=== PATIENT | male | born 1965 | race Caucasian/White ===

== ENCOUNTER 2023-04-18 09:45 | Outpatient (OUT) | payer MEDICARE, SELFPAY ==
[2023-04-18 10:33] LABS: Estimated Average Glucose 154 mg/dL
== END 2023-04-18 09:46 | disposition home or self-care (01) ==
PROVIDERS: PCP Family Medicine; Visit Provider Family Medicine
DX: E11.65 Type 2 diabetes mellitus with hyperglycemia (principal)
CPT/HCPCS: 36415; 83036

== ENCOUNTER 2023-05-21 12:59 | Outpatient (OUT) | payer MEDICARE, SELFPAY ==
--- NOTE | 2023-05-21 13:07 | XR_ITS ---
The [address] [address] Patient Name: ELÍAS SANCHEZ MRN: [id number] date: 1965 Sex: M Assigned Patient Location: RAD Current Patient Location: RAD Accession/Order Number: [id number] Exam Date: 05/21/2023 13:10 Report Date: 05/21/2023 13:26 At the request of: SHAIKH JAQUELINE Procedure: XR chest 2V EXAM: XR chest 2V HISTORY: Chronic Cough R05.3 COMPARISON: 01/14/2021 TECHNIQUE: Upright PA and lateral chest x-ray FINDINGS: There is a very small amount of linear atelectasis or scarring at the left lung base. No acute infiltrate, effusion or pneumothorax is identified. Flattening of the hemidiaphragms suggest COPD. The heart is not enlarged and the vasculature is not distended. There has been additional surgery with additional hardware now in place projecting over the lower cervical and upper thoracic spine. XR/XR chest 2V IMPRESSION: No acute infiltrate or evidence of cardiac decompensation. An element of COPD is suggested. A small amount of linear atelectasis or scarring is seen at the left lung base, and there has been interval surgery with hardware in place in the spine. The overall appearance of the chest is otherwise unchanged. Electronically authenticated by: CHRIS CRAIG Date: 05/21/2023 13:26
== END 2023-05-21 13:00 | disposition home or self-care (01) ==
LOC: RAD 13:02
PROVIDERS: PCP Family Medicine; Visit Provider Internal Medicine
DX: R05.3 Chronic cough (principal)
CPT/HCPCS: 71046

== ENCOUNTER 2023-06-10 13:06 | Outpatient (OUT) | payer MEDICARE, SELFPAY ==
[2023-06-10 13:19] LABS: Hemoglobin 15.8 g/dL (14.0-18.0)
--- NOTE | 2023-06-10 14:12 | RT_ITS ---
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 Findings were considered accurate and reproducible, with exception of DLCO which did not meet ATS standards. Both pre- and post-bronchodilator values utilized for spirometry. Spirometry (based on pre-bronchodilator values): -FEV1/FVC: Reduced @ 66% -FEV1: Moderately reduced @ 60% -FVC: Normal @ 70% -There is no significant bronchodilator response. Lung volumes by plethysmography: -RV: Increased @ 155% -TLC: Normal @ 95% Diffusion capacity: -DLCO: Mild-moderate reduction @ 66 when corrected for Hb 15.8g/dL Flow-volume loop: -Moderate obstructive pattern Impressions: -Spirometry suggests moderate obstruction. An elevated RV suggests air trapping. There is a utnh-je-tvgtrezmet reduced diffusion capacity. 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 Clinical correlation required. Electronically Signed On 06-12-2023 13:23:19 EST by Sam Schmid
[2023-06-10 14:13] VITALS: PULSE 65; O2SAT 95
[2023-06-10] MEDS: ALBUTEROL SULFATE 2.5 MG/3 ML VIAL NEB IH (14:13)
== END 2023-06-10 13:07 | disposition home or self-care (01) ==
LOC: CARD 13:07
PROVIDERS: PCP Family Medicine; Visit Provider Internal Medicine
DX: R05.3 Chronic cough (principal)
CPT/HCPCS: 36415; 85018; 94060; 94726; 94729

== ENCOUNTER 2023-10-07 16:06 | Emergency (ER) | payer MEDICARE, SELFPAY ==
[2023-10-07] VITALS (14 sets, daily range): BP systolic 104–111; BP diastolic 65–73; PULSE 69–81; TEMP 36.7–36.8; O2SAT 89–95; BMI 28.9
--- NOTE | 2023-10-07 16:18 | XR_ITS ---
The [address] [address] Patient Name: ELÍAS SANCHEZ MRN: [id number] date: 1965 Sex: M Assigned Patient Location: ER Current Patient Location: ED.MAIN Accession/Order Number: [id number] Exam Date: 10/07/2023 16:42 Report Date: 10/07/2023 17:06 At the request of: GLADYS SCOTT Procedure: XR chest 1V EXAM: XR chest 1V HISTORY: SOB COMPARISON: 05/21/2023. TECHNIQUE: Single view of the chest FINDINGS: Heart size normal. No focal consolidation, pleural effusion, pulmonary congestion or pneumothorax. External leads. Cervical fusion hardware. XR/XR chest 1V IMPRESSION: No acute findings. Electronically authenticated by: MATILDA OLIVA Date: 10/07/2023 17:06
--- NOTE | 2023-10-07 16:18 | ECG_ITS ---
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
--- NOTE | 2023-10-07 16:21 | ED.SOB1 ---
HPI - SOB/Dyspnea General Chief Complaint: Shortness of Breath/Dyspnea Stated Complaint: URTI, Hx COPD, Low Oxygen Time Seen by Provider: 10/07/23 16:14 Source: patient Mode of arrival: walk-in Limitations: no limitations History of Present Illness HPI Narrative: 58-year-old male presents to the emergency department for a chief complaint of difficulty breathing. He has been feeling this way for few weeks and has been coughing up some phlegm. No documented fever at home. He has been using his inhaler but he does not feel like it works. No hemoptysis or vomiting. Related Data Previous Rx's ?Medication ?Instructions ?Recorded azithromycin 250 mg tablet See Rx Instructions PO .COMPLEX #6 10/07/23 (Zithromax Z-Dandre) tabs prednisone 10 mg tablet See Rx Instructions .Route 10/07/23 .COMPLEX #30 tabs Allergies Allergy/AdvReac Type Severity Reaction Status Date / Time No Known Drug Allergies Allergy Verified 10/07/23 16:10 Review of Systems ROS Narrative A ten point review of systems is negative except as noted above. Exam Narrative Exam Narrative: Nurses note and vital signs reviewed and patient is not hypoxic. General: The patient appears well and in no apparent distress. Patient is resting comfortably on cart. He is speaking in full sentences Skin: Warm, dry, no pallor noted. There is no rash noted. Head: Normocephalic, atraumatic Eye: Normal conjunctiva, no drainage Ears, Nose, Mouth, and Throat: oral mucosa is moist. Nares patent. Cardiovascular: Regular Rate and Rhythm Respiratory: Bilateral rhonchi present Back: non-tender GI: Soft and nontender Musculoskeletal: The patient has no evidence of calf tenderness, no pitting edema, symmetrical pulses noted bilaterally Neurological: A&O, normal speech Psychiatric: Cooperative Constitutional Vital Signs, click to edit/add: Last Vital Signs Temp 98.0 F 10/07/23 16:10 Pulse 69 10/07/23 16:10 Resp 24 H 10/07/23 16:10 BP 111/73 10/07/23 16:10 Pulse Ox 89 L 10/07/23 16:10 O2 Del Method Room Air 10/07/23 16:10 Course Vital Signs Vital signs: Vital Signs Temperature 98.0 F 10/07/23 16:10 Pulse Rate 69 10/07/23 16:10 Respiratory Rate 24 H 10/07/23 16:10 Blood Pressure 111/73 10/07/23 16:10 Pulse Oximetry 89 L 10/07/23 16:10 Oxygen Delivery Method Room Air 10/07/23 16:10 Temperature 98.0 F 10/07/23 16:10 Pulse Rate 69 10/07/23 16:10 Respiratory Rate 24 H 10/07/23 16:10 Blood Pressure 111/73 10/07/23 16:10 Pulse Oximetry 89 L 10/07/23 16:10 Oxygen Delivery Method Room Air 10/07/23 16:10 MDM - SOB/Dyspnea MDM Narrative Medical decision making narrative: COVID, influenza, and chest x-ray are all negative. He feels better and is able to be discharged home. He was given the option of being admitted but does not feel that he needs it. He will be discharged home on prednisone and Zithromax and he was given a spacer for his inhaler as well. Treatment diagnosis and follow-up were discussed with the patient. Differential Diagnosis Differential diagnosis: Likely acute exacerbation of chronic obstructive airways disease, congestive heart failure, community acquired pneumonia and other (COVID, influenza) Lab Data Attestation: I reviewed the patient's lab results. Labs: Lab Results 10/07/23 10/07/23 Range/Units 16:23 16:40 WBC 9.4 (4.0-11.0) 10^3/uL RBC 5.03 (4.70-6.10) 10^6/uL Hgb 16.0 (14.0-18.0) g/dL Hct 48.9 (42.0-54.0) % MCV 97.2 H (80.0-94.0) fL MCH 31.8 (25.9-34.0) pg MCHC 32.7 (29.9-35.2) g/dL RDW 13.0 (11.0-15.0) % Plt Count 186 (150-450) 10^3/uL MPV 9.7 (9.5-13.5) fL Neut % (Auto) 61.0 (43.0-75.0) % Lymph % (Auto) 26.3 (20.5-60.0) % [place] % (Auto) 10.0 (1.7-12.0) % Eos % (Auto) 2.2 (0.9-7.0) % Baso % (Auto) 0.3 (0.2-2.0) % Neut # (Auto) 5.7 (1.4-6.5) 10^3/uL Lymph # (Auto) 2.5 (1.2-3.8) 10^3/uL [place] # (Auto) 0.9 H (0.3-0.8) 10^3/uL Eos # (Auto) 0.2 (0.0-0.7) 10^3/uL Baso # (Auto) 0.0 (0.0-0.1) 10^3/uL Abs Immat Gran (auto) 0.02 (0.00-0.03) 10^3/uL Imm/Tot Granulo (auto) 0.2 (0.0-0.5) % Sodium 141 (136-145) mmol/L Potassium 4.3 (3.5-5.1) mmol/L Chloride 102 (98-107) mmol/L Carbon Dioxide 29.3 (21.0-32.0) mmol/L Anion Gap 14.0 BUN 16.0 (7.0-18.0) mg/dL Creatinine 1.24 (0.70-1.30) mg/dL Est GFR ( Amer) >60 (>=60) Est GFR (Non-Af Amer) 60 (>=60) BUN/Creatinine Ratio 12.9 Glucose 225 H (74-106) mg/dL Calcium 9.2 (8.5-10.1) mg/dL Influenza Type A Ag Negative Influenza Type B Ag Negative SARS-CoV-2 Ag (CV2AG) Negative (NEGATIVE) Imaging Data Chest x-ray: Radiologist's impression: ITS Impressions Chest X-Ray 10/07/23 16:18 IMPRESSION: No acute findings. Electronically authenticated by: MATILDA OLIVA Date: 10/07/2023 17:06 ECG Data Attestation: I personally reviewed and interpreted this ECG as follows: (EKG on my interpretation shows normal sinus rhythm with a rate of 69 and no acute changes) Critical Care Time Critical Care Time Critical Care Time: Yes Total Critical Care Time: 35 Attestation: Due to the high probability of sudden and clinically significant deterioration in the patient's condition he/she required the highest level of my preparedness to intervene urgently I provided critical care time including documentation time, medication orders and management, reevaluation, vital sign assessment, ordering and reviewing of lab tests, ordering and reviewing of x-ray studies, and admission orders. Aggregate critical care time is 35 minutes including only time during which I was engaged in work directly related to his/her care and did not include time spent treating other patients simultaneously. Discharge Plan Discharge Stand Alone Forms: Portal Instructions Chief Complaint: Shortness of Breath/Dyspnea Clinical Impression: Acute exacerbation of chronic obstructive pulmonary disease Patient Disposition: Home, Self-Care Time of Disposition Decision: 17:47 Condition: Good Mode of Transportation: Private Vehicle Prescriptions / Home Meds: New prednisone 10 mg tablet See Rx Instructions .ROUTE .COMPLEX Qty: 30 0RF Rx Instructions: 4 by mouth daily for three days then 3 by mouth daily for three days then 2 by mouth daily for three days then 1 by mouth daily for three days azithromycin [Zithromax Z-Dandre] 250 mg tablet See Rx Instructions .ROUTE .COMPLEX Qty: 6 0RF Rx Instructions: For 250 mg dose pack: take 500 mg today (day 1), then 250 mg for 4 days (days 2-5) Print Language: Tuvaluan Instructions: COPD (Chronic Obstructive Pulmonary Disease) (ED) Referrals: Silvio Ott MD [Primary Care Provider] - 1 week
[2023-10-07] MEDS: ALBUTEROL SULFATE 2.5 MG/3 ML VIAL NEB IH (16:31)
[2023-10-07 16:49] LABS: Basophils Percent Auto 0.3 % (0.2-2.0); Eosinophils Absolute Auto 0.2 10^3/uL (0.0-0.7); Eosinophils Percent Auto 2.2 % (0.9-7.0); Hematocrit 48.9 % (42.0-54.0); Immature Granulocytes Abs Auto 0.02 10^3/uL (0.00-0.03); Immature Granulocytes Pct Auto 0.2 % (0.0-0.5); Lymphocytes Absolute Auto 2.5 10^3/uL (1.2-3.8); Lymphocytes Percent Auto 26.3 % (20.5-60.0); Mean Corpuscular HGB Conc 32.7 g/dL (29.9-35.2); Mean Corpuscular Hemoglobin 31.8 pg (25.9-34.0); Mean Corpuscular Volume 97.2 fL (80.0-94.0); Mean Platelet Volume 9.7 fL (9.5-13.5); Monocytes Absolute Auto 0.9 10^3/uL (0.3-0.8); Neutrophils Absolute Auto 5.7 10^3/uL (1.4-6.5); Platelet Count 186 10^3/uL (150-450); Red Blood Count 5.03 10^6/uL (4.70-6.10); White Blood Count 9.4 10^3/uL (4.0-11.0)
[2023-10-07] MEDS: METHYLPREDNISOLONE SOD SUCC PF 125 MG/2 ML VIAL IVP (16:57)
[2023-10-07] MEDS: KETOROLAC TROMETHAMINE 30 MG/ML VIAL IVP (16:57)
[2023-10-07 17:06] LABS: Influenza Virus A Antigen Negative; Influenza Virus B Antigen Negative; Internal Control Within Normal Limits; SARS-CoV-2 Ag NEGATIVE (NEGATIVE)
[2023-10-07 17:08] LABS: BUN Creatinine Ratio 12.9; Calcium 9.2 mg/dL (8.5-10.1); Carbon Dioxide 29.3 mmol/L (21.0-32.0); Chloride 102 mmol/L (98-107); Estimated GFR (African America >60 (>=60); Estimated GFR (Non-African Ame 60 (>=60); Glucose 225 mg/dL (74-106); Potassium 4.3 mmol/L (3.5-5.1); Sodium 141 mmol/L (136-145)
== END 2023-10-07 17:57 | disposition home or self-care (01) ==
PROVIDERS: Emergency Provider Emergency Medicine; PCP Family Medicine
DX: J44.1 Chronic obstructive pulmonary disease with (acute) exacerbation (principal); Z20.822 Contact with and (suspected) exposure to COVID-19
CPT/HCPCS: 36415; 71045; 80048; 85025; 87804; 87811; 93005; 94640; 96374; 96375; 99285; J2919

== ENCOUNTER 2023-10-23 12:13 | Emergency (ER) | payer OTHER, MEDICARE, SELFPAY ==
[2023-10-23 12:14] VITALS: BP 127/80; PULSE 73; TEMP 36.8; O2SAT 92; BMI 28.9
[2023-10-23 12:33] VITALS: O2SAT 88
[2023-10-23 12:34] VITALS: O2SAT 96
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
[2023-10-23] MEDS: KETOROLAC TROMETHAMINE 30 MG/ML VIAL IVP (13:42)
== END 2023-10-23 14:30 | disposition home or self-care (01) ==
PROVIDERS: Emergency Provider Emergency Medicine; PCP Family Medicine
DX: M54.2 Cervicalgia (principal); S20.211A Contusion of right front wall of thorax, initial encounter; V43.52XA Car driver injured in collision with other type car in traffic accident, initial encounter
CPT/HCPCS: 70450; 72125; 72170; 73000; 96374; 99284

== ENCOUNTER 2023-11-27 16:19 | Emergency (ER) | payer MEDICARE, SELFPAY ==
[2023-11-27 16:26] VITALS: BP 140/84; PULSE 84; TEMP 37; O2SAT 92; BMI 29.6
--- OUTSIDE RECORDS SUMMARY | 2023-11-27 16:31 | XMS_ITS | CCD ---
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 with prolonged use. An opioid overdose, often marked by slowed breathing, can cause sudden . The use of prescription opioids can have a number of side effects as well, even when taken as directed: ? Tolerance?meaning you might need to take more of the medication for the same pain relief ? Physical dependence?meaning you have symptoms of withdrawal when a medication is stopped ? Increased sensitivity to pain ? Constipation ? Nausea, vomiting, and dry mouth ? Sleepiness and dizziness ? Confusion ? Depression ? Low levels of testosterone that can result in lower sex drive, energy, and strength ? Itching and sweating RISKS ARE GREATER WITH: ? History of drug misuse, substance use disorder, or overdose ? Mental health conditions (such as depression or anxiety) ? Sleep apnea ? Older age (65 years and older) ? Avoid alcohol while taking prescription opioids. Also, unless specifically advised by your health care provider, medications to avoid include: ? Benzodiazepines (such as Xanax or Valium) ? Muscle relaxants (such as Soma or Flexeril) ? Hypnotics (such as Ambien or Lunesta) ? Other prescription opioids KNOW YOUR OPTIONS Talk to your health care provider about ways to manage your pain that don?t involve prescription opioids. Some of these options may actually work better and have fewer risks and side effects. Options may include: ? Pain relievers such as acetaminophen, ibuprofen, and naproxen ? Some medication that are also used for depression or seizures ? Physical therapy and exercise ? Cognitive behavioral therapy, a psychological, goal-directed approach, in which patients learn how to modify physical, behavioral, and emotional triggers of pain and stress. IF YOU ARE PRESCRIBED OPIOIDS FOR PAIN: ? Never take opioids in greater amounts or more often than prescribed. ? Follow up with your primary health care provider. o Work together to create a plan on how to manage your pain. o Talk about ways to help manage your pain that don?t involve prescription opioids. o Talk about any and all concerns and side effects. ? Help prevent misuse and abuse o Never sell or share prescription opioids. o Never use another person?s prescription opioids. ? Store prescription opioids in a secure place and out of reach of others (this may include visitors, children, friends, and family). ? Safely dispose of unused prescription opioids: Find your community drug take-back program or your pharmacy mail-back program, or flush them down the toilet, following guidance from the Food and Drug Administration (www.fda.gov/Drugs/R esourcesForYou). ? Visit www.cdc.gov/drugover dose to learn about the risks of opioids abuse and overdose. ? If you believe you may be struggling with addiction, tell your health healthcare or medical and ask for guidance or call [facility] National (more content not included)... Normal [facility] EMS Documentationon 09-02-19 23 EMS Documentation Please click on link to see report pdfCD:[id number] xLjQNCiX5+prnDQolQUJ WaVBnAFPvVxT1CDavHwA fPW8tvu5KCWsXB2BbEOK 6YEr9Wv1H OXgcIkb1APNaLf4RN4hv WoZaRKK3Wr9WjP3tSGJc hmTrPNXXM26rSHofFvKe HVdeSGFpEMM7ULQE Tb9sJPEyPHUyQABrDLIc ICAgICAgICAgICAgICAg ICAgICAgICAgICAgICAg ICAgICAgICAgICAg ICAgICAgICAgICAgICAg ICAgICAgDQplbmRvYmoN Ws6FbHYgUf2GXaJwKzMQ CjAwMDAwMDAwMzIg QGXzGELmgx3UJWRlIRTd NIR9CRXtRBDhVBCcYQro DAIzICMyJin9ZPJnIXZw AX7KOlHoUJNcGRG9 XHvaBDYyMAAuqq4BCJVi PWHgUrB5YeJjWLGfCXEh PQwgJTPpVAOvRxF7BIMz AOClFK4XMsPzQBKy URDhGAugCEKdDQOndv0K MDAwMDAwMjQzMyAwMDAw MCBuDQowMDAwMDAyNTE3 IFJkTBIyYM6BHxAp DTBfHPF4GkGrVFKaFRJo oz1OKKRoQVEsXspkDmXe MDAwMCBuDQowMDAwMDAz LJsnTVMkZSCtWI1A CbNcHATwAVT2MYngJXWq OWRadu5ACDRoSKXbRctk MyAwMDAwMCBuDQowMDAw PRTePNP3EGCdEVSb MK4SJtWfNJAiZANwBAxt USKsNZEdbu9KMNMzBFFc ZSY6FiScYCRhLIFhXKqn TIGyVPL7KnF0UGMq ZGUsQH4OOiNsTVIjLEV4 ZLQnHXBsJBHksx6BDAMn KRJtSBU7AADlMGDkSZGn TBvoJGViGKN0EmK8 UCLcGNRtFZ3PEeTuWPVy UPH5LbRdIRGgGSNoyc0I OBQxIXPaEmO0YCOjIRCq MCBuDQowMDAwMDA2 IpVlEOMhAFJeGV4TQvUm DIZyTTL0SuHcASSpVFMo rp2CNFTeMWSrBrq9GIDh MDAwMCBuDQowMDAw URCwXcP5EEHiABOqWR6M BxSjCYUfUDV8OBfcJLZm IJHvub5PYMDwORL7BQy7 NSAwMDAwMCBuDQow MDAwMTEzNDgzIDAwMDAw HX9XHcHrYUarAHQLBtl7 Lu0TBBJkPBT1JhJCCDUT EFP3JHLPXaGWRAYy DuXOCFL5KTP2NXR3Opu4 PSC5PIE6PPOmXZL7QWGL H6UOS9GVXsQyELCMUVFG NjY+XQovUHJldiAy JDB6VRBSG2Glg6FgFoxm TXFDVu8GpDnoYGX9Nm9I k6IyQ3ToFDblKmgZrV5V ZATGFNE1VO5gkCOn GDphz3UBQlJICb56T5J0 nVLyL2kFGexndwL4b7AF ER0AHY5cIzX8NkeNMcEW ZIlsS984RkBWRm00 JJzmBBF3Z1kGQzKQazAr T5bWSBKvYDOVJC1AXUm5 HvPiFbqmSW65RPoDJXJO V1ZESaUXMJYLNDFS AXFlvFFkSljfR7UtMZzB Rt7cIEUnYPOfGLTwFRPp ICAgICAgICAgICAgICAg ICAgICAgICAgICAg ICAgICAgICAgICAgICAg ICAgICAgICAgICAgICAg ICAgICAgICAgICAgICAg ICAgICAgICAgICAg ICAgICAgICAgICAgICAg ICAgICAgICAgICAgICAg ICAgICAgICAgICAgICAg ICAgICAgICAgICAg ICAgICAgICAgICAgICAg ICAgICAgICAgICAgICAg ICAgICAgICAgICAgICAg ICAgICAgICAgICAg ICAgICAgICAgICAgICAg ICAgICAgICAgICAgICAg ICAgICAgICAgICAgICAg ICAgICAgICAgICAg ICAgICAgICAgICAgICAg ICAgICAgICAgICAgICAg ICAgICAgICAgICAgICAg ICAgICAgICAgICAg ICAgICAgICAgICAgICAg ICAgICAgICAgICAgICAg ICAgICAgICAgICAgICAg ICAgICAgICAgICAg ICAgICAgICAgICAgICAg ICAgICAgICAgICAgICAg ICAgICAgICAgICAgICAN NuH1LNX1dYElSj2T HG7RERKVZ9RAPi7MQdle PHMdNbiPYky0Jr0ALXTo RMW7SMEbKIErXPLME09t MB4MS8Qza80xMnG9 LLHqShknPki3DH0YI648 dGxpbmVzIDIzIDAgUgov SAMbGN0gKPHqZ7IeCA3l ozDEH5UaH8TeGDQ2 PQGtJbdaCMysKDKdT4B3 YWxvZwo+Ea4QEN3fr7Ln BYrDZkS6HOVnw8QiKTb0 ULzdCvcdsHTmVM7J dUD5ZUTbV04fQWluIYLp W6CrPHBlKTnlPwBoJNTL Sb2AJrE8dwRivN9UhRfe EYNuDVWdj48dYKDa QcOrdCFDTCL6WAUTL1gc uDD91QsxYQQ+T1LRsHfu KPXR3rWMiLINvgtXmF3C sTpUEYguAuKTQHyN yHKWI9abIkPMDV4E3KrG 9ENzWd8By4T5TYFqZEBf OsIfP7PDe1xCLp7CH6LK QMqXmUKEurJu6W3H XJT7LkfXEmNlLDI8vlBm vR7AOX2vn4OeUKuUFpK6 LEBoy1XfCPk6RXdlF05w dGVudHMgWzUwIDAg Vy4ON96bNIswKo29MOgv TBKbCpRmODb0Ys4QZ7Kd ruNskKSpKFDeIBEVM1Wy j841tgBexqE3QVcc RQ3hzmQfrIN5SBmmNNGr YzYgMzAgMCBSCj4+Cj4+ Yc3VcSWnPT9QLHjmXn0+ KAikyzAxSnjTUc9N QuWaXGSoTgdPOdp5Zs5C Qy52MCiiTPVbPiUgXUu1 Qr9HE0UinGIzuzEyIern bAAGHSCmRZLFE6wb vvt7hAY1JsnuBiMco7Dl I2JvVLf7Zh6OU6BqNOA6 USr3Qk3WKCElUuB2DVHn IGWJPf2AEe9QB0T6 FzQ6wOCsU7Mpce3VP8T9 uWLnX4xCMyoxL9ZBXc7Z CgR1xmIebZ2AzGlnwlXw KuTlMjRQMFUwtTRS OCspGjrG9pNPH1wj7CES s5DyCwWEMVCFGWbc9JgK wNM3x1yW6eOuNtdLdUQc fifXu9lJhJ4AS9qV 5C8KYM0ql9GgEIIqPLlc dbKwBhnGJj2BPdOlFCZh RovTWcu8Fg3YRTQsQg2o wXJgKu1PFHZmWi5Y AsEnJc0KTnDfRq7HTtPf Nx3SQDH5Ez9VRDS0weKg Gl6qWKWeNc4+DQplbmRv BzbOKe0MKeTgSKVj ReuTDbx5Aw9RUUSqAf9k iLZbTg3cSYGtAe1+DQpl bpAiGmbCMc1EKxJdRRBf AteDIrf4Bx7YGKVs Ek9jhUZqBn7JPKPrVp9I ZcYnFd2HAtUxEk8YLqAs Cs0ZWPH9Qc4QHMD6qcFl Oz0cDWGvJl1+DQpl ryTkXhjNSs5VNmJsFAMx NkhEQcb0Js0SXTMvJn4e yDGmZKQMV6wWO5KfsKHg ZSLTPViUZh1So6xu QDIQS8Ygi7SgcxCjqlTA s067qoUwVhBbIJFZZXed CP1mv1JzxyhbJ7pyKS92 aEW2DEuMP0Y4PhX6 xNYmL4V3nCEmBc3Mf5Ti mQSoNLNsTzwdNIMCWo7R mVRaRK2Qs392Uo7+DQpl stQoUeqNFh9JGlDl FKKgTitBCsf5Af1SCWHs Pv4ceJFuCLMKY4sAT8Jt wBZiUOQHUThCXx6Jl5sv ZGCUF6CSAZK5y2Bx bTleBt9qMMmSI71hYWOe yW0jBXiRQQYfeAw8zYzA Z1SiG1mohFP6PJaLHU7g GVoCW3X9oYHoQB9t bnQgMAo+FmzyT1hFQJ4H LXHSWHWjQ9guJS26jFW0 Az5KOqAjKa1Dw252KSQk D1CgiWFgsvCrEvMr GOGIQ8P9LoX9cZIeW9AZ REZvbnRUeXBlMgovVHlw TFDuTt4uuIrgEeNsGGQ3 XoM1NPFrPFh7KsFc Cj4+COajbkKeBnzWRy7P WgNtNSRvQrcDRls4Lx4T l1DhfaBtWCJzNrKwCLSi Vt0FVSLQKHrtpEGc EYqyKlq2Gbr7Nq8QOSWb OB49IYLpHP2fAKY8Hgcv BeftZ5SpMtUCK8FbtpWD Hv28PZxwUDuaOqd6 AZWmSE95YGTlTBF0CiKu SdKiZmL1TBL4MZFvPqNk EYxdJFFwHz6Kh791Axlv DQBoNXTcTMOORu7C d500JzHtXDWxVKAEF6pB J2NsuDKqJSXJIShPId7G b9vxWGNLK5d4HXukY2Dl Y9kfVTYAK4M8GY0V WKe0LgU1UBo4Kd5IoZIg WH8Dg018ZEZfF5TukIAa cgo+Pg3CAV6rm0RnEUuI NlI0EXBul0PeQTi9 WFfbIldrzIPeST4VlHN4 BZOjR53iSWvpLEYrJ9Pq YUD3Llp+Ry8Dr8ApDBDy PRn2lF0Zb9aAUBU9 2lh1fO2E20vObsD5EYit t7n0AFpbr4UsJgPw8S4V 8hREdCZsMwrvNybumoe6 RnuIPtwoW/TQa6Mc XvKAYYXoFrUWDErCO46u wmGKJRUGupgLStdC9MWu A2IlI5Oh53wT0TM6cosZ zBjJRltMpM36G7C5 tfYHBzQeYlFVoLAPSa+d srdAxAio53qXmiqeJbog iq/ZIqSEE+9Iubiy42y9 wwewXZLmXhfN0VTB ligDi3l89eQ152ltZFBv f8XUnYyzE3VylXPNIy6F jxk4W15DSQ1w80cYbmGG wje5LVoECI9ptweT K3bWhENF9heHqJuLDYH7 uHKg45xHyK5i0hesSMMH HhBqpgn9YmGX06ERHtWQ To2Ib3FnIRh0YuKG owDSAjZfFTV7eaQykN9B TW4vd7QzDBsRPwP7ZZGv n1ScJRx4ZLhz (more content not included)... Normal [facility] EMS Documentation Please click on link to see report pdfCD:[id number] xLjQNCiX5+prnDQolQUJ FuOAlZGAaXuZaFNt9GeW nMC5cdd4YJLmQF8RqMEi eEQCGD5tj VmS6VeQkRFs5QXhlBNUk ZdE9XTVDY7yijrYvuus6 JBDtGFmdEnL4Cs9PZHe9 Ez5FAAE5JNB1Pls+ PiAgICAgICAgICAgICAg ICAgICAgICAgICAgICAg ICAgICAgICAgICAgICAg ICAgICAgICAgICAg ICAgICAgICAgICAgICAg ICAgICAgDQplbmRvYmoN Bh8YqPGoYe3YBbPcBKhL CjAwMDAwMDAwMzIg EJOjGBFzwn8LVOTdCIQp TDF1BXUwAYOkJTTvZIzt JWAcWNPoPUT9GCGlCJZd WT8OEdGgKDDfZOP9 SeUnALRaPCOfkj6OSCQo PPVjDPf6OGUdFYCjADEw DSnzKJUkMTIgNWr6MFDl CMRpXK2EWmIoTAPy XAMzERYdGHMcOSLthr1X DJKoBJWcEwT1EbGbDWVa MCBuDQowMDAwMDAyNDI5 USUiQGYqAI0YQfWd VYRjPJP6XSGmMHWkXDUp hy4OZUVjXVYsDfshOxBm MDAwMCBuDQowMDAwMDAy TMZ6AEToKSLcHU5J UdAnRKUuXAC1PzdsQOPm YMYvih0JFNNfFMLhXfQ6 MCAwMDAwMCBuDQowMDAw KVTgMnx7ICRxGVWs XF8SDlChEZDmNyhkGWrl RYMsXMFlej0PYXQiMMM2 MzYzNyAwMDAwMCBuDQp0 glJatGZbPLu6OQgo IUZfFbejXLJ3XAI8VNDP KtWeZWRBTREeMPA5TrL7 AikjDPZGWy6RYNPDGbsC GOBYYnR8KOZPIdH0 Y5H2N1Y4CaCkDPx1Paqr Vu8UU2OvLLPoWksfNPqm Uy9Re654BPc0RUQnSfiw J0a3OTC9SkqkJ171 cmNlIChXZUpYRnhOTzRm YiO8lKVIENVAP2O6C60h I44uVE2GYGypO9M2RFbg M8K7AgWNH7JEGDOl QMUwaUk4DHygSYx7Onsp dFmqNNW8Q0SszDT2J1yz p59rHPOSFZsLz1naKIF9 O05KVaeTCdgBszRS J5d3kLFZI4LmM3QbG6AI RFcPLLUiXPMmLb2JNUfS UXvfdwbOPb4lOf3+ICAg ICAgICAgICAgICAg ICAgICAgICAgICAgICAg ICAgICAgICAgICAgICAg ICAgICAgICAgICAgICAg ICAgICAgICAgICAg ICAgICAgICAgICAgICAg ICAgICAgICAgICAgICAg ICAgICAgICAgICAgICAg ICAgICAgICAgICAg ICAgICAgICAgICAgICAg ICAgICAgICAgICAgICAg ICAgICAgICAgICAgICAg ICAgICAgICAgICAg ICAgICAgICAgICAgICAg ICAgICAgICAgICAgICAg ICAgICAgICAgICAgICAg ICAgICAgICAgICAg ICAgICAgICAgICAgICAg ICAgICAgICAgICAgICAg ICAgICAgICAgICAgICAg ICAgICAgICAgICAg ICAgICAgICAgICAgICAg ICAgICAgICAgICAgICAg ICAgICAgICAgICAgICAg ICAgICAgICAgICAg ICAgICAgICAgICAgICAg ICAgICAgICAgICAgICAg ICAgICAgICAgICAgICAg ICAgICAgICAgICAg ICAgICAgICAgICAgDQpz dGFydHhyZWYNCjANCiUl LZ3WYQzZDdh2XSWgh6Cu HVq7RAosZVU5VVUg bRKwXvXdRACPQp1DtTIo GGR0jB3zZZp8FTTiQQIH H9QqdF9PC556eDbameOd IDczIDAgUgovUGFn WM4pITZoZ5ArOL7awxAM S9OlK3QlJSa4PQYjDdol MTxiWOLjS6T4WZkoSxk+ Os8XXF5ng1FbIVpQ Ify5ICRgq8BhVNk7ABqp OwawpSRhXJ0GuLI3UBGr K76qVWizKSYdR4EmWWCr XeozYpHkPDqCLe8K RjQ1rbUbzI9AaQmbEPGw K7UialUfqFIpWzfmNFEP UxjAahjYsGAgmCrJwJDF w6TA7WaTIm98W5Ci MwaGXkYGgoCQPtaJQIIP ihkYMsFumweVtABiDiC2 ayE9UTkNjBBYvzcEaFEz BgYHDSAtBDMRAJjx ZzgEIkOwXOH5yfRifS3Z PZ9ub2MlDYpMKxy9FYZq d9MmVHz3SVvtL12pmHHk dHMgWzgxIDAgUiA4 MiAwIFIgODMgMCBSIDg0 DNJjAbh6JFLxNHDjQAYi MHJBBPb4QHNdLjK4XVWc CCQkKe3SPPVxGOEg lHPzLBTzYJRuHdV3PBMv Bz0NYVDkobQaSsUbFDDH Rj4KLASwqSWiEBGeKIdR S6QztrYqDBiGR9Rc SxU0VSamHTYlZys+Pgov LL5hqrGenEO8WQcrWUQa YzExIDkwIDAgUgovSWFi DpA7APtsLNCcCmwk HWGuLaO1ISecTDAcDvao SWFiYzcgODkgMCBSCj4+ Cj4+Yl2VpCPxWY6LEUwq Cj4+DQplbmRvYmoN Sh9AUVInMVDpQauBKls6 Mu2CPDKgDq7lbGGnRLlt ALZiKg4rTC4PE3DdG87k hM4xES9ZdR3IheJz HU5ga9GoahvJT4P0YdK3 xQRyP9V4tJFdAp3FiHIn AF2Pe292Xk7+DQplbmRv UtsYBk0NCWEdAMRl DzbQHrq8Dx3VXX1crLvs MTAxCj4+DNtmyEPlNV5U CnENCkJUDQowIDAgMCBy Qo1BT7XqEaE7ENUr IFRmDQoxIDAgMCAxIDIw YQh5Qb8qNGFhTLnoELmp KOLjDGL9RKdvnxOaJ5We pCVnCGKwNCRvB1Bf I48fQIIwMOCTTGoJME0K NX6FXVgaioMloRRqOF2Z BhXwGO5mez6MFPo3IuKu NF1cfh9RSVxMR3lz ocn4mWN5NHg+Vq6Qd4Re YZRgNKwXFR1EoP3VDIRe IDAgMCAxNjUgMjAgNTY5 LjMzMzMzIGNtDQov YIHmRiaxWA1LRxDOYpQP NRrNRwCpBWP6ehBjoC3K PN7dr1YiSZeCCfgrYHRt s6TuTCz6HQptKSGl A6OfKZYdKpk+Xt6Cp4Ig DXDlSQhsFTaFTV3EHQCn BSRshhhDJi1AVSOtDFGa LCREXh8WBNAmPDNu DPVzEHY1XLQaYAIvJyDa WD9OYradILECwqjyOEMz XFWhhL6FlBXniC0kEHMa VAKoB3RnIj4wNYYs VXWCCNyGAQ7SWE9MBOjj zuPfbAYfVJ1EZrGdGP9c pk6EJXn0BFLkFU2psc4M ZGqNA6etegx0fWN0 Zenon+Ty5Tv2PuTRYdSBqI LC7DkU2IKFNbRHOrQOW3 UmJzUAM0ETwbBjB6Ucwo M74RLx3XHOVnSYKo XG5BZbCKRrYGKWaKRlJt VUT5zgCxsT7JFI0ma8Ba MQiRFhs3RZPso6FpMRq5 LRidVRLvE3JeUQSd NQo+Cp2Im4AqSSArMOow MZyLDC3ADVYvWQSygstV Jg1LHVOcDVGfWXFQAd9N MSAwIDAgMSAyMCA0 XMcwBOA9GcccSY5ASvhb GTFTyrowOGDiLCZvzG8U aCQkfR9uCWFzTPpcAIJz FnFtNS0rHOpGXoJN AGkVJEnJHcEqHVT8uvKn hO2UNU2no2QiLBtWGpz8 MWMpk2NnUTh1LWgjBNPf B3ZyDUI9Ux3+DQpz zGLkKZ2KQnIHVXieCLw8 ATXxROHnGKP5CGKhVJYy AXGbQ71SNx0ESDNfMFAn HI9UBdGHJnGQQNpY JuUfVJD2cfWtkH0JMG8u t9TlSZkCZsd1GGDth2Od CNl0UZcmROYnJ2TvYEHg Mgo+Nz0Cd5MyNLSh XTzoWVnYQO1NYSXqSPVk gulYIw9SLDWjHOZsHIFR Om5IHCJgSVJbREGcNDBj MUgbTwSUtA2CHsOw QSE9PNBoHSRbYQ45K2M3 klubLjUrFDAwQB9FzV6p IzUzJT9aEDfUZkSKENjJ MTrWLoKnFUC7cvFg aR8UUK7dz6LyDHpJRnn5 SZEff0HcJUa5OQvyHWAf I5MeFKS2Ik4+DQpzdHJl DV2OVxXUUFarYBf1 NTIgMCAwIDgzIDIwIDEy VG6vSdQdNwVzfE2CH3qc GnOjTFBYdx0IAB8AGZeJ Oz3YQS1ik6ZoZTGb OKqlltLlNerKZt7JMTye DUMbAdiUWwm2Tn8SrEVa QBPqR04lfI0lDP55JIoG P4JwsA4kT6MgG6Hy R9FpqkjtFYOJYanpRoax eAWfIS8RmKX7XUBaQ03p QKdiQPSzT9p8NBV0TNob IQDlL0XqVBQtQFI4 Nf9OdMM5nLSqGL7FiWLa PQivXTdfWEAgVQ3lthQr uDdlQ6wlvZkbDERkLe5+ WMazuQXiCX8GHntk 6C0PCBGNnaeF48/3PDPd /3e5O3523kFU8i3qS8kR LhRgolyuqqJWxl4HHLcJ C7UIHUHVJyPJQ4bF FNAPDFJyMGfGz9HkQCNG PZOSxw4z0a9X9p3Jt1Em 1VhWQVfF+6QSN0+cjMiI E+dkZkS+CXBwcHBw cHBwcHBwcHBwcHBwcHBw cHBwcHBwcHBwcHBwcHBw cHBwcHBwcHBwcHBwcHBw cHBwcHBwcHBIQVOT k0LaCk19SiydqsVzVjbK JKSrC/Gmjz845cktlhXS FlHc/Kz68q9icwvXFuWR ohuvz1jXG3lcivWf Aoq5gZBFru1ij3eKgon5 n4tsN4l/d4vwqTDaeJVN aJSfo8oamMcyMDIGgHs9 0j9QacV8iF5rlsIW 3Ms+GuW+u1bYU/vo1MzP ZFFlQXRgq6kaqvFwkEBC 5WgeipTMG1sm (more content not included)... Normal [facility] CNOVon 08-09-2022 CNOV Office Visit ([facility]NS[facility]) MICAH FORBES ([id number]) 1965 M Date Time Provider Department 08/09/22 9:20 AM ABDON PALACIOS [facility] During your visit today, we recorded the following information about you: Pulse Respiration Blood pressure Weight 89/minute 13/minute 121/69 88.5 kg Height 1.727 m Abdon Palacios MD 08/09/2022 11:28 AM Signed SPINE SURGERY ESTABLISHED This is an in-person visit. DATE OF SERVICE: 08/09/2022 DATE OF LAST VISIT: 09/07/2021 SUBJECTIVE: HPI:Micah Forbes is a 57 year old male presenting with spouse. 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 Did well post-operatively. Reports ongoing neck pain between the scapulae and popping sound when he moves his neck. Has been there since surgery. Also notes bulge to back of neck since surgery. These symptoms have not gotten worse or been progressive. Some residual bilateral hand numbness and gait difficulty, but no worsening neurological symptoms. AMBULATORY STATUS: Independent Community Distances ANTIPLATELET OR ANTICOAGULATION STATUS: No REVIEW OF SYSTEMS: GENERAL: No weight loss or malaise MUSCULOSKELETAL: Negative for joint pain, swelling or muscle pain NEURO: No history of headaches, syncope, paralysis, seizures or tremors MEDICATIONS: ALPRAZolam (XANAX) 1 mg tablet gabapentin (NEURONTIN) 800 mg tablet Take 1.5 tablets by mouth three times daily. lisinopril (ZESTRIL, PRINIVIL) 40 mg tablet Take 1 tablet by mouth once daily. metFORMIN (GLUCOPHAGE) 850 mg tablet Take 1 tablet by mouth twice daily with meals. methocarbamol (ROBAXIN) 750 mg tablet Take 1 tablet by mouth every 6 hours as needed (Muscle spasms). amLODIPine (NORVASC) 10 mg tablet Take 10 mg by mouth once daily. zolpidem (AMBIEN) 10 mg (Patient not taking: No sig reported) naratriptan (AMERGE) 2.5 mg tablet Take 1 tab at migraine onset. May repeat once in 2 hours if needed. Give max allowed per insurance. No more than 10 days per month. (Patient not taking: Reported on 08/09/2022) Patient Entered Questionnaires PROMIS Score Percentiles PROMIS Global Health Scale 07/15/2014 Mental Health Percentile 9 Percentiles provide an indication of how the patient's score ranks in relation to the general population. Higher percentile rankings indicate better function/quality of life. 50th percentile is the average of the general population and indicates half of respondents had a worse score. Depression Screening: PHQ-9 07/15/2014 Score 24 PHQ-9 Self-harm Question 07/15/2014 Thoughts that you would be better off , or of hurting yourself in some way 2 PHQ-9 Self-Harm (Item 9) response options: 0 Not at all 1 Several days 2 More than half the days 3 Nearly every day PHQ-9 Levels: 0-4 No to mild depression 5-9 Mild depression 10-14 Moderate depression 15-19 Moderately severe depression 20-27 Severe depression OBJECTIVE: PHYSICAL EXAM: BP 121/69 Pulse 89 Resp 13 Ht 5' 8 (1.73m) Wt 195 lb (88.5kg) SpO2 98% BMI 29.66 kg/(m2). 4+ power throughout UE and LE myotomes. No focal weakness. Reflexes 2+ biceps, brachioradialis, knee jerks. No Clark. Unsteady gait. +Romberg. Incision well healed. Prominence at distal half of incision, off to right. Feeling of prominent SP vs hardware. DATA REVIEW:Diagnostic tests reviewed for today's visit, films/specimens were personally reviewed by me: No outside records or outside imaging available No new imaging since Mar 2021. ASSESSMENT/PLAN No diagnosis found. Micah Forbes has a condition that requires further workup. Given the popping sound with neck rotation, we will obtain X-rays and a CT of the cervical spine for further evaluation to check the hardware. 1. Imaging: Cervical X-Ray and Cervical CT Without Contrast Postop recurring or worsening symptoms 2. Follow up: Following above Imaging Ordered: CT and X-rays cervical spine. I reviewed the information obtained and documented by the fellow. I examined the patient and evaluated all available films and pertinent documents. We discussed the case and I agree with the plans as outlined in this note. I spent a total of 30 minutes on the date of the service which included preparing to see the patient, [id number] patient care, completing clinical documentation, obtaining and/or reviewing separately obtained history, performing a medically appropriate examination, counseling and educating the patient/family/careg iver, ordering medications, tests, or procedures, independently interpreting results (not separately reported), and care coordination (not separately reported). SIGNATURE: Abdon Palacios MD PATIENT NAME: Micah Forbes DATE: August 09, 2022 TIME: 10:15 AM PAGER: Referring Provider: ABDON PALACIOS [[id number]] Allergies As of D (more content not included)... Normal [facility] No Panel Informationon 08-09 [facility] XR CERVICAL 4V AP/LAT/OBLon 08-09-2022 XR CERVICAL 4V AP/LAT/OBL * * *Final Report* * * DATE OF EXAM: Aug 09 2022 11:22AM [id number] - XR CERVICAL 4V AP/LAT/OBL / PROCEDURE REASON: Spinal stenosis of cervical region * * * * Physician Interpretation * * * * EXAMINATION: XR CERVICAL 4V AP/LAT/OBL CLINICAL HISTORY: Follow-up fusion TECHNIQUE: XR CERVICAL 4V AP/LAT/OBL with 4 views on 5 images MQ: [id number] COMPARISON: March 2021 RESULT: Counting Reference: Craniocervical junction on lateral view. Normal. Post-op assessment: Extensive anterior and posterior surgical changes again identified in the cervical spine with intact hardware and good alignment. There is no fracture identified. IMPRESSION: Satisfactory postsurgical changes of the cervicothoracic spine again noted. Anatomic Variant: None. Assume 7 cervical vertebrae with counting from the craniocervical junction. Mechanical Maintenance Supervisor: PSCB Transcribe Date/Time: Aug 09 2022 11:59A Dictated by : FRANSICO BECKETT MD This examination was interpreted and the report reviewed and electronically signed by: FRANSICO BECKETT MD on Aug 09 2022 12:01PM EST [id number] CN Normal [facility] CBC AUTO DIFFon 06-13-2022 BASO # 0.0 103/ul Normal 0.0-0.1 [facility] Comment on above: Performed By: #### C BC #### [facility] [address] [address] [address] Marce Tabares Basophils/100 WBC (Bld) 0.6 % Normal 0.2-2.0 [facility] Comment on above: Performed By: #### C BC #### [facility] [address] [address] [address] Marce Tabares EO # 0.3 103/ul Normal 0.0-0.7 [facility] Comment on above: Performed By: #### C BC #### [facility] [address] [place] [address] Dr. Marce Taabres Eosinophils/100 WBC (Bld) 4.5 % Normal 0.9-7.0 [facility] Comment on above: Performed By: #### C BC #### [facility] [address] [place] [address] Dr. Marce Tabares Erythrocyte distribution width (RBC) [Ratio] 13.1 % Normal 11.0-15.0 [facility] Comment on above: Performed By: #### C BC #### [facility] [address] [place] [address] Dr. Marce Tabares Hematocrit (Bld) [Volume fraction] 45.5 % Normal 42.0-54.0 [facility] Comment on above: Performed By: #### C BC #### [facility] [address] [place] [address] Dr. Marce Tabares Hemoglobin (Bld) [Mass/Vol] 15.7 g/dL Normal 14.0-18.0 [facility] Comment on above: Performed By: #### C BC #### [facility] [address] [place] [address] Dr. Marce Tabares IG # 0.02 10e3/ul Normal 0.00-0.03 [facility] Comment on above: Performed By: #### C BC #### [facility] [address] [place] [address] Dr. Marce Tabares IG % 0.3 % Normal 0.0-0.5 [facility] Comment on above: Performed By: #### C BC #### [facility] [address] [place] [address] Dr. Marce Tabares LYMPH # 1.9 103/ul Normal 1.2-3.8 [facility] Comment on above: Performed By: #### C BC #### [facility] [address] [place] [address] Dr. Marce Tabares Lymphocytes/100 WBC (Bld) 28.5 % Normal 20.5-60.0 [facility] Comment on above: Performed By: #### C BC #### [facility] [address] [place] [address] Dr. Marce Tabares MANUAL DIFF REQ NO Normal [facility] Comment on above: Performed By: #### C BC #### [facility] [address] [place] [address] Dr. Marce Tabares MCH (RBC) [Entitic mass] 31.8 pg Normal 25.9-34.0 [facility] Comment on above: Performed By: #### C BC #### [facility] [address] [place] [address] Dr. Marce Tabares MCHC (RBC) [Mass/Vol] 34.5 g/dL Normal 29.9-35.2 [facility] Comment on above: Performed By: #### C BC #### [facility] [address] [place] [address] Dr. Marce Tabares MCV (RBC) [Entitic vol] 92.3 fL Normal 80.0-94.0 [facility] Comment on above: Performed By: #### C BC #### [facility] [address] [place] [address] Dr. Marce Tabares MONO # 0.7 103/ul Normal 0.3-0.8 [facility] Comment on above: Performed By: #### C BC #### [facility] [address] [place] [address] Dr. Marce Tabares Monocytes/100 WBC (Bld) 10.3 % Normal 1.7-12.0 [facility] Comment on above: Performed By: #### C BC #### [facility] [address] [place] [address] Dr. Marce Tabares NEUT # 3.7 103/ul Normal 1.4-6.5 [facility] Comment on above: Performed By: #### C BC #### [facility] [address] [place] [address] Dr. Marce Tabares Neutrophils/100 WBC (Bld) 55.8 % Normal 43.0-75.0 [facility] Comment on above: Performed By: #### C BC #### [facility] [address] [address] [address] Marce Tabares Platelet mean volume (Bld) [Entitic vol] 9.3 fL Critically low 9.5-13.5 [facility] Comment on above: Performed By: #### C BC #### [facility] [address] [address] [address] Marce Tabares PLT 185 103/ul Normal 150-450 [facility] Comment on above: Performed By: #### C BC #### [facility] Laboratory [address] [address] [address] Marce Tabares RBC 4.93 106/ul Normal 4.70-6.10 [facility] Comment on above: Performed By: #### C BC #### [facility] [address] [address] [address] Marce Tabares WBC 6.7 103/ul Normal 4.0-11.0 [facility] Comment on above: Performed By: #### C BC #### [facility] [address] [address] [address] Marce Tabares GLYCOHEMOGLOBIN A1Con 2021 ADA RECOMMENDATION SEE BELOW Normal [facility] Comment on above: Result Comment: ADA RECOMMENDED LIMIT 4.0 - 6.0 ADA THERAPEUTIC TARGET < 7.0 ACTION SUGGESTED > 7.0 Performed By: #### A 1C #### [facility] [address] [place] [address] Dr. Marce Tabares Glucose [Mass/Vol] 180 mg/dL Normal [facility] Comment on above: Performed By: #### A 1C #### [facility] [address] [place] [address] Dr. Marce Tabares HbA1c (Bld) [Mass fraction] 7.9 % Critically high 4.5-6.2 [facility] Comment on above: Performed By: #### A 1C #### [facility] [address] [place] [address] Dr. Marce Tabares LIPID PROFILEon 06-13-2022 CHOL-HDL RATIO NORM SEE BELOW Normal [facility] Comment on above: Result Comment: 3.3 - 4.4 LOW RISK 4.4 - 7.1 AVERAGE RISK 7.1 - 11.0 MODERATE RISK >11.0 HIGH RISK Performed By: #### L IVER, LIPID, BMP #### [facility] [address] [place] [address] Dr. Marce Tabares Cholesterol [Mass/Vol] 174 mg/dL Normal <=200 [facility] Comment on above: Performed By: #### L IVER, LIPID, BMP #### [facility] [address] [place] [address] Dr. Marce Tabares Cholesterol in HDL [Mass/Vol] 34 mg/dL Critically low 40-60 [facility] Comment on above: Performed By: #### L IVER, LIPID, BMP #### [facility] [address] [place] [address] Dr. Marce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 you cannot control (muscle spasms). Pain in the shoulders or upper back. Limited ability to move the neck. Headache. Dizziness. Nausea. Vomiting. Weakness, numbness, or tingling in a hand or an arm. Symptoms may develop right away after injury, or they may develop over a few days. In some cases, symptoms may go away with treatment and return (recur) over time. How is this diagnosed? This condition may be diagnosed based on: Your medical history. Your symptoms. Any recent injuries or known neck problems that you have, such as arthritis in the neck. A physical exam. Imaging tests, such as: ?X-rays. ?MRI. ?CT scan. How is this treated? This condition is treated by resting and icing the injured area and doing physical therapy exercises. Depending on the severity of your condition, treatment may also include: Keeping your neck in place (immobilized) for periods of time. This may be done using: ?A cervical collar. This supports your chin and the back of your head. ?A cervical traction device. This is a sling that holds up your head. This removes weight and pressure from your neck, and it may help to relieve pain. Medicines that help to relieve pain and inflammation. Medicines that help to relax your muscles (muscle relaxants). Surgery. This is rare. Follow these instructions at home: If you have a cervical collar: Wear it as told by your health care provider. Do not remove the collar unless instructed by your health care provider. Ask your health care provider before you make any adjustments to your collar. If you have long hair, keep it outside of the collar. Ask your health care provider if you can remove the collar for cleaning and bathing. If you are allowed to remove the collar for cleaning or bathing: ?Follow instructions from your health care provider about how to remove the collar safely. ?Clean the collar by wiping it with mild soap and water and drying it completely. ?If your collar has removable pads, remove them every 1 2 days and wash them by hand with soap and water. Let them air-dry completely before you put them back in the collar. ?Check your skin under the collar for irritation or sores. If you see any, tell your health care provider. Managing pain, stiffness, and swelling If directed, use a cervical traction device as told by your health care provider. If directed, apply heat to the affected area before you do your physical therapy or as often as told by your health care provider. Use the heat source that your health care provider recommends, such as a moist heat pack or a heating pad. ?Place a towel between your skin and the heat source. ?Leave the heat on for 20 30 minutes. ?Remove the heat if your skin turns bright red. This is especially important if you are unable to feel pain, heat, or cold. You may have a greater risk of getting burned. If directed, put ice on the affected area: ?Put ice in a plastic bag. ?Place a towel between your skin and the bag. ?Leave the ice on for 20 minutes, 2 3 times a day. Activity Do not drive while wearing a cervical collar. If you do not have a cervical collar, ask your health care provider if it is safe to drive while your neck heals. Do not drive or use heavy machinery while taking prescription pain medicine or muscle relaxants, unless your health care provider approves. Do not lift anything that is heavier than 10 lb (4.5 kg) until your health care provider tells you that it is safe. Rest as directed by your health care provider. Avoid positions and activities that make your symptoms worse. Ask your health care provider what activities are safe for you. If physical therapy was prescribed, do exercises as told by your health care provider or physical therapist. General instructions Take ookj-ewp-[id number] and prescription medicines only as told by your health care provider. Do not use any products that contain nicotine or tobacco, such as cigarettes and e-cigarettes. These can delay healing. If you need help quitting, ask your health care provider. Keep all follow-up visits as told by your health care provider or physical therapist. This is important. How is this prevented? To prevent a cervical sprain from happening again: Use and maintain good posture. Make any needed adjustments to your workstation to help you use good posture. Exercise regularly as directed by your health care provider or physical therapist. Avoid risky activities that may cause a cervical sprain. Contact a health care provider if: You have symptoms that get worse or do not get better after 2 weeks of treatment. You have pain that gets worse or does not get better with medicine. You develop new, unexplained symptoms. You have sores or irritated skin on your neck from wearing your cervical collar. Get help right away if: You have severe pain. You develop numbness, tingling, or weakness in any part of your body. You cannot move a part of your body (you have paralysis). You have neck pain along with: ?Severe dizziness. ?Headache. Summary A cervical sprain is a stretch or tear in one or more of the tough, cord-like tissues that connect bones (ligaments) in the neck. Cervical sprains may be caused by an injury (trauma), such as from a motor vehicle accident, a fall, or sudden forward and backward whipping movement of the head and neck (whiplash injury). Symptoms may develop right away after injury, or they may develop over a few days. This condition is treated by resting and icing the injured area and doing physical therapy exercises. This information is not intended to replace advice given to you by your health care provider. Make sure you discuss any questions you have with your health care provider. Document Released: 04/19/2008 Document Revised: 10/13/2019 Document Reviewed: 02/19/2017 [employer] Patient Education 2020 [employer] Follow Up Care 09/02/2022 17:27:40 With:SILVIO CRAIN Address: [address] [place] [address] Business (1) When:09/05/2022 18:51:13 [facility] 08-09-2022 Note HNO ID: [id number] Author: RT Khushboo(R) Service: Radiology Author Type: Technologist Type: Progress Notes Filed: 08/09/2022 11:39 AM Note Text: Radiology Service Progress Note PATIENT NAME: Micah Forbes DATE OF SERVICE: August 09, 2022 TIME: 11:39 AM PATIENT IDENTITY VERIFICATION COMPLETED USING TWO (2) IDENTIFIERS: Name and Date of confirmed by patient verbally. FALL SCREENING: Has the patient had 2 falls in the last year or 1 fall with injury or currently using an Ambulatory Assistive Device (Walker, Cane, Wheelchair, Crutches, etc.)? No PATIENT GENDER DATA: Male PATIENT RELEVANT IMPLANT DATA REVIEWED: Not Applicable RADIOLOGY DEPARTMENT: General X-ray: Exam(s) Completed: Spine X-Ray(s): Cervical AP / LAT / OBL PERIPHERAL IV DATA: Not applicable SIGNED BY: RT Khushboo(R) August 09, 2022 11:39 AM [facility] 08-09-2022 Note HNO ID: [id number] Author: Abdon Palacios MD Service: ? Author Type: Physician Type: Progress Notes Filed: 08/09/2022 11:28 AM Note Text: SPINE SURGERY ESTABLISHED This is an in-person visit. DATE OF SERVICE: 08/09/2022 DATE OF LAST VISIT: 09/07/2021 SUBJECTIVE: HPI:Micah Forbes is a 57 year old male presenting with spouse. 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 Did well post-operatively. Reports ongoing neck pain between the scapulae and popping sound when he moves his neck. Has been there since surgery. Also notes bulge to back of neck since surgery. These symptoms have not gotten worse or been progressive. Some residual bilateral hand numbness and gait difficulty, but no worsening neurological symptoms. AMBULATORY STATUS: Independent Community Distances ANTIPLATELET OR ANTICOAGULATION STATUS: No REVIEW OF SYSTEMS: GENERAL: No weight loss or malaise MUSCULOSKELETAL: Negative for joint pain, swelling or muscle pain NEURO: No history of headaches, syncope, paralysis, seizures or tremors MEDICATIONS: ALPRAZolam (XANAX) 1 mg tablet gabapentin (NEURONTIN) 800 mg tablet Take 1.5 tablets by mouth three times daily. lisinopril (ZESTRIL, PRINIVIL) 40 mg tablet Take 1 tablet by mouth once daily. metFORMIN (GLUCOPHAGE) 850 mg tablet Take 1 tablet by mouth twice daily with meals. methocarbamol (ROBAXIN) 750 mg tablet Take 1 tablet by mouth every 6 hours as needed (Muscle spasms). amLODIPine (NORVASC) 10 mg tablet Take 10 mg by mouth once daily. zolpidem (AMBIEN) 10 mg (Patient not taking: No sig reported) naratriptan (AMERGE) 2.5 mg tablet Take 1 tab at migraine onset. May repeat once in 2 hours if needed. Give max allowed per insurance. No more than 10 days per month. (Patient not taking: Reported on 08/09/2022) Patient Entered Questionnaires PROMIS Score Percentiles PROMIS Global Health Scale 07/15/2014 Mental Health Percentile 9 Percentiles provide an indication of how the patient's score ranks in relation to the general population. Higher percentile rankings indicate better function/quality of life. 50th percentile is the average of the general population and indicates half of respondents had a worse score. Depression Screening: PHQ-9 07/15/2014 Score 24 PHQ-9 Self-harm Question 07/15/2014 Thoughts that you would be better off , or of hurting yourself in some way 2 PHQ-9 Self-Harm (Item 9) response options: 0 Not at all 1 Several days 2 More than half the days 3 Nearly every day PHQ-9 Levels: 0-4 No to mild depression 5-9 Mild depression 10-14 Moderate depression 15-19 Moderately severe depression 20-27 Severe depression OBJECTIVE: PHYSICAL EXAM: BP 121/69 Pulse 89 Resp 13 Ht 5' 8 (1.73m) Wt 195 lb (88.5kg) SpO2 98% BMI 29.66 kg/(m2). 4+ power throughout UE and LE myotomes. No focal weakness. Reflexes 2+ biceps, brachioradialis, knee jerks. No Clark. Unsteady gait. +Romberg. Incision well healed. Prominence at distal half of incision, off to right. Feeling of prominent SP vs hardware. DATA REVIEW:Diagnostic tests reviewed for today's visit, films/specimens were personally reviewed by me: No outside records or outside imaging available No new imaging since Mar 2021. ASSESSMENT/PLAN No diagnosis found. Micah Forbes has a condition that requires further workup. Given the popping sound with neck rotation, we will obtain X-rays and a CT of the cervical spine for further evaluation to check the hardware. 1. Imaging: Cervical X-Ray and Cervical CT Without Contrast Postop recurring or worsening symptoms 2. Follow up: Following above Imaging Ordered: CT and X-rays cervical spine. I reviewed the information obtained and documented by the fellow. I examined the patient and evaluated all available films and pertinent documents. We discussed the case and I agree with the plans as outlined in this note. I spent a total of 30 minutes on the date of the service which included preparing to see the patient, [id number] patient care, completing clinical documentation, obtaining and/or reviewing separately obtained history, performing a medically appropriate examination, counseling and educating the patient/family/caregiver, ordering medications, tests, or procedures, independently interpreting results (not separately reported), and care coordination (not separately reported). SIGNATURE: Abdon Palacios MD PATIENT NAME: Micah Forbes DATE: August 09, 2022 TIME: 10:15 AM PAGER: [facility] 08-09-2022 History of Presen t illness Narrative Radiology Service Progress Note PATIENT NAME: Micah Forbes DATE OF SERVICE: August 09, 2022 TIME: 11:39 AM PATIENT IDENTITY VERIFICATION COMPLETED USING TWO (2) IDENTIFIERS: Name and Date of confirmed by patient verbally. FALL SCREENING: Has the patient had 2 falls in the last year or 1 fall with injury or currently using an Ambulatory Assistive Device (Walker, Cane, Wheelchair, Crutches, etc.)? No PATIENT GENDER DATA: Male PATIENT RELEVANT IMPLANT DATA REVIEWED: Not Applicable RADIOLOGY DEPARTMENT: General X-ray: Exam(s) Completed: Spine X-Ray(s): Cervical AP / LAT / OBL PERIPHERAL IV DATA: Not applicable SIGNED BY: RT Khushboo(R) August 09, 2022 11:39 AM documented in this encounter [facility] 08-09-2022 History of Presen t illness Narrative SPINE SURGERY ESTABLISHED This is an in-person visit. DATE OF SERVICE: 08/09/2022 DATE OF LAST VISIT: 09/07/2021 SUBJECTIVE: HPI:Micah Forbes is a 57 year old male presenting with spouse. 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 Did well post-operatively. Reports ongoing neck pain between the scapulae and popping sound when he moves his neck. Has been there since surgery. Also notes bulge to back of neck since surgery. These symptoms have not gotten worse or been progressive. Some residual bilateral hand numbness and gait difficulty, but no worsening neurological symptoms. AMBULATORY STATUS: Independent Community Distances ANTIPLATELET OR ANTICOAGULATION STATUS: No REVIEW OF SYSTEMS: GENERAL: No weight loss or malaise MUSCULOSKELETAL: Negative for joint pain, swelling or muscle pain NEURO: No history of headaches, syncope, paralysis, seizures or tremors MEDICATIONS: ALPRAZolam (XANAX) 1 mg tablet gabapentin (NEURONTIN) 800 mg tablet Take 1.5 tablets by mouth three times daily. lisinopril (ZESTRIL, PRINIVIL) 40 mg tablet Take 1 tablet by mouth once daily. metFORMIN (GLUCOPHAGE) 850 mg tablet Take 1 tablet by mouth twice daily with meals. methocarbamol (ROBAXIN) 750 mg tablet Take 1 tablet by mouth every 6 hours as needed (Muscle spasms). amLODIPine (NORVASC) 10 mg tablet Take 10 mg by mouth once daily. zolpidem (AMBIEN) 10 mg (Patient not taking: No sig reported) naratriptan (AMERGE) 2.5 mg tablet Take 1 tab at migraine onset. May repeat once in 2 hours if needed. Give max allowed per insurance. No more than 10 days per month. (Patient not taking: Reported on 08/09/2022) Patient Entered Questionnaires PROMIS Score Percentiles PROMIS Global Health Scale 07/15/2014 Mental Health Percentile 9 Percentiles provide an indication of how the patient's score ranks in relation to the general population. Higher percentile rankings indicate better function/quality of life. 50th percentile is the average of the general population and indicates half of respondents had a worse score. Depression Screening: PHQ-9 07/15/2014 Score 24 PHQ-9 Self-harm Question 07/15/2014 Thoughts that you would be better off , or of hurting yourself in some way 2 PHQ-9 Self-Harm (Item 9) response options: 0 Not at all 1 Several days 2 More than half the days 3 Nearly every day PHQ-9 Levels: 0-4 No to mild depression 5-9 Mild depression 10-14 Moderate depression 15-19 Moderately severe depression 20-27 Severe depression OBJECTIVE: PHYSICAL EXAM: BP 121/69 Pulse 89 Resp 13 Ht 5' 8 (1.73m) Wt 195 lb (88.5kg) SpO2 98% BMI 29.66 kg/(m^2). 4+ power throughout UE and LE myotomes. No focal weakness. Reflexes 2+ biceps, brachioradialis, knee jerks. No Clark. Unsteady gait. +Romberg. Incision well healed. Prominence at distal half of incision, off to right. Feeling of prominent SP vs hardware. DATA REVIEW:Diagnostic tests reviewed for today's visit, films/specimens were personally reviewed by me: No outside records or outside imaging available No new imaging since Mar 2021. ASSESSMENT/PLAN No diagnosis found. Micah Forbes has a condition that requires further workup. Given the popping sound with neck rotation, we will obtain X-rays and a CT of the cervical spine for further evaluation to check the hardware. 1. Imaging: Cervical X-Ray and Cervical CT Without Contrast Postop recurring or worsening symptoms 2. Follow up: Following above Imaging Ordered: CT and X-rays cervical spine. I reviewed the information obtained and documented by the fellow. I examined the patient and evaluated all available films and pertinent documents. We discussed the case and I agree with the plans as outlined in this note. I spent a total of 30 minutes on the date of the service which included preparing to see the patient, [id number] patient care, completing clinical documentation, obtaining and/or reviewing separately obtained history, performing a medically appropriate examination, counseling and educating the patient/family/caregiver, ordering medications, tests, or procedures, independently interpreting results (not separately reported), and care coordination (not separately reported). SIGNATURE: Abdon Palacios MD PATIENT NAME: Micah Forbes DATE: August 09, 2022 TIME: 10:15 AM PAGER: documented in this encounter [facility] Evaluation + Plan note No data available for this section [facility] Evaluation note Diagnosis Spinal stenosis of cervical region- Primary Spinal stenosis in cervical region S/P cervical spinal fusion Arthrodesis status [facility] Spinal stenosis of cervical region Spinal stenosis in cervical region [facility] Diagnosis ETHAN (generalized anxiety disorder) ([facility]) Generalized anxiety disorder documented in this encounter [facility] No data available for this section [facility] Reason for Referral Specialty Diagnoses / Procedures Referred By Contac t Referred To Contact CT IMAGING Diagnoses Spinal stenosis of cervical region Procedures CT CERVICAL SPINE WO IVCON CT CERVICAL SPINE W/O CONTRAST MATERIAL Abdon Palacios MD [address] [place] [address] Ct Imaging Referral ID Status Reason Start Date Expiration Date Visits Requested Visits Authorized [id number] Pending Review Auto-Generat ed Referral 08/16/2022 09/08/2023 1 1 Specialty Diagnoses / Procedures Referred By Contac t Referred To Contact XR IMAGING Diagnoses Spinal stenosis of cervical region Procedures XR CERV OTHER 4V AP/LAT/OBL RADEX SPINE CERVICAL 4 OR 5 VIEWS Abdon Palacios MD [address] [place] [address] Xr Imaging Referral ID Status Reason Start Date Expiration Date V isits Requested Visits Authorized [id number] Closed Auto-Generate d Referral 08/09/2022 09/08/2023 1 1 Summary Purpose Family History No Family History Records FoundNo Family History Records FoundNo Family History Records FoundNo Family History Records FoundNo Family History Records Found Advance Directives No Advanced Directives Records FoundNo Advanced Directives Records FoundNo Advanced Directives Records FoundNo Advanced Directives Records FoundNo Advanced Directives Records Found Additional Source Comments Source Comments (unrecognize d section and content) In the event this informatio n is protected by the Federal Confidentiality of Alcohol and Drug Abuse Patient Records regulations: The Federal rules restrict any use of the information to criminally investigate or prosecute any alcohol or drug abuse patient.[facility] event this information is protected by the Federal Confidentiality of Alcohol and Drug Abuse Patient Records regulations: The Federal rules restrict any use of the information to criminally investigate or prosecute any alcohol or drug abuse patient.[facility] the event this information is protected by the Federal Confidentiality of Alcohol and Drug Abuse Patient Records regulations: The Federal rules restrict any use of the information to criminally investigate or prosecute any alcohol or drug abuse patient.[facility] the event this information is protected by the Federal Confidentiality of Alcohol and Drug Abuse Patient Records regulations: The Federal rules restrict any use of the information to criminally investigate or prosecute any alcohol or drug abuse patient.[facility] Reason for Visit (unrecogniz ed section and content) Reason Comments Established Patient Follow Up Specialty Diagnoses / Procedures Referred By Contac t Referred To Contact Spine Health / SPINE SURGERY Diagnoses follow up Procedures EST NI PATIENT Abdon Palacios MD [address] [facility] [address] [facility] [place] [address] Abdno Palacios MD [address] [facility] [address] [facility] [place] [address] Referral ID Status Reason Start Date Expiration Date Visits Re quested Visits Authorized [id number] Closed 08/09/2022 11/07/2022 1 1 Reason Comments Radio Main J1 Specialty Diagnoses / Procedures Referred By Contac t Referred To Contact XR IMAGING Diagnoses Spinal stenosis of cervical region Procedures XR CERV OTHER 4V AP/LAT/OBL RADEX SPINE CERVICAL 4 OR 5 VIEWS Abdon Palacios MD [address] [place] [address] Xr Imaging Referral ID Status Reason Start Date Expiration Date V isits Requested Visits Authorized [id number] Closed Auto-Generate d Referral 08/09/2022 09/08/2023 1 1 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 Reason Comments Results Reason Onset Date Comments Med Refill 08/12/2023 Care Teams (unrecognized sec tion and content) D[employer] 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 [employer] 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 Relationship Specialty Start Date End Date Silvio Crain [address] [place] [address] PCP - General Family Medicine 04/20/21 Yoni Sotelo [address] [place] [address] NI Referring Team 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 Start Date End Date Silvio Crain [address] [place] [address] PCP - General Family Medicine 04/20/21 Yoni Sotelo [address] [place] [address] NI Referring Team 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 Start Date End Date Silvio Crain [address] [place] [address] PCP - General Family Medicine 04/20/21 Yoni Sotelo [address] [place] [address] NI Referring Team 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 Start Date End Date Silvio Crain [address] [place] [address] PCP - General Family Medicine 04/20/21 Yoni Sotelo [address] [place] [address] NI Referring Team 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 Start Date End Date Silvio Crain MD PCP - General Family Medicine 03/07/23 (unrecognized sect ion and content) No Status Records FoundNo Status Records FoundNo Status Records FoundNo Status Records FoundNo Status Records Found INFORMATION SOURCE (unrecogn ized section and content) DATE CREATED AUTHOR 09/13/[address] [facility] DATE CREATED AUTHOR AUTHOR'S ORGANIZ ATION 10/15/2022 [facility] DATE CREATED AUTHOR AUTHOR'S ORGANIZ ATION 11/04/2022 [facility] DATE CREATED AUTHOR AUTHOR'S ORGANIZ ATION 11/17/2022 [facility] DATE CREATED AUTHOR AUTHOR'S ORGANIZ ATION 10/08/2023 [facility] EPIC FOR RECORDS PERTAINING TO PATIENTS WHO ARE OR HAVE BEEN ENROLLED IN A CHEMICAL DEPENDENCY/SUBSTANCEABUSE PROGRAM, SOME INFORMATION MAY BE OMITTED. This clinical summary was aggregated from multiple sources. Caution should be exercised in using it in the provision of clinical care. This summary normalizes information from multiple sources, and as a consequence, information in this document may materially change the coding, format and clinical context of patient data. In addition, data may be omitted in some cases. CLINICAL DECISIONS SHOULD BE BASED ON THE PRIMARY CLINICAL RECORDS. [facility]. provides no warranty or guarantee of the accuracy or completeness of information in this document.
--- NOTE | 2023-11-27 16:32 | XR_ITS ---
The [address] [address] Patient Name: ELÍAS SANCHEZ MRN: [id number] date: 1965 Sex: M Assigned Patient Location: ER Current Patient Location: ER Accession/Order Number: [id number] Exam Date: 11/27/2023 16:55 Report Date: 11/27/2023 17:23 At the request of: GLADYS SCOTT Procedure: XR chest 1V EXAM: XR chest 1V HISTORY: fall COMPARISON: 10/07/2023 TECHNIQUE: Chest X-ray AP, 1 view FINDINGS: Support devices: None. Lungs/pleura: No consolidation, effusion, or pneumothorax. Heart and mediastinum: Normal contours. Bones: No acute abnormality identified. XR/XR chest 1V Impression: No radiographic evidence of acute cardiopulmonary process. Electronically authenticated by: KARUNA FOX Date: 11/27/2023 17:23
--- NOTE | 2023-11-27 16:32 | ECG_ITS ---
The [facility] Test Date: 2023-11-27 Pat Name: ELÍAS SANCHEZ Department: Room: - Gender: Male Pulmonary Fellow: : 1965 Requested By: MARISELA CRAIN Order Number: [id number] Reading MD: ANGELLA HARRELL Measurements Intervals Rindge Rate: 73 P: 63 LA: 150 QRS: 35 QRSD: 92 T: 48 QT: 388 QTc: 414 Interpretive Statements 1100 Sinus rhythm 9110 normal ECG Compared to ECG 10/07/2023 16:19:41 No significant changes Electronically Signed On 12-02-2023 9:45:56 EDT by ANGELLA HARRELL
--- NOTE | 2023-11-27 16:33 | CT_ITS ---
[address] [address] Patient Name: ELÍAS SANCHEZ MRN: [id number] date: 1965 Sex: M Assigned Patient Location: ER Current Patient Location: .MAIN Accession/Order Number: [id number] Exam Date: 11/27/2023 17:18 Report Date: 11/27/2023 18:22 At the request of: GLADYS SCOTT Procedure: CT abdomen pelvis w con EXAM: CT chest w con, CT abdomen pelvis w con; [id number], [id number] REASON FOR EXAM: fall, hit chest TECHNIQUE: Helical CT images of the chest, abdomen, and pelvis were obtained after the administration of IV contrast. Multiplanar reformats and maximum intensity projection images of the chest were generated at the scanner. Dose reduction technique used: Automated exposure control and/or adjustment of the mA and/or kV according to patient size and/or use of iterative reconstruction technique. COMPARISON: CT abdomen/pelvis 04/04/[address] chest 05/19/2020. FINDINGS: Chest: Support devices: None. Visualized Thyroid: No nodules. Chest wall: -Mild posttraumatic swelling/fat stranding of the lower left anterior chest wall. No significant hematoma. -Mild bilateral gynecomastia. Orquidea/mediastinum/esophagus: No mass. Thoracic lymph nodes: No enlarged supraclavicular, mediastinal, hilar or axillary lymph nodes. Heart and vasculature: -No pericardial effusion or aortic aneurysm. -No large embolism of the central pulmonary artery. -Severe coronary artery calcifications. Musculoskeletal: -Nondisplaced fractures of the anterolateral left seventh and sixth ribs. Lungs/airways: -Mild centrilobular nodularity of the lateral aspect of the left upper lobe which is new compared with 06/05/2020. -Small amount of frothy material in the right mid trachea. Pleura: No pleural effusion or pneumothorax. Abdomen: Liver: Within normal limits. Gallbladder: No calcified gallstones. No acute inflammatory changes. Bile Ducts: No significant biliary ductal dilatation. Pancreas: No mass, ductal dilatation, or inflammatory changes. Spleen: No splenomegaly or focal lesion. Adrenals: No nodules. Kidneys: -Single nonobstructing 4-5 mm stone in the lower pole of the right kidney. No left-sided stones and no hydronephrosis. -No mass. Vascular: No aortic aneurysm. Lymph Nodes: No adenopathy. Abdominal Wall: Small fat-containing umbilical hernia. Pelvis: No mass or adenopathy. Bowel/Peritoneal Cavity/Mesentery: -No bowel obstruction or significant ileus. -No acute inflammatory changes. -No free air or free fluid. Musculoskeletal: No acute fracture or suspicious osseous lesion. Moderate degenerative retrolisthesis of L5 on S1 with associated moderate facet arthropathy at that level resulting in severe bilateral osseous foraminal narrowing. CT/CT abdomen pelvis w con IMPRESSION: 1. Nondisplaced fractures of the anterolateral left sixth and seventh ribs with associated mild posttraumatic soft tissue changes. No significant hematoma, pleural effusion, or pneumothorax. 2. Mild multifocal centrilobular nodularity in the left upper lobe. Differential includes mild posttraumatic changes versus infectious/inflammatory process. Recommend noncontrast CT chest in 8-12 weeks. 3. No acute thoracic abnormality in the abdomen or pelvis. 4. Single nonobstructing 4-5 mm stone in the right kidney. Electronically authenticated by: ALANIS REESE Date: 11/27/2023 18:22
--- NOTE | 2023-11-27 16:34 | CT_ITS ---
[address] [address] Patient Name: ELÍAS SANCHEZ MRN: [id number] date: 1965 Sex: M Assigned Patient Location: ER Current Patient Location: .MAIN Accession/Order Number: [id number] Exam Date: 11/27/2023 17:18 Report Date: 11/27/2023 18:22 At the request of: GLADYS SCOTT Procedure: CT chest w con EXAM: CT chest w con, CT abdomen pelvis w con; [id number], [id number] REASON FOR EXAM: fall, hit chest TECHNIQUE: Helical CT images of the chest, abdomen, and pelvis were obtained after the administration of IV contrast. Multiplanar reformats and maximum intensity projection images of the chest were generated at the scanner. Dose reduction technique used: Automated exposure control and/or adjustment of the mA and/or kV according to patient size and/or use of iterative reconstruction technique. COMPARISON: CT abdomen/pelvis 04/04/[address] chest 05/19/2020. FINDINGS: Chest: Support devices: None. Visualized Thyroid: No nodules. Chest wall: -Mild posttraumatic swelling/fat stranding of the lower left anterior chest wall. No significant hematoma. -Mild bilateral gynecomastia. Orquidea/mediastinum/esophagus: No mass. Thoracic lymph nodes: No enlarged supraclavicular, mediastinal, hilar or axillary lymph nodes. Heart and vasculature: -No pericardial effusion or aortic aneurysm. -No large embolism of the central pulmonary artery. -Severe coronary artery calcifications. Musculoskeletal: -Nondisplaced fractures of the anterolateral left seventh and sixth ribs. Lungs/airways: -Mild centrilobular nodularity of the lateral aspect of the left upper lobe which is new compared with 06/05/2020. -Small amount of frothy material in the right mid trachea. Pleura: No pleural effusion or pneumothorax. Abdomen: Liver: Within normal limits. Gallbladder: No calcified gallstones. No acute inflammatory changes. Bile Ducts: No significant biliary ductal dilatation. Pancreas: No mass, ductal dilatation, or inflammatory changes. Spleen: No splenomegaly or focal lesion. Adrenals: No nodules. Kidneys: -Single nonobstructing 4-5 mm stone in the lower pole of the right kidney. No left-sided stones and no hydronephrosis. -No mass. Vascular: No aortic aneurysm. Lymph Nodes: No adenopathy. Abdominal Wall: Small fat-containing umbilical hernia. Pelvis: No mass or adenopathy. Bowel/Peritoneal Cavity/Mesentery: -No bowel obstruction or significant ileus. -No acute inflammatory changes. -No free air or free fluid. Musculoskeletal: No acute fracture or suspicious osseous lesion. Moderate degenerative retrolisthesis of L5 on S1 with associated moderate facet arthropathy at that level resulting in severe bilateral osseous foraminal narrowing. CT/CT chest w con IMPRESSION: 1. Nondisplaced fractures of the anterolateral left sixth and seventh ribs with associated mild posttraumatic soft tissue changes. No significant hematoma, pleural effusion, or pneumothorax. 2. Mild multifocal centrilobular nodularity in the left upper lobe. Differential includes mild posttraumatic changes versus infectious/inflammatory process. Recommend noncontrast CT chest in 8-12 weeks. 3. No acute thoracic abnormality in the abdomen or pelvis. 4. Single nonobstructing 4-5 mm stone in the right kidney. Electronically authenticated by: ALANIS REESE Date: 11/27/2023 18:22
--- NOTE | 2023-11-27 16:35 | ED_ITS ---
HPI HPI - Fall General Chief Complaint: Fall Stated Complaint: EPISTAXIS Time Seen by Provider: 11/27/23 16:27 Source: patient Mode of arrival: walk-in Limitations: no limitations History of Present Illness HPI Narrative: 58-year-old male presents to the emergency department for a chief complaint of nosebleed. He fell 2 days ago but then hit his nose. He did hit the left chest and left abdomen when he fell down these 4 steps. He has no headache or facial pain or neck pain. No LOC and no complaints me of shortness of breath. The nose has been bleeding from the left side mostly but sometimes the right side. Related Data Previous Rx's ?Medication ?Instructions ?Recorded azithromycin 250 mg tablet See Rx Instructions PO .COMPLEX #6 10/07/23 (Zithromax Z-Dandre) tabs prednisone 10 mg tablet See Rx Instructions .Route 10/07/23 .COMPLEX #30 tabs methocarbamol 750 mg tablet 750 mg PO Q6H PRN pain #30 tabs 10/23/23 nabumetone 750 mg tablet 750 mg PO BID PRN pain #14 tabs 10/23/23 hydrocodone 5 mg-acetaminophen 325 1 tab PO Q6H PRN pain 5 days #20 11/27/23 mg tablet tabs Allergies Allergy/AdvReac Type Severity Reaction Status Date / Time No Known Drug Allergies Allergy Verified 10/07/23 16:10 Opioid HPI Opioid Management Most Recent Pain and Opioid Data: Last Pain Scale 9 11/27/23 17:51 Last MAR Pain Assessment 11/27/23 17:51 Review of Systems ROS Narrative A ten point review of systems is negative except as noted above. Exam Narrative Exam Narrative: Nurses note and vital signs reviewed and patient is not hypoxic. General: The patient appears in no acute respiratory distress. Skin: Warm, dry, no pallor noted. There is no rash noted. Head: Normocephalic, atraumatic Eye: Normal conjunctiva, no drainage Ears, Nose, Mouth, and Throat: oral mucosa is moist. He has some toilet paper in his left nares. No apparent bleeding. Cardiovascular: Regular Rate and Rhythm Respiratory: Patient is in no distress, no accessory muscle use, lungs are clear to auscultation, no wheezing, rales or rhonchi, breath sounds are equal. Back: non-tender GI: He has yellow-colored bruising on the left side of his abdomen and an blanca rodrigo in the left upper quadrant Musculoskeletal: The patient has no evidence of calf tenderness, no pitting edema, symmetrical pulses noted bilaterally Neurological: A&O, normal speech Psychiatric: Cooperative Constitutional Vital Signs, click to edit/add: Last Vital Signs Temp 98.6 F 11/27/23 16:26 Pulse 84 11/27/23 16:26 Resp 20 11/27/23 16:26 BP 140/84 11/27/23 16:26 Pulse Ox 92 L 11/27/23 16:26 O2 Del Method Room Air 11/27/23 16:26 Course Vital Signs Vital signs: Vital Signs Temperature 98.6 F 11/27/23 16:26 Pulse Rate 84 11/27/23 16:26 Respiratory Rate 20 11/27/23 16:26 Blood Pressure 140/84 11/27/23 16:26 Pulse Oximetry 92 L 11/27/23 16:26 Oxygen Delivery Method Room Air 11/27/23 16:26 Temperature 98.6 F 11/27/23 16:26 Pulse Rate 84 11/27/23 16:26 Respiratory Rate 20 11/27/23 16:26 Blood Pressure 140/84 11/27/23 16:26 Pulse Oximetry 92 L 11/27/23 16:26 Oxygen Delivery Method Room Air 11/27/23 16:26 MDM - Fall MDM Narrative Medical decision making narrative: 2 rib fractures identified as well as a first metatarsal fracture which is displaced. The possible need for surgery was discussed. Boot applied to his foot, application checked by me and found to be appropriate, he is neurovascular intact. He was prescribed [place] and he is referred to podiatry for appropriate follow-up. The following procedure was performed by me. Silver nitrate cauterization was carried out to the left nasal septum which resulted in no further bleeding. He did not have any bleeding here at all. Differential Diagnosis Differential diagnosis: Likely other (Foot contusion, foot fracture, intra- abdominal pathology, rib fracture, pneumothorax) Lab Data Attestation: I reviewed the patient's lab results. Labs: Lab Results 11/27/23 Range/Units 16:40 WBC 5.6 (4.0-11.0) 10^3/uL RBC 4.82 (4.70-6.10) 10^6/uL Hgb 15.4 (14.0-18.0) g/dL Hct 45.2 (42.0-54.0) % MCV 93.8 (80.0-94.0) fL MCH 32.0 (25.9-34.0) pg MCHC 34.1 (29.9-35.2) g/dL RDW 12.7 (11.0-15.0) % Plt Count 192 (150-450) 10^3/uL MPV 9.7 (9.5-13.5) fL Neut % (Auto) 57.3 (43.0-75.0) % Lymph % (Auto) 29.0 (20.5-60.0) % [place] % (Auto) 9.0 (1.7-12.0) % Eos % (Auto) 3.8 (0.9-7.0) % Baso % (Auto) 0.7 (0.2-2.0) % Neut # (Auto) 3.2 (1.4-6.5) 10^3/uL Lymph # (Auto) 1.6 (1.2-3.8) 10^3/uL [facility] # (Auto) 0.5 (0.3-0.8) 10^3/uL Eos # (Auto) 0.2 (0.0-0.7) 10^3/uL Baso # (Auto) 0.0 (0.0-0.1) 10^3/uL Abs Immat Gran (auto) 0.01 (0.00-0.03) 10^3/uL Imm/Tot Granulo (auto) 0.2 (0.0-0.5) % PT 10.9 (9.0-11.6) sec INR 1.03 APTT 27.1 (22.3-36.2) sec Sodium 139 (136-145) mmol/L Potassium 3.9 (3.5-5.1) mmol/L Chloride 99 (98-107) mmol/L Carbon Dioxide 28.9 (21.0-32.0) mmol/L Anion Gap 15.0 BUN 9.0 (7.0-18.0) mg/dL Creatinine 0.76 (0.70-1.30) mg/dL Est GFR ( Amer) >60 (>=60) Est GFR (Non-Af Amer) >60 (>=60) BUN/Creatinine Ratio 11.8 Glucose 272 H (74-106) mg/dL Calcium 9.4 (8.5-10.1) mg/dL Ethanol Quant 33 mg/dL Imaging Data Chest x-ray: Radiologist's impression: ITS Impressions Chest X-Ray 11/27/23 16:32 Impression: No radiographic evidence of acute cardiopulmonary process. Electronically authenticated by: KARUNA FOX Date: 11/27/2023 17:23 Abdomen/Pelvis CT 11/27/23 16:33 IMPRESSION: 1. Nondisplaced fractures of the anterolateral left sixth and seventh ribs with associated mild posttraumatic soft tissue changes. No significant hematoma, pleural effusion, or pneumothorax. 2. Mild multifocal centrilobular nodularity in the left upper lobe. Differential includes mild posttraumatic changes versus infectious/inflammatory process. Recommend noncontrast CT chest in 8-12 weeks. 3. No acute thoracic abnormality in the abdomen or pelvis. 4. Single nonobstructing 4-5 mm stone in the right kidney. Electronically authenticated by: ALANIS REESE Date: 11/27/2023 18:[address] 11/27/23 16:34 IMPRESSION: 1. Nondisplaced fractures of the anterolateral left sixth and seventh ribs with associated mild posttraumatic soft tissue changes. No significant hematoma, pleural effusion, or pneumothorax. 2. Mild multifocal centrilobular nodularity in the left upper lobe. Differential includes mild posttraumatic changes versus infectious/inflammatory process. Recommend noncontrast CT chest in 8-12 weeks. 3. No acute thoracic abnormality in the abdomen or pelvis. 4. Single nonobstructing 4-5 mm stone in the right kidney. Electronically authenticated by: ALAINS REESE Date: 11/27/2023 18:22 Discharge Plan Discharge Stand Alone Forms: Portal Instructions Chief Complaint: Fall Clinical Impression: Fracture of rib, Metatarsal fracture Patient Disposition: Home, Self-Care Time of Disposition Decision: 18:34 Condition: Good Mode of Transportation: Private Vehicle Prescriptions / Home Meds: New hydrocodone-acetaminophen 5-325 mg tablet 1 tab PO Q6H PRN (Reason: pain) 5 Days Qty: 20 0RF No Action prednisone 10 mg tablet See Rx Instructions .ROUTE .COMPLEX Qty: 30 0RF Rx Instructions: 4 by mouth daily for three days then 3 by mouth daily for three days then 2 by mouth daily for three days then 1 by mouth daily for three days azithromycin [Zithromax Z-Dandre] 250 mg tablet See Rx Instructions .ROUTE .COMPLEX Qty: 6 0RF Rx Instructions: For 250 mg dose pack: take 500 mg today (day 1), then 250 mg for 4 days (days 2-5) nabumetone 750 mg tablet 750 mg PO BID PRN (Reason: pain) Qty: 14 0RF methocarbamol 750 mg tablet 750 mg PO Q6H PRN (Reason: pain) Qty: 30 0RF Print Language: Mongolian Instructions: Rib Fracture (ED), Foot Fracture in Adults (ED) Referrals: Silvio Ott MD [Primary Care Provider] - 1 week Owen Chery DPM [Physician] - 1 week
[2023-11-27 16:52] LABS: Basophils Percent Auto 0.7 % (0.2-2.0); Eosinophils Absolute Auto 0.2 10^3/uL (0.0-0.7); Eosinophils Percent Auto 3.8 % (0.9-7.0); Hematocrit 45.2 % (42.0-54.0); Hemoglobin 15.4 g/dL (14.0-18.0); Immature Granulocytes Abs Auto 0.01 10^3/uL (0.00-0.03); Immature Granulocytes Pct Auto 0.2 % (0.0-0.5); Lymphocytes Absolute Auto 1.6 10^3/uL (1.2-3.8); Mean Corpuscular HGB Conc 34.1 g/dL (29.9-35.2); Mean Corpuscular Volume 93.8 fL (80.0-94.0); Mean Platelet Volume 9.7 fL (9.5-13.5); Monocytes Absolute Auto 0.5 10^3/uL (0.3-0.8); Neutrophils Absolute Auto 3.2 10^3/uL (1.4-6.5); Neutrophils Percent Auto 57.3 % (43.0-75.0); Platelet Count 192 10^3/uL (150-450); Red Blood Count 4.82 10^6/uL (4.70-6.10); Red Cell Distribution Width 12.7 % (11.0-15.0); White Blood Count 5.6 10^3/uL (4.0-11.0)
[2023-11-27 16:59] LABS: BUN Creatinine Ratio 11.8; Calcium 9.4 mg/dL (8.5-10.1); Carbon Dioxide 28.9 mmol/L (21.0-32.0); Chloride 99 mmol/L (98-107); Estimated GFR (African America >60 (>=60); Estimated GFR (Non-African Ame >60 (>=60); Glucose 272 mg/dL (74-106); Potassium 3.9 mmol/L (3.5-5.1); Sodium 139 mmol/L (136-145)
[2023-11-27 17:02] LABS: INR 1.03; Partial Thromboplastin Time 27.1 sec (22.3-36.2); Prothrombin Time 10.9 sec (9.0-11.6)
--- NOTE | 2023-11-27 17:24 | XR_ITS ---
The [place] [id number] Patient Name: ELÍAS SANCHEZ MRN: [id number] date: 1965 Sex: M Assigned Patient Location: ER Current Patient Location: ER Accession/Order Number: [id number] Exam Date: 11/27/2023 17:35 Report Date: 11/27/2023 18:25 At the request of: GLADYS SCOTT Procedure: XR ankle LT min 3V STUDY: XR ankle LT min 3V, [id number] HISTORY: fall COMPARISON: None FINDINGS/IMPRESSION: No acute fracture, dislocation, or suspicious osseous lesion of the ankle. Mild osteoarthritis of the ankle mortise. No lucent lesion of the talar dome. See separately dictated same day x-ray of the foot for description of the first metatarsal fracture (only partially visualized on the ankle exam). Electronically authenticated by: ALANIS REESE Date: 11/27/2023 18:25
--- NOTE | 2023-11-27 17:24 | XR_ITS ---
The [address] [address] Patient Name: ELÍAS SANCHEZ MRN: [id number] date: 1965 Sex: M Assigned Patient Location: ER Current Patient Location: ER Accession/Order Number: [id number] Exam Date: 11/27/2023 17:35 Report Date: 11/27/2023 18:24 At the request of: GLADYS SCOTT Procedure: XR foot LT min 3V EXAM: XR foot LT min 3V HISTORY: fall COMPARISON: None. TECHNIQUE: 3 views of left foot Findings and impression: Intra-articular fracture of first metatarsal base. Lisfranc joint is normal. No dislocation. There is soft tissue swelling of the midfoot on hindfoot. Electronically authenticated by: KARUNA FOX Date: 11/27/2023 18:24
[2023-11-27 17:46] LABS: Ethanol 33 mg/dL
[2023-11-27] MEDS: MORPHINE SULFATE 4 MG/ML VIAL IV (17:51)
[2023-11-27] MEDS: SILVER NITRATE APPLICATOR STICK 1 APPLIC TOPICAL (18:32)
[2023-11-27 18:43] VITALS: BP 133/83; PULSE 84; O2SAT 94
== END 2023-11-27 18:53 | disposition home or self-care (01) ==
PROVIDERS: Emergency Provider Emergency Medicine; PCP Family Medicine
DX: S22.42XA Multiple fractures of ribs, left side, initial encounter for closed fracture (principal); S92.312A Displaced fracture of first metatarsal bone, left foot, initial encounter for closed fracture; W10.9XXA Fall (on) (from) unspecified stairs and steps, initial encounter; R04.0 Epistaxis
CPT/HCPCS: 30901; 36415; 71045; 71260; 73610; 73630; 74177; 80048; 80320; 85025; 85610; 85730; 93005; 94667; 96374; 99285; Q9967

== ENCOUNTER 2023-12-05 09:05 | Outpatient (OUT) | payer MEDICARE, SELFPAY ==
--- NOTE | 2023-12-05 | XR_ITS ---
The [address] [address] Patient Name: ELÍAS SANCHEZ MRN: [id number] date: 1965 Sex: M Assigned Patient Location: Current Patient Location: Accession/Order Number: [id number] Exam Date: 12/05/2023 09:29 Report Date: 12/08/2023 07:15 At the request of: CHRIS MENDES Procedure: XR foot LT min 3V PROCEDURE: XR foot LT min 3V HISTORY: LEFT FOOT PAIN COMPARISON: XR foot left 11/27/2023 FINDINGS: BONES:Stable mildly displaced base of first metatarsal fracture with intra-articular extension. No appreciable callus formation or increased density of the fracture line. SOFT TISSUES:Mild dorsal soft tissue swelling. EFFUSION:None visible. OTHER: Negative. XR/XR foot LT min 3V IMPRESSION: 1. Stable mildly displaced base of 5th metatarsal fracture with intra-articular extension. No radiographic evidence of early bone healing at this time. Electronically authenticated by: CIRA LIN Date: 12/08/2023 07:15
--- OUTSIDE RECORDS SUMMARY | 2023-12-05 09:26 | XMS_ITS | CCD ---
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 VRKkLT4OJzPuICTa NUGrQEGqOULpIIQazz7B RAJvHSOsZoF3NlQdTBAl MCBuDQowMDAwMDAyNDI5 AGRfNMNjHL6PVgIy BYOsURO6KYPqNMKiHBHr az1KYZCvNNOpSxrqIuAs MDAwMCBuDQowMDAwMDAy EIW6PLPzVFSzZS4S KxJeEDTzLFD7IrbfWFJi FGNbfw4BOBUsDGWpBpZ3 MCAwMDAwMCBuDQowMDAw TMIfPzf3SGWbCAVz BU6RXgWrRRZwJpgpGEhc BATqNZVxnm2LSTVxFCN8 MzYzNyAwMDAwMCBuDQp0 nwYnbDAiPNm0DVzv VXGzIkmpPDT0EQW0JODZ VfBmIVRRXLBiHIS7FdB8 WghjLJTIMj7TXXXLYnbQ WDGIEbB7CTEOMhF0 Z5E4C7O2DiQbUIx7Wmof Kg5QD2PyQBTrVcteAXhy Rw0Ed858MYn3GXOsXspd E8n3VKG6LgkoA723 cmNlIChXZUpYRnhOTzRm CaS0zJCSPRNLI0C9U77n J53fRV4ZCJhwP7G1MSnh H2Y8EyOGV6XVIFSc LYTonZs8JJkmUSh9Sbbr eGfpAGI0U7YonCI5S9ux a91pJUJUNHlVt6maUJU2 O41VFfdYKgdEhdPF F9k9kGMOO2IkA4BfD8EW POrXPXUwXFGtUx0UQPjY VVlxdvaADx9nKc3+ICAg ICAgICAgICAgICAg ICAgICAgICAgICAgICAg ICAgICAgICAgICAgICAg ICAgICAgICAgICAgICAg ICAgICAgICAgICAg ICAgICAgICAgICAgICAg ICAgICAgICAgICAgICAg ICAgICAgICAgICAgICAg ICAgICAgICAgICAg ICAgICAgICAgICAgICAg ICAgICAgICAgICAgICAg ICAgICAgICAgICAgICAg ICAgICAgICAgICAg ICAgICAgICAgICAgICAg ICAgICAgICAgICAgICAg ICAgICAgICAgICAgICAg ICAgICAgICAgICAg ICAgICAgICAgICAgICAg ICAgICAgICAgICAgICAg ICAgICAgICAgICAgICAg ICAgICAgICAgICAg ICAgICAgICAgICAgICAg ICAgICAgICAgICAgICAg ICAgICAgICAgICAgICAg ICAgICAgICAgICAg ICAgICAgICAgICAgICAg ICAgICAgICAgICAgICAg ICAgICAgICAgICAgICAg ICAgICAgICAgICAg ICAgICAgICAgICAgDQpz dGFydHhyZWYNCjANCiUl PJ6ZCNvWIgk2YROrz0Ra JOy4REdwNJU1LGSg bPPdSvBoVXYAMl4SdSEu DHD7lX2gBEm0RMMxBZWA C6OmmE1LQ754aLlfrqNv IDczIDAgUgovUGFn DP1vXVJvX7WbXU3fjdWP N9OrC0AnGIf6LRIkYxvo XCvnGVTcJ6H4TYqcRth+ Lf9NJD2us3UrBBrT Hla4RRSky5LmECz3USrw VktfhOOmJA1WxEC0TBMd K78zFKfdFTXyG1TjQPAn SrnyOkCcKImGMm4D TmU9nwMpyP4DaXlaYJZq Q8GikxIjfVMxLjxlOGAL UxjAahjYsGAgmCrJwJDF n8AK5AlAAd58B7Fl MwaGXkYGgoCQPtaJQIIP ihkYMsFumweVtABiDiC2 bvE0DExXjOVRxhiYjCKo BgYHDSAtBDMRAJjx WhhPPkXkKXE6irCclU0Y QX9qp3CcJXbYWvw4YIMm l1SzTUo2HBzbR45rwWPz dHMgWzgxIDAgUiA4 MiAwIFIgODMgMCBSIDg0 YTHdNmh0XPNsHJWdCDFe BRHIJFh3WADfOpT1FFBc XXCuVc0NXWGlICIr tVLrHFYgRNMzYqJ9IOOs Fz8XJSEcdyNjTqUsGMJP Fa7QSKBfoZViUIGqRIwZ G4TmzbKyJQtZG1On RoQ4RBimHLHkDao+Pgov WI8warSdfZG0FTuyJQHu YzExIDkwIDAgUgovSWFi FqL9WUpqOIGlYscv WYZuRnA9JJyuVCTlWsyd SWFiYzcgODkgMCBSCj4+ Cj4+Di2GrRGxWJ7UMQkb Cj4+DQplbmRvYmoN Tz5IXVKjNJTdOyuAGok4 Na8KIGFmXh5wwERvIFid HYGuTq8aKI2RI6ArC76k mN5hQK7NyA0AncFe CD4ty7MbgklCF7D9XwU0 bTBlP4S9wIEiXj2PuUKh JA3Te898Yq3+DQplbmRv RqkDQf9SUUJtWNTo IblHKfm3Om2FZR8bsUsv MTAxCj4+RLmjoDDcUO9A CnENCkJUDQowIDAgMCBy Nv4KV0BqOnV2HUNt IFRmDQoxIDAgMCAxIDIw QVs9Gt2hDYJsYRruXWyt QNNdTDD4OWzhsdXkJ4Vw gKBiMFFvTYKzU8Xw Q39nNTPsPQKTNXeUAU3A FI2UPBjmymVoxGRvXY3E VjQrIF3ceo8LWPk3FvUs AZ7phv6TPUnGQ3ya rdz5xXF0LFq+Zz8Sr3Er YJAnFHrLRF9EhM8HBCDh IDAgMCAxNjUgMjAgNTY5 LjMzMzMzIGNtDQov WEYlTnscDP4VFxDWSyOS TPgMHhOeRBT2ytUraW4X OI3dh4ErPFpJWxzeZGGx y0OcJVt0EJleSBLf X6DlNSGaGsu+Hz1Yc3If OMEtNAnzSMwJPU2CJFQt GGTilwdKTb3UAGKnJVLk YZNHMu1FTRGjTSUk YMXoIAS1SNEbLOQxIeTt OL7MUmgrXZJIklmhNHLk ZXJbgL9QdXEaiP5uZVZu TNYeP7RzXu1eLURz DFGZQNxAHS2OWG9UEVge smQeuDHeGS3HNyWfNV4r ze5VFBq2GMMzOK4kpg9R HDyCV5fisql7cAR7 Zenon+Lo8Ov7QtOYUjPRpW WY2OlN6UHULqALNlXFX4 DtQaACZ8RKxoHbM5Yanh H75GRx9CTJVhTMBj ED8RSqGOXoOZJWzDCqBb TQK4psJfoI4ELN7rt5Pz PWcMDqf1OGCvj4XsWEv4 BEuxCZMdA8MtSBCo NQo+Px7Hb3QeYLNnQOer HXpUPA3NGCNxBAVskziL Na8LGTCiBVEoMFKMAf8C MSAwIDAgMSAyMCA0 UIizYBP5SujmAQ7XPljm EOFBblzgYWAoEZXljG0F hMGvfA1lJKTbVNunVPDh FwKxHU5oSVjSWgAO OLvLFDvANtZhJCC7iyCu tK2KFG6kj7KvIUfFKvb3 NEQvl6DvFCo7RAczIGQm H8UhLQU7Zj4+DQpz dIEdUJ7CZbMFYIwlXRt9 DZTgVEDxIWT3FOYqESNn AKXgY09NWm2LUGPuQDZk CM3KYdSRQkUJVGzM VmObRTA5jtGztW7MXS6p h1RyVKlNCua0HWYsi9Jo KVr0IToxBRPaU8JnUFZc Mgo+Yd3Nm4YsQANy MLcpLKyNIC8FKRDkEGRo rtrESp9OXLMoPCFkSXUF Sw5CZNYkQBEsNFPsQBYv OUwkXpKKaU7SGiGj XWU5YLNiWXFlFX44E5F7 tnilQqMaJRNsNC5BxY6h NqRuPC3dURnVAeHALUpG GOiFIuPaQXN9teKt wE4ZOR7gd7XtVIlSTlt2 LOPdq7ByXIs2PZrrOKAr K0QfFEC0Rz9+DQpzdHJl WL8NUrEHUIuzRQm8 NTIgMCAwIDgzIDIwIDEy IV2fPdWzTrGoiO2LH1vz JdMwOIAKpi5QFH7SWWyP Ef0NAX9ce1RdTZMg SUoewvElMtcBVk2AAQgw WJVhRtrPFpc0Bg1ZiHPb HBQqT79ncO9qKG25TYdF Y7QgzN3sW8WcL3Mc Q5EpuremYBIDGdniArsq bNDzWB2RbTW1ZSSiO19g VHsbVBVgC8g6ECE1JKjk KFYrC5PmVNVoFVI1 Bf8PuSX4hSIwRV4YzMXf AYdlGAduSGUeID7teaRp uDyrC4msqNloKMXyCa8+ PDfjcTOdKA1FLfjp 0M2SKDKJuwpJ71/3PDPd /8c7P7180yVI6u0tC2mB ImMhqxdaicXLdq9LNHcC U1OVGNPSAnHYS9gD UQLWLEBwWFjQb6ZiLFHV OFZHux1q1v2N3g1Id3Eh 1VhWQVfF+6QSN0+cjMiI E+dkZkS+CXBwcHBw cHBwcHBwcHBwcHBwcHBw cHBwcHBwcHBwcHBwcHBw cHBwcHBwcHBwcHBwcHBw cHBwcHBwcHBIQVOT i6CxSf31JqlkrjDbVeiK JKSrC/Yuyg748gaxnyOA FlHc/Va73z3pmyyYPoMW gnafk2qHJ1vsioJn Eps2sNBPhp5cx2nQdlb9 s0vhF3b/b8wqeYCldLOW zYHot2kxiKukVYANiFq0 4x3BvsZ4gF3izcGL 3Ms+GuW+u1bYU/vo1MzP YLYvXWVpx4ixvgRseLOM 3CovjfNHQ4yk (more content not included)... Normal [facility] CNOVon 08-09-2022 CNOV Office Visit (SPNSMN) MICAH FORBES ([id number]) 1965 M Date Time Provider Department 08/09/22 [...] which included preparing to see the patient, [id number] patient care, completing clinical documentation, obtaining and/or reviewing separately obtained history, performing a medically appropriate examination, counseling and educating the patient/family/careg iver, ordering medications, tests, or procedures, independently interpreting results (not separately reported), and care coordination (not separately reported). SIGNATURE: Abdon Palacios MD PATIENT NAME: Micah Forbes DATE: August 09, 2022 TIME: 10:15 AM PAGER: Referring Provider: ABDON PALACIOS [[id number]] Allergies As of D (more content not included)... Normal [facility] No Panel Informationon 08-09 [facility] XR CERVICAL 4V AP/LAT/OBLon 08-09-2022 XR [...] vertebrae with counting from the craniocervical junction. Physics Technician: PSCB Transcribe Date/Time: Aug 09 2022 11:59A Dictated by : FRANSICO BECKETT MD This examination was interpreted and the report reviewed and electronically signed by: FRANSICO BECKETT MD on Aug 09 2022 12:01PM EST [id number] CN Normal [facility] CBC AUTO DIFFon 06-13-2022 BASO # 0.0 103/ul Normal 0.0-0.1 [facility] Comment on above: Performed By: #### C BC #### [facility] [address] [address] [address] Marce Tabares Basophils/100 WBC (Bld) 0.6 % Normal 0.2-2.0 [facility] Comment on above: Performed By: #### C BC #### [facility] [address] [address] [address] Marce Tabares EO # 0.3 103/ul Normal 0.0-0.7 [facility] Comment on above: Performed By: #### C BC #### [facility] [address] [place] [address] Dr. Marce Tabares Eosinophils/100 WBC (Bld) 4.5 % Normal 0.9-7.0 [facility] Comment on above: Performed By: #### C BC #### [facility] [address] [place] [address] Dr. Marce Tabares Erythrocyte distribution width (RBC) [Ratio] 13.1 % Normal 11.0-15.0 [facility] Comment on above: Performed By: #### C BC #### [facility] [address] [place] [address] Dr. Marce Tabares Hematocrit (Bld) [Volume fraction] 45.5 % Normal 42.0-54.0 [facility] Comment on above: Performed By: #### C BC #### [facility] [address] [place] [address] Dr. Marce Tabares Hemoglobin (Bld) [Mass/Vol] 15.7 g/dL Normal 14.0-18.0 [facility] Comment on above: Performed By: #### C BC #### [facility] [address] [place] [address] Dr. Marce Tabares IG # 0.02 10e3/ul Normal 0.00-0.03 [facility] Comment on above: Performed By: #### C BC #### [facility] [address] [place] [address] Dr. Marce Tabares IG % 0.3 % Normal 0.0-0.5 [facility] Comment on above: Performed By: #### C BC #### [facility] [address] [place] [address] Dr. Marce Tabares LYMPH # 1.9 103/ul Normal 1.2-3.8 [facility] Comment on above: Performed By: #### C BC #### [facility] [address] [place] [address] Dr. Marce Tabares Lymphocytes/100 WBC (Bld) 28.5 % Normal 20.5-60.0 [facility] Comment on above: Performed By: #### C BC #### [facility] [address] [place] [address] Dr. Marce Tabares MANUAL DIFF REQ NO Normal [facility] Comment on above: Performed By: #### C BC #### [facility] [address] [place] [address] Dr. Marce Tabares MCH (RBC) [Entitic mass] 31.8 pg Normal 25.9-34.0 [facility] Comment on above: Performed By: #### C BC #### [facility] [address] [place] [address] Dr. Marce Tabares MCHC (RBC) [Mass/Vol] 34.5 g/dL Normal 29.9-35.2 [facility] Comment on above: Performed By: #### C BC #### [facility] [address] [place] [address] Dr. Mrace Tabares MCV (RBC) [Entitic vol] 92.3 fL Normal 80.0-94.0 [facility] Comment on above: Performed By: #### C BC #### [facility] [address] [place] [address] Dr. Marce Tabares MONO # 0.7 103/ul Normal 0.3-0.8 [facility] Comment on above: Performed By: #### C BC #### [facility] [address] [place] [address] Dr. Marce Tabares Monocytes/100 WBC (Bld) 10.3 % Normal 1.7-12.0 [facility] Comment on above: Performed By: #### C BC #### [facility] [address] [place] [address] Dr. Marce Tabares NEUT # 3.7 103/ul Normal 1.4-6.5 [facility] Comment on above: Performed By: #### C BC #### [facility] [address] [place] [address] Dr. Marce Tabares Neutrophils/100 WBC (Bld) 55.8 % Normal 43.0-75.0 [facility] Comment on above: Performed By: #### C BC #### [facility] [address] [address] [address] Marce Tabares Platelet mean volume (Bld) [Entitic vol] 9.3 fL Critically low 9.5-13.5 [facility] Comment on above: Performed By: #### C BC #### [facility] [address] [address] [address] Marce Tabares PLT 185 103/ul Normal 150-450 [facility] Comment on above: Performed By: #### C BC #### [facility] [address] [address] [address] Marce Tabares RBC 4.93 106/ul Normal 4.70-6.10 [facility] Comment on above: Performed By: #### C BC #### [facility] [address] [address] [address] Marce Tabares WBC 6.7 103/ul Normal 4.0-11.0 [facility] Comment on above: Performed By: #### C BC #### [facility] [address] [address] [address] Marce Tabares GLYCOHEMOGLOBIN A1Con 2021 ADA RECOMMENDATION SEE BELOW Normal [facility] Comment on above: Result Comment: ADA RECOMMENDED LIMIT 4.0 - 6.0 ADA THERAPEUTIC TARGET < 7.0 ACTION SUGGESTED > 7.0 Performed By: #### A 1C #### [facility] [address] [place] [address] Dr. Marce Tabares Glucose [Mass/Vol] 180 mg/dL Normal [facility] Comment on above: Performed By: #### A 1C #### [facility] [address] [place] [address] Dr. Marce Tabares HbA1c (Bld) [Mass fraction] 7.9 % Critically high 4.5-6.2 [facility] Comment on above: Performed By: #### A 1C #### [facility] [address] [place] [address] Dr. Marce Tabares LIPID PROFILEon 06-13-2022 CHOL-HDL RATIO NORM SEE BELOW Normal [facility] Comment on above: Result Comment: 3.3 - 4.4 LOW RISK 4.4 - 7.1 AVERAGE RISK 7.1 - 11.0 MODERATE RISK >11.0 HIGH RISK Performed By: #### L IVER, LIPID, BMP #### [facility] [address] [place] [address] Dr. Marce Tabares Cholesterol [Mass/Vol] 174 mg/dL Normal <=200 [facility] Comment on above: Performed By: #### L IVER, LIPID, BMP #### [facility] [address] [place] [address] Dr. Marce Tabares Cholesterol in HDL [Mass/Vol] 34 mg/dL Critically low 40-60 [facility] Comment on above: Performed By: #### L IVER, LIPID, BMP #### [facility] [address] [place] [address] Dr. Marce Tabares Cholesterol in LDL [Mass/Vol] 72.0 mg/dL Normal [facility] Comment on above: Performed By: #### L IVER, LIPID, BMP #### [facility] [address] [place] [address] Dr. Marce Tabares Cholesterol.total/Cho lesterol in HDL [Mass ratio] 5.1 {ratio} Normal [facility] Comment on above: Performed By: #### L IVER, LIPID, BMP #### [facility] [address] [place] [address] Dr. Marce Tabares HDL NORMAL > or = 60 mg/dl - LOW CARDIOVASCULAR RISK <40 mg/dl - HIGH CARDIOVASCULAR RISK Normal [facility] Comment on above: Performed By: #### L IVER, LIPID, BMP #### [facility] [address] [place] [address] Dr. Marce Tabares LDL CALC NORMAL SEE BELOW Normal [facility] Comment on above: Result Comment: <100 mg/dl OPTIMAL 100 - 129 mg/dl NEAR OR ABOVE OPTIMAL 130 - 159 mg/dl BORDERLINE HIGH 160 - 189 mg/dl HIGH >190 mg/dl VERY HIGH Performed By: #### L IVER, LIPID, BMP #### [facility] [address] [address] [address] Marce Tabares Triglyceride [Mass/Vol] 342 mg/dL Critically high <=150 [facility] Comment on above: Performed By: #### L IVER, LIPID, BMP #### [facility] [address] [address] [address] Marce Tabares VLDL CALC 68.4 mg/dL Normal [facility] Comment on above: Performed By: #### L IVER, LIPID, BMP #### [facility] [address] [address] [address] Marce Tabares LIVER PROFILEon 06-13-2022 Albumin [Mass/Vol] 3.9 g/dL Normal 3.4-5.0 [facility] Comment on above: Performed By: #### L IVER, LIPID, BMP #### [facility] [address] [place] [address] Dr. Marce Tabares Albumin/Globulin [Mass ratio] 1.2 {ratio} Normal [facility] Comment on above: Performed By: #### L IVER, LIPID, BMP #### [facility] [address] [place] [address] Dr. Marce Tabares ALP [Catalytic activity/Vol] 63 U/L Normal 46-116 [facility] Comment on above: Performed By: #### L IVER, LIPID, BMP #### [facility] [address] [place] [address] Dr. Marce Tabares ALT [Catalytic activity/Vol] 30 U/L Normal 16-63 [facility] Comment on above: Performed By: #### L IVER, LIPID, BMP #### [facility] [address] [place] [address] Dr. Marce Tabares AST [Catalytic activity/Vol] 16 U/L Normal 15-37 [facility] Comment on above: Performed By: #### L IVER, LIPID, BMP #### [facility] [address] [place] [address] Dr. Marce Tabares BILI, CONJUGATED 0.1 mg/dL Normal 0.0-0.2 [facility] Comment on above: Performed By: #### L IVER, LIPID, BMP #### [facility] [address] [place] [address] Dr. Marce Tabares Bilirubin [Mass/Vol] 0.3 mg/dL Normal 0.2-1.0 [facility] Comment on above: Performed By: #### L IVER, LIPID, BMP #### [facility] [address] [address] [address] Marce Tabares Globulin (S) [Mass/Vol] 3.3 g/dL Normal [facility] Comment on above: Performed By: #### L IVER, LIPID, BMP #### [facility] [address] [address] [address] Marce Tabares Protein [Mass/Vol] 7.2 g/dL Normal 6.4-8.2 [facility] Comment on above: Performed By: #### L IVER, LIPID, BMP #### [facility] [address] [place] [address] Dr. Marce Tabares MICROALBUMIN, RAND URon 12-0 mALB <1.3 Normal <=30.0 [facility] Comment on above: Performed By: #### M ALBR #### [facility] [address] [place] [address] Dr. Marce Tabares PROF CHEM 8 (BAS METB)on Anion gap [Moles/Vol] 11.6 mmol/L Normal [facility] Comment on above: Performed By: #### L IVER, LIPID, BMP #### [facility] [address] [place] [address] Dr. Marce Tabares Calcium [Mass/Vol] 8.8 mg/dL Normal 8.5-10.1 [facility] Comment on above: Performed By: #### L IVER, LIPID, BMP #### [facility] [address] [address] [address] Marce Tabares Chloride [Moles/Vol] 101 mmol/L Normal 98-107 [facility] Comment on above: Performed By: #### L IVER, LIPID, BMP #### [facility] [address] [place] [address] Dr. Marce Tabares CO2 [Moles/Vol] 30.8 mmol/L Normal 21.0-32.0 [facility] Comment on above: Performed By: #### L IVER, LIPID, BMP #### [facility] [address] [address] [address] Marce Tabares Creatinine [Mass/Vol] 1.05 mg/dL Normal 0.70-1.30 [facility] Comment on above: Performed By: #### L IVER, LIPID, BMP #### [facility] [address] [address] [address] Marce Tabares EGFR-AF LIBERIAN >60 Normal >=60 [facility] Comment on above: Performed By: #### L IVER, LIPID, BMP #### [facility] [address] [place] [address] Dr. Marce Tabares EGFR-NON AF LIBERIAN >60 Normal >=60 [facility] Comment on above: Performed By: #### L IVER, LIPID, BMP #### [facility] [address] [place] [address] Dr. Marce Tabares Glucose [Mass/Vol] 170 mg/dL Critically high 74-106 [facility] Comment on above: Performed By: #### L IVER, LIPID, BMP #### [facility] [address] [place] [address] Dr. Marce Tabares Potassium [Moles/Vol] 4.1 mmol/L Normal 3.5-5.1 [facility] Comment on above: Performed By: #### L IVER, LIPID, BMP #### [facility] [address] [place] [address] Dr. Marce Tabares Sodium [Moles/Vol] 140 mmol/L Normal 136-145 [facility] Comment on above: Performed By: #### L IVER, LIPID, BMP #### [facility] [address] [place] [address] Dr. Marce Tabares Urea nitrogen [Mass/Vol] 13.0 mg/dL Normal 7.0-18.0 [facility] Comment on above: Performed By: #### L IVER, LIPID, BMP #### [facility] [address] [place] [address] Dr. Marce Tabares Urea nitrogen/Creatinine [Mass ratio] 12.4 mg/mg Normal [facility] Comment on above: Performed By: #### L DEREK, LIPID, BMP #### [facility] [address] [place] [address] [id number] [address] Marce Tabares Vital Signs Date Time Vital Sign Value Performing Clinician Facility 09-02-2022 18:15-0500 Diastolic blood pressure 102 mm[Hg] Paxton Reinosoe [facility] 09-02-2022 18:15-0500 Heart rate 71 /min Paxton Reinosoe [facility] 09-02-2022 18:15-0500 Mean blood pressure 111 mm[Hg] Paxton Reinosoe [facility] 09-02-2022 18:15-0500 Respiratory rate 20 /min Paxton Reinosoe [facility] 09-02-2022 18:15-0500 SaO2% (BldA) [Mass fraction] 93 % Paxton Blossom [facility] 09-02-2022 18:15-0500 Systolic blood pressure 130 mm[Hg] Paxton Reinosoe [facility] 09-02-2022 17:37-0500 Body temperature 99.68 [degF] Paxton Reinosoe [facility] 09-02-2022 17:37-0500 Diastolic blood pressure 104 mm[Hg] Paxton Blossom [facility] 09-02-2022 17:37-0500 Heart rate 82 /min Paxton Blossom [facility] 09-02-2022 17:37-0500 Respiratory rate 20 /min Paxton Reinosoe [facility] 09-02-2022 17:37-0500 SaO2% (BldA) [Mass fraction] 93 % Paxton Blossom [facility] 09-02-2022 17:37-0500 Systolic blood pressure 158 mm[Hg] Paxton Cerrato [facility] 08-09-2022 09:00-0500 Body height 172.7 cm Abdon Palacios MD Work Phone: [facility] 08-09-2022 09:00-0500 Body weight 88.45 kg Abdon Palacios MD Work Phone: [facility] 08-09-2022 09:00-0500 Diastolic blood pressure 69 mm[Hg] Abdon Palacios MD Work Phone: [facility] 08-09-2022 09:00-0500 Heart rate 89 /min Abdon Palacios MD Work Phone: [facility] 08-09-2022 09:00-0500 Respiratory rate 13 /min Abdon Palacios MD Work Phone: [facility] 08-09-2022 09:00-0500 SaO2% (BldA) [Mass fraction] 98 % Abdon Palacios MD Work Phone: [facility] 08-09-2022 09:00-0500 Systolic blood pressure 121 mm[Hg] Abdon Palacios MD Work Phone: [facility] Encounters Encounter Date Encounter Type Care Provider Facility Start: 10-07-2023 End: 10-07-2023 ambulatory SHAIKH JAQUELINE Not Available Start: 08-12-2023 Abby Moreno Work Phone: [facility] Comment on above: ETHAN (generalized anx iety disorder) ([facility]) Start: 07-02-2023 End: 07-02-2023 ambulatory SHAIKH EDMUNDWGRECIAD Not Available Start: 10-25-2022 End: 10-26-[address] CAMPBELL [place] Facility: Start: 10-25-2022 Telephone encounter Abdon macias MD Work Phone: Neurology Comment on above: Results Start: 10-10-2022 End: 10-10-2022 ambulatory Aleksandr Quintanillajocelyn Facility:[facility] Start: 09-06-2022 Telephone encounter Abdon macias MD Work Phone: Neurology Comment on above: [employer]; Orders Start: 09-02-2022 End: 09-02-2022 Emergency department patient visit Paxton Cerrato Facility[place] [place] Start: 09-02-2022 End: 09-02-2022 Emergency department patient visit Paxton Cerrato [facility] Start: 08-09-2022 End: 08-09-2022 ambulatory ABDON PALACIOS Facility:[facility] Start: 08-09-2022 End: 08-09-2022 ambulatory ABDON PALACIOS Facility:[facility] Start: 08-09-2022 End: 08-09-2022 Subsequent hospital visit by physician Koko Mendiola J1-4 Work Phone: Radiology Comment on above: Spinal stenosis of c ervical region [M48.02] Start: 08-09-2022 End: 08-09-2022 Patient encounter procedure Abdon Palacios MD Work Phone: [facility] [place] Comment on above: Spinal stenosis of c ervical region (Primary Dx); S/P cervical spinal fusion Start: 06-13-2022 End: 06-14-[address] SILVIO CRAIN Facility:[facility] Procedures Date Procedure Procedure Detail Performing Clinician Start: 08-09-2022 Radex spine cervical 4 or 5 views Jennifer Moore MD Work Phone: Start: 06-13-[address] SILVIO ENNIS Comment on above: Performed By: #### P [facility] #### [facility] [address] [place] [address] Dr. Marce Tabares Plan of Treatment Date Care Activity Detail Author Start: 06-13-2027 PROSTATE CANCER SCREENING DISCUSSION PROSTATE CANCER SCREENING DISCUSSION [facility] Start: 09-18-2023 End: 09-18-2023 Patient encounter procedure 09/18/2023 1:00 PM EDT Office Visit [facility] [address] [place] [id number] Silvio Crain MD [address] [place] [id number] [facility] Start: 08-09-2023 BP CONTROLLED (<130/80) BP CONTROLLE D (<130/80) [facility] Start: 03-07-2023 Influenza vaccination INFLUENZ A (Season Ended) [facility] Start: 08-16-2022 End: 09-08-2023 Ct cervical spine w/o contrast material CT CERVICAL SPINE WO IVCON Radiology Routine Spinal stenosis of cervical region Expected: 08/16/2022, Expires: 09/08/2023 [facility] Work Phone: Comment on above: Expected: 08/16/2022 , Expires: 09/08/2023 Start: 07-07-2022 DEPRESSION ASSESSMENT DEPRESSION ASS ESSMENT [facility] Start: 03-07-2022 Influenza vaccination INFLUENZA (#1) [facility] Start: 02-16-2022 Screening for malign ant neoplasm of colon [facility] Start: 09-12-2021 COVID-19 VACCINE (4 - Booster for Pfizer series) COVID-19 VACCINE (4 - Booster for Pfizer series) [facility] Start: 08-30-2021 Hemoglobin A1c measurement Diabetes: Hemoglobin A1C [facility] Start: 06-02-2021 Hemoglobin A1c/Hemoglobin.total in Blood HBA1C [facility] Start: 05-26-2020 Glaucoma screening Diabetes: R etinopathy Screening [facility] Start: 2015 SHINGRIX VACCINE (1 of 2) SHINGRIX VACCINE (1 of 2) [facility] Start: 2010 COLOGUARD (FIT-DNA) COLOGUARD (FIT-D NA) [facility] Start: 2010 Colonoscopy COLONOSCOPY [facility] Start: 2010 COLORECTAL CANCER SCREENING COLORECTAL CANCER SCREENING [facility] Start: [address] COLONOGRAPHY [facility] Start: 2010 FECAL OCCULT BLOOD FECAL OCCULT BLOO D [facility] Start: 2010 SIGMOIDOSCOPY SIGMOIDOSCOPY [facility] Start: 1984 Urine microalbumin profile DTAP,TDAP,TD (1 - Tdap) [facility] Start: 1984 Urine screening for protein Diabetes: Urine Protein Screening [facility] Start: 1983 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 ANNUAL PCP TEAM CHRONIC DISEASE VISIT [facility] Start: 1983 Hepatitis B surface antibody level LDL CHOLESTEROL [facility] Start: 1983 HEPATITIS C SCREENING HEPATITIS C SC REENING [facility] Start: 1983 HIV SCREENING HIV SCREENING [facility] Start: 1975 3 comp foot exam completed DIABETIC FOOT EXAM [facility] Start: 1975 Hepatitis B screening URINE ALBUMIN:CREATININE RATIO [facility] Start: 1975 Hepatitis C antibody , confirmatory test DILATED RETINAL EXAM [facility] Start: 1971 PNEUMOCOCCAL (1 - PCV) PNEUMOCOCCAL (1 - PCV) [facility] Start: 1965 HEPATITIS B (1 of 3 - 3-dose series) HEPATITIS B (1 of 3 - 3-dose series) [facility] Start: 1965 Medicare Annual Well ness (AWV) Medicare Annual Wellness (AWV) [facility] Start: 1965 Screening for malign ant neoplasm of colon [facility] Immunizations Immunization Date Immunization Notes Care Provider Fa ke 11-30-2020 COVID-19 original vaccine, age 12+ yr, monovalent (PFIZER-BIONTECH - PURPLE TOP) Abdon Palacios MD Work Phone: [facility] 11-09-2020 COVID-19 original vaccine, age 12+ yr, monovalent (PFIZER-BIONTECH - PURPLE TOP) Abdon Palacios MD Work Phone: [facility] 05-14-2017 influenza, seasonal, injectable, preservative free Abdon Palacios MD Work Phone: [facility] Work Phone: 05-07-2017 influenza, injectabl e, quadrivalent, contains preservative Abdon Palacios MD Work Phone: [facility] Work Phone: Payers Date Payer Category Payer Self-pay 2021 Medicare ANTHEM MEDICARE ADVANTAGE ANTHEM MEDICARE ADVANTAGE [id number] 2021-Present [address] [place] [address] [id number] 2011 Unknown [facility] CHADD O [id number] 2011-Present [phone] [address] [place] [address] MCO [id number] 2011 Unknown [id number] 1965 Unknown [id number] 1965 Unknown [id number] 1965 Unknown [id number] 1965 Unknown [id number] 1965 Unknown [id number] 1959 Unknown [id number] 1959 Unknown [id number] Unknown [id number] Social History Date Type Detail Facility Start: 08-09-2022 Tobacco smoking status NHIS Ex-smoker [facility] Start: 11-14-2020 End: 02-04-2021 History of tobacco use Current smoker [facility] Start: 11-14-2020 End: 02-04-2021 History of tobacco use Cigarette Smoker [facility] Start: 08-09-2022 End: 07-02-2023 Cigarettes smoked current (pack per day) - Reported 0.3 [facility] Start: 08-09-2022 Tobacco use and exposure Smokeless tobacco non-user [facility] Start: 08-09-2022 Alcohol intake Current drinker of alcohol (finding) [facility] Start: 03-02-2021 Alcohol Comment 3 times a month per pt 03/02/2021 [facility] Start: 1965 Sex Assigned At Not on file [facility] Tobacco smoking status No Smokin g Status Entered [facility] Start: 07-01-2023 End: 07-02-2023 Sex Assigned At Male [facility] Start: 07-01-2023 Tobacco smoking status NHIS Smokes tobacco daily [facility] Start: 07-01-2023 Alcohol intake Lifetime non-drinker (finding) [facility] Within the last year , have you been afraid of your partner or ex-partner? No [facility] Do you belong to any clubs or organizations such as mandaeism groups, [employer]s, [employer] or athletic groups, or school groups? Yes [...] Equipment Origin al Text Equipment Identifier Dates Happy Lateral Of fset Connector Side Sz 10mm [id number] Start: 03-15-2021 Graft Deminerali zed Bone Matrix Bone Putty Pretreated 10ml - [id number] Start: 03-15-2021 Spacer Avs 4d 8m m Spinal Bone Plug - [id number] Start: 03-15-2021 [place]e Plate, 1 L evel, Sz 18mm _imp Start: 03-15-2021 [place] [facility] Luigi Csp Mini 3.5x240 [id number] Start: 03-15-2021 Screw Bn 4mm 14m m B[place]e Spnl - [id number] Start: 03-15-2021 Spacer Bio Avs 4 d Lordosis 12mm Cortical Cancellous [id number] Allograft - [id number] Start: 03-15-2021 Functional Status Date Assessment Result Facility 09-02-2022 Functional Status N/A Reece - T [facility] Clinical Notes 08-09-2022 to 11-15-2022 Telephone Encounter [...] Schrader Images requested documented in this encounter [facility] 09-06-2022 Miscellaneous Notes Message forwarded to [facility] Forms for C-9. Imelda calling [employer] calling asking for a C9 for a CT scan. Call back # [phone] documented in this encounter [facility] 09-02-2022 Hospital Discharg e instructions Patient [...] Follow these instructions at home: Medicines Take twpw-wjo-fonlnzb and prescription medicines only as told by [...] and water are not available, use hand [employer] rep. ?Leave stitches (sutures), skin glue, or adhesive [...] 06/23/2006 Document Revised: 09/06/2019 Document Reviewed: 09/08/2019 [email or web address] Patient Education 2020 Played. 09/02/2022 19:17:16 Cervical Sprain Cervical Sprain A [...] provider or physical therapist. General instructions Take rggy-miq-bolhpti and prescription medicines only as told by [...] 04/19/2008 Document Revised: 10/13/2019 Document Reviewed: 02/19/2017 [email or web address] Patient Education 2020 [employer] Follow Up Care 09/02/2022 17:27:40 With:SILVIO CRAIN Address: [address] [place] [address] Business (1) When:09/05/2022 18:51:[address] [facility] 08-09-2022 Note HNO ID: [id number] Author: RT Khushboo(R) Service: Radiology Author Type: [...] RT Khushboo(R) August 09, 2022 11:39 AM [facility] 08-09-2022 Note HNO ID: [id number] Author: Abdon Palacios MD Service: ? Author [...] which included preparing to see the patient, eped-qy-lsig patient care, completing clinical documentation, obtaining and/or reviewing separately obtained history, performing a medically appropriate examination, counseling and educating the patient/family/caregiver, ordering medications, tests, or procedures, independently interpreting results (not separately reported), and care coordination (not separately reported). SIGNATURE: Abdon Palacios MD PATIENT NAME: Micah Forbes DATE: August 09, 2022 TIME: 10:15 AM PAGER: [facility] 08-09-2022 History of Presen t illness [...] 2022 11:39 AM documented in this encounter [facility] 08-09-2022 History of Presen t illness [...] which included preparing to see the patient, yjoc-tx-mbxb patient care, completing clinical documentation, obtaining and/or reviewing separately obtained history, performing a medically appropriate examination, counseling and educating the patient/family/caregiver, ordering medications, tests, or procedures, independently interpreting results (not separately reported), and care coordination (not separately reported). SIGNATURE: Abdon Palacios MD PATIENT NAME: Micah Forbes DATE: August 09, 2022 TIME: 10:15 AM PAGER: documented in this encounter [facility] Evaluation + Plan note No data available for this section [facility] Evaluation note Diagnosis Spinal stenosis of cervical region- Primary Spinal stenosis in cervical region S/P cervical spinal fusion Arthrodesis status [facility] Diagnosis Spinal stenosis of cervical region Spinal stenosis in cervical region [facility] Diagnosis ETHAN (generalized anxiety disorder) ([facility]) Generalized anxiety disorder [facility] No data available for this section [facility] Reason for Referral Specialty Diagnoses / Procedures Referred By Contac t Referred To Contact CT IMAGING Diagnoses Spinal stenosis of cervical region Procedures CT CERVICAL SPINE WO IVCON CT CERVICAL SPINE W/O CONTRAST MATERIAL Abdon Palacios MD [address] [place] [address] Ct Imaging Referral ID Status Reason Start Date Expiration Date Visits Requested Visits Authorized [id number] Pending Review Auto-Generat ed Referral 08/16/2022 09/08/2023 1 1 Specialty Diagnoses / Procedures Referred By Contac t Referred To Contact XR IMAGING Diagnoses Spinal stenosis of cervical region Procedures XR CERV OTHER 4V AP/LAT/OBL RADEX SPINE CERVICAL 4 OR 5 VIEWS Abdon Palacios MD [address] [place] [address] Xr Imaging Referral ID Status Reason Start Date Expiration Date V isits Requested Visits Authorized [id number] Closed Auto-Generate d Referral 08/09/2022 09/08/2023 1 [...] or prosecute any alcohol or drug abuse patient.[facility] the event this information is protected by the Federal Confidentiality of Alcohol and Drug Abuse Patient Records regulations: The Federal rules restrict any use of the information to criminally investigate or prosecute any alcohol or drug abuse patient.[facility] the event this information is protected by the Federal Confidentiality of Alcohol and Drug Abuse Patient Records regulations: The Federal rules restrict any use of the information to criminally investigate or prosecute any alcohol or drug abuse patient.[facility] the event this information is protected by the Federal Confidentiality of Alcohol and Drug Abuse Patient Records regulations: The Federal rules restrict any use of the information to criminally investigate or prosecute any alcohol or drug abuse patient.[facility] Reason for Visit (unrecogniz ed section and content) Reason Comments Established Patient Follow Up Specialty Diagnoses / Procedures Referred By Contac t Referred To Contact Spine Health / SPINE SURGERY Diagnoses follow up Procedures EST NI PATIENT Abdon Palacios MD [address] [facility] [place] [address] Abdon Palacios MD [address] [facility] [place] [address] Referral ID Status Reason Start Date Expiration Date Visits Re quested Visits Authorized [id number] Closed 08/09/2022 11/07/2022 1 1 Reason Comments Radio Main J1 Specialty Diagnoses / Procedures Referred By Contac t Referred To Contact XR IMAGING Diagnoses Spinal stenosis of cervical region Procedures XR CERV OTHER 4V AP/LAT/OBL RADEX SPINE CERVICAL 4 OR 5 VIEWS Abdon Plaacios MD [address] [place] [address] Xr Imaging Referral ID Status Reason Start Date Expiration Date V isits Requested Visits Authorized [id number] Closed Auto-Generate d Referral 08/09/2022 09/08/2023 1 1 Reason Comments [employer] Automatic - Other Orders Reason Comments Results Reason Onset Date Comments Med Refill 08/12/2023 Care Teams (unrecognized sec tion and content) Decision Science Analyst Relationship Specialty Start Date End Date Silvio Crain [address] [place] [address] PCP - General Family Medicine 04/20/21 Yoni Sotelo [address] [place] [address] NI Referring Team Neurosurgery 08/22/20 Decision Science Analyst Relationship Specialty Start Date End Date Silvio Crain [address] [place] [address] PCP - General Family Medicine 04/20/21 Yoni Sotelo [address] [place] [address] NI Referring Team Neurosurgery 08/22/20 Decision Science Analyst Relationship Specialty Start Date End Date Silvio Crain [address] [place] [address] PCP - General Family Medicine 04/20/21 Yoni Sotelo [address] [place] [address] NI Referring Team Neurosurgery 08/22/20 Decision Science Analyst Relationship Specialty Start Date End Date Silvio Crain [address] [place] [address] PCP - General Family Medicine 04/20/21 Yoni Sotelo [address] [place] [address] NI Referring Team Neurosurgery 08/22/20 Decision Science Analyst Relationship Specialty Start Date End Date Silvio Crain MD PCP - General Family Medicine 03/07/23 (unrecognized sect ion and content) No Status Records FoundNo Status Records FoundNo Status Records FoundNo Status Records FoundNo Status Records Found INFORMATION SOURCE (unrecogn ized section and content) DATE CREATED AUTHOR 09/13/2022 [facility] DATE CREATED AUTHOR AUTHOR'S ORGANIZ ATION 10/15/2022 [facility] DATE CREATED AUTHOR AUTHOR'S ORGANIZ ATION 11/04/2022 [facility] DATE CREATED AUTHOR AUTHOR'S ORGANIZ ATION 11/17/2022 [facility] DATE CREATED AUTHOR AUTHOR'S ORGANIZ ATION 10/08/2023 [facility] EPIC FOR RECORDS PERTAINING TO [...] BE BASED ON THE PRIMARY CLINICAL RECORDS. [facility] [employer] [facility]. provides no warranty or guarantee of the accuracy or completeness of information in this document.
== END 2023-12-05 09:06 | disposition home or self-care (01) ==
LOC: EC 09:05
PROVIDERS: PCP Family Medicine; Visit Provider Podiatrist Foot & Ankle Surgery
DX: M79.672 Pain in left foot (principal); S92.352D Displaced fracture of fifth metatarsal bone, left foot, subsequent encounter for fracture with routine healing
CPT/HCPCS: 73630

== ENCOUNTER 2023-12-12 14:44 | Outpatient (OUT) | payer MEDICARE, SELFPAY ==
--- NOTE | 2023-12-12 14:48 | CT_ITS ---
The [address] [address] Patient Name: ELÍAS SANCHEZ MRN: [id number] date: 1965 Sex: M Assigned Patient Location: CT Current Patient Location: Accession/Order Number: [id number] Exam Date: 12/12/2023 14:50 Report Date: 12/15/2023 06:45 At the request of: CHRIS MENDES Procedure: CT ankle LT wo con EXAMINATION: CT ankle LT wo con HISTORY: First metatarsal fracture S92.312 ; foot and ankle pain since falling COMPARISON: XR ankle left 11/27/2023 TECHNIQUE: Multi-planar CT images were created without and/or with IV contrast according to examination type. Dose reduction techniques were achieved by using automated exposure control and/or adjustment of mA and/or kV according to patient size and/or use of iterative reconstruction technique. FINDINGS: BONES: Mildly fracture through the plantar aspect of base of first metatarsal with extension into the articular surface. Nondisplaced fracture involving plantar surface of the base the second metatarsal with extension into the articular surface. Small minimally displaced cortical fracture fragments from the plantar medial aspect of the lateral cuneiform. Suspect nondisplaced small cortical fracture involving inferior lateral margin of the base of the fourth metatarsal. SOFT TISSUES: Soft tissue swelling. No hematoma. EFFUSION: None visible. OTHER: Negative. CT/CT ankle LT wo con IMPRESSION: 1. Nondisplaced to minimally displaced fractures involving base of the first and second metatarsals and the lateral cuneiform. Electronically authenticated by: CIRA LIN Date: 12/15/2023 06:45
== END 2023-12-12 14:45 | disposition home or self-care (01) ==
LOC: CT 14:45
PROVIDERS: PCP Family Medicine; Visit Provider Podiatrist Foot & Ankle Surgery
DX: S92.312A Displaced fracture of first metatarsal bone, left foot, initial encounter for closed fracture (principal); S92.322A Displaced fracture of second metatarsal bone, left foot, initial encounter for closed fracture; S92.225A Nondisplaced fracture of lateral cuneiform of left foot, initial encounter for closed fracture
CPT/HCPCS: 73700

== ENCOUNTER 2023-12-24 10:40 | Outpatient (OUT) | payer MEDICARE, SELFPAY ==
--- OUTSIDE RECORDS SUMMARY | 2023-12-24 10:46 | XMS_ITS | CCD ---
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 tCSzRl0qCWUxUd9+DQpl llPeNweNWo5GKjWoQUYg OlqGMlt7En4DILFd Dm2mzGWqXs0UVXMyHr9G IbAaIy2DGnBvCt5TXxUu Bj4EMNL9Jd8DBPC2rwBj Wq7fGLOaLr2+DQpl itBfHhyROi9PWsVcPADr GrjQNik5Px4WPVToHc9q oSZjGDAZE7lHC5VpqBAb IMDHTYnVDg1Jo1pt BBLHT3Vcp7AjnhMliiPA i406xoGdFkSgIUFGLBcw NI7wt1NxnaztL8gzRK66 tDY6COiPV6N1VcG4 nPRvI0F2jFIqCa5Ha9Vl tBOtDNCsDejvFHMZXq9Z eFFvZR1Jm030Ff6+DQpl czCnOulTAe4UQlUb PYCfDscPBsf1Uw9CZESn Qb9zyAXbHRZGA8oGU1Xd sBVgFNRPHQuNGy7Xy4zc EOWOY9YTQHP2g5Mo gHaiXe7gYGcEL83jKUQn mS4gBMiTVKTmgVk5wGsB T7QfG4skrII5XToGOC6s ZDuPA5T1sDRmPJ4g bnQgMAo+UgrpC8uVCM3B GBXNNGUhP8qiAR35wDJ1 Si5ZHzVqZm6Zs408VENh O3OxiHTkxzEqFhFt SPKAJ7P9RxR0tRCpU5DH REZvbnRUeXBlMgovVHlw SKKkHz2xyDvcFvNeVSF1 VdD7WPRcDMd9VoZc Cj4+LWthvcLsGhlIPc8A PwUfRWJmGbnNQtb8Yl2G b1BzenHoSIJeMqDlBOId Zz5SXPFTESneuPOe RAkfTsv6Eml7Xm4MBPJn JO54MSFqDI2qMEZ0Uskx WbtlP8JrBvNDD8WslzXK Es89DQgrHAtgFkf7 XNLbUT45SYSuIRQ2CsXt LzLtAcY9HPJ6NOFuCrKf BIpjADAnMb5Wt567Sgek KOIeRYEqPGUXGw4V h321FlAuDCWoRTZXG5zJ V8WinODdPVCSCKrPQu7F s8fkUCTWX4g1USzcK4Vi L4mdTIFJV5F4ZB2J LTe8PgE0JTl8Yc8YnFTr US8Pc078HNTbA9XajNKr cgo+Eb7YML8ka4SqJIaA UyC4SDIqb3IoUHt7 MPseKmzthYSzZE8KrFI1 JTHsE83kVItqFMGpD5Uo KCH1Ccf+Wp1Yq6IeOKFd ROf5aC8Po2pTIWS3 2ac4nS1T10zDidG3IEln d0j5JCuzu1GlKtDc2L5N 2dRCrGZoZlfzZcmilrr5 RnuIPtwoW/TQa6Mc NeXMTXDzFeHJXKxOZ65t tpQCFEBGpeoUHufG6PBm D4HeU9Qy53vG0GQ7xntM bErSMkvVuD23B0R3 tfYHBzQeYlFVoLAPSa+d ovfObGfr50rEnaxuDdbe iq/ZIqSEE+3Mdjli08d7 wnsgCTFmLxyD4HQB rnxTd5h76xN975lyAXZb r3UGrIxwV5TbhVZUMx8Y nzp3R37OEA2f58fKtdGW mfo3PCvHFC2detdC T3qDsYJO2frOrNaTKHE8 iKRr93gYmE1b1tjsPBON QhUclet8IpZF05SFKkLM Oj1Kl4XgFEt7TtZD aiMIDlIvUYV3ohBviY2D ZQ5jc6QkVOkHLqI7SRDk r7SjUIu6SZyp (more content not included)... Normal [facility] EMS Documentation Please click on link to see report pdfCD:[id number] xLjQNCiX5+prnDQolQUJ PsUAhZIMyTfNkAGf7ExV nJX5ajz0LIUrHG1VbINv jDMROG1ce MzN0KuScTAd0TTvhCDUo LwZ4TBLPX4kldaDlijc9 EKKmBWssSdX3Bm5HWBd9 If5KKAS5RXC2Ivv+ PiAgICAgICAgICAgICAg ICAgICAgICAgICAgICAg ICAgICAgICAgICAgICAg ICAgICAgICAgICAg ICAgICAgICAgICAgICAg ICAgICAgDQplbmRvYmoN Mu1JxDMyHr7SEaAzDCfB CjAwMDAwMDAwMzIg EMWoJMQjra3SSQZpAXSb DWJ7HIUcVJTvLWGmYHqb FJOcPTBwMII7JIBhTFRs OQ7ZWhFbXPQxWIW1 ToJlZPVgFOPzpx5KJNRe LMAhGDu2GLBxGVQvGUYc OXfnUTEtVSRkIFf5PKIh PQVsJU6UWlGkFQKs JBGeESOtUOXoHFLyfg9D YEZqZPAcPtB5JkJjCGRu MCBuDQowMDAwMDAyNDI5 OYIbNHCuEI4QWdAi DAPlFTK2BALpNOSmAMBl in3YHIAyRAZjIjyjOuHy MDAwMCBuDQowMDAwMDAy TQR1ULYiSJQgGG2R CfLxLFNgLCH3HchoVCGh WCVrfa2LNNDzENGhMhN2 MCAwMDAwMCBuDQowMDAw XWVaQml8SPCySVAj DB2IXhSyPIMuMlvuIPax ABEeMELboo5DJVGkQMD9 MzYzNyAwMDAwMCBuDQp0 otFhzNDiLRj7BQqd WOQdDxlcTNM4TBR7QUWQ JkXsZMDNKGUtWEQ9ZcX9 YowaRWNUAm4IABPJBwdP XOUROvY0DNINPtL0 I3T6P7M4RvRwPUl8Pxle Qo9GA0OfGWMqHotwUHwh Xk9Cp030NWp6QIDsLwpq M7x8QSV8OlxkM824 cmNlIChXZUpYRnhOTzRm RjY5oDBLDURNY2S8H80b P28vCH7EZGjuZ8H4ZTed A0R1UvXAA1HXTYYo WNXmaGu0IBlwXEu1Zotm vSylVCV8U4EwwXT5W1ul n26rGCTBCEnZa7nhRAU0 U71INciZIdpRzbXD Q0e8pKYBS5PmU6CeG8GC UYbLGZAwDPHxLy2HAHpM DRplbriKKi7kIo9+ICAg ICAgICAgICAgICAg ICAgICAgICAgICAgICAg ICAgICAgICAgICAgICAg ICAgICAgICAgICAgICAg ICAgICAgICAgICAg ICAgICAgICAgICAgICAg ICAgICAgICAgICAgICAg ICAgICAgICAgICAgICAg ICAgICAgICAgICAg ICAgICAgICAgICAgICAg ICAgICAgICAgICAgICAg ICAgICAgICAgICAgICAg ICAgICAgICAgICAg ICAgICAgICAgICAgICAg ICAgICAgICAgICAgICAg ICAgICAgICAgICAgICAg ICAgICAgICAgICAg ICAgICAgICAgICAgICAg ICAgICAgICAgICAgICAg ICAgICAgICAgICAgICAg ICAgICAgICAgICAg ICAgICAgICAgICAgICAg ICAgICAgICAgICAgICAg ICAgICAgICAgICAgICAg ICAgICAgICAgICAg ICAgICAgICAgICAgICAg ICAgICAgICAgICAgICAg ICAgICAgICAgICAgICAg ICAgICAgICAgICAg ICAgICAgICAgICAgDQpz dGFydHhyZWYNCjANCiUl TF3JIRyMHmj0ZXTbp3Fk GCi3XSbzWCF1ILUm qONfSjFrCCPXSs7VsKNo CAY3rU1hXCb6CTWiPYTQ V4AzwX6QN346fMifkkSl IDczIDAgUgovUGFn DY4fGKGjN9AdTL1etqIE V0FyY8LqDYq3KFEzEexs VSzbBKZpB6R6VOxoGff+ Yl1TJZ0yj8XnQWpU Shx3PZWmh8FmEGb4LTcy PkgdpBIwBU4YiJU7FXGm C94oTViiADZnZ0CiDTJg SqikZoPdEEiCYu4S TcG1piOjjY3WvRziUYMp F4GrhtSpbNRoJmudLPRJ UxjAahjYsGAgmCrJwJDF x2GX2NiDDa99J3Gf MwaGXkYGgoCQPtaJQIIP ihkYMsFumweVtABiDiC2 uxP5HSoVvTTAaetLwIMq BgYHDSAtBDMRAJjx MqzOVuXpHHK4dnDcnL7I NU6cn1CqMAjXEml1GCFa x4UkQVb0RIdfU55cbBTi dHMgWzgxIDAgUiA4 MiAwIFIgODMgMCBSIDg0 QMLkZnb7GQSyFYAvSQUr ATLBBCe4WDQxUqM0VONc OOAaVq5GWLToENTz eIYsTSVsOWBfYzJ2QIHg Zs8OULSmlxCwWzAmWNHU Cj7VXWZmxLDuAUSvHDxB O7ZkteTsZZyZY4Ga WxU5EWfnWQQlRua+Pgov QT7dwdAmkRN3ADvlFOXg YzExIDkwIDAgUgovSWFi OnY3ZPhyUSAtTvzh REQwQkA3VYejTDBrQwgx SWFiYzcgODkgMCBSCj4+ Cj4+Uv7RhDCjKC7OVTmb Cj4+DQplbmRvYmoN Dp7JDNWxMSPqYeeKAcz5 Gm0WCWInTt1lwNMdNMiy ZUXrEu4nXD9EO4MhO57x bK1pVL9DcO9QihTp GQ0ej0SswacBY4X7YxW0 tCKtT4F4uLUjBg3FgEEi QB6Zt831Pu8+DQplbmRv HleJFa5VJEYvBWYi ZjjOLpl0Rw4OBV1rcTxp MTAxCj4+YSyqbBTrYD9R CnENCkJUDQowIDAgMCBy Km6TR7AkZqC1UNXi IFRmDQoxIDAgMCAxIDIw MUw5Ng0uNEKuHXfiZBfc EVBuSUN2AYlizgAuU6Rp yBShNNDvPPZtP5Yb S54eUYKeLXJZHXyPXO2B WY1UJLwtumXzkMItER8L QjBlRC7hgu9ACRz7SjAt PU1wzb1LRFcWB7og nsf9pJI1GXw+Kx2Qf7Qq DSYbYFxBIP9KpC3KKRUq IDAgMCAxNjUgMjAgNTY5 LjMzMzMzIGNtDQov DLLrYznxUN7WNfNCLaEI IDsMFyYoYBD6igTyrZ4K VU2ll0IwFRyDLtgnAQWc u9QiGFv1YIltCIFl M2MgRNVmOqb+Lj7Bc1De ZJQsAPfrKYkZHI6QQHEf EYGeetaFXa7MJCZwQDSu TZCKBr6ZHPNqAPEd VYKaWHZ4IBPjFILgRiMt CZ9VUyktWOCHtegsUROz SKWrbE6IrJUriT3kCIOw TTJrP4ZlUl5kRXWl ZDBUCPzFXQ9YZN2DJXjp fqMovXRhND4LVeLzYE8o bp2XRFc6KHYsWP6vxg0O HXoPX9mtgdt4oRY6 Zenon+Po5Fh1SjQCElUIfZ JN6GwD7ECDFmMQBdOAO2 YsXzSSB5TGviDsF7Badt Z51SZv0SVOKrGNFg GV6GUwFPOqOMUQfCIjLu QBY5qkXpdS2MPD2vf3Hk PYcWSho0LVDat3HwWMd2 YPizWIZzW6QqHSPs NQo+Ex6Wx2YsPLHsKTdk GGbDTG2CJZGoDVKsllnI Ez3ZPOFlUJLuKBOXVv4U MSAwIDAgMSAyMCA0 UFrmSPV1ArbiCR1EMvpv SOUVmdnbQBOnTDQcxN9Y cQOnzE5nMDYyQPcrYEEc VaJsPH6gPQsPWxFU UGcIAKiZBlPjPXQ6apHx bR6PSP7se8XxHXpWVhn0 EVUnj1ZwJLx2VUadXUGc E0PkITH1Rj1+DQpz jSFrJA8ICjDTTQreKMx2 XCZmWCEkBXH1ZDIxXTSa GHFmJ43WWf2PWIRsRUHg TS3IPtGAPcLPCElW GlWeJIM6lhIsxV2ANS3y o1HzBMrBGrv0CQTjs2Pw ZPr6NUbhMENqH4QsCTNj Mgo+Wm7Uv4BmBZNv KRkfQDxBQW1ZVWUhXDQd atzLCt2TLUEoMUIzJPVQ Om9VBVIiPDGdBRVbZBUn DUatFcRDlO4DUwFh EFZ9DZYhEAHbRQ21B8Z9 ahwfQxTdYSDmYI9PsC7d XwIxGB8bWPdAIvNDUXaW RQzABhWhCNU3gmQd aV8JGI5vj5NjVKuSXju2 PAEqb3UpLUl2MOuqULMh Y9UvOOZ0Oo3+DQpzdHJl WC5WRiFYSKscMHe5 NTIgMCAwIDgzIDIwIDEy RK3tBkBtUlRkxJ3BK5gd IlZrURKIjy0LYR2USApI Ih1YFH1ou4ZkQPVu FRkgvcTsGonCNk5YCLbv DQHeEkyCOli3Dw1MkNCd CAWzP36jpR9kPF77AUnK F0XqoX3oJ9CpF3Xp A3FlxcjaXFDMGxvmQkes tHYuVY3WrXW1TIJoP25h FBxeNDWoK7a6LEB4NDga GXYkT8VgZQNhOKB7 Wm4TdUC3zXTaPS8NxTYd WNsfQLcoRNEjNH7xsvGe iEgdX0jomZfwMTJgLh5+ WPvckMAbIV8NAyoq 0O5YOAZVwdrB70/3PDPd /6k2C0493vAC7y4uV4aU DmDiqavrifFPbj9XICkK B2KGZGGPQgZDB8jH SACIOBUsXRcEh5DyZFGI DKSJjl8m0y1X5f8Za7Az 1VhWQVfF+6QSN0+cjMiI E+dkZkS+CXBwcHBw cHBwcHBwcHBwcHBwcHBw cHBwcHBwcHBwcHBwcHBw cHBwcHBwcHBwcHBwcHBw cHBwcHBwcHBIQVOT f0TaNl55DvhoiaOiLhoJ [facility]/Agby447rdxmzED FlHc/Ag40b5zzfcKJaCC kntlh5bAX1imwaAo Lau8pOIWgb3de7fBtjo2 b1xdN2a/p8arbESrxBCV bRUiw8dyoInvFMFXvNs6 2e8KsgQ1wY8lobWZ 3Ms+GuW+u1bYU/vo1MzP QCLfQECoj6dwmiHzoFEX 9WmlosIGW2gr (more content not included)... Normal [facility] CNOVon 08-09-2022 CN Office Visit (SPNSMN) MICAH FORBES ([id number]) 1965 M Date Time Provider Department 08/09/22 9:20 AM PRINCE PALACIOS During your visit today, we recorded the following information about you: Pulse Respiration Blood pressure Weight 89/minute 13/minute 121/69 88.5 kg Height 1.727 m Prince Palacios MD 08/09/2022 11:28 AM Signed SPINE [...] which included preparing to see the patient, [id number] patient care, completing clinical documentation, obtaining and/or reviewing separately obtained history, performing a medically appropriate examination, counseling and educating the patient/family/careg iver, ordering medications, tests, or procedures, independently interpreting results (not separately reported), and care coordination (not separately reported). SIGNATURE: Prince Palacios MD PATIENT NAME: Micah Forbes DATE: August 09, 2022 TIME: 10:15 AM PAGER: Referring Provider: PRINCE PALACIOS [[id number]] Allergies As of D (more content not included)... Normal [facility] No Panel Informationon 08-09 [facility] XR CERVICAL 4V AP/LAT/OBLon 08-09-2022 XR [...] vertebrae with counting from the craniocervical junction. List Of First Job Ideas: PSCB Transcribe Date/Time: Aug 09 2022 11:59A Dictated by : FRANSICO BECKETT MD This examination was interpreted and the report reviewed and electronically signed by: FRANSICO BECKETT MD on Aug 09 2022 12:01PM EST [id number] CN Normal [facility] CBC AUTO DIFFon 06-13-2022 BASO # 0.0 103/ul Normal 0.0-0.1 [facility] Comment on above: Performed By: #### C BC #### [facility] [address] [address] [address] Marce Tabares Basophils/100 WBC (Bld) 0.6 % Normal 0.2-2.0 [facility] Comment on above: Performed By: #### C BC #### [facility] [address] [address] [address] Marce Tabares EO # 0.3 103/ul Normal 0.0-0.7 [facility] Comment on above: Performed By: #### C BC #### [facility] [address] [place] [address] Dr. Marce Tabares Eosinophils/100 WBC (Bld) 4.5 % Normal 0.9-7.0 [facility] Comment on above: Performed By: #### C BC #### [facility] [address] [place] [address] Dr. Marce Tabares Erythrocyte distribution width (RBC) [Ratio] 13.1 % Normal 11.0-15.0 [facility] Comment on above: Performed By: #### C BC #### [facility] [address] [place] [address] Dr. Marce Tabares Hematocrit (Bld) [Volume fraction] 45.5 % Normal 42.0-54.0 [facility] Comment on above: Performed By: #### C BC #### [facility] [address] [place] [address] Dr. Marce Tabares Hemoglobin (Bld) [Mass/Vol] 15.7 g/dL Normal 14.0-18.0 [facility] Comment on above: Performed By: #### C BC #### [facility] [address] [place] [address] Dr. Marce Tabares IG # 0.02 10e3/ul Normal 0.00-0.03 [facility] Comment on above: Performed By: #### C BC #### [facility] [address] [place] [address] Dr. Marce Tabares IG % 0.3 % Normal 0.0-0.5 [facility] Comment on above: Performed By: #### C BC #### [facility] [address] [place] [address] Dr. Marce Tabares LYMPH # 1.9 103/ul Normal 1.2-3.8 [facility] Comment on above: Performed By: #### C BC #### [facility] [address] [place] [address] Dr. Marce Tabares Lymphocytes/100 WBC (Bld) 28.5 % Normal 20.5-60.0 [facility] Comment on above: Performed By: #### C BC #### [facility] [address] [place] [address] Dr. Marce Tabares MANUAL DIFF REQ NO Normal [facility] Comment on above: Performed By: #### C BC #### [facility] [address] [place] [address] Dr. Marce Tabares MCH (RBC) [Entitic mass] 31.8 pg Normal 25.9-34.0 [facility] Comment on above: Performed By: #### C BC #### [facility] [address] [place] [address] Dr. Marce Tabares MCHC (RBC) [Mass/Vol] 34.5 g/dL Normal 29.9-35.2 [facility] Comment on above: Performed By: #### C BC #### [facility] [address] [place] [address] Dr. Marce Tabares MCV (RBC) [Entitic vol] 92.3 fL Normal 80.0-94.0 [facility] Comment on above: Performed By: #### C BC #### [facility] [address] [place] [address] Dr. aMrce Tabares MONO # 0.7 103/ul Normal 0.3-0.8 [facility] Comment on above: Performed By: #### C BC #### [facility] [address] [place] [address] Dr. Marce Tabares Monocytes/100 WBC (Bld) 10.3 % Normal 1.7-12.0 [facility] Comment on above: Performed By: #### C BC #### [facility] [address] [place] [address] Dr. Marce Tabares NEUT # 3.7 103/ul Normal 1.4-6.5 [facility] Comment on above: Performed By: #### C BC #### [facility] [address] [place] [address] Dr. Marce Tabares Neutrophils/100 WBC (Bld) 55.8 % Normal 43.0-75.0 [facility] Comment on above: Performed By: #### C BC #### [facility] [address] [place] [address] Dr. Marce Tabares Platelet mean volume (Bld) [Entitic vol] 9.3 fL Critically low 9.5-13.5 [facility] Comment on above: Performed By: #### C BC #### [facility] [address] [place] [address] Dr. Marce Tabares PLT 185 103/ul Normal 150-450 [facility] Comment on above: Performed By: #### C BC #### [facility] [address] [address] [address] Marce Tabares RBC 4.93 106/ul Normal 4.70-6.10 [facility] Comment on above: Performed By: #### C BC #### [facility] [address] [place] [address] Dr. Marce Tabares WBC 6.7 103/ul Normal 4.0-11.0 [facility] Comment on above: Performed By: #### C BC #### [facility] [address] [place] [address] Dr. Marce Tabares GLYCOHEMOGLOBIN A1Con 2021 ADA RECOMMENDATION SEE BELOW Normal [facility] Comment on above: Result Comment: ADA RECOMMENDED LIMIT 4.0 - 6.0 ADA THERAPEUTIC TARGET < 7.0 ACTION SUGGESTED > 7.0 Performed By: #### A 1C #### [facility] [address] [place] [address] Dr. Marce Tabares Glucose [Mass/Vol] 180 mg/dL Normal [facility] Comment on above: Performed By: #### A 1C #### [facility] [address] [place] [address] Dr. Marce Tabares HbA1c (Bld) [Mass fraction] 7.9 % Critically high 4.5-6.2 [facility] Comment on above: Performed By: #### A 1C #### [facility] [address] [place] [address] Dr. Marce Tabares LIPID PROFILEon 06-13-2022 CHOL-HDL RATIO NORM SEE BELOW Normal [facility] Comment on above: Result Comment: 3.3 - 4.4 LOW RISK 4.4 - 7.1 AVERAGE RISK 7.1 - 11.0 MODERATE RISK >11.0 HIGH RISK Performed By: #### L IVER, LIPID, BMP #### [facility] [address] [address] [address] Marce Tabares Cholesterol [Mass/Vol] 174 mg/dL Normal <=200 [facility] Comment on above: Performed By: #### L IVER, LIPID, BMP #### [facility] [address] [address] [address] Marce Tabares Cholesterol in HDL [Mass/Vol] 34 mg/dL Critically low 40-60 [facility] Comment on above: Performed By: #### L IVER, LIPID, BMP #### [facility] [address] [place] [address] Dr. Marce Tabares Cholesterol in LDL [Mass/Vol] 72.0 mg/dL Normal [facility] Comment on above: Performed By: #### L IVER, LIPID, BMP #### [facility] [address] [place] [address] Dr. Marce Tabares Cholesterol.total/Cho lesterol in HDL [Mass ratio] 5.1 {ratio} Normal [facility] Comment on above: Performed By: #### L IVER, LIPID, BMP #### [facility] [address] [place] [address] Dr. Marce Tabares HDL NORMAL > or = 60 mg/dl - LOW CARDIOVASCULAR RISK <40 mg/dl - HIGH CARDIOVASCULAR RISK Normal [facility] Comment on above: Performed By: #### L IVER, LIPID, BMP #### [facility] [address] [place] [address] Dr. Marce Tabares LDL CALC NORMAL SEE BELOW Normal [facility] Comment on above: Result Comment: <100 mg/dl OPTIMAL 100 - 129 mg/dl NEAR OR ABOVE OPTIMAL 130 - 159 mg/dl BORDERLINE HIGH 160 - 189 mg/dl HIGH >190 mg/dl VERY HIGH Performed By: #### L IVER, LIPID, BMP #### [facility] [address] [place] [address] Dr. Marce Tabares Triglyceride [Mass/Vol] 342 mg/dL Critically high <=150 [facility] Comment on above: Performed By: #### L IVER, LIPID, BMP #### [facility] [address] [address] [address] Marce Tabares VLDL CALC 68.4 mg/dL Normal [facility] Comment on above: Performed By: #### L IVER, LIPID, BMP #### [facility] [address] [address] [address] Marce Tabares LIVER PROFILEon 06-13-2022 Albumin [Mass/Vol] 3.9 g/dL Normal 3.4-5.0 [facility] Comment on above: Performed By: #### L IVER, LIPID, BMP #### [facility] [address] [address] [address] Marce Tabares Albumin/Globulin [Mass ratio] 1.2 {ratio} Normal [facility] Comment on above: Performed By: #### L IVER, LIPID, BMP #### [facility] [address] [address] [address] Marce Tabares ALP [Catalytic activity/Vol] 63 U/L Normal 46-116 [facility] Comment on above: Performed By: #### L IVER, LIPID, BMP #### [facility] [address] [place] [address] Dr. Marce Tabares ALT [Catalytic activity/Vol] 30 U/L Normal 16-63 [facility] Comment on above: Performed By: #### L IVER, LIPID, BMP #### [facility] [address] [address] [address] Marce Tabares AST [Catalytic activity/Vol] 16 U/L Normal 15-37 [facility] Comment on above: Performed By: #### L IVER, LIPID, BMP #### [facility] [address] [address] [address] Marce Tabares BILI, CONJUGATED 0.1 mg/dL Normal 0.0-0.[address] [facility] Comment on above: Performed By: #### L IVER, LIPID, BMP #### [facility] [address] [place] [address] Dr. Marce Tabares Bilirubin [Mass/Vol] 0.3 mg/dL Normal 0.2-1.0 [facility] Comment on above: Performed By: #### L IVER, LIPID, BMP #### [facility] [address] [place] [address] Dr. Marce Tabares Globulin (S) [Mass/Vol] 3.3 g/dL Normal [facility] Comment on above: Performed By: #### L IVER, LIPID, BMP #### [facility] [address] [place] [address] Dr. Marce Tabares Protein [Mass/Vol] 7.2 g/dL Normal 6.4-8.2 [facility] Comment on above: Performed By: #### L IVER, LIPID, BMP #### [facility] [address] [place] [address] Dr. Marce Tabares MICROALBUMIN, RAND URon 12-0 mALB <1.3 Normal <=30.0 [facility] Comment on above: Performed By: #### M ALBR #### [facility] [address] [place] [address] Dr. Marce Tabares PROF CHEM 8 (BAS METB)on Anion gap [Moles/Vol] 11.6 mmol/L Normal [facility] Comment on above: Performed By: #### L IVER, LIPID, BMP #### [facility] [address] [place] [address] Dr. Marce Tabares Calcium [Mass/Vol] 8.8 mg/dL Normal 8.5-10.1 [facility] Comment on above: Performed By: #### L IVER, LIPID, BMP #### [facility] [address] [place] [address] Dr. Marce Tabares Chloride [Moles/Vol] 101 mmol/L Normal 98-107 [facility] Comment on above: Performed By: #### L IVER, LIPID, BMP #### [facility] [address] [place] [address] Dr. Marce Tabares CO2 [Moles/Vol] 30.8 mmol/L Normal 21.0-32.[address] [facility] Comment on above: Performed By: #### L IVER, LIPID, BMP #### [facility] [address] [address] [address] Marce Tabares Creatinine [Mass/Vol] 1.05 mg/dL Normal 0.70-1.30 [facility] Comment on above: Performed By: #### L IVER, LIPID, BMP #### [facility] [address] [address] [address] Marce Tabares EGFR-AF VIET[place]ESE >60 Normal >=[address] [facility] Comment on above: Performed By: #### L IVER, LIPID, BMP #### [facility] [address] [address] [address] Marce Tabares EGFR-NON AF VIET[place]ESE >60 Normal >=60 [facility] Comment on above: Performed By: #### L IVER, LIPID, BMP #### [facility] [address] [address] [address] Marce Tabares Glucose [Mass/Vol] 170 mg/dL Critically high 74-106 [facility] Comment on above: Performed By: #### L IVER, LIPID, BMP #### [facility] [address] [address] [address] Marce Tabares Potassium [Moles/Vol] 4.1 mmol/L Normal 3.5-5.1 [facility] Comment on above: Performed By: #### L IVER, LIPID, BMP #### [facility] [address] [address] [address] Marce Tabares Sodium [Moles/Vol] 140 mmol/L Normal 136-145 [facility] Comment on above: Performed By: #### L IVER, LIPID, BMP #### [facility] [address] [address] [address] Marce Tabares Urea nitrogen [Mass/Vol] 13.0 mg/dL Normal 7.0-18.0 [facility] Comment on above: Performed By: #### L IVER, LIPID, BMP #### [facility] [address] [address] [address] Marce Tabares Urea nitrogen/Creatinine [Mass ratio] 12.4 mg/mg Normal [facility] Comment on above: Performed By: #### L DEREK, LIPID, BMP #### [facility] [address] [address] [address] Marce Tabares Vital Signs Date Time Vital Sign Value Performing Clinician Facility 09-02-2022 18:15-0500 Diastolic blood pressure 102 mm[Hg] Paxton Reinosoe [facility] 09-02-2022 18:15-0500 Heart rate 71 /min Paxton Reinosoe [facility] 09-02-2022 18:15-0500 Mean blood pressure 111 mm[Hg] Paxton Reinosoe [facility] 09-02-2022 18:15-0500 Respiratory rate 20 /min Paxton Reinosoe [facility] 09-02-2022 18:15-0500 SaO2% (BldA) [Mass fraction] 93 % Paxton Reinosoe [facility] 09-02-2022 18:15-0500 Systolic blood pressure 130 mm[Hg] Paxton Reinosoe [facility] 09-02-2022 17:37-0500 Body temperature 99.68 [degF] Paxton Reinosoe [facility] 09-02-2022 17:37-0500 Diastolic blood pressure 104 mm[Hg] Paxton Reinosoe [facility] 09-02-2022 17:37-0500 Heart rate 82 /min Paxton Blossom [facility] 09-02-2022 17:37-0500 Respiratory rate 20 /min Paxton Reinosoe [facility] 09-02-2022 17:37-0500 SaO2% (BldA) [Mass fraction] 93 % Paxton Reinosoe [facility] 09-02-2022 17:37-0500 Systolic blood pressure 158 mm[Hg] Paxton Cerrato [facility] 08-09-2022 09:00-0500 Body height 172.7 cm Prince Palacios MD Work Phone: [facility] 08-09-2022 09:00-0500 Body weight 88.45 kg Prince Palacios MD Work Phone: [facility] 08-09-2022 09:00-0500 Diastolic blood pressure 69 mm[Hg] Prince Palacios MD Work Phone: [facility] [facility] 08-09-2022 09:00-0500 Heart rate 89 /min Prince Palacios MD Work Phone: [facility] 08-09-2022 09:00-0500 Respiratory rate 13 /min Prince Palacios MD Work Phone: [facility] 08-09-2022 09:00-0500 SaO2% (BldA) [Mass fraction] 98 % Prince Palacios MD Work Phone: [facility] 08-09-2022 09:00-0500 Systolic blood pressure 121 mm[Hg] Prince Palacios MD Work Phone: [facility] Encounters Encounter Date Encounter Type Care Provider Facility Start: 12-16-2023 End: 12-16-2023 ambulatory SILVIO CRAIN Not Available Start: 10-07-2023 End: 10-07-2023 ambulatory SHAIKH JAQUELINE Not Available Start: 08-12-2023 Refill Silvio Moreno Work Phone: [facility] Comment on above: TEHAN (generalized anx iety disorder) ([facility]/HCC) Start: 07-02-2023 End: 07-02-2023 ambulatory GOTTLIEB FAWWAD Not Available Start: 10-25-2022 End: 10-26-[address] DOCTOR THORNTON Facility: Start: 10-25-2022 Telephone encounter Prince macias MD Work Phone: Neurology Comment on above: Results Start: 10-10-2022 End: 10-10-2022 ambulatory Aleksandr Charity Sandoval Facility:[facility] Start: 09-06-2022 Telephone encounter Prince macias MD Work Phone: Neurology Comment on above: 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; 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 Start: 09-02-2022 End: 09-02-2022 Emergency department patient visit Paxton Cerrato [place] Start: 09-02-2022 End: 09-02-2022 Emergency department patient visit Paxton Cerrato [facility] Start: 08-09-2022 End: 08-09-2022 ambulatory PRINCE PALACIOS Facility:[facility] Start: 08-09-2022 End: 08-09-2022 ambulatory PRINCE PALACIOS Facility:[facility] Start: 08-09-2022 End: 08-09-2022 Subsequent hospital visit by physician Koko Mendiola J1-4 Work Phone: Radiology Comment on above: Spinal stenosis of c ervical region [M48.02] Start: 08-09-2022 End: 08-09-2022 Patient encounter procedure Prince Palacios MD Work Phone: [facility] Comment on above: Spinal stenosis of c ervical region (Primary Dx); S/P cervical spinal fusion Start: 06-13-2022 End: 06-14-[address] SILVIO CRAIN Facility:[facility] Procedures Date Procedure Procedure Detail Performing Clinician Start: 08-09-2022 Radex spine cervical 4 or 5 views Jennifer Moore MD Work Phone: Start: 06-13-[address] SILVIO ENNIS Comment on above: Performed By: #### P [facility] #### [facility] [address] [place] [address] Dr. Marce Tabares Plan of Treatment Date Care Activity Detail Author Start: 06-13-2027 PROSTATE CANCER SCREENING DISCUSSION PROSTATE CANCER SCREENING DISCUSSION [facility] Start: 09-18-2023 End: 09-18-2023 Patient encounter procedure 09/18/2023 1:00 PM EDT Office Visit [facility] [address] [place] [address] Silvio Crain MD [address] [place] [address] [facility] Start: 08-09-2023 BP CONTROLLED (<130/80) BP CONTROLLE D (<130/80) [facility] Start: 03-07-2023 Influenza vaccination INFLUENZ A (Season Ended) [facility] Start: 08-16-2022 End: 09-08-2023 Ct cervical spine w/o contrast material CT CERVICAL SPINE WO IVCON Radiology Routine Spinal stenosis of cervical region Expected: 08/16/2022, Expires: 09/08/2023 [facility] Work Phone: Comment on above: Expected: 08/16/2022 , Expires: 09/08/2023 Start: 07-07-2022 DEPRESSION ASSESSMENT DEPRESSION ASS ESSMENT [facility] Start: 03-07-2022 Influenza vaccination INFLUENZA (#1) [facility] Start: 02-16-2022 Screening for malign ant neoplasm of colon [facility] Start: 09-12-2021 COVID-19 VACCINE (4 - Booster for Pfizer series) COVID-19 VACCINE (4 - Booster for Pfizer series) [facility] Start: 08-30-2021 Hemoglobin A1c measurement Diabetes: Hemoglobin A1C [facility] Start: 06-02-2021 Hemoglobin A1c/Hemoglobin.total in Blood HBA1C [facility] Start: 05-26-2020 Glaucoma screening Diabetes: R etinopathy Screening [facility] Start: 2015 SHINGRIX VACCINE (1 of 2) SHINGRIX VACCINE (1 of 2) [facility] Start: 2010 COLOGUARD (FIT-DNA) COLOGUARD (FIT-D NA) [facility] Start: 2010 Colonoscopy COLONOSCOPY [facility] Start: 2010 COLORECTAL CANCER SCREENING COLORECTAL CANCER SCREENING [facility] Start: [address] COLONOGRAPHY [facility] Start: 2010 FECAL OCCULT BLOOD FECAL OCCULT BLOO D [facility] Start: 2010 SIGMOIDOSCOPY SIGMOIDOSCOPY [facility] Start: 1984 Urine microalbumin profile DTAP,TDAP,TD (1 - Tdap) [facility] Start: 1984 Urine screening for protein Diabetes: Urine Protein Screening [facility] Start: 1983 ANNUAL PCP TEAM DRY COLOR TESTER STEFANI DISEASE VISIT ANNUAL PCP TEAM CHRONIC DISEASE VISIT [facility] Start: 1983 Hepatitis B surface antibody level LDL CHOLESTEROL [facility] Start: 1983 HEPATITIS C SCREENING HEPATITIS C SC REENING [facility] Start: 1983 HIV SCREENING HIV SCREENING [facility] Start: 1975 3 comp foot exam completed DIABETIC FOOT EXAM [facility] Start: 1975 Hepatitis B screening URINE ALBUMIN:CREATININE RATIO [facility] Start: 1975 Hepatitis C antibody , confirmatory test DILATED RETINAL EXAM [facility] Start: 1971 PNEUMOCOCCAL (1 - PCV) PNEUMOCOCCAL (1 - PCV) [facility] Start: 1965 HEPATITIS B (1 of 3 - 3-dose series) HEPATITIS B (1 of 3 - 3-dose series) [facility] Start: 1965 Medicare Annual Well ness (AWV) Medicare Annual Wellness (AWV) [facility] Start: 1965 Screening for malign ant neoplasm of colon [facility] Immunizations Immunization Date Immunization Notes Care Provider David dempsey 11-30-2020 COVID-19 original vaccine, age 12+ yr, monovalent (PFIZER-BIONTECH - PURPLE TOP) Prince Palacios MD Work Phone: [facility] 11-09-2020 COVID-19 original vaccine, age 12+ yr, monovalent (PFIZER-BIONTECH - PURPLE TOP) Prince Palacios MD Work Phone: [facility] 05-14-2017 influenza, seasonal, injectable, preservative free Prince Palacios MD Work Phone: [facility] Work Phone: 05-07-2017 influenza, injectabl e, quadrivalent, contains preservative Prince Palacios MD Work Phone: [facility] Work Phone: Payers Date Payer Category Payer Self-pay 2021 Medicare ANTHEM MEDICARE ADVANTAGE AN[employer]M MEDICARE ADVANTAGE [id number] 2021-Present [address] [place] [address] [id number] 2011 Unknown [facility] CHADD MCO [id number] 2011-Present [phone] [address] [place] [address] MCO [id number] 2011 Unknown [id number] 1965 Unknown [id number] 1965 Unknown [id number] 1965 Unknown [id number] 1965 Unknown [id number] 1965 Unknown [id number] 1965 Unknown [id number] 9 1959 Unknown [id number] 1959 Unknown [id number] Unknown [id number] Social History Date Type Detail Facility Start: 08-09-2022 Tobacco smoking status NHIS Ex-smoker [facility] Start: 11-14-2020 End: 02-04-2021 History of tobacco use Current smoker [facility] Start: 11-14-2020 End: 02-04-2021 History of tobacco use Cigarette Smoker [facility] Start: 08-09-2022 End: 07-02-2023 Cigarettes smoked current (pack per day) - Reported 0.3 [facility] Start: 08-09-2022 Tobacco use and exposure Smokeless tobacco non-user [facility] Start: 08-09-2022 Alcohol intake Current drinker of alcohol (finding) [facility] Start: 03-02-2021 Alcohol Comment 3 times a month per pt 03/02/2021 [facility] Start: 1965 Sex Assigned At Not on file [facility] Tobacco smoking status No Smokin g Status Entered [facility] Start: 07-01-2023 End: 07-02-2023 Sex Assigned At Male [facility] Start: 07-01-2023 Tobacco smoking status NHIS Smokes tobacco daily [facility] Start: 07-01-2023 Alcohol intake Lifetime non-drinker (finding) [facility] Within the last year , have you been afraid of your partner or ex-partner? No [facility] Do you belong to any clubs or organizations such as spiritism groups, [employer], [employer]cerFreakz or athletic groups, or school groups? Yes [...] Equipment Origin al Text Equipment Identifier Dates Shohola Lateral Of fset Connector Side Sz 10mm [id number] Start: 03-15-2021 Graft Deminerali zed Bone Matrix Bone Putty Pretreated 10ml - [id number] Start: 03-15-2021 Spacer Avs 4d 8m m Spinal Bone Plug - [id number] Start: 03-15-2021 [place]lico Plate, 1 L evel, Sz 18mm [id number] Start: 03-15-2021 Tillar Spn Luigi Csp Mini 3.5x240 [id number] Start: 03-15-2021 Screw Bn 4mm 14m m Pamlico Spnl - [id number] Start: 03-15-2021 Spacer Bio Avs 4 d Lordosis 12mm Cortical Cancellous 86t53cm Allograft - [id number] Start: 03-15-2021 Functional Status Date Assessment Result Facility 09-02-2022 Functional Status N/A [facility] - [facility] Clinical Notes 08-09-2022 to 11-15-2022 Telephone Encounter [...] Schrader Images requested documented in this encounter [facility] 09-06-2022 Miscellaneous Notes Message forwarded to [facility] Forms for C-9. Imelda calling Fuad SMITH calling asking for a C9 for a CT scan. Call back # [phone] documented in this encounter [facility] 09-02-2022 Hospital Discharg e instructions Patient [...] Follow these instructions at home: Medicines Take slhw-hel-asewopl and prescription medicines only as told by [...] and water are not available, use hand child welfare worker. ?Leave stitches (sutures), skin glue, or adhesive [...] 06/23/2006 Document Revised: 09/06/2019 Document Reviewed: 09/08/2019 [employer] Patient Education 2020 [employer]. 09/02/2022 19:17:16 Cervical Sprain Cervical Sprain A [...] provider or physical therapist. General instructions Take gooc-jda-vognkmt and prescription medicines only as told by [...] 04/19/2008 Document Revised: 10/13/2019 Document Reviewed: 02/19/2017 [employer] Patient Education 2020 [employer]. Follow Up Care 09/02/2022 17:27:40 With:SILVIO CRAIN Address: [address] [place] [id number] Business (1) When:09/05/2022 18:51:13 [facility] 08-09-2022 Note HNO ID: [id number] Author: RT Khushboo(R) Service: Radiology Author Type: [...] RT Khushboo(R) August 09, 2022 11:39 AM [facility] 08-09-2022 Note HNO ID: [id number] Author: Prince Palacios MD Service: ? Author Type: Physician [...] which included preparing to see the patient, lhii-bb-zljn patient care, completing clinical documentation, obtaining and/or reviewing separately obtained history, performing a medically appropriate examination, counseling and educating the patient/family/caregiver, ordering medications, tests, or procedures, independently interpreting results (not separately reported), and care coordination (not separately reported). SIGNATURE: Prince Palacios MD PATIENT NAME: Micah Forbes DATE: August 09, 2022 TIME: 10:15 AM PAGER: [facility] 08-09-2022 History of Presen t illness Narrative [...] 2022 11:39 AM documented in this encounter [facility] 08-09-2022 History of Presen t illness [...] which included preparing to see the patient, wptx-qg-wpmt patient care, completing clinical documentation, obtaining and/or reviewing separately obtained history, performing a medically appropriate examination, counseling and educating the patient/family/caregiver, ordering medications, tests, or procedures, independently interpreting results (not separately reported), and care coordination (not separately reported). SIGNATURE: Prince Palacios MD PATIENT NAME: Micah Forbes DATE: August 09, 2022 TIME: 10:15 AM PAGER: documented in this encounter [facility] Evaluation + Plan note No data available for this section [facility] Evaluation note Diagnosis Spinal stenosis of cervical region- Primary Spinal stenosis in cervical region S/P cervical spinal fusion Arthrodesis status documented [facility] Diagnosis Spinal stenosis of cervical region Spinal stenosis in cervical region [facility] Diagnosis ETHAN (generalized anxiety disorder) ([facility]) Generalized anxiety disorder documented in this encounter [facility] No data available for this section [facility] Reason for Referral Specialty Diagnoses / Procedures Referred By Contac t Referred To Contact CT IMAGING Diagnoses Spinal stenosis of cervical region Procedures CT CERVICAL SPINE WO IVCON CT CERVICAL SPINE W/O CONTRAST MATERIAL Prince Palacios MD [address] [place] [address] Ct Imaging Referral ID Status Reason Start Date Expiration Date Visits Requested Visits Authorized [id number] Pending Review Auto-Generat ed Referral 08/16/2022 09/08/2023 1 1 Specialty Diagnoses / Procedures Referred By Contac t Referred To Contact XR IMAGING Diagnoses Spinal stenosis of cervical region Procedures XR CERV OTHER 4V AP/LAT/OBL RADEX SPINE CERVICAL 4 OR 5 VIEWS Prince Palacios MD [address] [facility] [place] [address] Xr Imaging Referral ID Status Reason Start Date Expiration Date V isits Requested Visits Authorized [id number] Closed Auto-Generate d Referral 08/09/2022 09/08/2023 1 [...] or prosecute any alcohol or drug abuse patient.[facility] the event this information is protected by the Federal Confidentiality of Alcohol and Drug Abuse Patient Records regulations: The Federal rules restrict any use of the information to criminally investigate or prosecute any alcohol or drug abuse patient.[facility] the event this information is protected by the Federal Confidentiality of Alcohol and Drug Abuse Patient Records regulations: The Federal rules restrict any use of the information to criminally investigate or prosecute any alcohol or drug abuse patient.[facility] the event this information is protected by the Federal Confidentiality of Alcohol and Drug Abuse Patient Records regulations: The Federal rules restrict any use of the information to criminally investigate or prosecute any alcohol or drug abuse patient.[facility] Reason for Visit (unrecogniz ed section and content) Reason Comments Established Patient Follow Up Specialty Diagnoses / Procedures Referred By Contac t Referred To Contact Spine Health / SPINE SURGERY Diagnoses follow up Procedures EST NI PATIENT Prince Palacios MD [address] [place] [address] Prince Palacios MD [address] [facility] [place] [id number] Referral ID Status Reason Start Date Expiration Date Visits Re quested Visits Authorized [id number] Closed 08/09/2022 11/07/2022 1 1 Reason Comments Radio Main J1 Specialty Diagnoses / Procedures Referred By Contac t Referred To Contact XR IMAGING Diagnoses Spinal stenosis of cervical region Procedures XR CERV OTHER 4V AP/LAT/OBL RADEX SPINE CERVICAL 4 OR 5 VIEWS Prince Palacios MD [address] [place] [address] Xr Imaging Referral ID Status Reason Start Date Expiration Date V isits Requested Visits Authorized [id number] Closed Auto-Generate d Referral 08/09/2022 09/08/2023 1 1 Reason Comments 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 Reason Comments Results Reason Onset Date Comments Med Refill 08/12/2023 Care Teams (unrecognized sec tion and content) Electrical Engineering Teacher Relationship Specialty Start Date End Date Silvio Crain [address] [place] [address] PCP - General Family Medicine 04/20/21 Yoni Sotelo [address] [place] [address] NI Referring Team Neurosurgery 08/22/20 Electrical Engineering Teacher Relationship Specialty Start Date End Date EstrellaSilvio carvalho [address] [place] [address] PCP - General Family Medicine 04/20/21 Yoni Sotelo [address] [place] [address] NI Referring Team Neurosurgery 08/22/20 Electrical Engineering Teacher Relationship Specialty Start Date End Date Paras Silvio Sepulveda [address] [place] [address] PCP - General Family Medicine 04/20/21 Yoni Sotelo [address] [place] [address] NI Referring Team Neurosurgery 08/22/20 Electrical Engineering Teacher Relationship Specialty Start Date End Date Paras Silvio Sepulveda [address] [place] [address] PCP - General Family Medicine 04/20/21 Yoni Sotelo [address] [place] [address] NI Referring Team Neurosurgery 08/22/20 Electrical Engineering Teacher Relationship Specialty Start Date End Date Silvio Crain MD PCP - General Family Medicine 03/07/23 (unrecognized sect ion and content) No Status Records FoundNo Status Records FoundNo Status Records FoundNo Status Records FoundNo Status Records Found INFORMATION SOURCE (unrecogn ized section and content) DATE CREATED AUTHOR 09/13/2022 Chevy Romero [facility] DATE CREATED AUTHOR AUTHOR'S ORGANIZ ATION 10/15/2022 [facility] DATE CREATED AUTHOR AUTHOR'S ORGANIZ ATION 11/04/2022 [facility] DATE CREATED AUTHOR AUTHOR'S ORGANIZ ATION 11/17/2022 [facility] DATE CREATED AUTHOR AUTHOR'S ORGANIZ ATION 12/16/2023 [facility] dicor Specialists [facility] FOR RECORDS PERTAINING TO PATIENTS WHO ARE [...] BE BASED ON THE PRIMARY CLINICAL RECORDS. [facility] [employer] provides no warranty or guarantee of the accuracy or completeness of information in this document.
[2023-12-24 11:10] LABS: Basophils Absolute Auto 0.1 10^3/uL (0.0-0.1); Basophils Percent Auto 0.8 % (0.2-2.0); Eosinophils Absolute Auto 0.3 10^3/uL (0.0-0.7); Eosinophils Percent Auto 5.3 % (0.9-7.0); Hematocrit 47.8 % (42.0-54.0); Hemoglobin 16.2 g/dL (14.0-18.0); Immature Granulocytes Abs Auto 0.02 10^3/uL (0.00-0.03); Immature Granulocytes Pct Auto 0.3 % (0.0-0.5); Mean Corpuscular HGB Conc 33.9 g/dL (29.9-35.2); Mean Corpuscular Hemoglobin 31.8 pg (25.9-34.0); Mean Corpuscular Volume 93.9 fL (80.0-94.0); Mean Platelet Volume 9.5 fL (9.5-13.5); Monocytes Absolute Auto 0.7 10^3/uL (0.3-0.8); Monocytes Percent Auto 11.3 % (1.7-12.0); Neutrophils Absolute Auto 3.2 10^3/uL (1.4-6.5); Neutrophils Percent Auto 50.3 % (43.0-75.0); Platelet Count 185 10^3/uL (150-450); Red Blood Count 5.09 10^6/uL (4.70-6.10); Red Cell Distribution Width 12.9 % (11.0-15.0); White Blood Count 6.4 10^3/uL (4.0-11.0)
[2023-12-24 11:42] LABS: Microalbumin Urine Random 6.3 mg/dL (<=30.0)
[2023-12-24 11:46] LABS: Estimated Average Glucose 223 mg/dL; Glycohemoglobin A1C 9.4 % (4.5-6.2)
[2023-12-24 11:48] LABS: Alanine Aminotransferase 27 U/L (16-63); Albumin Globulin Ratio 1.1; Albumin Level 3.9 g/dL (3.4-5.0); Alkaline Phosphatase 68 U/L (46-116); Anion Gap 13.6; Aspartate Amino Transferase 14 U/L (15-37); BUN Creatinine Ratio 10.2; Bilirubin Direct 0.1 mg/dL (0.0-0.2); Bilirubin Total 0.6 mg/dL (0.2-1.0); Calcium 8.7 mg/dL (8.5-10.1); Carbon Dioxide 29.2 mmol/L (21.0-32.0); Chloride 101 mmol/L (98-107); Chol HDL Ratio 2.9; Cholesterol 99 mg/dL (<=200); Estimated GFR (African America >60 (>=60); Estimated GFR (Non-African Ame >60 (>=60); Globulin 3.5 g/dL; Glucose 167 mg/dL (74-106); HDL Cholesterol 34 mg/dL (40-60); Potassium 3.8 mmol/L (3.5-5.1); Sodium 140 mmol/L (136-145); Total Protein 7.4 g/dL (6.4-8.2); Triglycerides 182 mg/dL (<=150); VLDL CHOLESTEROL 36.4 mg/dL
[2023-12-24 15:34] LABS: Prostate Specific Antigen Dx 1.95 ng/mL (<=4.00)
== END 2023-12-24 10:41 | disposition home or self-care (01) ==
LOC: LAB 10:42
PROVIDERS: PCP Family Medicine; Visit Provider Family Medicine
DX: E11.65 Type 2 diabetes mellitus with hyperglycemia (principal); I10 Essential (primary) hypertension; Z79.899 Other long term (current) drug therapy; E78.5 Hyperlipidemia, unspecified; Z12.5 Encounter for screening for malignant neoplasm of prostate
CPT/HCPCS: 36415; 80048; 80061; 80076; 82043; 83036; 84153; 85025

== ENCOUNTER 2023-12-30 10:34 | Outpatient (OUT) | payer MEDICARE, SELFPAY ==
--- NOTE | 2023-12-30 | XR_ITS ---
The [address] [address] Patient Name: ELÍAS SANCHEZ MRN: [id number] date: 1965 Sex: M Assigned Patient Location: Current Patient Location: Accession/Order Number: [id number] Exam Date: 12/30/2023 10:50 Report Date: 12/30/2023 13:11 At the request of: CHRIS MENDES Procedure: XR foot LT min 3V PROCEDURE: XR foot LT min 3V COMPARISON: 12/05/2023 HISTORY: LEFT FOOT PAIN FINDINGS: BONES:Stable intra-articular fracture along the base of the first metatarsal with 4 mm of lateral distraction best seen on image 2. No significant bone formation or bony bridging SOFT TISSUES:Negative. No visible soft tissue swelling. EFFUSION:None visible. OTHER: Negative. XR/XR foot LT min 3V IMPRESSION: Stable intra-articular fracture lateral base of the first metatarsal Electronically authenticated by: YAA ESTEBAN Date: 12/30/2023 13:11
== END 2023-12-30 10:35 | disposition home or self-care (01) ==
LOC: EC 10:35
PROVIDERS: PCP Family Medicine; Visit Provider Podiatrist Foot & Ankle Surgery
DX: M79.672 Pain in left foot (principal); S92.315D Nondisplaced fracture of first metatarsal bone, left foot, subsequent encounter for fracture with routine healing
CPT/HCPCS: 73630

== ENCOUNTER 2024-01-07 10:32 | Outpatient (OUT) | payer MEDICARE, SELFPAY ==
--- NOTE | 2024-01-07 | XR_ITS ---
The [address] [address] Patient Name: ELÍAS SANCHEZ MRN: [id number] date: 1965 Sex: M Assigned Patient Location: Current Patient Location: Accession/Order Number: [id number] Exam Date: 01/07/2024 10:50 Report Date: 01/08/2024 06:25 At the request of: CHRIS MENDES Procedure: XR foot LT min 3V PROCEDURE: XR foot LT min 3V HISTORY: LEFT FOOT PAIN ; follow-up first metatarsal fracture COMPARISON: XR foot left 12/30/2023 FINDINGS: BONES:Stable mildly displaced fracture involving plantar-lateral aspect of proximal first metatarsal with intra-articular extension. Slight increased density fracture line; no significant callus formation along the margins. SOFT TISSUES:No visible soft tissue swelling. EFFUSION:None visible. OTHER: Negative. XR/XR foot LT min 3V IMPRESSION: 1. Stable alignment and suspected changes of early bone healing involving first metatarsal fracture. Electronically authenticated by: CIRA LIN Date: 01/08/2024 06:25
--- OUTSIDE RECORDS SUMMARY | 2024-01-07 10:53 | XMS_ITS | CCD ---
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 WNFcQSY0RAYwSFOaUEOu nb0BPCIyRNBhIbcjLjJl MDAwMCBuDQowMDAwMDAy VON1YNPfKLJwYH7A VaXsEWCuTPG2KfamXTAb TYKwge2IEQYwUTTuUnB6 MCAwMDAwMCBuDQowMDAw WLWpDyj1RYFtLWXb AZ8RWgWbXKWfOoreCDoh EOWyHDEbis1QDELgXND1 MzYzNyAwMDAwMCBuDQp0 gnOtxSIrKHc3SAyn LIVwNrjkIAX9QAF1GOGZ MxJpLYJOAYIfNPU7LpF9 BpamOQBNKm2RBGSCNgtB EDDSBcW2TQIWUhB8 J0R8E7H4WwLbHDq3Zfkg Zz0OH8VzUXZaTusrQQnv Br0Pz904NDb4RTTyUdhn C8l7MYR6GypsQ115 cmNlIChXZUpYRnhOTzRm GlF4oOLDHRKHX6W3Q38t U17xTF2WUPflO2D9RDhw C7T8NgNZQ7OQOTUz XZMbpBb1IWysEJw9Rtcn yPygNBD8T0GutES5A9hu l96jNMWTNZvFq0qtYMG5 D64LUzrDEpnRwmCX S0t7nUUXX6KlI3RoG4HX WZrKTMFlDJEvCf2DNUsY NCakykeQUp5fJs4+ICAg ICAgICAgICAgICAg ICAgICAgICAgICAgICAg ICAgICAgICAgICAgICAg ICAgICAgICAgICAgICAg ICAgICAgICAgICAg ICAgICAgICAgICAgICAg ICAgICAgICAgICAgICAg ICAgICAgICAgICAgICAg ICAgICAgICAgICAg ICAgICAgICAgICAgICAg ICAgICAgICAgICAgICAg ICAgICAgICAgICAgICAg ICAgICAgICAgICAg ICAgICAgICAgICAgICAg ICAgICAgICAgICAgICAg ICAgICAgICAgICAgICAg ICAgICAgICAgICAg ICAgICAgICAgICAgICAg ICAgICAgICAgICAgICAg ICAgICAgICAgICAgICAg ICAgICAgICAgICAg ICAgICAgICAgICAgICAg ICAgICAgICAgICAgICAg ICAgICAgICAgICAgICAg ICAgICAgICAgICAg ICAgICAgICAgICAgICAg ICAgICAgICAgICAgICAg ICAgICAgICAgICAgICAg ICAgICAgICAgICAg ICAgICAgICAgICAgDQpz dGFydHhyZWYNCjANCiUl ND6NHHgSSua9OLMpr0Sa AWx8MWjyAQD9YZUa nFNoHlNqTNJDTl4XeBDb COO7pP9nQIf4VZVlGJPP H4LlzZ8NU668xJhsshAg IDczIDAgUgovUGFn LY3qRYIlV9OvBK5wwgQR H1BqJ2JpNAh3KTGpWqlj ELevJDEyK4A3SNikCgk+ Wt1CKZ8mi3ZaDPiE Ahn5MTLgx9GiKTf8BAtv VcsjgIFvSC6MwLK0YJWk N99lLKmbLSJhY9NsRWHv NsglFkOwGUeZPx5T GlF6ymGhwF9ZoZzqEDVp P0TkalJllAQkJcxpPQIH UxjAahjYsGAgmCrJwJDF e5BW8BsECp18I3Wh MwaGXkYGgoCQPtaJQIIP ihkYMsFumweVtABiDiC2 bfW6ZCbToFIPwbaAuEAk BgYHDSAtBDMRAJjx FalKYeZxBJW5pkYonM3K DT4ks8VvYUaUPrl8RCOy f8JnZOf4AImvB57phJFz dHMgWzgxIDAgUiA4 MiAwIFIgODMgMCBSIDg0 WOCoXax4SDVvRDCrGCDg NRPKXIk0ILMgIyW7TEPp FKClXh3EJZKfAUHr pENoYQOyXNVnFcA4MLJp Db3BAFLyetQaSdEePHVL Dz7CSFGziLBiSHIsYGoC E9SbmoEfIPsOB8Zo GlX8LOadSPMjPqz+Pgov AI0pxjCtcLE1GBodZHSg YzExIDkwIDAgUgovSWFi IwB0HGfjJRZyGidk SJOvBsM5RPxxWRMpTwml SWFiYzcgODkgMCBSCj4+ Cj4+Cr1LhESvIC8BYQyc Cj4+DQplbmRvYmoN Co3CQXNdOYXxLjiGKqs7 Cx3XDJExFt5kzKTaAZax OBPwIg7lPD1GG6RwY62r fI0aEL1PjV2IatYo GT1ji1QwaljZT4R6TzD1 qCEjN0W4dLWuMo1FaZOx IZ6Gq806Pe6+DQplbmRv KzyPOm8IWGOlCJWz BvpYKua7Gw5HCI0wfVkq MTAxCj4+ECajgPUgGI7P CnENCkJUDQowIDAgMCBy Rx0PC7EsIlQ0RZOe IFRmDQoxIDAgMCAxIDIw ONo1Dd1xXYOoJAcaUMgf QKYsIJL4TFtbelApA5Ft uFPbCIZcFLQuG3Og H40hCDGhPAZTZSxMTX1N YA8PSQukgnMrqFDgYD8B YdPeOA9rin6KRCd8VrWy ZO8iua2OSGgSW6vc wgp8qCZ0UVf+Jm9Vx3Ml HRHeHQyLOJ0MaT6RNTIb IDAgMCAxNjUgMjAgNTY5 LjMzMzMzIGNtDQov WAVaLiyzNH2OAiHKIhLO SDtVFxJnRXW0rgLxmU9E RF5bo4PjUScNGlmzHRZm i2JjRGs0HGjrRQRf S5WkBLEbWlm+Vv0Hv3Hy JLEtPQuaZOpYDC9KFOCm KDTglgfYXo8HIDAkIAEb YPHAIr0HVGQsJLKi FQQuGMY9KFVqUCXsEjPf OK8OYjlfSFDOejzgJVGe JRLikE5TcWYcaX5lDXGq VYFjL5TzCd3vEMWc BKOPWOzBFQ8RZS8DHAyq xmMzbSMnOY9OEfSuKL8i su0TAMa3KBXxUR9bep9H ECyCO0scxso9bIQ2 Zenon+Zf6Db7WfKPYsRXdY JT7QuW7EDRAiLUOqWLL1 FzLjQST8UTzgTfR1Auxs H97IOc8QDPZqPOWc JN2JHaPFJbRUBFxOMaPu AAS7etPjlB2ZXP9aw9Kb MBdQQvc2IGRrn4VnAEo0 IBrgFDYoB7DfCUOx NQo+Yp7Rg2QeNBVxYDsw HFjIKM5TAJMkFHQywhkT Gh1FKSRdBJSwJGJBVy0S MSAwIDAgMSAyMCA0 YJzvLYH8PpzuBF9FHqyy HJCKycioGROsMVRnaZ9G fCUrzN3rREZtDUrhQRPr UgKkDD4pLJnBOeRV YWcGZUtFJgEpGCX3wbWd oX5ZNT2ry6XaCTsDOll3 PEPdf6DfEXl2BIpyMDIv R6CxYMB7Wc5+DQpz hEYwEF3PQaVBKYumVEt7 OIRdIBNmNTJ7KJBvFRVy SVSeI43WPg6EBARfVGSm XE9BIoZJGfJOAFxT SmDbIAD3weWlaK3COV2m x5NfZVdWZld7JUHqz6Tg QVn3HVmrUKKnC3BeCORw Mgo+Kb5Wi2ThPDHp DHdwDSaWWT1QRZMdHQMn shaUMj1DGFZbUMAcWOXL Qp3OHCLpCMHeXFHnANTw HXwwExEHtG8ZGpDb DDX2IFJrXDUeQJ25T1T9 kjalPgAsYTDqXR3OuM9d GkCdGY7nETmMUzIRZOwQ HWxZPgCcJBL0sxOm fI1RRK0vp9UxXEgMBqm4 DGBus3GaXIz5ZZamNOGf J9GdBQE3Ki9+DQpzdHJl YZ7UAuGNTEneAZw3 NTIgMCAwIDgzIDIwIDEy UM6yDbRnYfIweW7EK0bp LaDoOZZCpv6VRF9KJOcN Dr8EGE5zv4YpIGSl GGlluvCwAxpPRt1KYDkd XOCzUurONgh6Ii9OvTLu AFJnB76uaR6qWJ12LUkX Z7ZdnD9oF2GvK7Qw X7RwjaqtFUHOIhftMpig cMGtWY5GwWZ3BUCwB02y TPicXTNeJ5g8WIE2URdn YCSwW7RiOYIzCXF7 Oc8IpIF3lBVkJC9AeOCv ZYuaDMugRQXvWT0toiBi pZbpN8muyBzxWPYdOm5+ FLrgrBYiTW9RKlih 9L8ZSSBMlzoR83/3PDPd /1e4B0178eQM0w8rS9pQ YqAoicshrlIPsg6IDEnL P8OJIHLHKoFGR1dY HQRQXFLrYBnNo9DlZWMR QDALdv5f1q5P1e3Bc9Am 1VhWQVfF+6QSN0+cjMiI E+dkZkS+CXBwcHBw cHBwcHBwcHBwcHBwcHBw cHBwcHBwcHBwcHBwcHBw cHBwcHBwcHBwcHBwcHBw cHBwcHBwcHBIQVOT w7NpHw40YuhlukGmCsoP JSaint Joseph Berea/Bcff231cycnrXH FlHc/Vy30y4rnqsGEfWD rcswv0zXN4lxtzJn Dll8hTDLrf4ul7qLgfl3 a5aoP3e/f5oyaMVgtFYP vXEgq4emtEjePNRTiWs1 3r1JxpB8iY7kcdAP 3Ms+GuW+u1bYU/vo1MzP WYMuAGVxm9ztlyJilQIF 2JlzgtZAN9qj (more content not included)... Normal [facility] CNOVon 08-09-2022 CN Office Visit (SPNSMN) MICAH FORBES ([id number]) 1965 M Date Time Provider Department 08/09/22 [...] which included preparing to see the patient, [id number] patient care, completing clinical documentation, obtaining and/or [...] of D (more content not included)... Normal [facility] No Panel Informationon 08-09 [facility] XR CERVICAL 4V AP/LAT/OBLon 08-09-2022 XR [...] vertebrae with counting from the craniocervical junction. 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 Marce Tabares Basophils/100 WBC (Bld) 0.6 % Normal 0.2-2.0 [facility] Comment on above: Performed By: #### C BC #### [facility] [address] [address] [address] Marce Tabares EO # 0.3 103/ul Normal 0.0-0.7 [facility] Comment on above: Performed By: #### C BC #### [facility] [address] [place] [address] Dr. Marce Tabares Eosinophils/100 WBC (Bld) 4.5 % Normal 0.9-7.0 [facility] Comment on above: Performed By: #### C BC #### [facility] [address] [place] [address] Dr. Marce Tabares Erythrocyte distribution width (RBC) [Ratio] 13.1 % Normal 11.0-15.0 [facility] Comment on above: Performed By: #### C BC #### [facility] [address] [place] [address] Dr. Marce Tabares Hematocrit (Bld) [Volume fraction] 45.5 % Normal 42.0-54.0 [facility] Comment on above: Performed By: #### C BC #### [facility] [address] [place] [address] Dr. Marce Tabares Hemoglobin (Bld) [Mass/Vol] 15.7 g/dL Normal 14.0-18.0 [facility] Comment on above: Performed By: #### C BC #### [facility] [address] [place] [address] Dr. Marce Tabares IG # 0.02 10e3/ul Normal 0.00-0.03 [facility] Comment on above: Performed By: #### C BC #### [facility] [address] [place] [address] Dr. Marce Tabares IG % 0.3 % Normal 0.0-0.5 [facility] Comment on above: Performed By: #### C BC #### [facility] [address] [place] [address] Dr. Marce Tabares LYMPH # 1.9 103/ul Normal 1.2-3.8 [facility] Comment on above: Performed By: #### C BC #### [facility] [address] [place] [address] Dr. Marce Tabares Lymphocytes/100 WBC (Bld) 28.5 % Normal 20.5-60.0 [facility] Comment on above: Performed By: #### C BC #### [facility] [address] [place] [address] Dr. Marce Tabares MANUAL DIFF REQ NO Normal [facility] Comment on above: Performed By: #### C BC #### [facility] [address] [place] [address] Dr. Marce Tabares MCH (RBC) [Entitic mass] 31.8 pg Normal 25.9-34.0 [facility] Comment on above: Performed By: #### C BC #### [facility] [address] [place] [address] Dr. Marce Tabares MCHC (RBC) [Mass/Vol] 34.5 g/dL Normal 29.9-35.2 [facility] Comment on above: Performed By: #### C BC #### [facility] [address] [place] [address] Dr. Marce Tabares MCV (RBC) [Entitic vol] 92.3 fL Normal 80.0-94.0 [facility] Comment on above: Performed By: #### C BC #### [facility] [address] [place] [address] Dr. Marce Tabares MONO # 0.7 103/ul Normal 0.3-0.8 [facility] Comment on above: Performed By: #### C BC #### [facility] [address] [place] [address] Dr. Marce Tabares Monocytes/100 WBC (Bld) 10.3 % Normal 1.7-12.0 [facility] Comment on above: Performed By: #### C BC #### [facility] [address] [place] [address] Dr. Marce Tabares NEUT # 3.7 103/ul Normal 1.4-6.5 [facility] Comment on above: Performed By: #### C BC #### [facility] [address] [place] [address] Dr. Marce Tabares Neutrophils/100 WBC (Bld) 55.8 % Normal 43.0-75.0 [facility] Comment on above: Performed By: #### C BC #### [facility] [address] [place] [address] Dr. Marce Tabares Platelet mean volume (Bld) [Entitic vol] 9.3 fL Critically low 9.5-13.5 [facility] Comment on above: Performed By: #### C BC #### [facility] [address] [place] [address] Dr. Marce Tabares PLT 185 103/ul Normal 150-450 [facility] Comment on above: Performed By: #### C BC #### [facility] [address] [address] [address] Marce Tabares RBC 4.93 106/ul Normal 4.70-6.10 [facility] Comment on above: Performed By: #### C BC #### [facility] [address] [place] [address] Dr. Marce Tabares WBC 6.7 103/ul Normal 4.0-11.0 [facility] Comment on above: Performed By: #### C BC #### [facility] [address] [place] [address] Dr. Marce Tabares GLYCOHEMOGLOBIN A1Con 2021 ADA RECOMMENDATION SEE BELOW Normal [facility] Comment on above: Result Comment: ADA RECOMMENDED LIMIT 4.0 - 6.0 ADA THERAPEUTIC TARGET < 7.0 ACTION SUGGESTED > 7.0 Performed By: #### A 1C #### [facility] [address] [place] [address] Dr. Marce Tabares Glucose [Mass/Vol] 180 mg/dL Normal [facility] Comment on above: Performed By: #### A 1C #### [facility] [address] [place] [address] Dr. Marce Tabares HbA1c (Bld) [Mass fraction] 7.9 % Critically high 4.5-6.2 [facility] Comment on above: Performed By: #### A 1C #### [facility] [address] [place] [address] Dr. Marce Tabares LIPID PROFILEon 06-13-2022 CHOL-HDL RATIO NORM SEE BELOW Normal [facility] Comment on above: Result Comment: 3.3 - 4.4 LOW RISK 4.4 - 7.1 AVERAGE RISK 7.1 - 11.0 MODERATE RISK >11.0 HIGH RISK Performed By: #### L IVER, LIPID, BMP #### [facility] [address] [address] [address] Marce Tabares Cholesterol [Mass/Vol] 174 mg/dL Normal <=200 [facility] Comment on above: Performed By: #### L IVER, LIPID, BMP #### [facility] [address] [address] [address] Marce Tabares Cholesterol in HDL [Mass/Vol] 34 mg/dL Critically low 40-60 [facility] Comment on above: Performed By: #### L IVER, LIPID, BMP #### [facility] [address] [place] [address] Dr. Marce Tabares Cholesterol in LDL [Mass/Vol] 72.0 mg/dL Normal [facility] Comment on above: Performed By: #### L IVER, LIPID, BMP #### [facility] [address] [place] [address] Dr. Marce Tabares Cholesterol.total/Cho lesterol in HDL [Mass ratio] 5.1 {ratio} Normal [facility] Comment on above: Performed By: #### L IVER, LIPID, BMP #### [facility] [address] [place] [address] Dr. Marce Tabares HDL NORMAL > or = 60 mg/dl - LOW CARDIOVASCULAR RISK <40 mg/dl - HIGH CARDIOVASCULAR RISK Normal [facility] Comment on above: Performed By: #### L IVER, LIPID, BMP #### [facility] [address] [place] [address] Dr. Marce Tabares LDL CALC NORMAL SEE BELOW Normal [facility] Comment on above: Result Comment: <100 mg/dl OPTIMAL 100 - 129 mg/dl NEAR OR ABOVE OPTIMAL 130 - 159 mg/dl BORDERLINE HIGH 160 - 189 mg/dl HIGH >190 mg/dl VERY HIGH Performed By: #### L IVER, LIPID, BMP #### [facility] [address] [place] [address] Dr. Marce Tabares Triglyceride [Mass/Vol] 342 mg/dL Critically high <=150 [facility] Comment on above: Performed By: #### L IVER, LIPID, BMP #### [facility] [address] [address] [address] Marce Tabares VLDL CALC 68.4 mg/dL Normal [facility] Comment on above: Performed By: #### L IVER, LIPID, BMP #### [facility] [address] [address] [address] Marce Tabares LIVER PROFILEon 06-13-2022 Albumin [Mass/Vol] 3.9 g/dL Normal 3.4-5.0 [facility] Comment on above: Performed By: #### L IVER, LIPID, BMP #### [facility] [address] [address] [address] Marce Tabares Albumin/Globulin [Mass ratio] 1.2 {ratio} Normal [facility] Comment on above: Performed By: #### L IVER, LIPID, BMP #### [facility] [address] [address] [address] Marce Tabares ALP [Catalytic activity/Vol] 63 U/L Normal 46-116 [facility] Comment on above: Performed By: #### L IVER, LIPID, BMP #### [facility] [address] [place] [address] Dr. Marce Tabares ALT [Catalytic activity/Vol] 30 U/L Normal 16-63 [facility] Comment on above: Performed By: #### L IVER, LIPID, BMP #### [facility] [address] [address] [address] Marce Tabares AST [Catalytic activity/Vol] 16 U/L Normal 15-37 [facility] Comment on above: Performed By: #### L IVER, LIPID, BMP #### [facility] [address] [address] [address] Marce Tabares BILI, CONJUGATED 0.1 mg/dL Normal 0.0-0.2 [facility] Comment on above: Performed By: #### L IVER, LIPID, BMP #### [facility] [address] [place] [address] Dr. Marce Tabares Bilirubin [Mass/Vol] 0.3 mg/dL Normal 0.2-1.0 [facility] Comment on above: Performed By: #### L IVER, LIPID, BMP #### [facility] [address] [place] [address] Dr. Marce Tabares Globulin (S) [Mass/Vol] 3.3 g/dL Normal [facility] Comment on above: Performed By: #### L IVER, LIPID, BMP #### [facility] [address] [place] [address] Dr. Marce Tabares Protein [Mass/Vol] 7.2 g/dL Normal 6.4-8.2 [facility] Comment on above: Performed By: #### L IVER, LIPID, BMP #### [facility] [address] [place] [address] Dr. Marce Tabares MICROALBUMIN, RAND URon 12-0 mALB <1.3 Normal <=30.0 [facility] Comment on above: Performed By: #### M ALBR #### [facility] [address] [place] [address] Dr. Marce Tabares PROF CHEM 8 (BAS METB)on Anion gap [Moles/Vol] 11.6 mmol/L Normal [facility] Comment on above: Performed By: #### L IVER, LIPID, BMP #### [facility] [address] [place] [address] Dr. Marce Tabares Calcium [Mass/Vol] 8.8 mg/dL Normal 8.5-10.1 [facility] Comment on above: Performed By: #### L IVER, LIPID, BMP #### [facility] [address] [place] [address] Dr. Marce Tabares Chloride [Moles/Vol] 101 mmol/L Normal 98-107 [facility] Comment on above: Performed By: #### L IVER, LIPID, BMP #### [facility] [address] [place] [address] Dr. Marce Tabares CO2 [Moles/Vol] 30.8 mmol/L Normal 21.0-32.0 [facility] Comment on above: Performed By: #### L IVER, LIPID, BMP #### [facility] [address] [address] [address] Marce Tabares Creatinine [Mass/Vol] 1.05 mg/dL Normal 0.70-1.30 [facility] Comment on above: Performed By: #### L IVER, LIPID, BMP #### [facility] [address] [address] [address] Marce Tabares EGFR-AF TUNISIAN >60 Normal >=60 [facility] Comment on above: Performed By: #### L IVER, LIPID, BMP #### [facility] [address] [address] [address] Marce Tabares EGFR-NON AF TUNISIAN >60 Normal >=60 [facility] Comment on above: Performed By: #### L IVER, LIPID, BMP #### [facility] [address] [address] [address] Marce Tabares Glucose [Mass/Vol] 170 mg/dL Critically high 74-106 [facility] Comment on above: Performed By: #### L IVER, LIPID, BMP #### [facility] [address] [address] [address] Marce Tabares Potassium [Moles/Vol] 4.1 mmol/L Normal 3.5-5.1 [facility] Comment on above: Performed By: #### L IVER, LIPID, BMP #### [facility] [address] [address] [address] Marce Tabares Sodium [Moles/Vol] 140 mmol/L Normal 136-145 [facility] Comment on above: Performed By: #### L IVER, LIPID, BMP #### [facility] [address] [address] [address] Marce Tabares Urea nitrogen [Mass/Vol] 13.0 mg/dL Normal 7.0-18.0 [facility] Comment on above: Performed By: #### L IVER, LIPID, BMP #### [facility] [address] [address] [address] Marce Tabares Urea nitrogen/Creatinine [Mass ratio] 12.4 mg/mg Normal [facility] Comment on above: Performed By: #### L DEREK, LIPID, BMP #### [facility] [address] [address] [address] Marce Tabares Vital Signs Date Time Vital Sign Value Performing Clinician Facility 09-02-2022 18:15-0500 Diastolic blood pressure 102 mm[Hg] Paxton Reinosoe [facility] 09-02-2022 18:15-0500 Heart rate 71 /min Paxton Reinosoe [facility] 09-02-2022 18:15-0500 Mean blood pressure 111 mm[Hg] Paxton Reinosoe [facility] 09-02-2022 18:15-0500 Respiratory rate 20 /min Paxton Reinosoe [facility] 09-02-2022 18:15-0500 SaO2% (BldA) [Mass fraction] 93 % Paxton Reinosoe [facility] 09-02-2022 18:15-0500 Systolic blood pressure 130 mm[Hg] Paxton Reinosoe [facility] 09-02-2022 17:37-0500 Body temperature 99.68 [degF] Paxton Reinosoe [facility] 09-02-2022 17:37-0500 Diastolic blood pressure 104 mm[Hg] Paxton Reinosoe [facility] 09-02-2022 17:37-0500 Heart rate 82 /min Paxton Blossom [facility] 09-02-2022 17:37-0500 Respiratory rate 20 /min Paxton Reinosoe [facility] 09-02-2022 17:37-0500 SaO2% (BldA) [Mass fraction] 93 % Paxton Reinosoe [facility] 09-02-2022 17:37-0500 Systolic blood pressure 158 mm[Hg] Paxton Cerrato [facility] 08-09-2022 09:00-0500 Body height 172.7 cm Prince Palacios MD Work Phone: [facility] 08-09-2022 09:00-0500 Body weight 88.45 kg Prince Palacios MD Work Phone: [facility] 08-09-2022 09:00-0500 Diastolic blood pressure 69 mm[Hg] Prince Palacios MD Work Phone: [facility] 08-09-2022 09:00-0500 Heart rate 89 /min Prince Palacios MD Work Phone: [facility] 08-09-2022 09:00-0500 Respiratory rate 13 /min Prince Palacios MD Work Phone: [facility] 08-09-2022 09:00-0500 SaO2% (BldA) [Mass fraction] 98 % Prince Palacios MD Work Phone: [facility] 08-09-2022 09:00-0500 Systolic blood pressure 121 mm[Hg] Prince Palacios MD Work Phone: [facility] Encounters Encounter Date Encounter Type Care Provider Facility Start: 12-16-2023 End: 12-16-2023 ambulatory SILVIO CRAIN Not Available Start: 10-07-2023 End: 10-07-2023 ambulatory SHAIKH JAQUELINE Not Available Start: 08-12-2023 Refill Silvio Moreno Work Phone: [facility] Comment on above: ETHAN (generalized anx iety disorder) ([facility]/HCC) Start: 07-02-2023 End: 07-02-2023 ambulatory GOTTLIEB FAWWAD Not Available Start: 10-25-2022 End: 10-26-[address] DOCTOR THORNTON Facility: Start: 10-25-2022 Telephone encounter Prince macias MD Work Phone: Neurology Comment on above: Results Start: 10-10-2022 End: 10-10-2022 ambulatory Aleksandr Charity Sandoval Facility:[facility] Start: 09-06-2022 Telephone encounter Prince macias MD Work Phone: Neurology 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 on above: 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; 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 Start: 09-02-2022 End: 09-02-2022 Emergency department patient visit Paxton Cerrato Facility:[facility] Start: 09-02-2022 End: 09-02-2022 Emergency department patient visit Paxton Cerrato [facility] Start: 08-09-2022 End: 08-09-2022 ambulatory PRINCE PALACIOS Facility:[facility] Start: 08-09-2022 End: 08-09-2022 ambulatory PRINCE PALACIOS Facility:[facility] Start: 08-09-2022 End: 08-09-2022 Subsequent hospital visit by physician Koko Mendiola [id number] Work Phone: Radiology Comment on above: Spinal stenosis of c ervical region [M48.02] Start: 08-09-2022 End: 08-09-2022 Patient encounter procedure Prince Palacios MD Work Phone: Spine Blanket Comment on above: Spinal stenosis of c ervical region (Primary Dx); S/P cervical spinal fusion Start: 06-13-2022 End: 06-14-[address] SILVIO CRAIN Facility:[facility] Procedures Date Procedure Procedure Detail Performing Clinician Start: 08-09-2022 Radex spine cervical 4 or 5 views Jennifer Moore MD Work Phone: Start: 06-13-[address] SILVIO ENNIS Comment on above: Performed By: #### P [facility] #### [facility] [address] [place] [address] Dr. Marce Tabares Plan of Treatment Date Care Activity Detail Author Start: 06-13-2027 PROSTATE CANCER SCREENING DISCUSSION PROSTATE CANCER SCREENING DISCUSSION [facility] Start: 09-18-2023 End: 09-18-2023 Patient encounter procedure 09/18/2023 1:00 PM EDT Office Visit [facility] [address] [place] [address] Silvio Crain MD [address] [place] [address] [facility] Start: 08-09-2023 BP CONTROLLED (<130/80) BP CONTROLLE D (<130/80) [facility] Start: 03-07-2023 Influenza vaccination INFLUENZ A (Season Ended) [facility] Start: 08-16-2022 End: 09-08-2023 Ct cervical spine w/o contrast material CT CERVICAL SPINE WO IVCON Radiology Routine Spinal stenosis of cervical region Expected: 08/16/2022, Expires: 09/08/2023 [facility] Work Phone: Comment on above: Expected: 08/16/2022 , Expires: 09/08/2023 Start: 07-07-2022 DEPRESSION ASSESSMENT DEPRESSION ASS ESSMENT [facility] Start: 03-07-2022 Influenza vaccination INFLUENZA (#1) [facility] Start: 02-16-2022 Screening for malign ant neoplasm of colon [facility] Start: 09-12-2021 COVID-19 VACCINE (4 - Booster for Pfizer series) COVID-19 VACCINE (4 - Booster for Pfizer series) [facility] Start: 08-30-2021 Hemoglobin A1c measurement Diabetes: Hemoglobin A1C [facility] Start: 06-02-2021 Hemoglobin A1c/Hemoglobin.total in Blood HBA1C [facility] Start: 05-26-2020 Glaucoma screening Diabetes: R etinopathy Screening [facility] Start: 2015 SHINGRIX VACCINE (1 of 2) SHINGRIX VACCINE (1 of 2) [facility] Start: 2010 COLOGUARD (FIT-DNA) COLOGUARD (FIT-D NA) [facility] Start: 2010 Colonoscopy COLONOSCOPY [facility] Start: 2010 COLORECTAL CANCER SCREENING COLORECTAL CANCER SCREENING [facility] Start: [address] COLONOGRAPHY [facility] Start: 2010 FECAL OCCULT BLOOD FECAL OCCULT BLOO D [facility] Start: 2010 SIGMOIDOSCOPY SIGMOIDOSCOPY [facility] Start: 1984 Urine microalbumin profile DTAP,TDAP,TD (1 - Tdap) [facility] Start: 1984 Urine screening for protein Diabetes: Urine Protein Screening [facility] Start: 1983 ANNUAL PCP TEAM BUSHLER STEFANI DISEASE VISIT ANNUAL PCP TEAM CHRONIC DISEASE VISIT [facility] Start: 1983 Hepatitis B surface antibody level LDL CHOLESTEROL [facility] Start: 1983 HEPATITIS C SCREENING HEPATITIS C SC REENING [facility] Start: 1983 HIV SCREENING HIV SCREENING [facility] Start: 1975 3 comp foot exam completed DIABETIC FOOT EXAM [facility] Start: 1975 Hepatitis B screening URINE ALBUMIN:CREATININE RATIO [facility] Start: 1975 Hepatitis C antibody , confirmatory test DILATED RETINAL EXAM [facility] Start: 1971 PNEUMOCOCCAL (1 - PCV) PNEUMOCOCCAL (1 - PCV) [facility] Start: 1965 HEPATITIS B (1 of 3 - 3-dose series) HEPATITIS B (1 of 3 - 3-dose series) [facility] Start: 1965 Medicare Annual Well ness (AWV) Medicare Annual Wellness (AWV) [facility] Start: 1965 Screening for malign ant neoplasm of colon [facility] Immunizations Immunization Date Immunization Notes Care Provider David dempsey 11-30-2020 COVID-19 original vaccine, age 12+ yr, monovalent (PFIZER-BIONTECH - PURPLE TOP) Prince Palacios MD Work Phone: [facility] 11-09-2020 COVID-19 original vaccine, age 12+ yr, monovalent (PFIZER-BIONTECH - PURPLE TOP) Prince Palacios MD Work Phone: [facility] 05-14-2017 influenza, seasonal, injectable, preservative free Prince Palacios MD Work Phone: [facility] Work Phone: 05-07-2017 influenza, injectabl e, quadrivalent, contains preservative Prince Palacios MD Work Phone: [facility] Work Phone: Payers Date Payer Category Payer Self-pay 2021 Medicare AN[employer]M MEDICARE ADVANTAGE AN[employer]M MEDICARE ADVANTAGE [id number] 2021-Present [address] [place] [address] [id number] 2011 Unknown [facility] MCO [id number] 2011-Present [phone] [address] [place] [address] MCO [id number] 2011 Unknown [id number] 1965 Unknown [id number] 1965 Unknown [id number] 1965 Unknown [id number] 1965 Unknown [id number] 1965 Unknown [id number] 1965 Unknown [id number] 9 1959 Unknown [id number] 1959 Unknown [id number] Unknown [id number] Social History Date Type Detail Facility Start: 08-09-2022 Tobacco smoking status NHIS Ex-smoker [facility] Start: 11-14-2020 End: 02-04-2021 History of tobacco use Current smoker [facility] Start: 11-14-2020 End: 02-04-2021 History of tobacco use Cigarette Smoker [facility] Start: 08-09-2022 End: 07-02-2023 Cigarettes smoked current (pack per day) - Reported 0.3 [facility] Start: 08-09-2022 Tobacco use and exposure Smokeless tobacco non-user [facility] Start: 08-09-2022 Alcohol intake Current drinker of alcohol (finding) [facility] Start: 03-02-2021 Alcohol Comment 3 times a month per pt 03/02/2021 [facility] Start: 1965 Sex Assigned At Not on file [facility] Tobacco smoking status No Smokin g Status Entered [facility] Start: 07-01-2023 End: 07-02-2023 Sex Assigned At Male [facility] Start: 07-01-2023 Tobacco smoking status NHIS Smokes tobacco daily [facility] Start: 07-01-2023 Alcohol intake Lifetime non-drinker (finding) [facility] Within the last year , have you been afraid of your partner or ex-partner? No [facility] Do you belong to any clubs or organizations such as samaritan groups, [employer], [employer] or athletic groups, or school groups? Yes [...] Equipment Origin al Text Equipment Identifier Dates [place] Lateral Of fset Connector Side Sz 10mm [id number] Start: 03-15-2021 Graft Deminerali zed Bone Matrix Bone Putty Pretreated 10ml - [id number] Start: 03-15-2021 Spacer Avs 4d 8m m Spinal Bone Plug - [id number] Start: 03-15-2021 [place] Plate, 1 L evel, Sz 18mm [id number] Start: 03-15-2021 [place] Spn Luigi Csp Mini 3.5x240 [id number] Start: 03-15-2021 Screw Bn 4mm 14m m [place] Spnl - [id number] Start: 03-15-2021 Spacer Bio Avs 4 d Lordosis 12mm Cortical Cancellous 49z91ep Allograft - [id number] Start: 03-15-2021 Functional Status Date Assessment Result Facility 09-02-2022 Functional Status N/A [facility] Clinical Notes 08-09-2022 to 11-15-2022 Telephone Encounter [...] Schrader Images requested documented in this encounter [facility] 09-06-2022 Miscellaneous Notes Message forwarded to [facility] Forms for C-9. Imelda calling Fuad SMITH calling asking for a C9 for a CT scan. Call back # [phone] documented in this encounter [facility] 09-02-2022 Hospital Discharg e instructions Patient [...] Follow these instructions at home: Medicines Take lpxq-oyo-mqxtptu and prescription medicines only as told by [...] and water are not available, use hand locomotive mechanic. ?Leave stitches (sutures), skin glue, or adhesive [...] 06/23/2006 Document Revised: 09/06/2019 Document Reviewed: 09/08/2019 [employer] Patient Education 2020 [employer]. 09/02/2022 19:17:16 Cervical Sprain Cervical Sprain A [...] provider or physical therapist. General instructions Take sapk-vnt-lazxguf and prescription medicines only as told by [...] 04/19/2008 Document Revised: 10/13/2019 Document Reviewed: 02/19/2017 [employer] Patient Education 2020 [employer]. Follow Up Care 09/02/2022 17:27:40 With:SILVIO CRAIN Address: [address] [place] [id number] Business (1) When:09/05/2022 18:51:13 [facility] 08-09-2022 Note HNO ID: [id number] Author: RT Khushboo(R) Service: Radiology Author Type: [...] RT Khushboo(R) August 09, 2022 11:39 AM [facility] 08-09-2022 Note HNO ID: [id number] Author: Prince Palacios MD Service: ? Author [...] which included preparing to see the patient, rlwv-tq-jiqu patient care, completing clinical documentation, obtaining and/or reviewing separately obtained history, performing a medically appropriate examination, counseling and educating the patient/family/caregiver, ordering medications, tests, or procedures, independently interpreting results (not separately reported), and care coordination (not separately reported). SIGNATURE: Prince Palacios MD PATIENT NAME: Micah Forbes DATE: August 09, 2022 TIME: 10:15 AM PAGER: [facility] 08-09-2022 History of Presen t illness Narrative [...] 2022 11:39 AM documented in this encounter [facility] 08-09-2022 History of Presen t [...] which included preparing to see the patient, vzau-ci-oexn patient care, completing clinical documentation, obtaining and/or reviewing separately obtained history, performing a medically appropriate examination, counseling and educating the patient/family/caregiver, ordering medications, tests, or procedures, independently interpreting results (not separately reported), and care coordination (not separately reported). SIGNATURE: Prince Palacios MD PATIENT NAME: Micah Forbes DATE: August 09, 2022 TIME: 10:15 AM PAGER: documented in this encounter [facility] Evaluation + Plan note No data available for this section [facility] Evaluation note Diagnosis Spinal stenosis of cervical region- Primary Spinal stenosis in cervical region S/P cervical spinal fusion Arthrodesis status [facility] Diagnosis Spinal stenosis of cervical region Spinal stenosis in cervical region [facility] Diagnosis ETHAN (generalized anxiety disorder) ([facility]) Generalized anxiety disorder documented [facility] this encounter [facility] No data available for this section [facility] Reason for Referral Specialty Diagnoses / Procedures Referred By Contac t Referred To Contact CT IMAGING Diagnoses Spinal stenosis of cervical region Procedures CT CERVICAL SPINE WO IVCON CT CERVICAL SPINE W/O CONTRAST MATERIAL Prince Palacios MD [address] [place] [address] Ct Imaging Referral ID Status Reason Start Date Expiration Date Visits Requested Visits Authorized [id number] Pending Review Auto-Generat ed Referral 08/16/2022 09/08/2023 1 1 Specialty Diagnoses / Procedures Referred By Contac t Referred To Contact XR IMAGING Diagnoses Spinal stenosis of cervical region Procedures XR CERV OTHER 4V AP/LAT/OBL RADEX SPINE CERVICAL 4 OR 5 VIEWS Prince Palacios MD [address] [facility] [place] [place] [address] Xr Imaging Referral ID Status Reason Start Date Expiration Date V isits Requested Visits Authorized [id number] Closed Auto-Generate d Referral 08/09/2022 09/08/2023 1 [...] or prosecute any alcohol or drug abuse patient.[facility] the event this information is protected by the Federal Confidentiality of Alcohol and Drug Abuse Patient Records regulations: The Federal rules restrict any use of the information to criminally investigate or prosecute any alcohol or drug abuse patient.[facility] the event this information is protected by the Federal Confidentiality of Alcohol and Drug Abuse Patient Records regulations: The Federal rules restrict any use of the information to criminally investigate or prosecute any alcohol or drug abuse patient.[facility] the event this information is protected by the Federal Confidentiality of Alcohol and Drug Abuse Patient Records regulations: The Federal rules restrict any use of the information to criminally investigate or prosecute any alcohol or drug abuse patient.[facility] Reason for Visit (unrecogniz ed section and content) Reason Comments Established Patient Follow Up Specialty Diagnoses / Procedures Referred By Contac t Referred To Contact Spine Health / SPINE SURGERY Diagnoses follow up Procedures EST NI PATIENT Prince Palacios MD [address] [facility] [place] [address] Prince Palacios MD [address] [facility] [place] [id number] Referral ID Status Reason Start Date Expiration Date Visits Re quested Visits Authorized [id number] Closed 08/09/2022 11/07/2022 1 1 Reason Comments Radio Main J1 Specialty Diagnoses / Procedures Referred By Contac t Referred To Contact XR IMAGING Diagnoses Spinal stenosis of cervical region Procedures XR CERV OTHER 4V AP/LAT/OBL RADEX SPINE CERVICAL 4 OR 5 VIEWS Prince Palacios MD [address] [place] [address] Xr Imaging Referral ID Status Reason Start Date Expiration Date V isits Requested Visits Authorized [id number] Closed Auto-Generate d Referral 08/09/2022 09/08/2023 1 1 Reason Comments Claims Vice President - Other Orders Reason Comments Results Reason Onset Date Comments Med Refill 08/12/2023 Care Teams (unrecognized sec tion and content) Manufacturing Controller Relationship Specialty Start Date End Date Silvio Crain [address] [place] [address] PCP - General Family Medicine 04/20/21 Yoni Sotelo [address] [place] [address] NI Referring Team Neurosurgery 08/22/20 Manufacturing Controller Relationship Specialty Start Date End Date EstrellaSilvio carvalho [address] [place] [address] PCP - General Family Medicine 04/20/21 Yoni Sotelo [address] [place] [address] NI Referring Team Neurosurgery 08/22/20 Manufacturing Controller Relationship Specialty Start Date End Date Parsa Silvio Sepulveda [address] [place] [address] PCP - General Family Medicine 04/20/21 Yoni Sotelo [address] [place] [address] NI Referring Team Neurosurgery 08/22/20 Manufacturing Controller Relationship Specialty Start Date End Date Paras Silvio Sepulveda [address] [place] [address] PCP - General Family Medicine 04/20/21 Yoni Sotelo [address] [place] [address] NI Referring Team Neurosurgery 08/22/20 Manufacturing Controller Relationship Specialty Start Date End Date Silvio Crain MD PCP - General Family Medicine 03/07/23 (unrecognized sect ion and content) No Status Records FoundNo Status Records FoundNo Status Records FoundNo Status Records FoundNo Status Records Found INFORMATION SOURCE (unrecogn ized section and content) DATE CREATED AUTHOR 09/13/2022 Chevy Romero [facility] DATE CREATED AUTHOR AUTHOR'S ORGANIZ ATION 10/15/2022 [facility] DATE CREATED AUTHOR AUTHOR'S ORGANIZ ATION 11/04/2022 [facility] DATE CREATED AUTHOR AUTHOR'S ORGANIZ ATION 11/17/2022 [facility] DATE CREATED AUTHOR AUTHOR'S ORGANIZ ATION 12/16/2023 [facility] FOR RECORDS PERTAINING TO PATIENTS WHO ARE [...] BE BASED ON THE PRIMARY CLINICAL RECORDS. [facility] [employer] provides no warranty or guarantee of the accuracy or completeness of information in this document.
== END 2024-01-07 10:33 | disposition home or self-care (01) ==
LOC: EC 10:33
PROVIDERS: PCP Family Medicine; Visit Provider Podiatrist Foot & Ankle Surgery
DX: M79.672 Pain in left foot (principal); S92.312D Displaced fracture of first metatarsal bone, left foot, subsequent encounter for fracture with routine healing
CPT/HCPCS: 73630

== ENCOUNTER 2024-01-14 13:32 | Outpatient (OUT) | payer MEDICARE, SELFPAY ==
--- NOTE | 2024-01-14 | XR_ITS ---
The [address] [address] Patient Name: ELÍAS SANCHEZ MRN: [id number] date: 1965 Sex: M Assigned Patient Location: Current Patient Location: Accession/Order Number: [id number] Exam Date: 01/14/2024 13:35 Report Date: 01/14/2024 14:28 At the request of: CHRIS MENDES Procedure: XR foot LT min 3V PROCEDURE: XR foot LT min 3V COMPARISON: None. HISTORY: LEFT FOOT PAIN FINDINGS: BONES:Stable intra-articular fracture lateral base of the first metatarsal. Normal alignment of the second tarsometatarsal without evidence of a Lisfranc fracture. No significant bone formation. SOFT TISSUES:Negative. No visible soft tissue swelling. EFFUSION:None visible. OTHER: Negative. XR/XR foot LT min 3V IMPRESSION: Stable intra-articular fracture lateral base of first metatarsal Electronically authenticated by: YAA ESTEBAN Date: 01/14/2024 14:28
== END 2024-01-14 13:33 | disposition home or self-care (01) ==
LOC: EC 13:32
PROVIDERS: PCP Family Medicine; Visit Provider Podiatrist Foot & Ankle Surgery
DX: M79.672 Pain in left foot (principal); S92.312A Displaced fracture of first metatarsal bone, left foot, initial encounter for closed fracture
CPT/HCPCS: 73630

== ENCOUNTER 2024-05-21 10:51 | Outpatient (OUT) | payer MEDICARE, SELFPAY ==
[2024-05-21 11:40] LABS: Estimated Average Glucose 128 mg/dL; Glycohemoglobin A1C 6.1 % (4.5-6.2)
== END 2024-05-21 10:52 | disposition home or self-care (01) ==
LOC: LAB 10:52
PROVIDERS: PCP Family Medicine; Visit Provider Family Medicine
DX: E11.65 Type 2 diabetes mellitus with hyperglycemia (principal)
CPT/HCPCS: 36415; 83036

== ENCOUNTER 2024-08-19 14:27 | Emergency (ER) | payer MEDICARE, SELFPAY ==
[2024-08-19 14:33] VITALS: BP 141/80; PULSE 71; TEMP 36.8; O2SAT 96; BMI 28.9
--- NOTE | 2024-08-19 14:38 | XR_ITS ---
The [address] [address] Patient Name: ELÍAS SANCHEZ MRN: [id number] date: 1965 Sex: M Assigned Patient Location: ER Current Patient Location: ER Accession/Order Number: [id number] Exam Date: 08/19/2024 14:49 Report Date: 08/19/2024 15:31 At the request of: VENU FIELD Procedure: XR elbow LT min 3V PROCEDURE: XR elbow LT min 3V HISTORY: pain, fall COMPARISON: None. FINDINGS: BONES:Tiny degenerative ossified along anterior superior margin of the coronoid process. No fracture or dislocation. SOFT TISSUES:No visible soft tissue swelling. EFFUSION:None visible. OTHER: Negative. XR/XR elbow LT min 3V IMPRESSION: 1. No acute bone abnormality. Minimal degenerative changes. Electronically authenticated by: CIRA LIN Date: 08/19/2024 15:31
--- NOTE | 2024-08-19 14:38 | XR_ITS ---
The [address] [address] Patient Name: ELÍAS SANCHEZ MRN: [id number] date: 1965 Sex: M Assigned Patient Location: ER Current Patient Location: ER Accession/Order Number: [id number] Exam Date: 08/19/2024 14:49 Report Date: 08/19/2024 15:34 At the request of: VENU FIELD Procedure: XR shoulder LT min 2V PROCEDURE: XR shoulder LT min 2V HISTORY: pain, fall COMPARISON: CT chest 11/27/2023 FINDINGS: BONES:Subtle cortical irregularity and possible fracture line along superior rim of glenoid. Stable tiny osteophyte along the inferior margin of glenoid, also present on prior CT study. Unremarkable humeral head. Mild narrowing of the acromioclavicular joint. SOFT TISSUES:No visible soft tissue swelling. EFFUSION:None visible. OTHER: Negative. XR/XR shoulder LT min 2V IMPRESSION: 1. Findings suspicious for nondisplaced fracture involving superior rim of the glenoid. Consider CT or MRI for further claudication. Electronically authenticated by: CIRA LIN Date: 08/19/2024 15:34
--- NOTE | 2024-08-19 14:38 | XR_ITS ---
The [address] [address] Patient Name: ELÍAS SANCHEZ MRN: [id number] date: 1965 Sex: M Assigned Patient Location: ER Current Patient Location: ED.MAIN Accession/Order Number: [id number] Exam Date: 08/19/2024 14:49 Report Date: 08/19/2024 15:27 At the request of: VENU FIELD Procedure: XR thoracic spine 3V EXAMINATION: XR thoracic spine 3V, XR cervical spine 2-3V HISTORY: pain, fall COMPARISON: CT cervical spine 10/25/2022 FINDINGS: BONES: Mechanical fusion of C2-T2 vertebral bodies via bilateral pedicle screws and anchoring rods; no appreciable hardware fracture loosening. Anterior fusion plate set C3 on 4 and C5-6 without appreciable failure. Straightening of the normal lordotic curvature of the cervical spine. Mild right convex curvature of thoracic spine. No compression fracture or spondylolisthesis. Posterior decompression of C6 and C7. DISC SPACES: Intervertebral disc spacers at C3 on 4, C4-5, C5-6. PARASPINOUS: Negative. No paraspinous abnormality is seen. OTHER: Negative. XR/XR thoracic spine 3V IMPRESSION: 1. No appreciable acute abnormality. Stable surgical changes. Electronically authenticated by: CIRA LIN Date: 08/19/2024 15:27
--- NOTE | 2024-08-19 14:38 | XR_ITS ---
The [address] [address] Patient Name: ELÍAS SANCHEZ MRN: [id number] date: 1965 Sex: M Assigned Patient Location: ER Current Patient Location: ED.MAIN Accession/Order Number: [id number] Exam Date: 08/19/2024 14:49 Report Date: 08/19/2024 15:27 At the request of: VENU FIELD Procedure: XR cervical spine 2-3V EXAMINATION: XR thoracic spine 3V, XR cervical spine 2-3V HISTORY: pain, fall COMPARISON: CT cervical spine 10/25/2022 FINDINGS: BONES: Mechanical fusion of C2-T2 vertebral bodies via bilateral pedicle screws and anchoring rods; no appreciable hardware fracture loosening. Anterior fusion plate set C3 on 4 and C5-6 without appreciable failure. Straightening of the normal lordotic curvature of the cervical spine. Mild right convex curvature of thoracic spine. No compression fracture or spondylolisthesis. Posterior decompression of C6 and C7. DISC SPACES: Intervertebral disc spacers at C3 on 4, C4-5, C5-6. PARASPINOUS: Negative. No paraspinous abnormality is seen. OTHER: Negative. XR/XR cervical spine 2-3V IMPRESSION: 1. No appreciable acute abnormality. Stable surgical changes. Electronically authenticated by: CIRA LIN Date: 08/19/2024 15:27
--- NOTE | 2024-08-19 14:39 | ED_ITS ---
HPI HPI - General Adult General Chief complaint: Neck Pain/Injury Stated complaint: FALL UPPER EXTREMITY Time Seen by Provider: 08/19/24 14:38 Mode of arrival: walk-in History of Present Illness HPI narrative: 59 year old male presents to the ED for pain to his left neck, upper back, left shoulder, and left elbow s/p slip and fall today. Denies hitting his head and LOC. Reports previous neck surgery. He has N/T to his left hand. Denies weakness. He is accompanied by family for a ride home. Related Data Home Medications ?Medication ?Instructions ?Recorded ?Confirmed alprazolam 1 mg tablet 1 mg PO DAILY 08/19/24 08/19/24 amlodipine 10 mg tablet 10 mg PO DAILY 08/19/24 08/19/24 atorvastatin 40 mg tablet 40 mg PO DAILY 08/19/24 08/19/24 gabapentin 800 mg tablet 800 mg PO Q12H 08/19/24 08/19/24 glipizide 10 mg tablet 10 mg PO DAILY 08/19/24 08/19/24 metformin 850 mg tablet 850 mg PO DAILY 08/19/24 08/19/24 quetiapine 50 mg tablet 50 mg PO DAILY 08/19/24 08/19/24 Previous Rx's ?Medication ?Instructions ?Recorded methocarbamol 750 mg tablet 750 mg PO Q6H PRN pain #30 tabs 10/23/23 methocarbamol 750 mg tablet 750 mg PO TID PRN pain, muscle 08/19/24 spasms #15 tabs Allergies Allergy/AdvReac Type Severity Reaction Status Date / Time No Known Drug Allergies Allergy Verified 10/07/23 16:10 Opioid HPI Opioid Management Most Recent Opioid Data: Last Pain Scale 9 11/27/23 17:51 11/27/23 Last ED Pain Assessment 08/19/24 16:03 Review of Systems ROS Constitutional Denies: fever or chills Ears, nose, mouth, and throat Reports: throat pain; Denies: neck pain Cardiovascular Denies: chest pain Respiratory Denies: shortness of breath Gastrointestinal Denies: abdominal pain, nausea or vomiting Genitourinary Denies: painful urination Musculoskeletal Reports: back pain, neck pain and extremity pain Integumentary/Breast Denies: rash Neurological Reports: numbness in extremities; Denies: headache, weakness in extremities, dizziness or vertigo PFSH PFSH Social History Little interest or pleasure in doing things: not at all Feeling down, depressed, or hopeless: not at all Exam Constitutional Vital Signs, click to edit/add: Last Vital Signs Temp 98.2 F 08/19/24 14:33 Pulse 71 08/19/24 14:33 Resp 18 08/19/24 14:33 BP 141/80 08/19/24 14:33 Pulse Ox 96 08/19/24 14:33 O2 Del Method Room Air 08/19/24 14:33 Common normals: no apparent distress and oriented x3 General appearance: cooperative Eye Common normals: PERRL, EOMs intact bilaterally, conjunctivae normal and no scleral icterus Neck & C-Spine Common normals: supple Cervical spine: cervical spine tenderness, paracervical muscle tenderness and paracervical muscle spasm Other: Scarring to posterior neck from previous surgery. Chest Common normals: palpation of chest normal Chest: symmetrical chest wall rise Respiratory Common normals: normal respiratory effort Effort & inspection: able to speak in complete sentences and symmetric chest movement Cardio Common normals: regular rate Peripheral pulses: radial pulses present Back & Pelvis Thoracic spine/upper back: normal to inspection and paraspinal muscle tenderness; no thoracic spinal tenderness Lumbar spine/lower back: normal to inspection; no lumbar spinal tenderness, no paraspinal muscle tenderness and no paraspinal muscle spasm Extremity Other: Tenderness to left posterior elbow and left anterior shoulder. No bruising, swelling, or deformity noted to areas. Full ROM to left hand and wrist. Distal sensation intact. Neuro Common normals: oriented x3, CN's II-XII intact bilaterally, moves all extremities and no focal motor deficits Sensorium/orientation: awake and alert Speech: speech normal Course Vital Signs Vital signs: Vital Signs Temperature 98.2 F 08/19/24 14:33 Pulse Rate 71 08/19/24 14:33 Respiratory Rate 18 08/19/24 14:33 Blood Pressure 141/80 08/19/24 14:33 Pulse Oximetry 96 08/19/24 14:33 Oxygen Delivery Method Room Air 08/19/24 14:33 Temperature 98.2 F 08/19/24 14:33 Pulse Rate 71 08/19/24 14:33 Respiratory Rate 18 08/19/24 14:33 Blood Pressure 141/80 08/19/24 14:33 Pulse Oximetry 96 08/19/24 14:33 Oxygen Delivery Method Room Air 08/19/24 14:33 Medical Decision Making MDM Narrative Medical decision making narrative: Imaging was negative for fracture. Findings were discussed with the patient. He reported more improvement after the Robaxin than the Percocet. A prescription was provided for Robaxin. Follow up with pcp for a recheck, further evaluation and treatment. Imaging Data CT: Attestation: I have reviewed the pertinent imaging results. Radiologist's impression: ITS Impressions Cervical Spine X-Ray 08/19/24 14:38 IMPRESSION: 1. No appreciable acute abnormality. Stable surgical changes. Electronically authenticated by: CIRA LIN Date: 08/19/2024 15:27 Elbow X-Ray 08/19/24 14:38 IMPRESSION: 1. No acute bone abnormality. Minimal degenerative changes. Electronically authenticated by: CIRA LIN Date: 08/19/2024 15:31 Shoulder X-Ray 08/19/24 14:38 IMPRESSION: 1. Findings suspicious for nondisplaced fracture involving superior rim of the glenoid. Consider CT or MRI for further claudication. Electronically authenticated by: CIRA LIN Date: 08/19/2024 15:34 Thoracic Spine X-Ray 08/19/24 14:38 IMPRESSION: 1. No appreciable acute abnormality. Stable surgical changes. Electronically authenticated by: CIRA LIN Date: 08/19/2024 15:[address] 08/19/24 15:38 IMPRESSION: No acute fracture or dislocation. No fracture of the glenoid. Electronically authenticated by: RUY DASH Date: 08/19/2024 18:31 Discharge Plan Discharge Chief Complaint: Neck Pain/Injury Clinical Impression: Fall, Neck pain, Back pain, Injury of shoulder, Elbow injury Patient Disposition: Home, Self-Care Time of Disposition Decision: 18:37 Condition: Good Mode of Transportation: Private Vehicle Prescriptions / Home Meds: New methocarbamol 750 mg tablet 750 mg PO TID PRN (Reason: pain, muscle spasms) Qty: 15 0RF No Action methocarbamol 750 mg tablet 750 mg PO Q6H PRN (Reason: pain) Qty: 30 0RF alprazolam 1 mg tablet 1 mg PO DAILY amlodipine 10 mg tablet 10 mg PO DAILY atorvastatin 40 mg tablet 40 mg PO DAILY gabapentin 800 mg tablet 800 mg PO Q12H glipizide 10 mg tablet 10 mg PO DAILY metformin 850 mg tablet 850 mg PO DAILY quetiapine 50 mg tablet 50 mg PO DAILY Print Language: Sammarinese Instructions: Elbow Sprain (ED), Shoulder Sprain (ED), Back Pain (ED), Acute Neck Pain (ED) Additional Instructions: Return to the ER for worsening symptoms. Referrals: Silvio Ott MD [Primary Care Provider] - 1 week Discharge Date/Time: 08/19/24 18:42
--- OUTSIDE RECORDS SUMMARY | 2024-08-19 14:45 | XMS_ITS | CCD ---
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 [address] [address] [address] Marce Tabares GLYCOHEMOGLOBIN A1Con 2021 ADA RECOMMENDATION SEE BELOW Normal [facility] Comment on above: Result Comment: ADA RECOMMENDED LIMIT 4.0 - 6.0 ADA THERAPEUTIC TARGET < 7.0 ACTION SUGGESTED > 7.0 Performed By: #### A 1C #### [facility] [address] [address] [address] Marce Tabares Glucose [Mass/Vol] 180 mg/dL Normal [facility] Comment on above: Performed By: #### A 1C #### [facility] [address] [address] [address] Marce Tabares HbA1c (Bld) [Mass fraction] 7.9 % Critically high 4.5-6.2 [facility] Comment on above: Performed By: #### A 1C #### [facility] [address] [address] [address] Marce Tabares LIPID PROFILEon 06-13-2022 CHOL-HDL RATIO NORM SEE BELOW Normal [facility] Comment on above: Result Comment: 3.3 - 4.4 LOW RISK 4.4 - 7.1 AVERAGE RISK 7.1 - 11.0 MODERATE RISK >11.0 HIGH RISK Performed By: #### L IVER, LIPID, BMP #### [facility] [address] [address] [address] Marce Tabares Cholesterol [Mass/Vol] 174 mg/dL Normal <=200 [facility] Comment on above: Performed By: #### L IVER, LIPID, BMP #### [facility] [address] [address] [address] Marce Tabares Cholesterol in HDL [Mass/Vol] 34 mg/dL Critically low 40-60 [facility] Comment on above: Performed By: #### L IVER, LIPID, BMP #### [facility] [address] [address] [address] Marce Tabares Cholesterol in LDL [Mass/Vol] 72.0 mg/dL Normal [facility] Comment on above: Performed By: #### L IVER, LIPID, BMP #### [facility] [address] [address] [address] Marce Tabares Cholesterol.total/Ch olesterol in HDL [Mass ratio] 5.1 {ratio} Normal [facility] Comment on above: Performed By: #### L IVER, LIPID, BMP #### [facility] [address] [address] [address] Marce Tabares HDL NORMAL > or = 60 mg/dl - LOW CARDIOVASCULAR RISK <40 mg/dl - HIGH CARDIOVASCULAR RISK Normal [facility] Comment on above: Performed By: #### L IVER, LIPID, BMP #### [facility] [address] [address] [address] Marce Tabares LDL CALC NORMAL SEE BELOW Normal [facility] Comment on above: Result Comment: <100 mg/dl OPTIMAL 100 - 129 mg/dl NEAR OR ABOVE OPTIMAL 130 - 159 mg/dl BORDERLINE HIGH 160 - 189 mg/dl HIGH >190 mg/dl VERY HIGH Performed By: #### L IVER, LIPID, BMP #### [facility] [address] [address] [address] Marce Tabares Triglyceride [Mass/Vol] 342 mg/dL Critically high <=150 [facility] Comment on above: Performed By: #### L IVER, LIPID, BMP #### [facility] [address] [address] [address] Marce Tabares VLDL CALC 68.4 mg/dL Normal [facility] Comment on above: Performed By: #### L IVER, LIPID, BMP #### [facility] [address] [address] [address] Marce Tabares LIVER PROFILEon 06-13-2022 Albumin [Mass/Vol] 3.9 g/dL Normal 3.4-5.0 [facility] Comment on above: Performed By: #### L IVER, LIPID, BMP #### [facility] [address] [address] [address] Marce Tabares Albumin/Globulin [Mass ratio] 1.2 {ratio} Normal [facility] Comment on above: Performed By: #### L IVER, LIPID, BMP #### [facility] [address] [address] [address] Marce Tabares ALP [Catalytic activity/Vol] 63 U/L Normal 46-116 [facility] Comment on above: Performed By: #### L IVER, LIPID, BMP #### [facility] [address] [address] [address] Marce Tabares ALT [Catalytic activity/Vol] 30 U/L Normal 16-63 [facility] Comment on above: Performed By: #### L IVER, LIPID, BMP #### [facility] [address] [place] [address] Dr. Marce Tabares AST [Catalytic activity/Vol] 16 U/L Normal 15-37 [facility] Comment on above: Performed By: #### L IVER, LIPID, BMP #### [facility] [address] [address] [address] Marce Tabares BILI, CONJUGATED 0.1 mg/dL Normal 0.0-0.2 [facility] Comment on above: Performed By: #### L IVER, LIPID, BMP #### [facility] [address] [address] [address] Marce Tabares Bilirubin [Mass/Vol] 0.3 mg/dL Normal 0.2-1.0 [facility] Comment on above: Performed By: #### L IVER, LIPID, BMP #### [facility] [address] [place] [address] Dr. Marce Tabares Globulin (S) [Mass/Vol] 3.3 g/dL Normal [facility] Comment on above: Performed By: #### L IVER, LIPID, BMP #### [facility] [address] [place] [address] Dr. Marce Tabares Protein [Mass/Vol] 7.2 g/dL Normal 6.4-8.2 [facility] Comment on above: Performed By: #### L IVER, LIPID, BMP #### [facility] [address] [place] [address] Dr. Marce Tabares MICROALBUMIN, RAND URon 12-0 mALB <1.3 Normal <=30.0 [facility] Comment on above: Performed By: #### M ALBR #### [facility] [address] [place] [address] Dr. Marce Tabares PROF CHEM 8 (BAS METB)on Anion gap [Moles/Vol] 11.6 mmol/L Normal [facility] Comment on above: Performed By: #### L IVER, LIPID, BMP #### [facility] [address] [place] [address] Dr. Marce Tabares Calcium [Mass/Vol] 8.8 mg/dL Normal 8.5-10.1 [facility] Comment on above: Performed By: #### L IVER LIPID, BMP #### [facility] [address] [address] [address] Marce Tabares Chloride [Moles/Vol] 101 mmol/L Normal 98-107 [facility] Comment on above: Performed By: #### L IVER LIPID, BMP #### [facility] [address] [address] [address] Marce Tabares CO2 [Moles/Vol] 30.8 mmol/L Normal 21.0-32.0 [facility] Comment on above: Performed By: #### L IVGISELA LIPID, BMP #### [facility] [address] [place] [address] Dr. Marce Tabares Creatinine [Mass/Vol] 1.05 mg/dL Normal 0.70-1.30 [facility] Comment on above: Performed By: #### L IVER, LIPID, BMP #### [facility] [address] [place] [address] Dr. Marce Tabares EGFR-AF TRINIDADIAN >60 Normal >=60 [facility] Comment on above: Performed By: #### L IVGISELA LIPID, BMP #### [facility] [address] [place] [address] Dr. Marce Tabares EGFR-NON AF TRINIDADIAN >60 Normal >=60 [facility] Comment on above: Performed By: #### L IVER, LIPID, BMP #### [facility] [address] [place] [address] Dr. Marce Tabares Glucose [Mass/Vol] 170 mg/dL Critically high 74-106 [facility] Comment on above: Performed By: #### L IVER, LIPID, BMP #### [facility] [address] [place] [address] Dr. Marce Tabares Potassium [Moles/Vol] 4.1 mmol/L Normal 3.5-5.1 [facility] Comment on above: Performed By: #### L IVER, LIPID, BMP #### [facility] [address] [place], [place] [address] Dr. Marce Tabares Sodium [Moles/Vol] 140 mmol/L Normal 136-145 [facility] Comment on above: Performed By: #### L IVER, LIPID, BMP #### [facility] [address] [place], [place] [address] Dr. Marce Tabares Urea nitrogen [Mass/Vol] 13.0 mg/dL Normal 7.0-18.0 [facility] Comment on above: Performed By: #### L IVER, LIPID, BMP #### [facility] [address] [place], [place] [address] Dr. Marce Tabares Urea nitrogen/Creatinine [Mass ratio] 12.4 mg/mg Normal [facility] Comment on above: Performed By: #### L IVER, LIPID, BMP #### [facility] [address] [place], [place] [address] Dr. Marce Tabares Vital Signs Date Time Vital Sign Value Performing Clinician Facility 06-15-2024 13:[id number] Body height 172.7 cm Silvio Crain MD Work Phone: [facility] 06-15-2024 13:12-0500 Body mass index (BMI) [Ratio] 29.35 kg/m2 Silvio Crain MD Work Phone: [facility] 06-15-2024 13:12-0500 Body temperature 98.2 [degF] Silvio Crain MD Work Phone: [facility] 06-15-2024 13:12-0500 Body weight 87.54 kg Silvio Crain MD Work Phone: [facility] 06-15-2024 13:12-0500 Diastolic blood pressure 66 mm[Hg] Silvio Crain MD Work Phone: [facility] 06-15-2024 13:12-0500 Heart rate 77 /min Silvio Crain MD Work Phone: [facility] 06-15-2024 13:12-0500 Respiratory rate 22 /min Silvio Crain MD Work Phone: [facility] 06-15-2024 13:12-0500 SaO2% (BldA) [Mass fraction] 91 % Silvio Crain MD Work Phone: [facility] 06-15-2024 13:12-0500 Systolic blood pressure 130 mm[Hg] Silvio Crain MD Work Phone: [facility] 04-12-2024 14:58-0400 Body height 172.7 cm Silvio Crain MD Work Phone: [facility] 04-12-2024 14:58-0400 Body mass index (BMI) [Ratio] 29.5 kg/m2 Silvio Crain MD Work Phone: [facility] 04-12-2024 14:58-0400 Body temperature 97.81 [degF] Silvio Crain MD Work Phone: [facility] 04-12-2024 14:58-0400 Body weight 88 kg Silvio Crain MD Work Phone: [facility] 04-12-2024 14:58-0400 Diastolic blood pressure 62 mm[Hg] Silvio Crain MD Work Phone: [facility] 04-12-2024 14:58-0400 Heart rate 71 /min Silvio Crain MD Work Phone: [facility] 04-12-2024 14:58-0400 Respiratory rate 20 /min Silvio Crain MD Work Phone: [facility] 04-12-2024 14:58-0400 SaO2% (BldA) [Mass fraction] 91 % Silvio Crain MD Work Phone: [facility] 04-12-2024 14:58-0400 Systolic blood pressure 110 mm[Hg] Silvio Crain MD Work Phone: [facility] 09-02-2022 18:15-0500 Diastolic blood pressure 102 mm[Hg] Paxton Cerrato [facility] 09-02-2022 18:15-0500 Heart rate 71 /min Paxton Cerrato [facility] 09-02-2022 18:15-0500 Mean blood pressure 111 mm[Hg] Paxton Reinosoe [facility] 09-02-2022 18:15-0500 Respiratory rate 20 /min Patxon Reinosoe [facility] 09-02-2022 18:15-0500 SaO2% (BldA) [Mass fraction] 93 % Paxton Reinosoe [facility] 09-02-2022 18:15-0500 Systolic blood pressure 130 mm[Hg] Paxton Reinosoe [facility] 09-02-2022 17:37-0500 Body temperature 99.68 [degF] Paxton Reinosoe [facility] 09-02-2022 17:37-0500 Diastolic blood pressure 104 mm[Hg] Paxton Cerrato [facility] 09-02-2022 17:37-0500 Heart rate 82 /min Paxton Reinosoe [facility] 09-02-2022 17:37-0500 Respiratory rate 20 /min Paxton Cerrato [facility] 09-02-2022 17:37-0500 SaO2% (BldA) [Mass fraction] 93 % Paxton Reinosoe [facility] 09-02-2022 17:37-0500 Systolic blood pressure 158 mm[Hg] Paxton Reinosoe [facility] 08-09-2022 09:00-0500 Body height 172.7 cm Abdon Palacios MD Work Phone: [facility] 08-09-2022 09:00-0500 Body weight 88.45 kg Abdon Palacios MD Work Phone: [facility] 08-09-2022 09:00-0500 Diastolic blood pressure 69 mm[Hg] Abdon Palacios MD Work Phone: [facility] 08-09-2022 09:00-0500 Heart rate 89 /min Abdon Palacios MD Work Phone: [facility] 08-09-2022 09:00-0500 Respiratory rate 13 /min Abdon Palacios MD Work Phone: [facility] 08-09-2022 09:00-0500 SaO2% (BldA) [Mass fraction] 98 % Abdon Palacios MD Work Phone: [facility] 08-09-2022 09:00-0500 Systolic blood pressure 121 mm[Hg] Abdon Palacios MD Work Phone: [facility] Encounters Encounter Date Encounter Type Care Provider Facility Start: 07-14-2024 End: 07-14-2024 Refill Silvio Crain MD Work Phone: [facility] Comment on above: ETHAN (generalized anx iety disorder) ([facility]) Start: 06-15-2024 End: 06-15-2024 Bamboo flowsheet Silvio Crain MD Work Phone: [facility] Start: 06-15-2024 End: 06-15-2024 Bamboo flowsheet Silvio Crain MD Work Phone: [facility] Start: 06-15-2024 End: 06-15-2024 Patient encounter procedure Silvio Crain MD Work Phone: [facility] Work Phone: Start: 06-15-2024 End: 06-15-2024 Postop follow up visit related to original px Silvio Crain MD Work Phone: [facility] Comment on above: Medicare annual well ness visit, subsequent (Primary Dx); Spondylosis of cervical spine Start: 06-15-2024 End: 06-15-2024 ambulatory SILVIO CRAIN Not Available Start: 05-21-2024 End: 05-21-2024 Clinisync Result Encounter Silvio Crain MD Work Phone: [facility] Unsolicited Start: 05-21-2024 End: 05-21-2024 Clinisync Result Encounter Silvio Crain MD Work Phone: [facility] Unsolicited Start: 05-13-2024 End: 05-13-2024 Refill Silvio Crain MD Work Phone: [facility] Comment on above: ETHAN (generalized anx iety disorder) ([facility]) Start: 04-12-2024 End: 04-12-2024 Office outpatient visit 25 minutes Silvio Crain MD Work Phone: [facility] Comment on above: Type 2 diabetes adalid itus with hyperglycemia, without long-term current use of insulin ([facility]) (Primary Dx); Benign essential hypertension ([facility]); MDD (major depressive disorder), recurrent episode, mild (HCC) ([facility]); ETHAN (generalized anxiety disorder) ([facility]); Primary insomnia; Moderate COPD (chronic obstructive pulmonary disease) ([facility]); Polyneuropathy due to type 2 diabetes mellitus ([facility]); Immunodeficiency due to conditions classified elsewhere ([facility]) Start: 04-12-2024 End: 04-12-2024 ambulatory SILVIO CRAIN Not Available Start: 04-12-2024 End: 04-12-2024 Bamboo flowsheet Silvio Crain MD Work Phone: [facility] Start: 04-12-2024 End: 04-12-2024 Bamboo flowsheet Silvio Crain MD Work Phone: [facility] Start: 04-05-2024 End: 04-05-2024 Refill Silvio Crain MD Work Phone: [facility] Comment on above: Spondylosis of cervi deepa spine Start: 03-15-2024 End: 03-15-2024 Refill Silvio Crain MD Work Phone: [facility] Comment on above: ETHAN (generalized anx iety disorder) ([facility]) Start: 12-16-2023 End: 12-16-2023 ambulatory SILVIO CRAIN Not Available Start: 10-07-2023 End: 10-07-2023 ambulatory SHAIKH FIORELLAJosh Not Available Start: 08-12-2023 Refill Silvio Moreno Work Phone: [facility] Comment on above: ETHAN (generalized anx iety disorder) ([facility]) Start: 07-02-2023 End: 07-02-2023 ambulatory SHAIKH YEIYMGRECIAD Not Available Start: 10-25-2022 End: 10-26-[address] DOCTOR SANTANA Facility: Start: 10-25-2022 Telephone encounter Abdon macias MD Work Phone: Neurology Comment on above: Results Start: 10-10-2022 End: 10-10-2022 ambulatory Aleksandr Sandoval Facility:[facility] Start: 09-06-2022 Telephone encounter Abdon macias MD Work Phone: Neurology Comment on above: [employer]; Orders Start: 09-02-2022 End: 09-02-2022 Emergency department patient visit Paxton Cerrato Facility:[facility] Start: 09-02-2022 End: 09-02-2022 Emergency department patient visit Paxton Cerrato [facility] Start: 08-09-2022 End: 08-09-2022 ambulatory ABDON PALACIOS Facility:[facility] Start: 08-09-2022 End: 08-09-2022 ambulatory ABDON PALACIOS Facility:[facility] Start: 08-09-2022 End: 08-09-2022 Subsequent hospital visit by physician Koko Mendiola [id number] Work Phone: Radiology Comment on above: Spinal stenosis of c ervical region [M48.02] Start: 08-09-2022 End: 08-09-2022 Patient encounter procedure Abdon Palacios MD Work Phone: [facility] Comment on above: Spinal stenosis of c ervical region (Primary Dx); S/P cervical spinal fusion Start: 06-13-2022 End: 06-14-[address] SILVIO CRAIN Facility:[facility] Procedures Date Procedure Procedure Detail Performing Clinician Start: 05-21-2024 MLR HEMOGLOBIN A1C Silvoi Crain MD Work Phone: Start: 10-10-2022 Colonoscopy Silvio arnold MD Work Phone: Start: 08-09-2022 Radex spine cervical 4 or 5 views Jennifer Moore MD Work Phone: Start: 06-13-[address] SILVIO ENNIS Comment on above: Performed By: #### P [facility] #### [facility] [address] [place] [address] Dr. Marce Tabares Plan of Treatment Date Care Activity Detail Author Start: 10-10-2032 Screening for malign ant neoplasm of colon [facility] Start: 06-13-2027 PROSTATE CANCER SCREENING DISCUSSION PROSTATE CANCER SCREENING DISCUSSION [facility] Start: 06-15-2025 Medicare Annual Well ness (AWV) Medicare Annual Wellness (AWV) [facility] Start: 12-23-2024 Urine screening for protein Diabetes: Urine Protein Screening [facility] Start: 12-14-2024 End: 12-14-2024 Patient encounter procedure 12/14/2024 1:30 PM EDT Office Visit [facility] [address] [place] [phone] Silvio Crain MD [address] [place] [phone] [facility] Start: 11-19-2024 Hemoglobin A1c measurement Diabetes: Hemoglobin A1C [facility] Start: 06-24-2024 Hemoglobin A1c measurement Diabetes: Hemoglobin A1C [facility] Start: 06-15-2024 End: 06-15-2024 Patient encounter procedure 06/15/2024 1:00 PM EST Office Visit [facility] [address] [place] [address] Silvio Crain MD [address] [place] [phone] [facility] Start: 04-12-2024 End: 04-12-2024 Patient encounter procedure 04/12/2024 2:45 PM EDT Office Visit [facility] [address] [place] [address] Silvio Crain MD [address] [place] [phone] Arrived [facility] Comment on above: Arrived Start: 04-12-2024 End: 04-12-2025 Hemoglobin A1c/Hemoglobin.total in Blood Hemoglobin A1c Lab Routine Type 2 diabetes mellitus with hyperglycemia, without long-term current use of insulin ([facility]) Expected: 04/12/2024 (Approximate), Expires: 04/12/2025 [facility] Work Phone: Comment on above: Expected: 04/12/2024 (Approximate), Expires: 04/12/2025 Start: 04-06-2024 End: 04-06-2024 Patient encounter procedure 04/06/2024 9:15 AM EDT Office Visit [facility] [address] [place] [phone] Silvio Crain MD [address] [place] [phone] [facility] Start: 03-07-2024 Influenza vaccination Influenza Vacc ine (#1) [facility] Start: 09-18-2023 End: 09-18-2023 Patient encounter procedure 09/18/2023 1:00 PM EDT Office Visit [facility] [address] [place] [phone] Silvio Crain MD [address] [place] [address] [facility] Start: 08-09-2023 BP CONTROLLED (<130/80) BP CONTROLLE D (<130/80) [facility] Start: 03-07-2023 Influenza vaccination INFLUENZ A (Season Ended) [facility] Start: 08-16-2022 End: 09-08-2023 Ct cervical spine w/o contrast material CT CERVICAL SPINE WO IVCON Radiology Routine Spinal stenosis of cervical region Expected: 08/16/2022, Expires: 09/08/2023 [facility] Work Phone: Comment on above: Expected: 08/16/2022 , Expires: 09/08/2023 Start: 07-07-2022 DEPRESSION ASSESSMENT DEPRESSION ASS ESSMENT [facility] Start: 03-24-2022 Glaucoma screening Diabetes: R etinopathy Screening [facility] Start: 03-07-2022 Influenza vaccination INFLUENZA (#1) [facility] Start: 02-16-2022 Screening for malign ant neoplasm of colon [facility] Start: 09-12-2021 COVID-19 VACCINE (4 - Booster for Pfizer series) COVID-19 VACCINE (4 - Booster for Pfizer series) [facility] Start: 08-30-2021 Hemoglobin A1c measurement Diabetes: Hemoglobin A1C [facility] Start: 06-02-2021 Hemoglobin A1c/Hemoglobin.total in Blood HBA1C [facility] Start: 05-26-2020 Glaucoma screening Diabetes: R etinopathy Screening [facility] Start: 2015 SHINGRIX VACCINE (1 of 2) SHINGRIX VACCINE (1 of 2) [facility] Start: 2010 COLOGUARD (FIT-DNA) COLOGUARD (FIT-D NA) [facility] Start: 2010 Colonoscopy COLONOSCOPY [facility] Start: 2010 COLORECTAL CANCER SCREENING COLORECTAL CANCER SCREENING [facility] Start: [address] COLONOGRAPHY [facility] Start: 2010 FECAL OCCULT BLOOD FECAL OCCULT BLOO D [facility] Start: 2010 [facility] Start: 1984 Urine microalbumin profile DTAP,TDAP,TD (1 - Tdap) [facility] Start: 1984 Urine screening for protein Diabetes: Urine Protein Screening [facility] Start: 1983 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 ANNUAL PCP TEAM CHRONIC DISEASE VISIT [facility] Start: 1983 Hepatitis B surface antibody level LDL CHOLESTEROL [facility] Start: 1983 HEPATITIS C SCREENING HEPATITIS C SC REENING [facility] Start: 1983 HIV SCREENING HIV SCREENING [facility] Start: 1975 3 comp foot exam completed DIABETIC FOOT EXAM [facility] Start: 1975 Hepatitis B screening URINE ALBUMIN:CREATININE RATIO [facility] Start: 1975 Hepatitis C antibody , confirmatory test DILATED RETINAL EXAM [facility] Start: 1971 PNEUMOCOCCAL (1 - PCV) PNEUMOCOCCAL (1 - PCV) [facility] Start: 1965 HEPATITIS B (1 of 3 - 3-dose series) HEPATITIS B (1 of 3 - 3-dose series) [facility] Start: 1965 Medicare Annual Well ness (AWV) Medicare Annual Wellness (AWV) [facility] Start: 1965 Screening for malign ant neoplasm of colon [facility] Immunizations Immunization Date Immunization Notes Care Provider Fa cili 03-20-2023 Seasonal, quadrivalent, recombinant, injectable influenza vaccine, preservative free Silvio Crain MD Work Phone: [facility] 03-20-2023 zoster vaccine recombinant Silvio Crain MD Work Phone: [facility] 03-20-2023 influenza virus vaccine, unspecified formulation Silvio Crain MD Work Phone: [facility] 11-30-2020 COVID-19 original vaccine, age 12+ yr, monovalent (PFIZER-BIONTECH - PURPLE TOP) Abdon Palacios MD Work Phone: [facility] 11-09-2020 COVID-19 original vaccine, age 12+ yr, monovalent (PFIZER-BIONTECH - PURPLE TOP) Abdon Palacios MD Work Phone: [facility] 05-14-2017 influenza, seasonal, injectable, preservative free Abdon Palacios MD Work Phone: [facility] Work Phone: 05-07-2017 influenza, injectabl e, quadrivalent, contains preservative Abdon Palacios MD Work Phone: [facility] Work Phone: Payers Date Payer Category Payer Self-pay 2021 Medicare (Managed Care) [employer] [id number] 2013 Medicare [id number] 2011 Unknown [facility] [id number] 2011-Present [phone] [address] [place] [address] [facility] [id number] 2011 Unknown [id number] 1965 Unknown [id number] 1965 Unknown [id number] [id number] 1965 Unknown [id number] [id number] 1965 Unknown [id number] [id number] 1965 Unknown [id number] [id number] 1965 Unknown [id number] [id number] 1965 Unknown [id number] [id number] 1965 Unknown [id number] [id number] 1959 Unknown [id number] 1959 Unknown [id number] Unknown [id number] Social History Date Type Detail Facility Start: 08-09-2022 End: 10-07-2023 Tobacco smoking status NHIS Ex-smoker [facility] Start: 11-14-2020 End: 02-04-2021 History of tobacco use Current smoker [facility] Start: 11-14-2020 End: 02-04-2021 History of tobacco use Cigarette Smoker [facility] Start: 08-09-2022 End: 07-02-2023 Cigarettes smoked current (pack per day) - Reported 0.3 [facility] Start: 08-09-2022 End: 10-07-2023 Tobacco use and exposure Smokeless tobacco non-user [facility] Start: 08-09-2022 Alcohol intake Current drinker of alcohol (finding) [facility] Start: 03-02-2021 Alcohol Comment 3 times a month per pt 03/02/2021 [facility] Start: 1965 Sex Assigned At Not on file [facility] Tobacco smoking status No Smokin g Status Entered [facility] Start: 07-02-2023 End: 06-15-2024 Sex Assigned At Male [facility] Start: 07-01-2023 Tobacco smoking status WAIS Smokes tobacco daily [facility] Start: 07-01-2023 End: 06-15-2024 Alcohol intake Lifetime non-drinker (finding) [facility] Within the last year , have you been afraid of your partner or ex-partner? No [facility] Do you belong to any clubs or organizations such as scientology groups, unions, fraternal or athletic groups, or school groups? Yes [...] cup per day of pop [facility] History of tobacco use Passive smoker [facility] Medical Equipment Procedure Code Equipment Code Equipment Origin al Text Equipment Identifier Dates Pine Top Lateral Of fset Connector Side Sz 10mm [id number] Start: 03-15-2021 Graft Deminerali zed Bone Matrix Bone Putty Pretreated 10ml - [id number] Start: 03-15-2021 Spacer Avs 4d 8m m Spinal Bone Plug - [id number] Start: 03-15-2021 [place] Plate, 1 L evel, Sz 18mm [id number] Start: 03-15-2021 [place] Spn Luigi Csp Mini [id number] Start: 03-15-2021 Screw Bn 4mm 14m m [place] Spnl - [id number] Start: 03-15-2021 Spacer Bio Avs 4 d Lordosis 12mm Cortical Cancellous [id number] Allograft - [id number] Start: 03-15-2021 1 strip by In Vi tro route Daily [id number] Start: 02-06-2024 1 Lancet Daily [id number] Start: 02-26-2024 Functional Status Date Assessment Result Facility 09-02-2022 Functional Status N/A [facility] Clinical Notes 08-09-2022 to 06-15-2024 Silvio Crain MD - 06/15/2024 1:31 PM Roderick Crain MD - 06/15/2024 1:00 PM Roderick Crain MD - 04/12/2024 3:27 PM EDTMsneha Crain MD - 04/12/2024 3:27 PM EDT Note Date & Type Note Facility 06-15-2024 History of Presen t illness Narrative Associated Problem(s): Medicare annual wellness visit, subsequent Reviewed labs. Discussed proper diet and regular aerobic exercise. Need aerobic exercise 5-6 days a week for 30 minutes at a time. Smaller portions and limit total calories. Colonoscopy every 10 years. Tetanus every 10 years. Advised not to smoke. Discussed daily Aspirin therapy. Images from the original note were not included. Subjective Patient ID: Micah Forbes is a 59 y.o. male who presents for Medicare Annual Wellness Visit Subsequent (wellness). Presents for medicare annual wellness visit. Patient feels well today. Weight unchanged over the past year. Tries to stay active around house but no regular exercise. Tries to watch diet and eat healthy. Increased fruits and vegetables. Smaller portions and limits snacking. Tries to limit total daily calories. Reviewed labs. BS controlled and recent A1C 6.1. Review of Systems Constitutional: Negative for fatigue. Respiratory: Negative for cough, shortness of breath and wheezing. Cardiovascular: Negative for chest pain and palpitations. Gastrointestinal: Negative for abdominal pain, diarrhea, nausea and vomiting. Genitourinary: Negative for dysuria. Objective Physical Exam Constitutional: General: He is not in acute distress. Appearance: Normal appearance. HENT: Head: Normocephalic. Right Ear: Tympanic membrane and ear canal normal. Left Ear: Tympanic membrane and ear canal normal. Eyes: Extraocular Movements: Extraocular movements intact. Pupils: Pupils are equal, round, and reactive to light. Cardiovascular: Rate and Rhythm: Normal rate and regular rhythm. Heart sounds: No murmur heard. No friction rub. No gallop. Pulmonary: Breath sounds: Normal breath sounds. No wheezing, rhonchi or rales. Abdominal: General: Bowel sounds are normal. There is no distension. Palpations: Abdomen is soft. Tenderness: There is no abdominal tenderness. There is no guarding or rebound. Musculoskeletal: General: Normal range of motion. Left lower leg: No edema. Neurological: General: No focal deficit present. Mental Status: He is alert. Cranial Nerves: No cranial nerve deficit. Deep Tendon Reflexes: Reflexes normal. Assessment/Plan Problem List Items Addressed This Visit Spondylosis of cervical spine Relevant Medications methocarbamol (Robaxin) 750 MG tablet Medicare annual wellness visit, subsequent - Primary Reviewed labs. Discussed proper diet and regular aerobic exercise. Need aerobic exercise 5-6 days a week for 30 minutes at a time. Smaller portions and limit total calories. Colonoscopy every 10 years. Tetanus every 10 years. Advised not to smoke. Discussed daily Aspirin therapy. documented in this encounter [facility] 04-12-2024 History of Presen t illness Narrative Associated Problem(s): Polyneuropathy due to type 2 diabetes mellitus ([facility]) Neuropathy stable with gabapentin and continue. Associated Problem(s): Type 2 diabetes mellitus with hyperglycemia, without long-term current use of insulin ([facility]) Reports BS controlled and due for A1C. Stick to ADA diet and limit carbs. Associated Problem(s): Primary insomnia Sleeping well with seroquel and continue. Associated Problem(s): Moderate COPD (chronic obstructive pulmonary disease) ([facility]) Breathing stable and use albuterol PRN. Stressed need to stop smoking. Associated Problem(s): MDD (major depressive disorder), recurrent episode, mild (HCC) ([facility]) Symptoms stable with medication and continue. Associated Problem(s): ETHAN (generalized anxiety disorder) ([facility]) Symptoms stable with medication and continue. Use xanax PRN. Associated Problem(s): Benign essential hypertension ([facility]) BP controlled and monitor PRN. Images from the original note were not included. Subjective Patient ID: Micah Forbes is a 58 y.o. male who presents for Annual Exam (wellness). Follow up DM, HTN, neuropathy, depression, anxiety, insomnia, and COPD. Reports BS stable around 150. Tries to eat well and stick to ADA diet but reports frequent splurges. Denies signs of elevated BS such as polyuria, polyphagia or polydipsia. Due for A1C. Checking BP PRN and typically controlled. BP normal today. Taking medication daily and tolerating without side effects. Neuropathy stable. Continues to have numbness and tingling in both feet. Symptoms worse with walking and standing. Using neurontin and pain tolerable. Depression stable. Mild symptoms and at times down and sad. Anxiety stable. Not as stressed out or overwhelmed. Not as nervous or worry as much. Not as reyes or irritable. Using xanax PRN and helps when needed. Overall feels like symptoms tolerable. Sleeping well with seroquel. Able to fall asleep and stay asleep. Not waking up as often and feels more rested in am. COPD stable. Mild SOB and cough with exertion. Occasional sputum and worse in am. Still smoking but down to about 1 pack a week. Able to increase activity and walking several days a week. Review of Systems Constitutional: Negative for fatigue. Respiratory: Negative for cough, shortness of breath and wheezing. Cardiovascular: Negative for chest pain and palpitations. Gastrointestinal: Negative for abdominal pain, diarrhea, nausea and vomiting. Genitourinary: Negative for dysuria. Objective Physical Exam Constitutional: General: He is not in acute distress. Appearance: Normal appearance. HENT: Head: Normocephalic. Right Ear: Tympanic membrane and ear canal normal. Left Ear: Tympanic membrane and ear canal normal. Eyes: Extraocular Movements: Extraocular movements intact. Pupils: Pupils are equal, round, and reactive to light. Cardiovascular: Rate and Rhythm: Normal rate and regular rhythm. Heart sounds: No murmur heard. No friction rub. No gallop. Pulmonary: Breath sounds: Normal breath sounds. No wheezing, rhonchi or rales. Abdominal: General: Bowel sounds are normal. There is no distension. Palpations: Abdomen is soft. Tenderness: There is no abdominal tenderness. There is no guarding or rebound. Musculoskeletal: Left lower leg: No edema. Neurological: Mental Status: He is alert. Assessment/Plan Problem List Items Addressed This Visit ETHAN (generalized anxiety disorder) (CMS/HCC) Symptoms stable with medication and continue. Use xanax PRN. Polyneuropathy due to type 2 diabetes mellitus (CMS/HCC) Neuropathy stable with gabapentin and continue. Benign essential hypertension (CMS/HCC) BP controlled and monitor PRN. Relevant Medications amLODIPine (Norvasc) 10 MG tablet Moderate COPD (chronic obstructive pulmonary disease) (CMS/HCC) Breathing stable and use albuterol PRN. Stressed need to stop smoking. Type 2 diabetes mellitus with hyperglycemia, without long-term current use of insulin (CMS/HCC) - Primary Reports BS controlled and due for A1C. Stick to ADA diet and limit carbs. Relevant Orders Hemoglobin A1c MDD (major depressive disorder), recurrent episode, mild (HCC) (CMS/HCC) Symptoms stable with medication and continue. Primary insomnia Sleeping well with seroquel and continue. documented in this encounter [facility] 11-15-2022 Miscellaneous Notes Called and spoke with [...] Schrader Images requested documented in this encounter [facility] 09-06-2022 Miscellaneous Notes Message forwarded to [facility] Forms for C-9. [place] calling [employer] calling asking for a C9 for a CT scan. Call back # [phone] documented in this encounter [facility] 09-02-2022 Hospital Discharg e instructions Patient Education [...] Follow these instructions at home: Medicines Take sbrq-ldb-vaiidbo and prescription medicines only as told by [...] and water are not available, use hand numerical tool programmer. ?Leave stitches (sutures), skin glue, or adhesive [...] 06/23/2006 Document Revised: 09/06/2019 Document Reviewed: 09/08/2019 [email or web address] Patient Education 2019 [employer]. 09/02/2022 19:17:16 Cervical Sprain Cervical Sprain A [...] provider or physical therapist. General instructions Take dbyh-rbf-mmsxoik and prescription medicines only as told by [...] 04/19/2008 Document Revised: 10/13/2019 Document Reviewed: 02/19/2017 [email or web address] Patient Education 2020 [employer]. Follow Up Care 09/02/2022 17:27:40 With:SILVIO CRAIN Address: [address] [place], [place] [address] [place] [id number] Business (1) When:09/05/2022 18:51:13 [facility] 08-09-2022 Note HNO ID: [id number] Author: RT Khushboo(R) Service: Radiology Author Type: [...] RT Khushboo(R) August 09, 2022 11:39 AM [facility] 08-09-2022 Note HNO ID: [id number] Author: Abdon Palacios MD Service: ? Author [...] which included preparing to see the patient, mnhy-kn-paau patient care, completing clinical documentation, obtaining and/or reviewing separately obtained history, performing a medically appropriate examination, counseling and educating the patient/family/caregiver, ordering medications, tests, or procedures, independently interpreting results (not separately reported), and care coordination (not separately reported). SIGNATURE: Abdon Palacios MD PATIENT NAME: Micah Forbes DATE: August 09, 2022 TIME: 10:15 AM PAGER: [facility] 08-09-2022 History of Presen t illness [...] 2022 11:39 AM documented in this encounter [facility] 08-09-2022 History of Presen t illness Narrative [...] which included preparing to see the patient, dlyo-ec-amor patient care, completing clinical documentation, obtaining and/or reviewing separately obtained history, performing a medically appropriate examination, counseling and educating the patient/family/caregiver, ordering medications, tests, or procedures, independently interpreting results (not separately reported), and care coordination (not separately reported). SIGNATURE: Abdon Palacios MD PATIENT NAME: Micah Forbes DATE: August 09, 2022 TIME: 10:15 AM PAGER: documented in this encounter [facility] Evaluation + Plan note No data available for this section [facility] Evaluation note Diagnosis Spinal stenosis of cervical region- Primary Spinal stenosis in cervical region S/P cervical spinal fusion Arthrodesis status [facility] Spinal stenosis of cervical region Spinal stenosis in cervical region [facility] Diagnosis ETHAN (generalized anxiety disorder) ([facility]) Generalized anxiety disorder documented in this encounter [facility]* Diagnosis Type 2 diabetes mellitus with hyperglycemia, without long-term current use of insulin ([facility])- Primary Benign essential hypertension (CMS/HCC) Essential hypertension, benign MDD (major depressive disorder), recurrent episode, mild (HCC) ([facility]) ETHAN (generalized anxiety disorder) ([facility]/HCC) Generalized anxiety disorder Primary insomnia Persistent disorder of initiating or maintaining sleep Moderate COPD (chronic obstructive pulmonary disease) ([facility]/HCC) Polyneuropathy due to type 2 diabetes mellitus (CMS/HCC) Immunodeficiency due to conditions classified elsewhere ([facility]) documented in this encounter [facility]* Diagnosis Primary hypertension (CMS/HCC)- Primary Unspecified essential hypertension Moderate COPD (chronic obstructive pulmonary disease) ([facility]) Tobacco dependency Tobacco use disorder Type 2 diabetes mellitus with hyperglycemia, without long-term current use of insulin ([facility])- Primary Primary hypertension ([facility]) Unspecified essential hypertension Polyneuropathy due to type 2 diabetes mellitus ([facility]) MDD (major depressive disorder), recurrent episode, mild (HCC) ([facility]) Primary insomnia Persistent disorder of initiating or maintaining sleep Moderate COPD (chronic obstructive pulmonary disease) ([facility]) ETHAN (generalized anxiety disorder) ([facility]) Generalized anxiety disorder Dyslipidemia ([facility]) Other and unspecified hyperlipidemia Encounter for long-term current use of medication Screening PSA (prostate specific antigen) Special screening for malignant neoplasm of prostate Type 2 diabetes mellitus with hyperglycemia, without long-term current use of insulin ([facility])- Primary Benign essential hypertension ([facility]) Essential hypertension, benign MDD (major depressive disorder), recurrent episode, mild (HCC) ([facility]) ETHAN (generalized anxiety disorder) ([facility]) Generalized anxiety disorder Primary insomnia Persistent disorder of initiating or maintaining sleep Moderate COPD (chronic obstructive pulmonary disease) ([facility]) Polyneuropathy due to type 2 diabetes mellitus ([facility]) Immunodeficiency due to conditions classified elsewhere ([facility]) ETHAN (generalized anxiety disorder) ([facility]) Generalized anxiety disorder [facility] Diagnosis Primary hypertension ([facility])- Primary Unspecified essential hypertension Moderate COPD (chronic obstructive pulmonary disease) ([facility]) Tobacco dependency Tobacco use disorder Type 2 diabetes mellitus with hyperglycemia, without long-term current use of insulin ([facility])- Primary Primary hypertension ([facility]) Unspecified essential hypertension Polyneuropathy due to type 2 diabetes mellitus ([facility]) MDD (major depressive disorder), recurrent episode, mild (HCC) ([facility]) Primary insomnia Persistent disorder of initiating or maintaining sleep Moderate COPD (chronic obstructive pulmonary disease) ([facility]) ETHAN (generalized anxiety disorder) ([facility]) Generalized anxiety disorder Dyslipidemia ([facility]) Other and unspecified hyperlipidemia Encounter for long-term current use of medication Screening PSA (prostate specific antigen) Special screening for malignant neoplasm of prostate Type 2 diabetes mellitus with hyperglycemia, without long-term current use of insulin ([facility])- Primary Benign essential hypertension ([facility]) Essential hypertension, benign MDD (major depressive disorder), recurrent episode, mild (HCC) ([facility]) ETHAN (generalized anxiety disorder) ([facility] Generalized anxiety disorder Primary insomnia Persistent disorder of initiating or maintaining sleep Moderate COPD (chronic obstructive pulmonary disease) ([facility]) Polyneuropathy due to type 2 diabetes mellitus ([facility]) Immunodeficiency due to conditions classified elsewhere ([facility]) Medicare annual wellness visit, subsequent- Primary Spondylosis of cervical spine [facility] Diagnosis ETHAN (generalized anxiety disorder) ([facility]) Generalized anxiety disorder [facility] Diagnosis Spondylosis of cervical spine [facility] Diagnosis Primary hypertension ([facility])- Primary Unspecified essential hypertension Moderate COPD (chronic obstructive pulmonary disease) ([facility]) Tobacco dependency Tobacco use disorder Type 2 diabetes mellitus with hyperglycemia, without long-term current use of insulin ([facility] [facility] Primary Primary hypertension ([facility]) Unspecified essential hypertension Polyneuropathy due to type 2 diabetes mellitus ([facility]) MDD (major depressive disorder), recurrent episode, mild (HCC) ([facility]) Primary insomnia Persistent disorder of initiating or maintaining sleep Moderate COPD (chronic obstructive pulmonary disease) ([facility]) ETHAN (generalized anxiety disorder) ([facility]) Generalized anxiety disorder Dyslipidemia ([facility]) Other and unspecified hyperlipidemia Encounter for long-term current use of medication Screening PSA (prostate specific antigen) Special screening for malignant neoplasm of prostate Type 2 diabetes mellitus with hyperglycemia, without long-term current use of insulin ([facility] Primary Benign essential hypertension ([facility]) Essential hypertension, benign MDD (major depressive disorder), recurrent episode, mild (HCC) ([facility]) ETHAN (generalized anxiety disorder) ([facility]) Generalized anxiety disorder Primary insomnia Persistent disorder of initiating or maintaining sleep Moderate COPD (chronic obstructive pulmonary disease) ([facility]) Polyneuropathy due to type 2 diabetes mellitus ([facility]) Immunodeficiency due to conditions classified elsewhere ([facility]) Medicare annual wellness visit, subsequent- Primary Spondylosis of cervical spine ETHAN (generalized anxiety disorder) ([facility]) Generalized anxiety disorder documented in this encounter [facility] No data available for this section [facility] Reason for Referral Specialty Diagnoses / Procedures Referred By Carolyn t Referred To Contact CT IMAGING Diagnoses Spinal stenosis of cervical region Procedures CT CERVICAL SPINE WO IVCON CT CERVICAL SPINE W/O CONTRAST MATERIAL Abdon Palacios MD [address] [place] [address] Ct Imaging Referral ID Status Reason Start Date Expiration Date Visits Requested Visits Authorized [id number] Pending Review Auto-Generat ed Referral 08/16/2022 09/08/2023 1 1 Specialty Diagnoses / Procedures Referred By Contac t Referred To Contact XR IMAGING Diagnoses Spinal stenosis of cervical region Procedures XR CERV OTHER 4V AP/LAT/OBL RADEX SPINE CERVICAL 4 OR 5 VIEWS Abdon Palacios MD [address] [place] [address] Xr Imaging Referral ID Status Reason Start Date Expiration Date V isits Requested Visits Authorized [id number] Closed Auto-Generate d Referral 08/09/2022 09/08/2023 1 [...] or prosecute any alcohol or drug abuse patient.[facility] the event this information is protected by the Federal Confidentiality of Alcohol and Drug Abuse Patient Records regulations: The Federal rules restrict any use of the information to criminally investigate or prosecute any alcohol or drug abuse patient.[facility] Center[facility] the event this information is protected by the Federal Confidentiality of Alcohol and Drug Abuse Patient Records regulations: The Federal rules restrict any use of the information to criminally investigate or prosecute any alcohol or drug abuse patient.[facility] Center[facility] the event this information is protected by the Federal Confidentiality of Alcohol and Drug Abuse Patient Records regulations: The Federal rules restrict any use of the information to criminally investigate or prosecute any alcohol or drug abuse patient.[facility] Reason for Visit (unrecogniz ed section and content) Reason Comments Established Patient Follow Up Specialty Diagnoses / Procedures Referred By Contac t Referred To Contact Spine Health / SPINE SURGERY Diagnoses follow up Procedures EST NI PATIENT Abdon Palacios MD [address] [place] [address] Abdon Palacios MD [address] [place] [address] Referral ID Status Reason Start Date Expiration Date Visits Re quested Visits Authorized [id number] Closed 08/09/2022 11/07/2022 1 1 Reason Comments Radio Main J1 Specialty Diagnoses / Procedures Referred By Contac t Referred To Contact XR IMAGING Diagnoses Spinal stenosis of cervical region Procedures XR CERV OTHER 4V AP/LAT/OBL RADEX SPINE CERVICAL 4 OR 5 VIEWS Abdon Palacios MD [address] [place] [address] Xr Imaging Referral ID Status Reason Start Date Expiration Date V isits Requested Visits Authorized [id number] Closed Auto-Generate d Referral 08/09/2022 09/08/2023 1 1 Reason Comments [employer] Pipe[employer] - Other Orders Reason Comments Results Reason Onset Date Comments Med Refill 08/12/2023 Reason Comments Annual Exam wellness Reason Onset Date Comments Med Refill 05/13/2024 Reason Comments Medicare Annual Wellness Visit Subsequen t wellness Reason Onset Date Comments Med Refill 03/15/2024 Reason Onset Date Comments Med Refill 04/05/2024 Reason Onset Date Comments Med Refill 07/14/2024 Care Teams (unrecognized sec tion and content) [employer] Business Analyst Relationship Specialty Start Date End Date Silvio Crain [address] [place] [address] PCP - General Family Medicine 04/20/21 Yoni Sotelo [address] [place] [phone] NI Referring Team Neurosurgery 08/22/20 [employer] Business Analyst Relationship Specialty Start Date End Date Silvio Crain [address] [place] [address] PCP - General Family Medicine 04/20/21 Yoni Sotelo [address] [place] [address] NI Referring Team Neurosurgery 08/22/20 [employer] Business Analyst Relationship Specialty Start Date End Date Silvio Crain [address] [place] [address] PCP - General Family Medicine 04/20/21 Yoni Sotelo [address] [place] [phone] NI Referring Team Neurosurgery 08/22/20 [employer] Business Analyst Relationship Specialty Start Date End Date Silvio Crain [address] [place] [address] PCP - General Family Medicine 04/20/21 Yoni Sotelo [address] [place] [address] NI Referring Team Neurosurgery 08/22/20 [employer] Business Analyst Relationship Specialty Start Date End Date Silvio Crain MD PCP - General Family Medicine 03/07/23 [employer] Business Analyst Relationship Specialty Start Date End Date Silvio Crain MD [address] [place] [address] PCP - General Family Medicine 10/07/23 Kaia Scherer RN [facility] [place] [address] Registered Nurse Family Medicine 12/11/23 [employer] Business Analyst Relationship Specialty Start Date End Date Silvio Carin MD [address] [place] [address] PCP - General Family Medicine 10/07/23 Kaia Scherer RN [address] [place] [address] Registered Nurse Family Medicine 12/11/23 [employer] Business Analyst Relationship Specialty Start Date End Date Silvio Crain MD [address] [place] [address] PCP - General Family Medicine 10/07/23 Kaia Scherer RN [address] [place] [address] Registered Nurse Family Medicine 12/11/23 [employer] Business Analyst Relationship Specialty Start Date End Date Silvio Crain MD [address] [place] [address] PCP - General Family Medicine 10/07/23 Kaia Scherer RN [address] [place] [address] Registered Nurse Family Medicine 12/11/23 [employer] Business Analyst Relationship Specialty Start Date End Date Silvio Crain MD [address] [place] [address] PCP - General Family Medicine 10/07/23 Kaia Scherer RN [address] [facility] [facility] [place] [address] Registered Nurse Family Medicine 12/11/23 [employer] Business Analyst Relationship Specialty Start Date End Date Silvio Crain MD [address] [place] [address] PCP - General Family Medicine 10/07/23 Kaia Scherer RN [address] [facility] [place] [address] Registered Nurse Family Medicine 12/11/23 [employer] Business Analyst Relationship Specialty Start Date End Date Silvio Crain MD [address] [place] [address] PCP - General Family Medicine 10/07/23 Kaia Scherer RN [address] [facility] [facility] [place] [address] Registered Nurse Family Medicine 12/11/23 [employer] Business Analyst Relationship Specialty Start Date End Date Silvio Crain MD [address] [place] [address] PCP - General Family Medicine 10/07/23 Kaia Scherer RN [address] [facility] [place] [address] Registered Nurse Family Medicine 12/11/23 [employer] Business Analyst Relationship Specialty Start Date End Date Silvio Crain MD [address] [place] [address] PCP - General Family Medicine 10/07/23 Kaia Scherer RN [address] [facility] [place], [place] [id number] Registered Nurse Family Medicine 12/11/23 (unrecognized sect ion and content) No Status Records FoundNo Status Records FoundNo Status Records FoundNo Status Records FoundNo Status Records Found INFORMATION SOURCE (unrecogn ized section and content) DATE CREATED AUTHOR 09/13/2022 [facility] DATE CREATED AUTHOR AUTHOR'S ORGANIZ ATION 10/15/2022 [facility] DATE CREATED AUTHOR AUTHOR'S ORGANIZ ATION 11/04/2022 [facility] DATE CREATED AUTHOR AUTHOR'S ORGANIZ ATION 11/17/2022 [facility] DATE CREATED AUTHOR AUTHOR'S ORGANIZ ATION 06/18/2024 [facility] FOR RECORDS PERTAINING TO PATIENTS WHO ARE [...] BE BASED ON THE PRIMARY CLINICAL RECORDS. [employer] provides no warranty or guarantee of the accuracy or completeness of information in this document.
[2024-08-19] MEDS: OXYCODONE HCL/ACETAMINOPHEN 5MG/325MG 1 TAB PO (15:01)
--- NOTE | 2024-08-19 15:38 | CT_ITS ---
[address] [address] Patient Name: ELÍAS SANCHEZ MRN: [id number] date: 1965 Sex: M Assigned Patient Location: ER Current Patient Location: ED.MAIN Accession/Order Number: [id number] Exam Date: 08/19/2024 16:15 Report Date: 08/19/2024 18:31 At the request of: VENU FIELD Procedure: CT shoulder LT wo con CT left shoulder WITHOUT IV CONTRAST HISTORY: Fall COMPARISON: X-ray performed earlier today. TECHNIQUE: Axial CT images of the left shoulder was obtained without IV contrast. Coronal and sagittal reformats were constructed. FINDINGS: OSSEOUS STRUCTURES: No acute abnormality. No acute fracture or dislocation. JOINTS: No acute abnormality. SUBCUTANEOUS/SOFT TISSUES: No acute abnormality. No fluid collection. No gas.. VESSELS: Visualized vessels are patent.. CT/CT shoulder LT wo con IMPRESSION: No acute fracture or dislocation. No fracture of the glenoid. Electronically authenticated by: RUY DASH Date: 08/19/2024 18:31
[2024-08-19] MEDS: METHOCARBAMOL 500 MG TABLET PO (16:14)
== END 2024-08-19 18:42 | disposition home or self-care (01) ==
PROVIDERS: Emergency Provider Emergency Medicine; PCP Family Medicine
DX: S49.92XA Unspecified injury of left shoulder and upper arm, initial encounter (principal); S59.902A Unspecified injury of left elbow, initial encounter; M54.2 Cervicalgia; W01.0XXA Fall on same level from slipping, tripping and stumbling without subsequent striking against object, initial encounter; Z98.1 Arthrodesis status; M54.9 Dorsalgia, unspecified
CPT/HCPCS: 72040; 72072; 73030; 73080; 73200; 99284

== ENCOUNTER 2024-09-07 10:44 | Emergency (ER) | payer MEDICARE, SELFPAY ==
[2024-09-07] VITALS (21 sets, daily range): BP systolic 122–129; BP diastolic 57–76; PULSE 68–79; O2SAT 88–95; BMI 30.4
--- NOTE | 2024-09-07 11:19 | ECG_ITS ---
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 Measurements Intervals [employer] Rate: 74 P: 49 HI: 146 QRS: 65 QRSD: 86 T: 58 QT: 372 QTc: 399 Interpretive Statements 1100 Sinus rhythm 2420 RSR (QR) in lead V1/V2, consistent with right ventricular conduction delay 9130 borderline ECG Compared to ECG 11/27/2023 17:04:37 No significant changes Electronically Signed On 09-07-2024 13:06:19 EST by SHELBY ANN M.D.
--- NOTE | 2024-09-07 11:21 | ED_ITS ---
HPI HPI - General Adult General Chief complaint: Shortness of Breath/Dyspnea Stated complaint: SENT BY PARAS POSSIBLE FLUID IN LUNGS Time Seen by Provider: 09/07/24 11:19 Source: patient Mode of arrival: Wheelchair Limitations: no limitations History of Present Illness HPI narrative: Patient is a 59-year-old male who is presenting to the ER today with chief complaint of bronchitis-like symptoms for the past 2 weeks. Patient is a smoker. Patient saw his PCP Dr. Ott in the office today and was sent to the ER to rule out pneumonia. Patient has not used any rwaz-hao-wsemvbz medication to help treat his symptoms in the past 2 weeks. Patient does have albuterol inhaler and nebulizer at home. Patient does have history of COPD. Patient is with him. No chest pain or heaviness. No significant shortness of breath. Patient been having intermittent dry and productive cough. No rash, no other acute complaints. No recent traveling. No sick contacts. Symptoms been ongo ing for 2 weeks and not improving. Last time patient was on steroids or antibiotic was approximately a year ago for similar symptoms. All systems are negative except as noted/marked. All systems reviewed and otherwise negative. Nurses note and vital signs reviewed and patient is not hypoxic. General: The patient appears well and in no apparent distress. Patient is resting comfortably on cart. Patient is not toxic, lethargic, or listless Skin: Warm, dry, no pallor noted. There is no rash noted. No petechiae, purpura. Patient has surgical scars to his cervical and upper thoracic spine. No other acute abnormalities noted around cervical or upper thoracic spine Head: Normocephalic, atraumatic Eye: Normal conjunctiva, no drainage, EOMI. PERRL Ears, Nose, Mouth, and Throat: oral mucosa is moist. Nares patent. Mouth without vesicles. Cardiovascular: Regular Rate and Rhythm, no murmur, gallop, rub Respiratory: Patient is in no distress, no accessory muscle use, lungs are clear to auscultation, no wheezing, rales or rhonchi. Decreased breath sounds bilateral, equal breath sounds bilateral. Back: non-tender, no CVA tenderness bilaterally to percussion. No CT LS midline pain GI: no tenderness to palpation, no masses appreciated. No rebound, guarding, or rigidity noted. No distention Musculoskeletal: Patient has full range of motion of all of the extremities, no motor, sensory, or focal neurological deficits Neurological: A&O x4, normal speech Psychiatric: Cooperative Related Data Home Medications ?Medication ?Instructions ?Recorded ?Confirmed alprazolam 1 mg tablet 1 mg PO DAILY 08/19/24 08/19/24 amlodipine 10 mg tablet 10 mg PO DAILY 08/19/24 08/19/24 atorvastatin 40 mg tablet 40 mg PO DAILY 08/19/24 08/19/24 gabapentin 800 mg tablet 800 mg PO Q12H 08/19/24 08/19/24 glipizide 10 mg tablet 10 mg PO DAILY 08/19/24 08/19/24 metformin 850 mg tablet 850 mg PO DAILY 08/19/24 08/19/24 quetiapine 50 mg tablet 50 mg PO DAILY 08/19/24 08/19/24 Previous Rx's ?Medication ?Instructions ?Recorded methocarbamol 750 mg tablet 750 mg PO Q6H PRN pain #30 tabs 10/23/23 methocarbamol 750 mg tablet 750 mg PO TID PRN pain, muscle 08/19/24 spasms #15 tabs fjfdevrkncdxgje-mifhumrlmeutbbd-WB 10 ml PO Q6H PRN cold symptoms 09/07/24 2 mg-30 mg-10 mg/5 mL oral syrup #200 mL (Bromfed DM) doxycycline hyclate 100 mg tablet 100 mg PO BID 10 days #20 tabs 09/07/24 Allergies Allergy/AdvReac Type Severity Reaction Status Date / Time No Known Drug Allergies Allergy Verified 09/07/24 11:00 Opioid HPI Opioid Management Most Recent Opioid Data: Last Pain Scale 9 09/07/24 11:55 09/07/24 Last MAR Pain Assessment 09/07/24 11:55 PFSH PFSH Social History Little interest or pleasure in doing things: not at all Feeling down, depressed, or hopeless: not at all Exam Constitutional Vital Signs, click to edit/add: Last Vital Signs Pulse 70 09/07/24 14:10 Resp 18 09/07/24 13:10 BP 122/57 09/07/24 13:02 Pulse Ox 95 09/07/24 14:00 O2 Del Method Room Air 09/07/24 10:56 Course Vital Signs Vital signs: Vital Signs Pulse Rate 79 09/07/24 10:56 Respiratory Rate 24 H 09/07/24 10:56 Blood Pressure 129/76 09/07/24 10:56 Pulse Oximetry 89 L 09/07/24 10:56 Oxygen Delivery Method Room Air 09/07/24 10:56 Pulse Rate 70 09/07/24 14:10 Respiratory Rate 18 09/07/24 13:10 Blood Pressure 122/57 09/07/24 13:02 Pulse Oximetry 95 09/07/24 14:00 Oxygen Delivery Method Room Air 09/07/24 10:56 Medical Decision Making MDM Narrative Medical decision making narrative: Patient had EKG, chest x-ray and lab work done. Patient was given DuoNeb breathing treatment. No signs of pneumonia. A copy of x-ray report was given to the patient and his . Patient will be sent home with doxycycline and prednisone. Lengthy amount of time was spent on treating symptoms with pbwg-hdi-gdmzmpy medication. Patient will follow-up with PCP. No question at discharge. Lab Data Lab results reviewed: Yes I reviewed the patient's lab results Labs: Lab Results 09/07/24 Range/Units 11:28 WBC 8.7 (4.0-11.0) 10^3/uL RBC 4.60 L (4.70-6.10) 10^6/uL Hgb 14.6 (14.0-18.0) g/dL Hct 44.1 (42.0-54.0) % MCV 95.9 H (80.0-94.0) fL MCH 31.7 (25.9-34.0) pg MCHC 33.1 (29.9-35.2) g/dL RDW 13.1 (11.0-15.0) % Plt Count 176 (150-450) 10^3/uL MPV 9.6 (9.5-13.5) fL Neut % (Auto) 66.0 (43.0-75.0) % Lymph % (Auto) 19.5 L (20.5-60.0) % [place] % (Auto) 10.2 (1.7-12.0) % Eos % (Auto) 3.6 (0.9-7.0) % Baso % (Auto) 0.5 (0.2-2.0) % Neut # (Auto) 5.7 (1.4-6.5) 10^3/uL Lymph # (Auto) 1.7 (1.2-3.8) 10^3/uL [place] # (Auto) 0.9 H (0.3-0.8) 10^3/uL Eos # (Auto) 0.3 (0.0-0.7) 10^3/uL Baso # (Auto) 0.0 (0.0-0.1) 10^3/uL Abs Immat Gran (auto) 0.02 (0.00-0.03) 10^3/uL Imm/Tot Granulo (auto) 0.2 (0.0-0.5) % D-Dimer 0.52 (<=0.59) mg/L FEU VBG pH 7.367 (7.330-7.430) VBG pCO2 53.9 H (40.0-52.0) mmHg Sodium 141 (136-145) mmol/L Potassium 4.0 (3.5-5.1) mmol/L Chloride 105 (98-107) mmol/L Carbon Dioxide 30.8 (21.0-32.0) mmol/L Anion Gap 9.2 BUN 8.0 (7.0-18.0) mg/dL Creatinine 0.98 (0.70-1.30) mg/dL Est GFR ( Amer) >60 (>=60 mL/min/1.73m^2) Est GFR (Non-Af Amer) >60 (>=60 mL/min/1.73m^2) BUN/Creatinine Ratio 8.2 Glucose 98 (74-106) mg/dL Lactate 2.0 (0.4-2.0) mmol/L Calcium 8.9 (8.5-10.1) mg/dL Total Bilirubin 0.3 (0.2-1.0) mg/dL AST 13 L (15-37) U/L ALT 23 (16-63) U/L Alkaline Phosphatase 61 (46-116) U/L NT-Pro-B Natriuret Pep 40.0 (<=900.0) pg/mL Total Protein 7.2 (6.4-8.2) g/dL Albumin 3.8 (3.4-5.0) g/dL Globulin 3.4 g/dL Albumin/Globulin Ratio 1.1 ECG Data Attestation: I personally reviewed and interpreted this ECG as follows: (EKG interpretation. Normal sinus rhythm at 74 beats a minute. Normal axis deviation. No acute ST elevation, no acute ectopy. QTc of 399) Discharge Plan Discharge Chief Complaint: Shortness of Breath/Dyspnea Clinical Impression: Bronchitis, COPD exacerbation, Tobacco abuse Patient Disposition: Home, Self-Care Time of Disposition Decision: 14:26 Condition: Fair Prescriptions / Home Meds: New zrxwqgrzaejnuvp-tbaidpzdi-YR [Bromfed DM] 2-30-10 mg/5 mL syrup 10 ml PO Q6H PRN (Reason: cold symptoms) Qty: 200 0RF doxycycline hyclate 100 mg tablet 100 mg PO BID 10 Days Qty: 20 0RF No Action methocarbamol 750 mg tablet 750 mg PO Q6H PRN (Reason: pain) Qty: 30 0RF alprazolam 1 mg tablet 1 mg PO DAILY amlodipine 10 mg tablet 10 mg PO DAILY atorvastatin 40 mg tablet 40 mg PO DAILY gabapentin 800 mg tablet 800 mg PO Q12H glipizide 10 mg tablet 10 mg PO DAILY metformin 850 mg tablet 850 mg PO DAILY quetiapine 50 mg tablet 50 mg PO DAILY methocarbamol 750 mg tablet 750 mg PO TID PRN (Reason: pain, muscle spasms) Qty: 15 0RF Print Language: Greek Instructions: How to Stop Smoking (ED), Acute Bronchitis (ED) Additional Instructions: Use your albuterol inhaler or albuterol nebulizer every 4 hours while you are awake for the next 7 to 10 days Take and finish antibiotics Use all the krdv-uxd-xirdric products listed below to help treat your symptoms. Increase fluids at home, Gatorade, Powerade, or water. Alternate using DayQuil, NyQuil, and Flonase. Add Mucinex as well as needed. Alternate Tylenol and Motrin every 4 hours to help with fever control, body aches or joint pain. Use jmty-sls-dypdxvy vitamin C, vitamin D3, and zinc to help fight infection and help with her immune system. Referrals: Silvio Ott MD [Primary Care Provider] - 1 week Discharge Date/Time: 09/07/24 15:14
--- OUTSIDE RECORDS SUMMARY | 2024-09-07 11:31 | XMS_ITS | CCD ---
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 Time Vital Sign Value Performing Clinician Facility 06-15-2024 13: Body height 172.7 cm Silvio Crain MD Work Phone: [facility] 06-15-2024 13:12-050 Body mass index (BMI) [Ratio] 29.35 kg/m2 Silvio Crain MD Work Phone: [facility] 06-15-2024 13:12-0500 Body temperature 98.2 [degF] Silvio Crain MD Work Phone: [facility] 06-15-2024 13:12-0500 Body weight 87.54 kg Silvio Crain MD Work Phone: [facility] 06-15-2024 13:12-0500 Diastolic blood pressure 66 mm[Hg] Silvio Crain MD Work Phone: [facility] 06-15-2024 13:12-0500 Heart rate 77 /min Silvio Crain MD Work Phone: [facility] 06-15-2024 13:12-0500 Respiratory rate 22 /min Silvio Crain MD Work Phone: [facility] 06-15-2024 13:12-0500 SaO2% (BldA) [Mass fraction] 91 % Silvio Crain MD Work Phone: [facility] 06-15-2024 13:12-0500 Systolic blood pressure 130 mm[Hg] Silvio Crain MD Work Phone: [facility] 04-12-2024 14:58-0400 Body height 172.7 cm Silvio Crain MD Work Phone: [facility] 04-12-2024 14:58-0400 Body mass index (BMI) [Ratio] 29.5 kg/m2 Silvio Crain MD Work Phone: [facility] 04-12-2024 14:58-0400 Body temperature 97.81 [degF] Silvio Crain MD Work Phone: [facility] 04-12-2024 14:58-0400 Body weight 88 kg Silvio Crain MD Work Phone: [facility] 04-12-2024 14:58-0400 Diastolic blood pressure 62 mm[Hg] Silvio Crain MD Work Phone: [facility] 04-12-2024 14:58-0400 Heart rate 71 /min Silvio Crain MD Work Phone: [facility] 04-12-2024 14:58-0400 Respiratory rate 20 /min Silvio Crain MD Work Phone: [facility] 04-12-2024 14:58-0400 SaO2% (BldA) [Mass fraction] 91 % Silvio Crain MD Work Phone: [facility] 04-12-2024 14:58-0400 Systolic blood pressure 110 mm[Hg] Silvio Crain MD Work Phone: [facility] 09-02-2022 18:15-0500 Diastolic blood pressure 102 mm[Hg] Paxton Cerrato [facility] 09-02-2022 18:15-0500 Heart rate 71 /min Paxton Reinosoe [facility] 09-02-2022 18:15-0500 Mean blood pressure 111 mm[Hg] Paxton Reinosoe [facility] 09-02-2022 18:15-0500 Respiratory rate 20 /min Paxton Blossom [facility] 09-02-2022 18:15-0500 SaO2% (BldA) [Mass fraction] 93 % Paxton Blossom [facility] 09-02-2022 18:15-0500 Systolic blood pressure 130 mm[Hg] Paxton Blossom [facility] 09-02-2022 17:37-0500 Body temperature 99.68 [degF] Paxton Blossom [facility] 09-02-2022 17:37-0500 Diastolic blood pressure 104 mm[Hg] Paxton Blossom [facility] 09-02-2022 17:37-0500 Heart rate 82 /min Paxton Reinosoe [facility] 09-02-2022 17:37-0500 Respiratory rate 20 /min Paxton Cerrato [facility] 09-02-2022 17:37-0500 SaO2% (BldA) [Mass fraction] 93 % Paxton Cerrato [facility] 09-02-2022 17:37-0500 Systolic blood pressure 158 mm[Hg] Paxton Cerrato [facility] 08-09-2022 09:00-0500 Body height 172.7 cm Prince Palacios MD Work Phone: [facility] 08-09-2022 09:00-0500 Body weight 88.45 kg Prince Palacios MD Work Phone: [facility] 08-09-2022 09:00-0500 Diastolic blood pressure 69 mm[Hg] Prince Palacios MD Work Phone: [facility] 08-09-2022 09:00-0500 Heart rate 89 /min Prince Palacios MD Work Phone: [facility] 08-09-2022 09:00-0500 Respiratory rate 13 /min Prince Palacios MD Work Phone: [facility] 08-09-2022 09:00-0500 SaO2% (BldA) [Mass fraction] 98 % Prince Palacios MD Work Phone: [facility] 08-09-2022 09:00-0500 Systolic blood pressure 121 mm[Hg] Prince Palacios MD Work Phone: [facility] Encounters Encounter Date Encounter Type Care Provider Facility Start: 08-20-2024 End: 08-25-2024 Orders Only Silvio Crain MD Work Phone: [facility] Comment on above: ETHAN (generalized anx iety disorder) ([facility]); Spondylosis of cervical spine Start: 07-14-2024 End: 07-14-2024 Refill Silvio Crain MD Work Phone: [facility] Comment on above: ETHAN (generalized anx iety disorder) (CMS/HCC) Start: 06-15-2024 End: 06-15-2024 Bamboo flowsheet Silvio Crain MD Work Phone: [facility] Start: 06-15-2024 End: 06-15-2024 Bamboo flowsheet Silvio Crain MD Work Phone: [facility] Start: 06-15-2024 End: 06-15-2024 Patient encounter procedure Silvio Crain MD Work Phone: [facility] Work Phone: Start: 06-15-2024 End: 06-15-2024 Postop follow up visit related to original px Silvio Crain MD Work Phone: [facility] Comment on above: Medicare annual well ness visit, subsequent (Primary Dx); Spondylosis of cervical spine Start: 06-15-2024 End: 06-15-2024 ambulatory SILVIO CRAIN Not Available Start: 05-21-2024 End: 05-21-2024 Clinisync Result Encounter Silvio Crain MD Work Phone: [facility] External Department Unsolicited Start: 05-21-2024 End: 05-21-2024 Clinisync Result Encounter Silvio Crain MD Work Phone: [facility] External Department Unsolicited Start: 05-13-2024 End: 05-13-2024 Refill Silvio Crain MD Work Phone: [facility] Comment on above: ETHAN (generalized anx iety disorder) (CMS/HCC) Start: 04-12-2024 End: 04-12-2024 Office outpatient visit 25 minutes Silvio Crain MD Work Phone: [facility] Comment on above: Type 2 diabetes adalid itus with hyperglycemia, without long-term current use of insulin (CMS/HCC) (Primary Dx); Benign essential hypertension (CMS/HCC); MDD (major depressive disorder), recurrent episode, mild (HCC) (CMS/HCC); ETHAN (generalized anxiety disorder) ([facility]); Primary insomnia; Moderate COPD (chronic obstructive pulmonary disease) ([facility]); Polyneuropathy due to type 2 diabetes mellitus ([facility]); Immunodeficiency due to conditions classified elsewhere ([facility]) Start: 04-12-2024 End: 04-12-2024 ambulatory SILVIO CRAIN [...] on above: ETHAN (generalized anx iety disorder) ([facility]) Start: 12-16-2023 End: 12-16-2023 ambulatory SILVIO CRAIN Not Available Start: 10-07-2023 End: 10-07-2023 ambulatory SHAIKH JAQUELINE Not Available Start: 08-12-2023 Refill Silvio Moreno Work Phone: [facility] Comment on above: ETHAN (generalized anx iety disorder) ([facility]) Start: 07-02-2023 End: 07-02-2023 ambulatory FAWWAD Not Available Start: 10-25-2022 End: 10-26-[address] DOCTOR THORNTON Facility: Start: 10-25-2022 Telephone encounter Prince macias MD Work Phone: Neurology Comment on above: Results Start: 10-10-2022 End: 10-10-2022 ambulatory Aleksandr Sandoval Facility:[facility] Start: 09-06-2022 Telephone encounter Prince macias MD Work Phone: Neurology Comment on above: 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; Orders Start: 09-02-2022 End: 09-02-2022 Emergency department patient visit Paxton Cerrato [facility] Start: 09-02-2022 End: 09-02-2022 Emergency department patient visit Paxton Cerrato [facility] Start: 08-09-2022 End: 08-09-2022 ambulatory PRINCE PALACIOS Facility:[facility] Start: 08-09-2022 End: 08-09-2022 ambulatory PRINCE PALACIOS Facility:[facility] Start: 08-09-2022 End: 08-09-2022 Subsequent hospital visit by physician Koko Mendiola [id number] Work Phone: Radiology Comment on above: Spinal stenosis of c ervical region [M48.02] Start: 08-09-2022 End: 08-09-2022 Patient encounter procedure Prince Palacios MD Work Phone: [facility] [place] Comment on above: Spinal stenosis of c ervical region (Primary Dx); S/P cervical spinal fusion Start: 06-13-2022 End: 06-14-[address] SILVIO CRAIN Facility:[facility] Procedures Date Procedure Procedure Detail Performing Clinician Start: 08-20-2024 End: 08-20-2024 Radex spine cervical 2 or 3 views Silvio Crain MD Work Phone: Start: 08-20-2024 CT SHOULDER LEFT WO CONTR Silvio Crain MD Work Phone: Start: 08-20-2024 Radex shoulder compl ete minimum 2 views Silvio Crain MD Work Phone: Start: 05-21-2024 MLR HEMOGLOBIN A1C Silvio Crain MD Work Phone: Start: 10-10-2022 Colonoscopy Silvio arnold MD Work Phone: Start: 08-09-2022 Radex spine cervical 4 or 5 views Jennifer Moore MD Work Phone: Start: 06-13-[address] SILVIO ENNIS Comment on above: Performed By: #### P [facility] #### [facility] [address] [place] [address] Dr. Marce Tabares Plan of Treatment Date Care Activity Detail Author Start: 10-10-2032 Screening for malign ant neoplasm of colon [facility] Start: 06-13-2027 PROSTATE CANCER SCREENING DISCUSSION PROSTATE CANCER SCREENING DISCUSSION [facility] Start: 06-15-2025 Medicare Annual Well ness (AWV) Medicare Annual Wellness (AWV) [facility] Start: 12-23-2024 Urine screening for protein Diabetes: Urine Protein Screening [facility] Start: 12-14-2024 End: 12-14-2024 Patient encounter procedure 12/14/2024 1:30 PM EDT [facility] [address] [place] [address] Silvio Crain MD [address] [place] [phone] [facility] Start: 11-19-2024 Hemoglobin A1c measurement Diabetes: Hemoglobin A1C [facility] Start: 06-24-2024 Hemoglobin A1c measurement Diabetes: Hemoglobin A1C [facility] Start: 06-15-2024 End: 06-15-2024 Patient encounter procedure 06/15/2024 1:00 PM EST Office Visit [facility] [address] [place] [address] Silvio Crain MD [address] [place] [phone] [facility] Start: 04-12-2024 End: 04-12-2024 Patient encounter procedure 04/12/2024 2:45 PM EDT Office Visit [facility] [address] [place] [address] Silvio Crain MD [address] [place] [phone] Arrived [facility] Comment on above: Arrived Start: 04-12-2024 End: 04-12-2025 Hemoglobin A1c/Hemoglobin.total in Blood Hemoglobin A1c Lab Routine Type 2 diabetes mellitus with hyperglycemia, without long-term current use of insulin ([facility]) Expected: 04/12/2024 (Approximate), Expires: 04/12/2025 [facility] Work Phone: Comment on above: Expected: 04/12/2024 (Approximate), Expires: 04/12/2025 Start: 04-06-2024 End: 04-06-2024 Patient encounter procedure 04/06/2024 9:15 AM EDT Office Visit [facility] [address] [place] [address] Silvio Crain MD [address] [place] [phone] [facility] Start: 03-07-2024 Influenza vaccination Influenza Vacc ine (#1) [facility] Start: 09-18-2023 End: 09-18-2023 Patient encounter procedure 09/18/2023 1:00 PM EDT Office Visit [facility] [address] [place] [phone] Silvio Crain MD [address] [place] [phone] [facility] Start: 08-09-2023 BP CONTROLLED (<130/80) BP CONTROLLE D (<130/80) [facility] Start: 03-07-2023 Influenza vaccination INFLUENZ A (Season Ended) [facility] Start: 08-16-2022 End: 09-08-2023 Ct cervical spine w/o contrast material CT CERVICAL SPINE WO IVCON Radiology Routine Spinal stenosis of cervical region Expected: 08/16/2022, Expires: 09/08/2023 [facility] Work Phone: Comment on above: Expected: 08/16/2022 , Expires: 09/08/2023 Start: 07-07-2022 DEPRESSION ASSESSMENT DEPRESSION ASS ESSMENT [facility] Start: 03-24-2022 Glaucoma screening Diabetes: R etinopathy Screening [facility] Start: 03-07-2022 Influenza vaccination INFLUENZA (#1) [facility] Start: 02-16-2022 Screening for malign ant neoplasm of colon [facility] Start: 09-12-2021 COVID-19 VACCINE (4 - Booster for Pfizer series) COVID-19 VACCINE (4 - Booster for Pfizer series) [facility] Start: 08-30-2021 Hemoglobin A1c measurement Diabetes: Hemoglobin A1C [facility] Start: 06-02-2021 Hemoglobin A1c/Hemoglobin.total in Blood HBA1C [facility] Start: 05-26-2020 Glaucoma screening Diabetes: R etinopathy Screening [facility] Start: 2015 SHINGRIX VACCINE (1 of 2) SHINGRIX VACCINE (1 of 2) [facility] Start: 2010 COLOGUARD (FIT-DNA) COLOGUARD (FIT-D NA) [facility] Start: 2010 Colonoscopy COLONOSCOPY [facility] Start: 2010 COLORECTAL CANCER SCREENING COLORECTAL CANCER SCREENING [facility] Start: [address] COLONOGRAPHY [facility] Start: 2010 FECAL OCCULT BLOOD FECAL OCCULT BLOO D [facility] Start: 2010 SIGMOIDOSCOPY SIGMOIDOSCOPY [facility] Start: 1984 Urine microalbumin profile DTAP,TDAP,TD (1 - Tdap) [facility] Start: 1984 Urine screening for protein Diabetes: Urine Protein Screening [facility] Start: 1983 ANNUAL PCP TEAM TRANSITION RN STEFANI DISEASE VISIT ANNUAL PCP TEAM CHRONIC DISEASE VISIT [facility] Start: 1983 Hepatitis B surface antibody level LDL CHOLESTEROL [facility] Start: 1983 HEPATITIS C SCREENING HEPATITIS C SC DEANDRA [facility] Start: 1983 HIV SCREENING HIV SCREENING [facility] Start: 1975 3 comp foot exam completed DIABETIC FOOT EXAM [facility] Start: 1975 Hepatitis B screening URINE ALBUMIN:CREATININE RATIO [facility] Start: 1975 Hepatitis C antibody , confirmatory test DILATED RETINAL EXAM [facility] Start: 1971 PNEUMOCOCCAL (1 - PCV) PNEUMOCOCCAL (1 - PCV) [facility] Start: 1965 HEPATITIS B (1 of 3 - 3-dose series) HEPATITIS B (1 of 3 - 3-dose series) [facility] Start: 1965 Medicare Annual Well ness (AWV) Medicare Annual Wellness (AWV) [facility] Start: 1965 Screening for malign ant neoplasm of colon [facility] Immunizations Immunization Date Immunization Notes Care Provider Fa cili 03-20-2023 Seasonal, quadrivalent, recombinant, injectable influenza vaccine, preservative free Silvio Crain MD Work Phone: [facility] 03-20-2023 zoster vaccine recombinant Silvio Crain MD Work Phone: [facility] 03-20-2023 influenza virus vaccine, unspecified formulation Silvio Crain MD Work Phone: [facility] 11-30-2020 COVID-19 original vaccine, age 12+ yr, monovalent (PFIZER-BIONTECH - PURPLE TOP) Prince Palacios MD Work Phone: [facility] 11-09-2020 COVID-19 original vaccine, age 12+ yr, monovalent (PFIZER-BIONTECH - PURPLE TOP) Prince Palacios MD Work Phone: [facility] 05-14-2017 influenza, seasonal, injectable, preservative free Prince Palacios MD Work Phone: [facility] Work Phone: 05-07-2017 influenza, injectabl e, quadrivalent, contains preservative Prince Palacios MD Work Phone: [facility] Work Phone: Payers Date Payer Category Payer Self-pay 2021 Medicare (Managed Care) [employer] [id number] 2013 Medicare [id number] 2011 Unknown [facility] [id number] 2011-Present [phone] [address] [place] [address] [facility] [id number] 2011 Unknown [id number] 1965 Unknown [id number] [id number] 1965 Unknown [id number] [id number]. [id number] 1965 Unknown [id number]. [id number] 1965 Unknown [id number] [id number]. [id number] 1965 Unknown [id number]. [id number] 1965 Unknown [id number]. [id number] 1965 Unknown [id number] [id number] 1965 Unknown [id number] [id number] 1959 Unknown [id number] 1959 Unknown [id number] Unknown [id number] [id number] Social History Date Type Detail Facility Start: 08-09-2022 End: 10-07-2023 Tobacco smoking status NHIS Ex-smoker [facility] Start: 11-14-2020 End: 02-04-2021 History of tobacco use Current smoker [facility] Start: 11-14-2020 End: 02-04-2021 History of tobacco use Cigarette Smoker [facility] Start: 08-09-2022 End: 07-02-2023 Cigarettes smoked current (pack per day) - Reported 0.3 [facility] Start: 08-09-2022 End: 10-07-2023 Tobacco use and exposure Smokeless tobacco non-user [facility] Start: 08-09-2022 Alcohol intake Current drinker of alcohol (finding) [facility] Start: 03-02-2021 Alcohol Comment 3 times a month per pt 03/02/2021 [facility] Start: 1965 Sex Assigned At Not on file [facility] Tobacco smoking status No Smokin g Status Entered [facility] Start: 07-02-2023 End: 06-15-2024 Sex Assigned At Male [facility] Start: 07-01-2023 Tobacco smoking status KYIS Smokes tobacco daily [facility] Start: 07-01-2023 End: 06-15-2024 Alcohol intake Lifetime non-drinker (finding) [facility] Within the last year , have you been afraid of your partner or ex-partner? No [facility] Do you belong to any clubs or organizations such as islam groups, unions, fraternal or athletic groups, or [...] Equipment Origin al Text Equipment Identifier Dates [place] Lateral Of fset Connector Side Sz 10mm [id number] Start: 03-15-2021 Graft Deminerali zed Bone Matrix Bone Putty Pretreated 10ml - [id number] Start: 03-15-2021 Spacer Avs 4d 8m m Spinal Bone Plug - [id number] Start: 03-15-2021 [place] Plate, 1 L evel, Sz 18mm [id number] Start: 03-15-2021 [place] Spn Luigi Csp Mini 3.5x240 [id number] Start: 03-15-2021 Screw Bn 4mm 14m m [place] Spnl - [id number] Start: 03-15-2021 Spacer Bio Avs 4 d Lordosis 12mm Cortical Cancellous [id number] Allograft - [id number] Start: 03-15-2021 1 strip by In Vi tro route Daily [id number] Start: 02-06-2024 1 Lancet Daily [id number] Start: 02-26-2024 Functional Status Date Assessment Result Facility 09-02-2022 Functional Status N/A [facility] Clinical Notes 08-09-2022 to 06-15-2024 Silvio Crain MD - 06/15/2024 1:31 PM Roderick Crain MD - 06/15/2024 1:00 PM Roderick Crain MD - 04/12/2024 3:27 PM Natalia Crain MD - 04/12/2024 3:27 PM EDT [...] daily Aspirin therapy. documented in this encounter [facility] 04-12-2024 History of Presen t illness Narrative Associated Problem(s): Polyneuropathy due to type 2 diabetes mellitus (CMS/HCC) Neuropathy stable with gabapentin and continue. Associated Problem(s): Type 2 diabetes mellitus with hyperglycemia, without long-term current use of insulin (CMS/HCC) Reports BS controlled and due for A1C. Stick to ADA diet and limit carbs. Associated Problem(s): Primary insomnia Sleeping well with seroquel and continue. Associated Problem(s): Moderate COPD (chronic obstructive pulmonary disease) (CMS/HCC) Breathing stable and use albuterol PRN. Stressed need to stop smoking. Associated Problem(s): MDD (major depressive disorder), recurrent episode, mild (HCC) (CMS/HCC) Symptoms stable with medication and continue. Associated Problem(s): ETHAN (generalized anxiety disorder) (CMS/HCC) Symptoms stable with medication and continue. Use xanax PRN. Associated Problem(s): Benign essential hypertension (CMS/HCC) BP controlled and monitor PRN. Images from [...] seroquel and continue. documented in this encounter [facility] 11-15-2022 Miscellaneous Notes Called and spoke with [...] Date 10/25/22 Record(s) scanned into pt's chart. eTrese Schrader Images requested documented in this encounter [facility] 09-06-2022 Miscellaneous Notes Message forwarded to [facility] Forms for C-9. [place] calling Fuad SMITH calling asking for a C9 for a CT scan. 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 ?Leave stitches (sutures), skin glue, or adhesive [...] 06/23/2006 Document Revised: 09/06/2019 Document Reviewed: 09/08/2019 [employer] Patient Education 2020 Authentic Response. 09/02/2022 19:17:16 Cervical Sprain Cervical Sprain A [...] provider or physical therapist. General instructions Take lqvx-cct-bchhafo and prescription medicines only as told by [...] 04/19/2008 Document Revised: 10/13/2019 Document Reviewed: 02/19/2017 [employer] Patient Education 2020 Location Labs Follow Up Care 09/02/2022 17:27:40 With:SILVIO CRAIN Address: [facility] [place] [address] Business (1) When:09/05/2022 18:51:13 [facility] 08-09-2022 Note HNO ID: [id number] Author: RT Khushboo(R) Service: Radiology Author Type: [...] RT Khushboo(R) August 09, 2022 11:39 AM [facility] 08-09-2022 Note HNO ID: [id number] Author: Prince Palacios MD Service: ? Author [...] which included preparing to see the patient, jmpm-ki-moai patient care, completing clinical documentation, obtaining and/or reviewing separately obtained history, performing a medically appropriate examination, counseling and educating the patient/family/caregiver, ordering medications, tests, or procedures, independently interpreting results (not separately reported), and care coordination (not separately reported). SIGNATURE: Prince Palacios MD PATIENT NAME: Micah Forbes DATE: August 09, 2022 TIME: 10:15 AM PAGER: [facility] 08-09-2022 History of Presen t illness Narrative [...] 2022 11:39 AM documented in this encounter [facility] 08-09-2022 History of Presen t illness Narrative [...] which included preparing to see the patient, xitd-ra-tdai patient care, completing clinical documentation, obtaining and/or reviewing separately obtained history, performing a medically appropriate examination, counseling and educating the patient/family/caregiver, ordering medications, tests, or procedures, independently interpreting results (not separately reported), and care coordination (not separately reported). SIGNATURE: rPince Palacios MD PATIENT NAME: Micah Forbes DATE: August 09, 2022 TIME: 10:15 AM PAGER: documented in this encounter [facility] Evaluation + Plan note No data available for this section [facility] Evaluation note Diagnosis Spinal stenosis of cervical region- Primary Spinal stenosis in cervical region S/P cervical spinal fusion Arthrodesis status documented [facility] Diagnosis Spinal stenosis of cervical region Spinal stenosis in cervical region [facility] Diagnosis ETHAN (generalized anxiety disorder) ([facility]/HCC) Generalized anxiety disorder documented in this encounter [facility]* Diagnosis Type 2 diabetes mellitus with hyperglycemia, without long-term current use of insulin ([facility])- Primary Benign essential hypertension ([facility]/HCC) Essential hypertension, benign MDD (major depressive disorder), recurrent episode, mild (HCC) (CMS/HCC) ETHAN (generalized anxiety disorder) ([facility]/HCC) Generalized anxiety disorder Primary insomnia Persistent disorder of initiating or maintaining sleep Moderate COPD (chronic obstructive pulmonary disease) ([facility]/HCC) Polyneuropathy due to type 2 diabetes mellitus ([facility]/HCC) Immunodeficiency due to conditions classified elsewhere ([facility]) documented in this encounter [facility]* Diagnosis Primary hypertension (CMS/HCC)- Primary Unspecified essential hypertension Moderate COPD (chronic obstructive pulmonary disease) (CMS/HCC) Tobacco dependency Tobacco use disorder Type 2 diabetes mellitus with hyperglycemia, without long-term current use of insulin (CMS/HCC)- Primary Primary hypertension (CMS/HCC) Unspecified essential hypertension Polyneuropathy due to type 2 diabetes mellitus (CMS/HCC) MDD (major depressive disorder), recurrent episode, mild (HCC) (CMS/HCC) Primary insomnia Persistent disorder of initiating or maintaining sleep Moderate COPD (chronic obstructive pulmonary disease) (CMS/HCC) ETHAN (generalized anxiety disorder) (CMS/HCC) Generalized anxiety disorder Dyslipidemia (CMS/HCC) Other and unspecified hyperlipidemia Encounter for long-term current use of medication Screening PSA (prostate specific antigen) Special screening for malignant neoplasm of prostate Type 2 diabetes mellitus with hyperglycemia, without long-term current use of insulin ([facility])- Primary Benign essential hypertension ([facility]) Essential hypertension, benign MDD (major depressive disorder), recurrent episode, mild (HCC) ([facility]) ETHAN (generalized anxiety disorder) ([facility]) Generalized anxiety disorder Primary insomnia Persistent disorder of initiating or maintaining sleep Moderate COPD (chronic obstructive pulmonary disease) ([facility]) Polyneuropathy due to type 2 diabetes mellitus ([facility]) Immunodeficiency due to conditions classified elsewhere ([facility]) ETHAN (generalized anxiety disorder) ([facility]) Generalized anxiety disorder [facility] Diagnosis Primary hypertension ([facility])- Primary Unspecified essential hypertension Moderate COPD (chronic obstructive pulmonary disease) ([facility]) Tobacco dependency Tobacco use disorder Type 2 diabetes mellitus with hyperglycemia, without long-term current use of insulin ([facility])- Primary Primary hypertension ([facility]) Unspecified essential hypertension Polyneuropathy due to type 2 diabetes mellitus ([facility]) MDD (major depressive disorder), recurrent episode, mild (HCC) ([facility]) Primary insomnia Persistent disorder of initiating or maintaining sleep Moderate COPD (chronic obstructive pulmonary disease) ([facility]) ETHAN (generalized anxiety disorder) ([facility]) Generalized anxiety disorder Dyslipidemia ([facility]) Other and unspecified hyperlipidemia Encounter for long-term current use of medication Screening PSA (prostate specific antigen) Special screening for malignant neoplasm of prostate Type 2 diabetes mellitus with hyperglycemia, without long-term current use of insulin ([facility])- Primary Benign essential hypertension ([facility]) Essential hypertension, benign MDD (major depressive disorder), recurrent episode, mild (HCC) ([facility]) ETHAN (generalized anxiety disorder) ([facility]) Generalized anxiety disorder Primary insomnia Persistent disorder of initiating or maintaining sleep Moderate COPD (chronic obstructive pulmonary disease) ([facility]) Polyneuropathy due to type 2 diabetes mellitus ([facility]) Immunodeficiency due to conditions classified elsewhere ([facility]) Medicare annual wellness visit, subsequent- Primary Spondylosis of cervical spine [facility] Diagnosis ETHAN (generalized anxiety disorder) ([facility]) Generalized anxiety disorder [facility] Diagnosis Spondylosis of cervical spine [facility] in [facility] Diagnosis Primary hypertension ([facility])- Primary Unspecified essential hypertension Moderate COPD (chronic obstructive pulmonary disease) ([facility]) Tobacco dependency Tobacco use disorder Type 2 diabetes mellitus with hyperglycemia, without long-term current use of insulin ([facility])- Primary Primary hypertension ([facility]) Unspecified essential hypertension Polyneuropathy due to type 2 diabetes mellitus ([facility]) MDD (major depressive disorder), recurrent episode, mild (HCC) ([facility]) Primary insomnia Persistent disorder of initiating or maintaining sleep Moderate COPD (chronic obstructive pulmonary disease) ([facility]) ETHAN (generalized anxiety disorder) ([facility]) Generalized anxiety disorder Dyslipidemia ([facility]) Other and unspecified hyperlipidemia Encounter for long-term current use of medication Screening PSA (prostate specific antigen) Special screening for malignant neoplasm of prostate Type 2 diabetes mellitus with hyperglycemia, without long-term current use of insulin ([facility])- Primary Benign essential hypertension ([facility]) Essential hypertension, benign MDD (major depressive disorder), recurrent episode, mild (HCC) ([facility]) ETHAN (generalized anxiety disorder) ([facility]) Generalized anxiety disorder Primary insomnia Persistent disorder of initiating or maintaining sleep Moderate COPD (chronic obstructive pulmonary disease) ([facility]) Polyneuropathy due to type 2 diabetes mellitus ([facility]) Immunodeficiency due to conditions classified elsewhere ([facility]) Medicare annual wellness visit, subsequent- Primary Spondylosis of cervical spine ETHAN (generalized anxiety disorder) ([facility]) Generalized anxiety disorder [facility] Diagnosis Primary hypertension ([facility])- Primary Unspecified essential hypertension Moderate COPD (chronic obstructive pulmonary disease) ([facility]) Tobacco dependency Tobacco use disorder Type 2 diabetes mellitus with hyperglycemia, without long-term current use of insulin ([facility])- Primary Primary hypertension ([facility]) Unspecified essential hypertension Polyneuropathy due to type 2 diabetes mellitus ([facility]) MDD (major depressive disorder), recurrent episode, mild (HCC) ([facility]) Primary insomnia Persistent disorder of initiating or maintaining sleep Moderate COPD (chronic obstructive pulmonary disease) ([facility]) ETHAN (generalized anxiety disorder) ([facility]) Generalized anxiety disorder Dyslipidemia ([facility]) Other and unspecified hyperlipidemia Encounter for long-term current use of medication Screening PSA (prostate specific antigen) Special screening for malignant neoplasm of prostate Type 2 diabetes mellitus with hyperglycemia, without long-term current use of insulin ([facility])- Primary Benign essential hypertension ([facility]) Essential hypertension, benign MDD (major depressive disorder), recurrent episode, mild (HCC) ([facility]) ETHAN (generalized anxiety disorder) ([facility] Generalized anxiety disorder Primary insomnia Persistent disorder of initiating or maintaining sleep Moderate COPD (chronic obstructive pulmonary disease) ([facility]) Polyneuropathy due to type 2 diabetes mellitus ([facility]) Immunodeficiency due to conditions classified elsewhere ([facility]) Medicare annual wellness visit, subsequent- Primary Spondylosis of cervical spine ETHAN (generalized anxiety disorder) ([facility]) Generalized anxiety disorder Spondylosis of cervical spine [facility] No data available for this section [facility] Reason for Referral Specialty Diagnoses / Procedures Referred By Carolyn t Referred To Contact CT IMAGING Diagnoses Spinal stenosis of cervical region Procedures CT CERVICAL SPINE WO IVCON CT CERVICAL SPINE W/O CONTRAST MATERIAL Prince Palacios MD [address] [place] [address] Ct Imaging Referral ID Status Reason Start Date Expiration Date Visits Requested Visits Authorized [id number] Pending Review Auto-Generat ed Referral 08/16/2022 09/08/2023 1 1 Specialty Diagnoses / Procedures Referred By Carolyn escalera Referred To Contact XR IMAGING Diagnoses Spinal stenosis of cervical region Procedures XR CERV OTHER 4V AP/LAT/OBL RADEX SPINE CERVICAL 4 OR 5 VIEWS Prince Palacios MD [address] [place] [address] Xr Imaging Referral ID Status Reason Start Date Expiration Date V isits Requested Visits Authorized [id number] Closed Auto-Generate d Referral 08/09/2022 09/08/2023 1 [...] or prosecute any alcohol or drug abuse patient.[facility] the event this information is protected by the Federal Confidentiality of Alcohol and Drug Abuse Patient Records regulations: The Federal rules restrict any use of the information to criminally investigate or prosecute any alcohol or drug abuse patient.[facility] the event this information is protected by the Federal Confidentiality of Alcohol and Drug Abuse Patient Records regulations: The Federal rules restrict any use of the information to criminally investigate or prosecute any alcohol or drug abuse patient.[facility] the event this information is protected by the Federal Confidentiality of Alcohol and Drug Abuse Patient Records regulations: The Federal rules restrict any use of the information to criminally investigate or prosecute any alcohol or drug abuse patient.[facility] Reason for Visit (unrecogniz ed section and content) Reason Comments Established Patient Follow Up Specialty Diagnoses / Procedures Referred By Contac t Referred To Contact Spine Health / SPINE SURGERY Diagnoses follow up Procedures EST NI PATIENT Prince Palacios MD [address] [place] [address] Prince Palacios MD [address] [place] [address] Referral ID Status Reason Start Date Expiration Date Visits Re quested Visits Authorized [id number] Closed 08/09/2022 11/07/2022 1 1 Reason Comments Radio Main J1 Specialty Diagnoses / Procedures Referred By Contac t Referred To Contact XR IMAGING Diagnoses Spinal stenosis of cervical region Procedures XR CERV OTHER 4V AP/LAT/OBL RADEX SPINE CERVICAL 4 OR 5 VIEWS Prince Palacios MD [address] [place] [address] Xr Imaging Referral ID Status Reason Start Date Expiration Date V isits Requested Visits Authorized [id number] Closed Auto-Generate d Referral 08/09/2022 09/08/2023 1 1 Reason Comments Creative Engagement Director - Other Orders Reason Comments Results Reason Onset Date Comments Med Refill 08/12/2023 Reason Comments Annual Exam wellness Reason Onset Date Comments Med Refill 05/13/2024 Reason Comments Medicare Annual Wellness Visit Subsequen t wellness Reason Onset Date Comments Med Refill 03/15/2024 Reason Onset Date Comments Med Refill 04/05/2024 Reason Onset Date Comments Med Refill 07/14/2024 Care Teams (unrecognized sec tion and content) Assembler Installer Structures Relationship Specialty Start Date End Date Silvio Crain [address] [place] [address] PCP - General Family Medicine 04/20/21 Yoni Sotelo [address] [place] [address] NI Referring Team Neurosurgery 08/22/20 Assembler Installer Structures Relationship Specialty Start Date End Date Silvio Crain [address] [place] [address] PCP - General Family Medicine 04/20/21 Yoni Sotelo [address] [place] [address] NI Referring Team Neurosurgery 08/22/20 Assembler Installer Structures Relationship Specialty Start Date End Date Silvio Crain [address] [place] [address] PCP - General Family Medicine 04/20/21 Yoni Sotelo [address] [place] [address] NI Referring Team Neurosurgery 08/22/20 Assembler Installer Structures Relationship Specialty Start Date End Date Silvio Crain [address] [place] [address] PCP - General Family Medicine 04/20/21 Yoni Sotelo [address] [place] [address] NI Referring Team Neurosurgery 08/22/20 Assembler Installer Structures Relationship Specialty Start Date End Date Silvio Crain MD PCP - General Family Medicine 03/07/23 Assembler Installer Structures Relationship Specialty Start Date End Date Silvio Crain MD [address] [place] [address] PCP - General Family Medicine 10/07/23 Kaia Scherer, RN [address] [place] [address] Registered Nurse Family Medicine 12/11/23 Assembler Installer Structures Relationship Specialty Start Date End Date Silvio Crain MD [address] [place] [address] PCP - General Family Medicine 10/07/23 Kaia Scherre RN [address] [place] [address] Registered Nurse Family Medicine 12/11/23 Assembler Installer Structures Relationship Specialty Start Date End Date Silvio Crain MD [address] [place] [address] PCP - General Family Medicine 10/07/23 Kaia Scherer RN [address] [place] [address] Registered Nurse Family Medicine 12/11/23 Assembler Installer Structures Relationship Specialty Start Date End Date Silvio Crain MD [address] [place] [address] PCP - General Family Medicine 10/07/23 Kaia Scherer RN [address] [place] [address] Registered Nurse Family Medicine 12/11/23 Assembler Installer Structures Relationship Specialty Start Date End Date Silvio Crain MD [address] [place] [address] PCP - General Family Medicine 10/07/23 Kaia Scherer RN [address] [place] [address] Registered Nurse Family Medicine 12/11/23 Assembler Installer Structures Relationship Specialty Start Date End Date Silvio Crain MD [address] [place] [address] PCP - General Family Medicine 10/07/23 Kaia Scherer RN [address] [place] [address] Registered Nurse Family Medicine 12/11/23 Assembler Installer Structures Relationship Specialty Start Date End Date Silvio Crain MD [address] [place] [address] PCP - General Family Medicine 10/07/23 Kaia Scherer RN [address] [facility] [place] [address] Registered Nurse Family Medicine 12/11/23 Assembler Installer Structures Relationship Specialty Start Date End Date Silvio Crain MD [address] [place] [address] PCP - General Family Medicine 10/07/23 Kaia Scherer RN [address] [place] [address] Registered Nurse Family Medicine 12/11/23 Assembler Installer Structures Relationship Specialty Start Date End Date Silvio Crain MD [address] [place] [address] PCP - General Family Medicine 10/07/23 Kaia Scherer RN [address] [facility] [place] [address] Registered Nurse Family Medicine 12/11/23 Assembler Installer Structures Relationship Specialty Start Date End Date Silvio Crain MD [address] [place] [address] PCP - General Family Medicine 10/07/23 Kaia Scherer RN [address] [facility] [address] Registered Nurse Family Medicine 12/11/23 (unrecognized sect ion and content) No Status Records FoundNo Status Records FoundNo Status Records FoundNo Status Records FoundNo Status Records Found INFORMATION SOURCE (unrecogn ized section and content) DATE CREATED AUTHOR 09/13/2022 [facility] DATE CREATED AUTHOR AUTHOR'S ORGANIZ ATION 10/15/2022 [facility] DATE CREATED AUTHOR AUTHOR'S ORGANIZ ATION 11/04/2022 [facility] DATE CREATED AUTHOR AUTHOR'S ORGANIZ ATION 11/17/2022 [facility] DATE CREATED AUTHOR AUTHOR'S ORGANIZ ATION 06/18/2024 [facility] dical Specialists [facility] FOR RECORDS PERTAINING TO PATIENTS [...] BE BASED ON THE PRIMARY CLINICAL RECORDS. [employer] provides no warranty or guarantee of the accuracy or completeness of information in this document.
[2024-09-07 11:43] LABS: Basophils Percent Auto 0.5 % (0.2-2.0); Eosinophils Absolute Auto 0.3 10^3/uL (0.0-0.7); Eosinophils Percent Auto 3.6 % (0.9-7.0); Hematocrit 44.1 % (42.0-54.0); Hemoglobin 14.6 g/dL (14.0-18.0); Immature Granulocytes Abs Auto 0.02 10^3/uL (0.00-0.03); Immature Granulocytes Pct Auto 0.2 % (0.0-0.5); Lymphocytes Absolute Auto 1.7 10^3/uL (1.2-3.8); Lymphocytes Percent Auto 19.5 % (20.5-60.0); Mean Corpuscular HGB Conc 33.1 g/dL (29.9-35.2); Mean Corpuscular Hemoglobin 31.7 pg (25.9-34.0); Mean Corpuscular Volume 95.9 fL (80.0-94.0); Mean Platelet Volume 9.6 fL (9.5-13.5); Monocytes Absolute Auto 0.9 10^3/uL (0.3-0.8); Monocytes Percent Auto 10.2 % (1.7-12.0); Neutrophils Absolute Auto 5.7 10^3/uL (1.4-6.5); Platelet Count 176 10^3/uL (150-450); Red Cell Distribution Width 13.1 % (11.0-15.0); White Blood Count 8.7 10^3/uL (4.0-11.0)
[2024-09-07 11:44] LABS: PCO2 VBG 53.9 mmHg (40.0-52.0); pH VBG 7.367 (7.330-7.430)
[2024-09-07] MEDS: METHYLPREDNISOLONE SOD SUCC PF 125 MG/2 ML VIAL IVP (11:55)
[2024-09-07] MEDS: HYDROCODONE/ACET 5-325 MG TABLET 1 TAB PO (11:55)
[2024-09-07] MEDS: IPRATROPIUM/ALBUTEROL SULFATE 3 ML AMPUL.NEB IH (12:00)
[2024-09-07 12:10] LABS: Alanine Aminotransferase 23 U/L (16-63); Albumin Globulin Ratio 1.1; Albumin Level 3.8 g/dL (3.4-5.0); Alkaline Phosphatase 61 U/L (46-116); Anion Gap 9.2; Aspartate Amino Transferase 13 U/L (15-37); BUN Creatinine Ratio 8.2; Bilirubin Total 0.3 mg/dL (0.2-1.0); Calcium 8.9 mg/dL (8.5-10.1); Carbon Dioxide 30.8 mmol/L (21.0-32.0); Chloride 105 mmol/L (98-107); Estimated GFR (African America >60 (>=60 mL/min/1.73m^2); Estimated GFR (Non-African Ame >60 (>=60 mL/min/1.73m^2); Globulin 3.4 g/dL; Glucose 98 mg/dL (74-106); Sodium 141 mmol/L (136-145); Total Protein 7.2 g/dL (6.4-8.2)
[2024-09-07 12:29] LABS: D Dimer 0.52 mg/L FEU (<=0.59)
== END 2024-09-07 15:14 | disposition home or self-care (01) ==
PROVIDERS: Emergency Provider Emergency Medicine; PCP Family Medicine
DX: J44.1 Chronic obstructive pulmonary disease with (acute) exacerbation (principal); R06.02 Shortness of breath; F17.200 Nicotine dependence, unspecified, uncomplicated
CPT/HCPCS: 36415; 71045; 71046; 80053; 82800; 83605; 83880; 85025; 85378; 87040; 93005; 94640; 96374; 99285; J2919

== ENCOUNTER 2025-02-18 10:24 | Outpatient (OUT) | payer MEDICARE, SELFPAY ==
--- OUTSIDE RECORDS SUMMARY | 2013-03-22 13:16 | XMS_ITS | Encounter Summary ---
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, 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: Renal Failure: [...] - 20 mg/dL 03/22/2013 3:24 PM EDT [facility] Creatinine 1.02 0.6 - 1.4 mg/dL 03/22/2013 3:24 PM EDT [facility] GFR Non- >60 >60 mL/min 03/22/2013 3:24 PM EDT [facility] GFR >60 >60 mL/min 03/22/2013 3:24 PM EDT [facility] GFR Comment 03/22/2013 3:24 PM EDT [facility] Comment: Average GFR for 40-49 years old: 99 mL/min/1.73sq m Chronic Kidney Disease: <60 mL/min/1.73sq m Kidney failure: <15 mL/min/1.73sq m GFR is a calculated value that has proven clinically to be a more effective measure of kidney function when reported with serum creatinine. [employer] [address] [place] [address] GFR Staging NOT REPORTED [facility] BLOOD SPECIMEN / Unknown 03/22/2013 2:40 PM EDT 03/22/2013 2:45 PM EDT us Farshad Fletcher MD CHEMISTRY ORDERABLES Final Re sult [employer] [address] [place] [address], [facility] [phone] [facility] * APTT (03/22/2013 2:40 PM EDT) APTT 24.6 21.3 - 31.3 sec 03/22/2013 2:59 PM EDT [facility] Comment:[facility] [address] [place] [address] BLOOD SPECIMEN / Unknown 03/22/2013 2:40 PM EDT 03/22/2013 2:45 PM EDT Farshad Fletcher MD HEMATOLOGY ORDERABLES Final R esult Performing Organization Address [facility] [place] [address], [facility] [phone] [facility] * Protime-INR (03/22/2013 2:40 PM EDT) Protime 10.3 9.4 - 12.6 sec 03/22/2013 2:59 PM EDT [facility] INR 0.9 03/22/2013 2:59 PM EDT [facility] Comment: Therapeutic Range: Moderate Anticoagulant Intensity: INR = 2.0-3.0 High Anticoagulant Intensity: INR = 2.5-3.5 [facility] [address] [address] BLOOD SPECIMEN / Unknown 03/22/2013 2:40 PM EDT 03/22/2013 2:45 PM EDT Farshad Fletcher MD HEMATOLOGY ORDERABLES Final R esult Performing Organization Address [facility] Co de Phone Number [facility] [employer] [address] [place] [address], [facility] [phone] [facility] * Electrolyte panel (03/22/2013 2:40 PM EDT) Sodium 140 136 - 145 mmol/L 03/22/2013 3:24 PM EDT [facility] Potassium 4.0 3.5 - 5.1 mmol/L 03/22/2013 3:24 PM EDT [facility] Chloride 105 98 - 110 mmol/L 03/22/2013 3:24 PM EDT [facility] CO2 27 20 - 31 mmol/L 03/22/2013 3:24 PM EDT [facility] Anion Gap 12 8 - 16 mmol/L 03/22/2013 3:24 PM EDT [facility] Comment:[facility] [address] [place], [place] [phone] BLOOD SPECIMEN / Unknown 03/22/2013 2:40 PM EDT 03/22/2013 2:45 PM EDT Farshad Fletcher MD CHEMISTRY ORDERABLES Final Re sult [facility] [address] [place] [address] [facility] * Glucose, random (03/22/2013 2:40 PM EDT) Glucose 85 74 - 106 mg/dL 03/22/2013 3:24 PM EDT [facility] Comment:[facility] [address] [place], [place] [phone] BLOOD SPECIMEN / Unknown 03/22/2013 2:40 PM EDT 03/22/2013 2:45 PM EDT Farshad Fletcher MD CHEMISTRY ORDERABLES Final Re sult Performing Organization Address City/[facility]/ZIP Co de Phone Number [facility] [employer] [address] [place] [address] [facility] * CBC Auto Differential (03/22/2013 2:40 PM EDT) WBC 9.4 3.5 - 11.0 k/uL 03/22/2013 2:49 PM EDT [facility] RBC 5.01 4.5 - 5.9 m/uL 03/22/2013 2:49 PM EDT [facility] Hemoglobin 15.9 13.5 - 17.5 g/dL 03/22/2013 2:49 PM EDT [facility] Hematocrit 45.2 41 - 53 % 03/22/2013 2:49 PM EDT [facility] MCV 90.1 80 - 100 fL 03/22/2013 2:49 PM EDT [facility] MCH 31.8 26 - 34 pg 03/22/2013 2:49 PM EDT [facility] MCHC 35.2 31 - 37 g/dL 03/22/2013 2:49 PM EDT [facility] RDW 14.3 12.5 - 15.4 % 03/22/2013 2:49 PM EDT [facility] Platelets 212 140 - 450 k/uL 03/22/2013 2:49 PM EDT [facility] MPV 8.0 6.0 - 12.0 fL 03/22/2013 2:49 PM EDT [facility] Differential Type NOT REPORTED [facility] Seg Neutrophils 56 36 - 66 % 03/22/2013 2:49 PM EDT [facility] Lymphocytes 31 24 - 44 % 03/22/2013 2:49 PM EDT [facility] Monocytes % 10 2 - 11 % 03/22/2013 2:49 PM EDT [facility] Eosinophils % 3 1 - 4 % 03/22/2013 2:49 PM EDT [facility] Basophils % 0 0 - 2 % 03/22/2013 2:49 PM EDT [facility] Neutrophils Absolute 5.20 1.8 - 7.7 k/uL 03/22/2013 2:49 PM EDT [facility] Lymphocytes Absolute 2.90 1.0 - 4.8 k/uL 03/22/2013 2:49 PM EDT [facility] Monocytes Absolute 1.00 0.1 - 1.2 k/uL 03/22/2013 2:49 PM EDT [facility] Eosinophils Absolute 0.30 0.0 - 0.4 k/uL 03/22/2013 2:49 PM EDT [facility] Basophils Absolute 0.00 0.0 - 0.2 k/uL 03/22/2013 2:49 PM EDT [facility] Comment:[facility] [address] [place], [place] [phone] WBC Morphology NOT REPORTED [facility] RBC Morphology NOT REPORTED [facility] Platelet Estimate NOT REPORTED [facility] BLOOD SPECIMEN / Unknown 03/22/2013 2:40 PM EDT 03/22/2013 2:45 PM EDT Farshad Fletcher MD HEMATOLOGY ORDERABLES Final R esult [facility] [address] [place] [address], [facility] [phone] [facility] * XR Chest Standard TWO VW (03/22/2013 2:34 PM EDT) Anatomical Region Laterality Modality Chest Radiographic Robyn ging 03/22/2013 2:34 PM EDT Narrative 03/22/2013 2:57 PM EDT FINAL Procedure: PAT Mar 22 2013 2:34PM [id number] CHEST PA AND LATERAL Reason for Exam: ^pre op ^cervical stenosis FULL RESULT: PA and lateral image of the chest, 03/22/13. Indication: Preoperative. Comparison: 03/30/12. Findings: Lungs are clear. Normal cardiomediastinal silhouette. IMPRESSION: 1. No acute cardiopulmonary abnormality. Report Transcribed by: [facility] on Mar 22 2013 2:57P Read by: WILBUR FUNEZ M.D. [id number] on Mar 22 2013 2:57P Electronically Signed by: DR. WILBUR FUNEZ M.D. on: Mar 22 2013 2:57P Procedure Note Wilbur Funez MD - 03/22/2013 FINAL Procedure: PAT Mar 22 2013 2:34PM [id number] CHEST PA AND LATERAL Reason for Exam: ^pre op ^cervical stenosis FULL RESULT: PA and lateral image of the chest, 03/22/13. Indication: Preoperative. Comparison: 03/30/12. Findings: Lungs are clear. Normal cardiomediastinal silhouette. IMPRESSION: 1. No acute cardiopulmonary abnormality. Report Transcribed by: [facility] on Mar 22 2013 2:57P Read by: WILBUR FUNEZ M.D. [id number] on Mar 22 2013 2:57P Electronically Signed by: DR. WILBUR FUNEZ M.D. on: Mar 22 2013 2:57P Farshad Fletcher MD IMG DIAGNOSTIC IMAGING ORDERA BLES Edited Result - Final documented in this encounter Visit Diagnoses Not on filedocumented in this encounter Care Teams Hospitality Intern Relationship Specialty Start Date End Date Farshad Fletcher MD PCP - General Neurology 05/11/12 documented as of this encounter
--- OUTSIDE RECORDS SUMMARY | 2024-01-14 09:30 | XMS_ITS ---
Author Organization The [facility] in [place] Address [address] [place] [address] Care Team Providers Care Television Repairman Name Role Phone Silvio Ott MD Primary Care Provider Unavailab Oewn Ribeiro Unavailable [phone] Allergies No Known Allergies Results Component Value [...] Encounters Encounter Location Date Provider Diagnosis [facility] (PODIATRY) [address] [place] [address] [place] [address] 01/14/2024 Owen Chery Displaced fracture of first [...] * Micah FORBESDOB: 5 (58 yo M)Acc No.[id number]:01/14/2024 Follow Up Patient: Micah LYLES Provider: Chilango Chery DPM, MS :1965 A ge:58 Y S ex:Male Date:01/14/2024 Address:[address] [place], [place] [id number] Pcp:Silvio Ott MD Check In:01:20 PM ESTCheck [...] 01/14/2024 Generated for Loree caruso/Zachariah/Sarah on: 0 02/18/2025 10:29 AM EDT History and Physical Notes * HPI [...]
--- OUTSIDE RECORDS SUMMARY | 2024-02-04 04:59 | XMS_ITS ---
Author Organization [facility] in [place] Address [address] [place] [address] Care Team Providers Care Big Machine Consultant Name Role Phone Silvio Ott MD Primary Care Provider Unavailab Owen Ribeiro Unavailable [phone] Encounters Encounter Location Date Provider Diagnosis [facility] (PODIATRY) [address] [place] [address] [place] [address] 02/04/2024 Owen Chery Plan Of Treatment No Information Progress Notes * Micah FORBESDOB: 5 (58 yo M)Acc No.[id number]:02/04/2024 Patient: Micah LYLES :1965 A ge:58 Y S ex:Male Address:[facility] [address], [place], [address] * true * Date: Generated for Genesisi shady/Zachariah/eTransmitting on: 0 02/18/2025 10:28 AM EDT
--- OUTSIDE RECORDS SUMMARY | 2024-02-04 09:15 | XMS_ITS ---
Author Organization The [facility] in [place] Address [address] [place] [address] Care Team Providers Care Shipping Manager Name Role Phone Silvio Ott MD Primary Care Provider Unavailab Owen Ribeiro Unavailable [phone] REASON FOR VISIT 3 week f/u Encounters Encounter Location Date Provider Diagnosis [facility] (PODIATRY) [address] [place] [address] [place] [address] 02/04/2024 Owen Chery Plan Of Treatment No Information Progress Notes * Micah FORBESDOB: 5 (59 yo M)Acc No.[id number]:02/04/2024 UNLOCKED PROGRESS NOTE Follow Up Patient: Micah LYLES Provider: Chilango Chery DPM, MS :1965 A ge:58 Y S ex:Male Date:02/04/2024 Address:[address] [place], [place] [address] Pcp:Silvio Ott MD Subjective: * Chief Complaints: * 1 . 3 week f/u. * Medical History: Objective: * Vitals: Assessment: Plan: * Treatment: * * Electronic signature of Dennis Chery DPM on 02/18/2025 at 10:29 AM EDT Sign off status: Pending Visit Status: C ANC (Cancelled) * Provider: Chilango Chery DPM, MS Date: 0 02/04/2024 Generated for Printi ng/Faxing/eTransmitting on: 0 02/18/2025 10:29 AM EDT
--- OUTSIDE RECORDS SUMMARY | 2025-02-18 10:28 | XMS_ITS | Encounter Summary ---
Author Organization [facility] Address [address] [place] [address] Care Team Providers Care Field Support Rep Name Role Phone Silvio Ott MD Primary Care Provider [phone] Kaia Scherer RN Unavailable [phone] Encounter Details Date Type Department Care Team (Late st Contact Info) Description 12/30/2023 Clinisync Result Encounter [facility] External Department Unsolicited Provider, Generic External Data Social History Tobacco Use Types Packs/Day Years Used Date Smoking Tobacco: Former Cigarettes 0.5 30 Passive Smoke Exposure: Current Smokeless Tobacco: Never Comments:*Current smoker ,fr equency unknown 5 or less cigarettes Alcohol Use Standard Drinks/Week Comments Never 0 (1 standard drink = 0.6 oz pur e alcohol) caffeine: 1 cup per day of pop Humiliation, Afraid, Rape, and Kick questionnair e Answer Date Recorded Within the last year, have y ou been afraid of your partner or ex-partner? No 07/02/2023 Within the last year, have y ou been humiliated or emotionally abused in other ways by your partner or ex-partner? No Within the last year, have y ou been kicked, hit, slapped, or otherwise physically hurt by your partner or ex-partner? No 07/02/2023 Within the last year, have y ou been raped or forced to have any kind of sexual activity by your partner or ex-partner? No 07/02/2023 Social Connection and Isolation Panel [NHANES] A nswer Date Recorded In a typical week, how many times do you talk on the phone with family, friends, or neighbors? Twice a week 07/02/20 How often do you get togethe r with friends or relatives? Twice a week 07/02/2023 How often do you attend chur or christian services? 1 to 4 times per year 07/02/2023 Do you belong to any clubs o r organizations such as taoism groups, unions, fraternal or athletic groups, or school groups? Yes 07/02/2023 How often do you attend meet ings of the clubs or organizations you belong to? 1 to 4 times per year 07/02/2023 Are you , , di vorced, , never , or living with a partner? 07/02/2023 AUDIT-C Answer Date Recorded Q1: How often do you have a drink containing alcohol? Never 07/02/2023 Q2: How many drinks containi ng alcohol do you have on a typical day when you are drinking? Patient does not drink Q3: How often do you have si x or more drinks on one occasion? Never 07/02/2023 Overall Financial Resource Strain (CARDIA) Answe r Date Recorded How hard is it for you to pa y for the very basics like food, housing, medical care, and heating? Not hard at all 07/02/2023 PHQ-2 Answer Date Recorded Patient Health Questionnaire-2 Score 0 10/07/2023 [facility] - Occupational Stress Questionnaire Answer Date Recorded Do you feel stress - tense, restless, nervous, or anxious, or unable to sleep at night because your mind is troubled all the time - these days? Not at all 07/02/2023 Exercise Vital Sign Answer Date Recorde d On average, how many days pe r week do you engage in moderate to strenuous exercise (like a brisk walk)? 0 days 07/02/2023 On average, how many minutes do you engage in exercise at this level? 0 min 07/02/2023 Hunger Vital Sign Answer Date Recorded Within the past 12 months, y ou worried that your food would run out before you got the money to buy more. Never true 07/02/20 23 Within the past 12 months, t he food you bought just didn't last and you didn't have money to get more. Never true 07/02/2023 PRAPARE - Transportation Answer Date Re corded In the past 12 months, has l ack of transportation kept you from medical appointments or from getting medications? No 06/07 In the past 12 months, has l ack of transportation kept you from meetings, work, or from getting things needed for daily living? No 07/02/2023 Housing Stability Vital Sign Answer Aaron e Recorded In the last 12 months, was t here a time when you were not able to pay the mortgage or rent on time? No 07/02/2023 Number of Places Lived in the Last Year Not on f ile 07/02/2023 In the last 12 months, was t here a time when you did not have a steady place to sleep or slept in a chcf (including now)? No 07/02/2023 Sex and Gender Information Value Date Recorded Sex Assigned at Not on file Legal Sex Male 7:22 PM EDT Gender Identity Not on file Sexual Orientation Not on file documented as of this encounter Plan of Treatment Upcoming Encounters Date Type Department Care Team (Late st Contact Info) Description 06/20/2025 1:30 PM EST Office Visit [facility] [address] [place] [address] Silvio Ott MD [address] [place] [address] documented as of this encounter Procedures Procedure Name Priority Date/Time Associated Diagnosis Comments XR FOOT LT MIN 3V 12/30/2023 1:1 1 PM EDT documented in this encounter Results * XR FOOT LT MIN 3V (12/30/2023 1:11 PM EDT) Anatomical Region Laterality Modality Other 12/30/2023 1:11 PM EDT Narrative 12/30/2023 1:14 PM EDT The [address] [address] XRay Report Signed Patient: MICAH FORBES MR#: [id number] : 1965 Acct:[id number] Age/Sex: 58 / M ADM Date: 12/30/23 Loc: EC Attending Dr: Chris Chery D.P.M. Ordering Physician: Chris Chery D.P.M. Date of Service: 12/30/23 Procedure(s): XR foot LT min 3V Accession Number(s): [id number] cc: Chris Chery D.P.M.; Silvio Ott M.D. The [address] [address] Patient Name: MICAH FORBES MRN: [id number] date: 1965 Sex: M Assigned Patient Location: EC Current Patient Location: Accession/Order Number: [id number] Exam Date: 12/30/2023 10:50 Report Date: 12/30/2023 13:11 At the request of: CHRIS CHERY Procedure: XR foot LT min 3V PROCEDURE: XR foot LT min 3V COMPARISON: 12/05/2023 HISTORY: LEFT FOOT PAIN FINDINGS: BONES:Stable intra-articular fracture along the base of the first metatarsal with 4 mm of lateral distraction best seen on image 2. No significant bone formation or bony bridging SOFT TISSUES:Negative. No visible soft tissue swelling. EFFUSION:None visible. OTHER: Negative. XR/XR foot LT min 3V IMPRESSION: Stable intra-articular fracture lateral base of the first metatarsal Electronically authenticated by: YAA ESTEBAN Date: 12/30/2023 13:11 Dictated By: Yaa Esteban M.D. Signed By: 12/30/23 1314 DD/ 1311 TD/TT: Community Service Officer: Procedure Note Radiology, Radiologist, MD - 12/30/2023 The [place] [id number] XRay Report Signed Patient: MICAH FORBES CMR#: [id number] : 1965Acct:[id number] Age/Sex: 58 / MADM Date: 12/30/23 Loc: EC Attending Dr: Chris Chery D.P.M. Ordering Physician: Chris Chery D.P.M. Date of Service: 12/30/23 Procedure(s): XR foot LT min 3V Accession Number(s): [id number] cc: Chris Chery D.P.M.; Silvio Ott M.D. The [place] [id number] Patient Name: MICAH FORBES MRN: [id number] date: 1965 Sex: M Assigned Patient Location: Current Patient Location: Accession/Order Number: [id number] Exam Date: 12/30/2023 10:50 Report Date: 12/30/2023 13:11 At the request of: CHRIS CHERY Procedure: XR foot LT min 3V PROCEDURE: XR foot LT min 3V COMPARISON: 12/05/2023 HISTORY: LEFT FOOT PAIN FINDINGS: BONES:Stable intra-articular fracture along the base of the firstmetatarsal with 4 mm of lateral distraction best seen on image 2. No significant bone formation or bony bridging SOFT TISSUES:Negative. No visible soft tissue swelling. EFFUSION:None visible. OTHER: Negative. XR/XR foot LT min 3V IMPRESSION: Stable intra-articular fracture lateral base of the first metatarsal Electronically authenticated by: YAA ESTEBAN Date: 12/30/2023 13:11 Dictated By: Yaa Esteban M.D. Signed By:12/30/23 1314 DD/ 1311 TD/TT: Community Service Officer: Generic External Data Provider [facility] Final Result documented in this encounter Visit Diagnoses Not on filedocumented in this encounter Care Teams Field Support Rep Relationship Specialty Start Date End Date Silvio Ott MD [address] [place] [address] PCP - General Family Medicine 10/07/23 Kaia Scherer, STEW [address] [place], [place] [id number] Registered Nurse Family Medicine 12/11/23 09/27/24 documented as of this encounter
--- OUTSIDE RECORDS SUMMARY | 2025-02-18 10:28 | XMS_ITS | Encounter Summary ---
Author Organization [facility] Address [address] [place] [address] Care Team Providers Care Forensic Engineer Name Role Phone Silvio Ott MD Primary Care Provider [phone] Kaia Scherer RN Unavailable [phone] Encounter Details Date Type Department Care Team (Late st Contact Info) Description 01/08/2024 Clinisync Result Encounter [facility] External Department Unsolicited [...] How often do you attend chur or mormonism services? 1 to 4 times per year 07/02/2023 Do you belong to any clubs o r organizations such as sikh groups, unions, fraternal or athletic groups, or [...] Recorded Patient Health Questionnaire-2 Score 0 10/07/2023 [facility] - Occupational Stress Questionnaire Answer Date Recorded [...] place to sleep or slept in a usp (including now)? No 07/02/2023 Sex and Gender Information Value Date Recorded Sex Assigned at Not on file Legal Sex Male 7:22 PM EDT Gender Identity Not on file Sexual Orientation Not on file documented as of this encounter Plan of Treatment Upcoming Encounters Date Type Department Care Team (Late st Contact Info) Description 06/20/2025 1:30 PM EST Office Visit [facility] [address] [place] [address] Silvio Ott MD [address] [place] [address] documented as of this encounter Procedures Procedure Name Priority Date/Time Associated Diagnosis Comments XR FOOT LT MIN 3V 01/08/2024 6:2 5 AM EDT documented in this encounter Results * XR FOOT LT MIN 3V (01/08/2024 6:25 AM EDT) Anatomical Region Laterality Modality Other 01/08/2024 6:25 AM EDT Narrative 01/08/2024 6:27 AM EDT The [address] [address] XRay Report Signed Patient: MICAH FORBES MR#: [id number] : 1965 Acct:[id number] Age/Sex: 58 / M ADM Date: 01/07/24 Loc: EC Attending Dr: Chris PaPElle Ordering Physician: Chris Chery D.P.M. Date of Service: 01/07/24 Procedure(s): XR foot LT min 3V Accession Number(s): [id number] cc: Chris Chery D.P.M.; Silvio Ott M.D. The [address] [address] Patient Name: MICAH FORBES MRN: [id number] date: 1965 Sex: M Assigned Patient Location: EC Current Patient Location: Accession/Order Number: [id number] Exam Date: 01/07/2024 10:50 Report Date: 01/08/2024 06:25 At the request of: CHRIS CHERY Procedure: XR foot LT min 3V PROCEDURE: XR foot LT min 3V HISTORY: LEFT FOOT PAIN ; follow-up first metatarsal fracture COMPARISON: XR foot left 12/30/2023 FINDINGS: BONES:Stable mildly displaced fracture involving plantar-lateral aspect of proximal first metatarsal with intra-articular extension. Slight increased density fracture line; no significant callus formation along the margins. SOFT TISSUES:No visible soft tissue swelling. EFFUSION:None visible. OTHER: Negative. XR/XR foot LT min 3V IMPRESSION: 1. Stable alignment and suspected changes of early bone healing involving first metatarsal fracture. Electronically authenticated by: YOGI MURPHY Date: 01/08/2024 06:25 Dictated By: Yogi Murphy M.D. Signed By: 01/08/24626 DD/ 4 TD/TT: Factory Manager: Procedure Note Radiology, Radiologist, MD - 01/08/2024 [place] [address] XRay Report Signed Patient: MICAH FORBES CMR#: [id number] : 1965Acct:[id number] Age/Sex: 58 / MADM Date: 01/07/24 Loc: EC Attending Dr: Chris Chery D.P.M. Ordering Physician: Chris Chery D.P.M. Date of Service: 01/07/24 Procedure(s): XR foot LT min 3V Accession Number(s): [id number] cc: Chris Chery D.P.M.; Silvio Ott M.D. The [place] [address] Patient Name: MICAH FORBES MRN: [id number] date: 1965 Sex: M Assigned Patient Location: Current Patient Location: Accession/Order Number: [id number] Exam Date: 01/07/2024 10:50 Report Date: 01/08/2024 06:25 At the request of: CHRIS CHERY Procedure: XR foot LT min 3V PROCEDURE: XR foot LT min 3V HISTORY: LEFT FOOT PAIN ; follow-up first metatarsal fracture COMPARISON: XR foot left 12/30/2023 FINDINGS: BONES:Stable mildly displaced fracture involving plantar-lateral aspect of proximal first metatarsal with intra-articular extension. Slight increased density fracture line; no significant callus formation along the margins. SOFT TISSUES:No visible soft tissue swelling. EFFUSION:None visible. OTHER: Negative. XR/XR foot LT min 3V IMPRESSION: 1. Stable alignment and suspected changes of early bone healing involving first metatarsal fracture. Electronically authenticated by: YOGI MURPHY Date: 01/08/2024 06:25 Dictated By: Yogi Murphy M.D. Signed By:01/08/24626 DD/ 4 TD/TT: Factory Manager: Generic External Data Provider [facility] Final Result documented in this encounter Visit Diagnoses Not on filedocumented in this encounter Care Teams Forensic Engineer Relationship Specialty Start Date End Date Silvio Ott MD [address] [place] [address] PCP - General Family Medicine 10/07/23 Kaia Scherer, RN [address] [place] [address] Registered Nurse Family Medicine 12/11/23 09/27/24 documented as of this encounter
--- OUTSIDE RECORDS SUMMARY | 2025-02-18 10:28 | XMS_ITS | Encounter Summary ---
Author Organization [facility] Address [address] [place] [address] Care Team Providers Care Tire Changer Aircraft Name Role Phone Silvio Ott MD Primary Care Provider [phone] Kaia Scherer RN Unavailable [phone] Encounter Details Date Type Department Care Team (Late st Contact Info) Description 01/14/2024 Clinisync Result Encounter [facility] External Department Unsolicited [...] How often do you attend chur or taoism services? 1 to 4 times per year 07/02/2023 Do you belong to any clubs o r organizations such as episcopalian groups, unions, fraternal or athletic groups, or [...] Recorded Patient Health Questionnaire-2 Score 0 10/07/2023 [facility] - Occupational Stress Questionnaire Answer Date [...] place to sleep or slept in a group home (including now)? No 07/02/2023 Sex and Gender Information Value Date Recorded Sex Assigned at Not on file Legal Sex Male 7:22 PM EDT Gender Identity Not on file Sexual Orientation Not on file documented as of this encounter Plan of Treatment Upcoming Encounters Date Type Department Care Team (Late st Contact Info) Description 06/20/2025 1:30 PM EST Office Visit [facility] [address] [place] [address] Silvio Ott MD [address] [place] [address] documented as of this encounter Procedures Procedure Name Priority Date/Time Associated Diagnosis Comments XR FOOT LT MIN 3V 01/14/2024 2:2 8 PM EDT documented in this encounter Results * XR FOOT LT MIN 3V (01/14/2024 2:28 PM EDT) Anatomical Region Laterality Modality Other 01/14/2024 2:28 PM EDT Narrative 01/14/2024 2:30 PM EDT The [address] [address] XRay Report Signed Patient: MICAH FORBES MR#: [id number] : 1965 Acct:[id number] Age/Sex: 58 / M ADM Date: 01/14/24 Loc: EC Attending Dr: Chris Chery D.P.M. Ordering Physician: Chris Chery D.P.M. Date of Service: 01/14/24 Procedure(s): XR foot LT min 3V Accession Number(s): [id number] cc: Chris Chery D.P.M.; Silvio Ott M.D. The [place] [address] Patient Name: MICAH FORBES MRN: [id number] date: 1965 Sex: M Assigned Patient Location: Current Patient Location: EC Accession/Order Number: [id number] Exam Date: 01/14/2024 13:35 Report Date: 01/14/2024 14:28 At the request of: CHRIS CHERY Procedure: XR foot LT min 3V PROCEDURE: XR foot LT min 3V COMPARISON: None. HISTORY: LEFT FOOT PAIN FINDINGS: BONES:Stable intra-articular fracture lateral base of the first metatarsal. Normal alignment of the second tarsometatarsal without evidence of a Lisfranc fracture. No significant bone formation. SOFT TISSUES:Negative. No visible soft tissue swelling. EFFUSION:None visible. OTHER: Negative. XR/XR foot LT min 3V IMPRESSION: Stable intra-articular fracture lateral base of first metatarsal Electronically authenticated by: YAA ESTEBAN Date: 01/14/2024 14:28 Dictated By: Yaa Esteban M.D. Signed By: 01/14/24 1430 DD/ 1428 TD/TT: Control And Recovery Special Tactics: Procedure Note Radiology, Radiologist, MD - 01/14/2024 [place] [address] XRay Report Signed Patient: MICAH FORBES CMR#: [id number] : 1965Acct:[id number] Age/Sex: 58 / MADM Date: 01/14/24 Loc: EC Attending Dr: Chris Chery D.P.M. Ordering Physician: Chris Chery D.P.M. Date of Service: 01/14/24 Procedure(s): XR foot LT min 3V Accession Number(s): [id number] cc: Chris Chery D.P.M.; Silvio Ott M.D. [address] [address] Patient Name: MICAH FORBES MRN: [id number] date: 1965 Sex: M Assigned Patient Location: Current Patient Location: Accession/Order Number: [id number] Exam Date: 01/14/2024 13:35 Report Date: 01/14/2024 14:28 At the request of: CHRIS CHERY Procedure: XR foot LT min 3V PROCEDURE: XR foot LT min 3V COMPARISON: None. HISTORY: LEFT FOOT PAIN FINDINGS: BONES:Stable intra-articular fracture lateral base of the firstmetatarsal. Normal alignment of the second tarsometatarsal without evidence of aLisfranc fracture. No significant bone formation. SOFT TISSUES:Negative. No visible soft tissue swelling. EFFUSION:None visible. OTHER: Negative. XR/XR foot LT min 3V IMPRESSION: Stable intra-articular fracture lateral base of first metatarsal Electronically authenticated by: YAA ESTEBAN Date: 01/14/2024 14:28 Dictated By: Yaa Esteban M.D. Signed By:01/14/24 1430 DD/ 1428 TD/TT: Control And Recovery Special Tactics: Generic External Data Provider [facility] Final Result documented in this encounter Visit Diagnoses Not on filedocumented in this encounter Care Teams Tire Changer Aircraft Relationship Specialty Start Date End Date Silvio Ott MD [address] [place] [address] PCP - General Family Medicine 10/07/23 Kaia Scherer, STEW [address] [place] [address] Registered Nurse Family Medicine 12/11/23 09/27/24 documented as of this encounter
--- OUTSIDE RECORDS SUMMARY | 2025-02-18 10:28 | XMS_ITS | Encounter Summary ---
Author Organization [facility] Address [address] [place] [address] Care Team Providers Care Advertising Sales Executive Name Role Phone Yoni Sotelo MD Unavailable Silvio Ott MD Primary Care Provider [phone] Source Comments In the event this information is protected by the Federal Confidentiality of Alcohol and Drug AbusePatient Records regulations: The Federal rules restrict any use of the information to criminally investigate or prosecute any alcohol or drug abuse patient.[facility] Encounter Details Date Type Department Care Team (Late st Contact Info) Description 04/24/2021 Patient Msg Neurology [address] [id number] Monae Lombardi PSS Headache consult Social History Tobacco Use Types Packs/Day Years Used Date Smoking Tobacco: Former Cigarettes 0.3 31 0 11/14/2020 - 02/04/2021 Smokeless Tobacco: Never Alcohol Use Standard Drinks/Week Comments Yes 0 (1 standard drink = 0.6 oz pure alcohol) 3 times a month per pt 03/02/2021 Area Deprivation Index Answer Date Moises rded National Score (1-100), lower number is lower ri sk Not on file 08/31/2020 State Score (1-10), lower number is lower risk N ot on file 08/31/2020 Data from: https://www.neighborhoodatlas.medicine.[facility]/. 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 No / Unsure 04/20/2021 11:01 AM EDT documented as of this encounter Functional Status * Are you deaf or do you have serious difficulty hearing? Answer Date of Assessment Author No 03/19/2021 3:54 PM EDT Everardo Fraire RN * Are you blind or do you have serious difficulty seeing, even when wearing glasses? Answer Date of Assessment Author No 03/19/2021 3:54 PM EDT Everardo Fraire RN * Do you have serious difficulty walking or climbing stairs? Answer Date of Assessment Author No 03/19/2021 3:54 PM EDT Everardo Fraire RN * Do you have difficulty dressing or bathing? Answer Date of Assessment Author No 03/19/2021 3:54 PM EDT Everardo Fraire RN * Because of a physical, mental, or emotional condition, do you have difficulty doing errands alone such as visiting a doctor's office or shopping? Answer Date of Assessment Author No 03/19/2021 3:54 PM EDT Everardo Fraire RN documented as of this encounter Mental Status * Because of a physical, mental, or emotional condition, do you have serious difficulty concentrating, remembering, or making decisions? Answer Entry Date Author No 03/19/2021 3:54 PM EDT Everardo Fraire RN documented in this encounter Plan of Treatment Not on file documented as of this encounter Visit Diagnoses Not on filedocumented in this encounter Care Teams Advertising Sales Executive Relationship Specialty Start Date End Date Silvio Ott MD [address] [place] [address] PCP - General Family Medicine 04/20/21 Yoni Sotelo MD [address] [address] [place] Referring Team Neurosurgery 08/22/20 documented as of this encounter
--- OUTSIDE RECORDS SUMMARY | 2025-02-18 10:28 | XMS_ITS | Encounter Summary ---
Author Organization [facility] Address [address] [facility] [place] [address] Care Team Providers Care Dental Hygiene Teacher Name Role Phone Silvio Ott MD Primary Care Provider [phone] Kaia Scherer RN Unavailable [phone] Encounter Details Date Type Department Care Team (Late st Contact Info) Description 10/23/2023 Orders Only [facility] [address] [place] [phone] Jovan Ash MD [address] [facility] Social History Tobacco Use Types Packs/Day Years [...] How often do you attend chur or adventist services? 1 to 4 times per year 07/02/2023 Do you belong to any clubs o r organizations such as mandaen groups, unions, fraternal or athletic groups, or [...] Recorded Patient Health Questionnaire-2 Score 0 10/07/2023 [facility] Occupational Stress Questionnaire Answer Date Recorded [...] place to sleep or slept in a fdc (including now)? No 07/02/2023 Sex and Gender Information Value Date Recorded Sex Assigned at Not on file Legal Sex Male 7:22 PM EDT Gender Identity Not on file Sexual Orientation Not on file documented as of this encounter Plan of Treatment Upcoming Encounters Date Type Department Care Team (Late st Contact Info) Description 06/20/2025 1:30 PM EST [facility] [address] [place] [address] Silvio Ott MD [address] [place] [address] documented as of this encounter Procedures Procedure Name Priority Date/Time Associated Diagnosis Comments XR HIP 2-3 VIEWS LT WO OR W PELVIS Routine 10/23/2023 2:04 PM EDT XR SHOULDER 1 VIEW RIGHT Routine 10/23/2023 2:02 PM EDT documented in this encounter Results * XR HIP 2-3 VIEWS LT WO OR W PELVIS (10/23/2023 2:04 PM EDT) Anatomical Region Laterality Modality Radiographic Robyn ging Jovan Ash MD IMG XR PROCEDURES Final Result * XR shoulder 1 view right (10/23/2023 2:02 PM EDT) Anatomical Region Laterality Modality Upper Extremities, Shoulder Right Radi ographic Imaging us Jovan Ash MD IMG XR PROCEDURES Final Result documented in this encounter Visit Diagnoses Not on filedocumented in this encounter Care Teams Dental Hygiene Teacher Relationship Specialty Start Date End Date Silvio Ott MD [address] [place] [address] PCP - General Family Medicine 10/07/23 Kaia Scherer, STEW [address] [place] [address] Registered Nurse Family Medicine 12/11/23 09/27/24 documented as of this encounter
--- OUTSIDE RECORDS SUMMARY | 2025-02-18 10:28 | XMS_ITS | Encounter Summary ---
Author Organization [facility] Address [address] [place] [address] Care Team Providers Care Fuel Yard Operator Name Role Phone Silvio Ott MD Primary Care Provider [phone] Kaia Scherer RN Unavailable [phone] Encounter Details Date Type Department Care Team (Late st Contact Info) Description 12/08/2023 Clinisync Result Encounter [facility] External Department Unsolicited [...] How often do you attend chur or mormon services? 1 to 4 times per year 07/02/2023 Do you belong to any clubs o r organizations such as alevism groups, unions, fraternal or athletic groups, or [...] Recorded Patient Health Questionnaire-2 Score 0 10/07/2023 [facility] - Occupational Stress Questionnaire Answer Date Recorded [...] place to sleep or slept in a nursing home (including now)? No 07/02/2023 Sex and Gender Information Value Date Recorded Sex Assigned at Not on file Legal Sex Male 7:22 PM EDT Gender Identity Not on file Sexual Orientation Not on file documented as of this encounter Plan of Treatment Upcoming Encounters Date Type Department Care Team (Late st Contact Info) Description 06/20/2025 1:30 PM EST Office Visit [facility] [address] [place] [address] Silvio Ott MD [address] [place] [address] documented as of this encounter Procedures Procedure Name Priority Date/Time Associated Diagnosis Comments XR FOOT LT MIN 3V 12/08/2023 7:1 5 AM EDT documented in this encounter Results * XR FOOT LT MIN 3V (12/08/2023 7:15 AM EDT) Anatomical Region Laterality Modality Other 12/08/2023 7:15 AM EDT Narrative 12/08/2023 7:18 AM EDT The [address] [address] XRay Report Signed Patient: MICAH FORBES MR#: [id number] : 1965 Acct:[id number] Age/Sex: 58 / M ADM Date: 12/05/23 Loc: [facility] Attending Dr: Chris Chery D.P.M. Ordering Physician: Chris Chery D.P.M. Date of Service: 12/05/23 Procedure(s): XR foot LT min 3V Accession Number(s): [id number] cc: Chris Chery D.P.M.; Silvio Ott M.D. The [place] [address] Patient Name: MICAH FORBES MRN: [id number] date: 1965 Sex: M Assigned Patient Location: EC Current Patient Location: Accession/Order Number: [id number] Exam Date: 12/05/2023 09:29 Report Date: 12/08/2023 07:15 At the request of: CHRIS CHERY Procedure: XR foot LT min 3V PROCEDURE: XR foot LT min 3V HISTORY: LEFT FOOT PAIN COMPARISON: XR foot left 11/27/2023 FINDINGS: BONES:Stable mildly displaced base of first metatarsal fracture with intra-articular extension. No appreciable callus formation or increased density of the fracture line. SOFT TISSUES:Mild dorsal soft tissue swelling. EFFUSION:None visible. OTHER: Negative. XR/XR foot LT min 3V IMPRESSION: 1. Stable mildly displaced base of 5th metatarsal fracture with intra-articular extension. No radiographic evidence of early bone healing at this time. Electronically authenticated by: YOGI MURPHY Date: 12/08/2023 07:15 Dictated By: Yogi Murphy M.D. Signed By: 12/08/23717 DD/ TD/TT: Brick Machine Operator: Procedure Note Radiology, Radiologist, MD - 12/08/2023 [place] [address] XRay Report Signed Patient: MICAH FORBES CMR#: [id number] : 1965Acct:[id number] Age/Sex: 58 / MADM Date: 12/05/23 Loc: [facility] Attending Dr: Chris Chery D.P.M. Ordering Physician: Chris Chery D.P.M. Date of Service: 12/05/23 Procedure(s): XR foot LT min 3V Accession Number(s): [id number] cc: Chris Chery D.P.M.; Silvio Ott M.D. The [place] [address] Patient Name: MICAH FORBES MRN: [id number] date: 1965 Sex: M Assigned Patient Location: Current Patient Location: Accession/Order Number: [id number] Exam Date: 12/05/2023 09:29 Report Date: 12/08/2023 07:15 At the request of: CHRIS CHERY Procedure: XR foot LT min 3V PROCEDURE: XR foot LT min 3V HISTORY: LEFT FOOT PAIN COMPARISON: XR foot left 11/27/2023 FINDINGS: BONES:Stable mildly displaced base of first metatarsal fracture with intra-articular extension. No appreciable callus formation or increased density of the fracture line. SOFT TISSUES:Mild dorsal soft tissue swelling. EFFUSION:None visible. OTHER: Negative. XR/XR foot LT min 3V IMPRESSION: 1. Stable mildly displaced base of 5th metatarsal fracture with intra-articular extension. No radiographic evidence of early bone healing at this time. Electronically authenticated by: YOGI MURPHY Date: 12/08/2023 07:15 Dictated By: Yogi Murphy M.D. Signed By:12/08/23717 DD/ 4 TD/TT: Brick Machine Operator: us Generic External Data Provider [facility] Final Result documented in this encounter Visit Diagnoses Not on filedocumented in this encounter Care Teams Fuel Yard Operator Relationship Specialty Start Date End Date Silvio Ott MD [address] [place] [address] PCP - General Family Medicine 10/07/23 Kaia Scherer, STEW [address] [place] [address] Registered Nurse Family Medicine 12/11/23 09/27/24 documented as of this encounter
--- OUTSIDE RECORDS SUMMARY | 2025-02-18 10:28 | XMS_ITS | Encounter Summary ---
Author Organization [facility] Address [address] [place] [address] Care Team Providers Care Precision Agriculture Specialist Name Role Phone Silvio Ott MD Primary Care Provider [phone] Kaia Scherer RN Unavailable [phone] Encounter Details Date Type Department Care Team (Late st Contact Info) Description 02/05/2024 Abstract [facility] [address] [place] [phone] Reta Whitaker, SIFTING OPERATOR [address] [place] [address] Social History Tobacco Use Types Packs/Day Years [...] How often do you attend chur or gnosticist services? 1 to 4 times per year 07/02/2023 Do you belong to any clubs o r organizations such as baptist groups, unions, fraternal or athletic groups, or [...] Questionnaire-2 Score 0 10/07/2023 [facility] Occupat ional Health - Occupational Stress Questionnaire Answer [...] place to sleep or slept in a longterm (including now)? No 07/02/2023 Sex and Gender Information Value Date Recorded Sex Assigned at Not on file Legal Sex Male 7:22 PM EDT Gender Identity Not on file Sexual Orientation Not on file documented as of this encounter Plan of Treatment Upcoming Encounters Date Type Department Care Team (Late st Contact Info) Description 06/20/2025 1:30 PM EST Office Visit [facility] [address] [place] [address] Sivlio Ott MD [address] [place] [address] documented as of this encounter Visit Diagnoses Not on filedocumented in this encounter Care Teams Precision Agriculture Specialist Relationship Specialty Start Date End Date Silvio Ott MD [address] [place] [address] PCP - General Family Medicine 10/07/23 Kaia Scherer, STEW [address] [place] [phone] Registered Nurse Family Medicine 12/11/23 09/27/24 documented as of this encounter
--- OUTSIDE RECORDS SUMMARY | 2025-02-18 10:28 | XMS_ITS | Encounter Summary ---
Author Organization [facility] Address [address] [place] [address] Care Team Providers Care Floor Specialist Name Role Phone Silvio Ott MD Primary Care Provider [phone] Kaia Scherer RN Unavailable [phone] Encounter Details Date Type Department Care Team (Late st Contact Info) Description 10/09/2023 Orders Only [facility] [address] [place] [address] Silvio Ott MD [address] [place] [address] Social History Tobacco Use Types Packs/Day Years [...] 07/02/2023 How often do you attend chur ch or sabianism services? 1 to 4 times per year 07/02/2023 Do you belong to any clubs o r organizations such as pentecostal groups, unions, fraternal or athletic groups, or [...] Recorded Patient Health Questionnaire-2 Score 0 10/07/2023 [facility] - Occupational Stress Questionnaire Answer Date [...] place to sleep or slept in a long-term (including now)? No 07/02/2023 Sex and Gender [...] Office Visit [facility] [address] [place] [address] Silvio Ott MD [address] [place] [address] documented as of this encounter Procedures Procedure Name Priority Date/Time Associated Diagnosis Comments ECG 12-LEAD Routine 10/09/2023 6:47 AM EDT documented in this encounter Results * ECG 12 lead (10/09/2023 6:47 AM EDT) Silvio Ott MD ECG ORDERABLES Final Result documented in this encounter Visit Diagnoses Not on filedocumented in this encounter Care Teams Floor Specialist Relationship Specialty Start Date End Date Silvio Ott MD [address] [place] [address] PCP - General Family Medicine 10/07/23 Kaia Scherer, RN [address] [place] [address] Registered Nurse Family Medicine 12/11/23 09/27/24 documented as of this encounter
--- OUTSIDE RECORDS SUMMARY | 2025-02-18 10:28 | XMS_ITS | Encounter Summary ---
Author Organization [facility] Address [address] [place] [address] Care Team Providers Care Dictating Machine Transcriber Name Role Phone Silvio Ott MD Primary Care Provider [phone] Kaia Scherer RN Unavailable [phone] Encounter Details Date Type Department Care Team (Late st Contact Info) Description 10/08/2023 Orders Only [facility] [address] [phone] Jose Ramon Olivarez MD [address] [place], [place] [phone] Social History Tobacco Use Types Packs/Day Years [...] often do you attend chur ch or baptist services? 1 to 4 times per year 07/02/2023 Do you belong to any clubs o r organizations such as sikhism groups, unions, fraternal or athletic groups, or [...] Recorded Patient Health Questionnaire-2 Score 0 10/07/2023 [facility] Occupat ional [facility] - Occupational Stress Questionnaire Answer Date [...] place to sleep or slept in a care home (including now)? No 07/02/2023 Sex and [...] Office Visit [facility] [address] [place] [address] Silvio Ott MD [address] [place] [address] documented as of this encounter Procedures Procedure Name Priority Date/Time Associated Diagnosis Comments XR CHEST 1 VIEW Routine 10/08/2023 7:35 AM EDT documented in this encounter Results * XR chest 1 view (10/08/2023 7:35 AM EDT) Anatomical Region Laterality Modality Chest Radiographic Robyn ging Jose Ramon Olivarez MD IMG XR PROCEDURES Final Resul t documented in this encounter Visit Diagnoses Not on filedocumented in this encounter Care Teams Dictating Machine Transcriber Relationship Specialty Start Date End Date Silvio Ott MD [address] [place] [address] PCP - General Family Medicine 10/07/23 Kaia Scherer, RN [address] [place] [address] Registered Nurse Family Medicine 12/11/23 09/27/24 documented as of this encounter
--- OUTSIDE RECORDS SUMMARY | 2025-02-18 10:29 | XMS_ITS | Encounter Summary ---
Author Organization [facility] Address [address] [place] [address] Care Team Providers Care Rug Shampooer Name Role Phone Marie Peralta DO Primary Care Provider [phone] Yoni Sotelo MD Unavailable Silvio Ott MD Primary Care Provider [phone] Source Comments In the event this information is protected by the Federal Confidentiality of Alcohol and Drug AbusePatient Records regulations: The Federal rules restrict any use of the information to criminally investigate or prosecute any alcohol or drug abuse patient.[facility] Encounter Details Date Type Department Care Team (Late st Contact Info) Description 11/26/2020 Get Medical Advice [facility] [place] [address] [place] [address] Sharita Casillas PA-C [address] [place] [address] RE: Non-Urgent Medical Question Social History Tobacco Use Types Packs/Day Years Used Date Smoking Tobacco: Former Cigarettes 0.3 31 S tarted: 11/14/2020 Smokeless Tobacco: Never Comments:5 CIGARETTES A DAY Alcohol Use Standard Drinks/Week Comments No 0 (1 standard drink = 0.6 oz pur e alcohol) Area Deprivation Index Answer Date Moises rded National Score (1-100), lower number is lower ri sk Not on file 08/31/2020 State Score (1-10), lower number is lower risk N ot on file 08/31/2020 Data from: https://www.neighborhoodatlas.medicine.[facility].edu/. 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 No / Unsure 11/17/2020 10:30 AM EDT documented as of this encounter Functional Status * Are you deaf or do you have serious difficulty hearing? Answer Date of Assessment Author No 07/15/2014 12:53 PM Mary Anne Bailon LPN * Are you blind or do you have serious difficulty seeing, even when wearing glasses? Answer Date of Assessment Author No 07/15/2014 12:53 PM Mary Anne Bailon LPN * Do you have serious difficulty walking or climbing stairs? Answer Date of Assessment Author Yes 07/15/2014 12:53 PM Mary Anne Bailon LPN * Do you have difficulty dressing or bathing? Answer Date of Assessment Author Yes 07/15/2014 12:53 PM Mary Anne Bailon LPN * Because of a physical, mental, or emotional condition, do you have difficulty doing errands alone such as visiting a doctor's office or shopping? Answer Date of Assessment Author Yes 07/15/2014 12:53 PM Mary Anne Bailon LPN documented as of this encounter Mental Status * Because of a physical, mental, or emotional condition, do you have serious difficulty concentrating, remembering, or making decisions? Answer Entry Date Author Yes 07/15/2014 12:53 PM Mary Anne Bailon LPN documented in this encounter Plan of Treatment Not on file documented as of this encounter Visit Diagnoses Not on filedocumented in this encounter Care Teams Rug Shampooer Relationship Specialty Start Date End Date Marie Peralta DO PCP - General Family Medicine 01/12/14 04/19/21 Silvio Ott MD [address] [place] [address] PCP - General Family Medicine 04/20/21 Yoni Sotelo MD [address] [place] [address] NI Referring Team Neurosurgery 08/22/20 documented as of this encounter
--- OUTSIDE RECORDS SUMMARY | 2025-02-18 10:29 | XMS_ITS | Clinical Summary ---
Author Organization [facility] Address [address] [place] [address] Care Team Providers Care Expeditionary Fighting Vehicle Crewman Name Role Phone Silvio Ott MD Primary Care Provider [phone] Allergies No known active allergies Medications Glucose Blood (Blood Glucose Test) stripIndications :Type 2 diabetes mellitus with hyperglycemia, unspecified whether laborer marine terminal insulin use ([facility]) 1 strip by In Vitro route Daily 100 strip 02/06/20 24 Active OneTouch Delica Lancets 33G miscIndications: Type 2 diabetes mellitus with hyperglycemia, unspecified whether chcf insulin use ([facility]) 1 Lancet Daily 100 each 3 02/26/20 24 Active amLODIPine (Norvasc) 10 MG tabletIndication s:Benign essential hypertension Take 1 tablet (10 mg) by mouth Daily 90 tablet 3 04/12/20 24 Active glipiZIDE (Glucotrol) 10 MG tabletIndication s:Type 2 diabetes mellitus with hyperglycemia, without long-term current use of insulin ([facility]) Take 1 tablet (10 mg) by mouth in the morning and 1 tablet (10 mg) in the evening. Take before meals. 60 tablet 5 11/10/19 25 Active losartan (Cozaar) 100 MG tabletIndication s:Primary hypertension Take 1 tablet (100 mg) by mouth Daily 90 tablet 3 11/25/19 25 Active QUEtiapine (SEROquel) 50 MG tabletIndication s:Primary hypertension,Mod erate COPD (chronic obstructive pulmonary disease) (HCC),ETHAN (generalized anxiety disorder) Take 1 tablet (50 mg) by mouth at bedtime 30 tablet 5 12/14/19 25 Active ALPRAZolam (Xanax) 1 MG tabletIndication s:ETHAN (generalized anxiety disorder) Take 1 tablet (1 mg) by mouth 3 (three) times a day as needed for anxiety 90 tablet 1 01/12/20 25 025 Active atorvastatin (Lipitor) 40 MG tabletIndication s:Dyslipidemia Take 1 tablet (40 mg) by mouth at bedtime 30 tablet 5 01/12/20 25 Active metFORMIN (Glucophage) 850 MG tabletIndication s:Type 2 diabetes mellitus with hyperglycemia, without long-term current use of insulin (HCC) Take 1 tablet (850 mg) by mouth in the morning and 1 tablet (850 mg) in the evening. Take with meals. 60 tablet 5 01/12/20 25 Active methocarbamol (Robaxin) 750 MG tabletIndication s:Spondylosis of cervical spine Take 1 tablet (750 mg) by mouth 4 (four) times a day as needed for muscle spasms 120 tablet 5 01/12/20 25 Active celecoxib (CeleBREX) 200 MG capsuleIndicatio ns:Arthralgia, unspecified joint Take 1 capsule (200 mg) by mouth in the morning and 1 capsule (200 mg) before bedtime. Take with food. 60 capsule 3 02/04/20 25 Active gabapentin (Neurontin) 800 MG tabletIndication s:Spondylosis of cervical spine Take 1 tablet (800 mg) by mouth in the morning and 1 tablet (800 mg) in the evening and 1 tablet (800 mg) before bedtime. 90 tablet 2 02/15/20 25 025 Active Blood Glucose Monitoring Suppl (Blood Glucose Monitor System) w/Device kitIndications:T ype 2 diabetes mellitus with hyperglycemia, unspecified whether laborer marine terminal insulin use (HCC) Use for monitoring of diabetes. Dispense brand covered by pt insurance 1 kit 01/29/20 24 025 gabapentin (Neurontin) 800 MG tabletIndication s:Spondylosis of cervical spine Take 1 tablet (800 mg) by mouth in the morning and 1 tablet (800 mg) in the evening and 1 tablet (800 mg) before bedtime. 90 tablet 2 01/12/20 25 025 Discontinu ed(Reorder ) Active Problems Problem Noted Date Diagnosed Date Arthralgia 02/03/2025 Assessment & Plan (02/03/2025 3:26 PM EDT): Pain all over and likely OA. Start celebrex. Check labs. Medicare annual wellness visit, subsequent 06/15 Assessment & Plan (06/15/2024 1:31 PM EST): Reviewed labs. Discussed proper diet and regular aerobic exercise. Need aerobic exercise 5-6 days a week for 30 minutes at a time. Smaller portions and limit total calories. Colonoscopy every 10 years. Tetanus every 10 years. Advised not to smoke. Discussed daily Aspirin therapy. Type 2 diabetes mellitus wit h hyperglycemia, without long-term current use of insulin 12/16/2023 Assessment & Plan (02/03/2025 3:27 PM EDT): Reports BS controlled and due for A1C. Stick to ADA diet and limit carbs. Assessment & Plan (04/12/2024 3:27 PM EDT): Reports BS controlled and due for A1C. Stick to ADA diet and limit carbs. Assessment & Plan (12/16/2023 1:55 PM EDT): Reports BS controlled and due for A1C. Stick to ADA diet and limit carbs. MDD (major depressive disorder), recurrent episo de, mild 12/16/2023 Assessment & Plan (02/03/2025 3:27 PM EDT): Symptoms stable with medication and continue. Assessment & Plan (04/12/2024 3:26 PM EDT): Symptoms stable with medication and continue. Assessment & Plan (12/16/2023 1:53 PM EDT): Symptoms stable with medication and continue. Primary insomnia 12/16/2023 Assessment & Plan (02/03/2025 3:27 PM EDT): Sleeping well with seroquel and continue. Assessment & Plan (04/12/2024 3:27 PM EDT): Sleeping well with seroquel and continue. Assessment & Plan (12/16/2023 1:54 PM EDT): Sleeping well with seroquel and continue. Encounter for long-term current use of medicatio n 12/16/2023 Screening PSA (prostate specific antigen) 2023 Dyslipidemia 12/16/2023 Adjustment disorder with anxiety 07/02/2023 Acquired spondylolisthesis 07/02/2023 Arthritis 07/02/2023 Polyneuropathy due to type 2 diabetes mellitus 1 09/02/2022 Assessment & Plan (02/03/2025 3:27 PM EDT): Neuropathy stable with gabapentin and continue. Assessment & Plan (04/12/2024 3:27 PM EDT): Neuropathy stable with gabapentin and continue. Assessment & Plan (12/16/2023 1:54 PM EDT): Neuropathy stable with gabapentin and continue. Moderate COPD (chronic obstructive pulmonary dis ease) 07/02/2023 Assessment & Plan (02/03/2025 3:27 PM EDT): Breathing stable and use albuterol PRN. Stressed need to stop smoking. Assessment & Plan (04/12/2024 3:26 PM EDT): Breathing stable and use albuterol PRN. Stressed need to stop smoking. Assessment & Plan (12/16/2023 1:54 PM EDT): Breathing stable and use albuterol PRN. Stressed need to stop smoking. Assessment & Plan (07/02/2023 3:53 PM EST): Chronic smoker, was seen last appt for chronic cough. He reports mild BRUNSON also. PFTs ordered - c/w mod obstructive lung disease. Discussed COPD, provided necessary education. Trial of Spiriva. Patient counseled and educated on adverse effects, drug interactions and to reach out to office/pharmacy if questions or concerns related to new medications. Will also call in Ventolin to be used as needed. Tobacco dependency 07/02/2023 Assessment & Plan (07/02/2023 3:54 PM EST): Patient counseled on smoking/tobacco cessation. Patient educated on harmful effects of smoking cigarettes/tobacco including increased risk of cardiovascular diseases, chronic lung disease and multiple cancers. Patient was educated and informed of different behavioral and therapeutic interventions that can help with smoking/tobacco use. Patient's questions/concerns were addressed and answered related to therapeutic options. Patient was offered help and encouraged to reach out to provider if/when they are ready to quit. A total of over 3 minutes and up to 10 minutes were spent on Smoking/Tobacco use counseling. Started patient on Nicotine patches, nicotine gums. ETHAN (generalized anxiety disorder) 06/13/2023 Assessment & Plan (02/03/2025 3:27 PM EDT): Symptoms stable with medication and continue. Use xanax PRN. Assessment & Plan (04/12/2024 3:26 PM EDT): Symptoms stable with medication and continue. Use xanax PRN. Assessment & Plan (12/16/2023 1:53 PM EDT): Symptoms stable with medication and continue. Use xanax PRN. Chronic migraine without aur a, intractable, with status migrainosus 06/21/2021 Cigarette smoker 03/16/2021 Overview (10/07/2023): Last Assessment & Plan: Assessment: Hx of cigarette smoking, and intermittent use of other nicotine containing substances PLAN: -Discussed again the importance of abstaining from nicotine in the postoperative period to aid in fusion healing. -Urine nicotine metabolites pending. -Monitor: signs, symptoms, disease progression, disease regression. Assessment & Plan (02/03/2025 3:27 PM EDT): Continues to smoke and over 30 pack year history. Check LDCT. Benign essential hypertension 03/02/2021 Overview (07/02/2023): Last Assessment & Plan: Assessment: HTN PLAN: -Continue home Noravsc 10 mg PO daily. -Continue home lisinopril 40 mg PO daily. -Monitor: signs, symptoms, disease progression, disease regression. -Evaluate: test results, medication effectiveness, response to treatment. Assessment & Plan (02/03/2025 3:27 PM EDT): BP controlled and monitor PRN. Assessment & Plan (04/12/2024 3:26 PM EDT): BP controlled and monitor PRN. Assessment & Plan (12/16/2023 1:54 PM EDT): BP controlled and monitor PRN. Assessment & Plan (07/02/2023 3:52 PM EST): Patient was seen last appointment for chronic cough. His Lisinopril was discontinued because of it. He was switched to Losartan. He tolerated it well w/o adverse effects. Reviewed BP, at goal. C/w losartan 100 mg daily. C/w Norvasc 10 mg daily. Atherosclerosis of [place] co ronary artery of [place] heart without angina pectoris 05/24/2020 S/P cervical spinal fusion 07/15/2014 Spondylosis of cervical spine 03/30/2013 Resolved Problems Problem Noted Date Diagnosed Date Resolved Date COPD with acute exacerbation 10/07/2023 12/16/2023 Assessment & Plan (10/07/2023 3:04 PM EDT): Patient presents with cough, wheezing and SOB x 2 weeks. During exam, he appeared short of breath, had severe coughing spells to a point where he looked like he was going to pass out. His partner reported that he has been acting confused intermittently also. His pulse Ox was borderline 88--92 % on RA. He has generalized wheezing on exam and looked tired and ill. I instructed the patient to go to ED for COPD exacerbation as I felt he will need acute treatment of his symptoms, and possibly overnight observation for his acute illness. I answered relevant questions. I feel it is safe for him to go via car. He is agreeable but reluctantly and will go to ED. Hypertriglyceridemia 07/02/2023 024 Encounters Date Type Department Care Team Description 02/14/2025 Refill [facility] [address] [place] [address] Silvio Ott MD Spondylosis of cervical spine 02/03/2025 3:00 PM EDT Office Visit [facility] [address] [place] [address] Silvio Ott MD Type 2 diabetes mellitus with hyperglycemia, without long-term current use of insulin (HCC) (Primary Dx); Benign essential hypertension ; Moderate COPD (chronic obstructive pulmonary disease) ([facility]); MDD (major depressive disorder), recurrent episode, mild ; ETHAN (generalized anxiety disorder) ; Primary insomnia; Polyneuropathy due to type 2 diabetes mellitus ([facility]); Arthralgia, unspecified joint; Encounter for long-term current use of medication; Dyslipidemia ; Screening PSA (prostate specific antigen); Fatigue, unspecified type; Cigarette smoker 02/03/2025 Bamboo flowsheet [facility] [address] [place] [id number] Silvio Ott MD 01/11/2025 Refill [facility] [address] [address] Silvio Ott MD ETHAN (generalized anxiety disorder) ; Spondylosis of cervical spine; Dyslipidemia ; Type 2 diabetes mellitus with hyperglycemia, without long-term current use of insulin ([facility]) 12/14/2024 Refill [facility] [address] [place] [address] Silvio Ott MD Spondylosis of cervical spine 12/13/2024 Refill [facility] [address] [address] Silvio Ott MD Primary hypertension ; Moderate COPD (chronic obstructive pulmonary disease) (HCC); ETHAN (generalized anxiety disorder) 11/24/2024 Refill [facility] [address] [address] Silvio Ott MD Primary hypertension 11/18/2024 Refill [facility] [address] [place] [phone] Silvio Ott MD ETHAN (generalized anxiety disorder) from Last 3 Months Immunizations Immunization Administration Dates Next Due Influenza, injectable, quadrivalent 05/07/2017 Influenza, recombinant, quad rivalent, injectable, preservative free 03/20/2023 Influenza, seasonal, injectable, preservative fr ee 05/14/2017 Zoster, Recombinant 03/20/2023 Family History Medical History Relation Name Comments Hypertension Brother Cancer Father Colon cancer Cancer Mother Kidney failure Mother Relation Name Status Comments Brother Alive Father Mother Social History Tobacco Use Types Packs/Day Years Used Date Smoking Tobacco: Every Day Cigarettes 1 30 Passive Smoke Exposure: Current Smokeless Tobacco: Never Tobacco Cessation:Ready to Q uit: Not Asked; Counseling Given: Not Answered Comments:*Current smoker ,frequency unknown 5 or less cigarettes Alcohol Use [...] friends, or neighbors? Twice a week 07/02/20 23 How often do you get togethe r with friends or relatives? Twice a week 07/02/2023 How often do you attend [facility] or jainism services? 1 to 4 times per year 07/02/2023 Do you belong to any clubs o r organizations such as buddhist groups, unions, fraternal or athletic groups, or [...] Date Recorded Patient Health Questionnaire-2 Score 0 06/15/2024 [facility] - Occupational Stress Questionnaire Answer Date [...] place to sleep or slept in a fpc (including now)? No 07/02/2023 Sex and Gender Information Value Date Recorded Sex Assigned at Not on file Legal Sex Male 7:22 PM EDT Gender Identity Not on file Sexual Orientation Not on file Last Filed Vital Signs Vital Sign Reading Time Taken Comments Blood Pressure 128/72 02/03/2025 2:52 PM EDT Pulse 85 02/03/2025 2:52 PM EDT Temperature 36.6 C (97.8 F) 02/03/2025 2:52 PM EDT Respiratory Rate 18 02/03/2025 2:52 PM EDT Oxygen Saturation 91% 02/03/2025 2:52 PM EDT Inhaled Oxygen Concentration - - Weight 88 kg (194 lb) 02/03/2025 2:52 PM EDT Height 172.7 cm (5' 8 ) 02/03/2025 2:52 PM EDT Body Mass Index 29.5 02/03/2025 2:52 PM EDT Plan of Treatment Upcoming Encounters Date Type Department Care Team (Late st Contact Info) Description 06/20/2025 1:30 PM EST Office Visit [facility] [address] [place] [address] Silvio Ott MD [address] [place] [address] Health Maintenance Due Date Last Done Comments CT Colonography 1965 FIT 1965 FOBT 1965 Lung Cancer Screening Shared Decision Making 1965 Sigmoidoscopy 1965 FIT-DNA 02/16/2022 02/16/2019, 02/16/2019 Diabetes: Retinopathy Screening 03/24/2022 0, 05/26/2018 Diabetes: Hemoglobin A1C 11/19/2024 024, 12/24/2023, 05/30/2021, Additional history exists Diabetes: Urine Protein Screening 12/23/2024 024 Influenza Vaccine (#1) 2025 , 05/14/2017, 05/07/2017 Medicare Annual Wellness (AWV) 06/15/2025 06/15/2024 Colonoscopy 10/10/2032 10/10/2022 Colorectal Cancer Screening 10/10/2032 Procedures Procedure Name Priority Date/Time Associated Diagnosis Comments HEMOGLOBIN A1C Routine 05/30/2021 12:00 PM EST LAB COLOGUARD COLON CANCER SCREEN Routine 02/16/2019 COLOR FUNDUS PHOTOGRAPHY - OU - BOTH EYES Routine 05/26/2018 12:00 PM EST from Last 3 Months or Most Recently Relevant to Health Maintenance Results * Hemoglobin A1c (05/30/2021 12:00 PM EST) A1C 6.3 [facility] 05/30/2021 12:0 0 PM EST Augusto Jacobs MD LAB BLOOD ORDERABLES Final Resul t [facility] * Cologuard?? colon cancer screening (02/16/2019) COLOGUARD RESULT REPORTABLE Negative Not Applicable [facility] Comment: A negative result indicates a low likelihood that a colorectal cancer (CRC) or an advanced adenoma (adenomatous polyps with more advanced pre-malignant features) is present. The chance that a person with a negative Cologuard test has a colorectal cancer is less than 1 in 1500 (negative predictive value >99.9%) or has an advanced adenoma is less than 5.3% (negative predictive value 94.7%). These data are based on a prospective cross-sectional screening study of 10,000 individuals at average risk for colorectal cancer who were screened with both Cologuard and colonoscopy. (Savannah Mccray al, N Engl J Med 2014;370(14):8739-2271) COLOGUARD RE-SCREENING RECOMMENDATION: Periodic routine colorectal cancer screening is an important part of preventive healthcare for asymptomatic persons at average risk for colorectal cancer. Following a negative Cologuard result, the [place] [employer] and U.S. Multi-Society Task Force screening guidelines recommend a Cologuard re-screening interval of 3 years. References: [place] [employer] (ACS). Colorectal cancer prevention and early detection. [place], [place]: [place]; [updated 2015Oct 28]. https://www.cancer.org/cancer/bdnyd-mfhxiv-vadltz/rauawogvt-qnxnilhov-wsxqvlx/ac s-rec ommendations.html. Accessed March 06, 2018; Vasu DK, Deon CR, Radha NashK, Colorectal Cancer Screening: Recommendations for Physicians and Patients from the U.S. Multi-Society Task Force on Colorectal Cancer Screening, Am J Gastroenterology 2017; 112:0816-0877. Test Type: Composite algorithmic analysis of stool DNA-biomarkers with hemoglobin immunoassay. Quantitative values of individual biomarkers are not reportable and are not associated with individual biomarker result reference ranges. Precautions and Limitations: Cologuard is intended for colorectal cancer screening of adults of either sex, 50 years or older, who are at typical average-risk for colorectal cancer. A negative Cologuard test result does not guarantee the absence of co lorectal cancer or advanced adenoma (pre-cancer). Patients with a negative Cologuard test result should be advised to continue participating in a colorectal cancer screening program. Cologuard may produce a positive result, even though a colonoscopy may not find colorectal cancer or precancerous polyps. The performance of Cologuard has been established in a cross sectional study (i.e., single point in time). Performance has not been evaluated in adults who have been previously tested with Cologuard or in patients less than 50 years of age. Cologuard has been approved for use by the U.S. FDA. Cologuard performance data in a 10,000 patient pivotal study using colonoscopy as the reference method can be accessed at the following location: www.[employer]/results. Additional description of the Cologuard test process, warnings and precautions can be found at www.cologuardtest.com. Rx Only. 02/16/2019 Augusto Jacobs MD LAB MOLECULAR DIAGNOSTICS ORDERA BLES Final Result [facility] * Color Fundus Photography - OU - Both Eyes (05/26/2018 12:00 PM EST) Anatomical Region Laterality Modality Head Fundus Photograp hy 05/26/2018 12:0 0 PM EST Narrative 11/13/2018 12:00 PM EDT PERFORMED AT [facility] LOCATION:[id number] No Retinopathy Procedure Note CONVERSION, GENERIC - 11/20/2022 PERFORMED AT [facility] LOCATION:[id number] No Retinopathy Augusto Jacobs MD OPHTH PHOTOGRAPHY Final Result from Last 3 Months or Most Recently Relevant to Health Maintenance Insurance [employer] MEDICARE ADVANTAGE MEDICARE Care Teams Expeditionary Fighting Vehicle Crewman Relationship Specialty Start Date End Date Silvio Ott MD [address] [place] [phone] PCP - General Family Medicine 10/07/23
--- OUTSIDE RECORDS SUMMARY | 2025-02-18 10:29 | XMS_ITS | Clinical Summary ---
Author Organization [facility] Address [address], [address] [place] [address] Care Team Providers Care Immersion Metal Cleaner Name Role Phone Farshad Fletcher MD Primary Care Provider [phone] Allergies No known active allergies Medications oxyCODONE-acetam inophen (PERCOCET) 5-325 MG per tablet 1-2 tabs Q4-6 hours PRN pain 100 tablet 0 03/31/2013 Active Active Problems Problem Noted Date Diagnosed Date Cervical spondylosis with myelopathy 03/30/2013 Family History Medical History Relation Name Comments High Blood Pressure Brother Cancer Father Cancer Maternal Grandfather Cancer Maternal Grandmother Cancer Mother Kidney Disease Mother Cancer Paternal Grandfather Cancer Paternal Grandmother Cancer Sister Relation Name Status Comments Brother Father Maternal Grandfather Maternal Grandmother Mother Paternal Grandfather Paternal Grandmother Sister Social History Tobacco Use Types Packs/Day Years [...] Sign Reading Time Taken Comments Blood Pressure 138/85 04/01/2013 8:00 AM EDT Pulse 94 04/01/2013 4:02 AM EDT Temperature 36.4 C (97.6 F) 04/01/2013 8:00 AM EDT Respiratory Rate 18 04/01/2013 8:00 AM EDT Oxygen Saturation 95% 04/01/2013 8:00 AM EDT Inhaled Oxygen Concentration - - Weight 87.1 kg (192 lb) 03/30/2013 6:26 AM EDT Height 172.7 cm (5' 8 ) 03/30/2013 6:26 AM EDT Body Mass Index 29.19 03/30/2013 6:26 AM EDT Plan of Treatment Not on file Insurance [facility] [employer] on file Advance Directives * Full Code (Latest Code Status on File) Date Activated Date Inactivated Comments 03/30/2013 1:35 PM 04/01/2013 1:06 PM Care Teams Immersion Metal Cleaner Relationship Specialty Start Date End Date Farshad Fletcher MD PCP - General Neurology 05/11/12
--- OUTSIDE RECORDS SUMMARY | 2025-02-18 10:29 | XMS_ITS | Encounter Summary ---
Author Organization [facility] Address [address] [place] [address] Care Team Providers Care Wood Model Builder Name Role Phone Silvio Ott MD Primary Care Provider [phone] Silvio Ott MD Primary Care Provider [phone] Kaia Scherer RN Unavailable Encounter Details Date Type Department Care Team (Late Contact Info) Description 06/10/2023 Clinisync Result Encounter [facility] External Department Unsolicited Shaikh Christensen MD [address] [place] [address] Social History Tobacco Use Types Packs/Day Years Used Date Smoking Tobacco: Never Assessed Sex and Gender Information Value Date Recorded Sex Assigned at Not on file Legal Sex Male 7:22 PM EDT Gender Identity Not on file Sexual Orientation Not on file documented as of this encounter Plan of Treatment Upcoming Encounters Date Type Department Care Team ([facility] Contact Info) Description 06/20/2025 1:30 PM EST Office Visit [facility] [address] [place] [address] Silvio Ott MD [address] [place] [address] documented as of this encounter Procedures Procedure Name Priority Date/Time Associated Diagnosis Comments RT PULMONARY FUNCTION TEST 06/10/2023 1:20 PM EST documented in this encounter Results * RT PULMONARY FUNCTION TEST (06/10/2023 1:20 PM EST) Anatomical Region Laterality Modality Other 06/10/2023 1:20 PM EST Narrative 06/12/2023 1:23 PM EST [address] [address] Respiratory Report Signed Patient: MICAH FORBES MR#: [id number] : 1965 Acct:[id number] Age/Sex: 58 / M ADM Date: 06/10/23 Loc: CARD Attending Dr: Shaikh Amparo Alvarez Ordering Physician: Shaikh Kim Christensen Date of Service: 06/10/23 Procedure(s): RT pulmonary function test Accession Number(s): [id number] cc: [facility] Test Date: 2023-06-10 Pat Name: MICAH FORBES Department: Room: - Gender: Male Cake Icer: Lesli Lemos RRT : 1965 Requested By: [id number] Order Number: [id number] Reading MD: Sam Schmid Interpretive Statements Pulmonary function testing was completed according to ATS criteria. Findings were considered accurate and reproducible, with exception of DLCO which did not meet ATS standards. Both pre- and post-bronchodilator values utilized for spirometry. Spirometry (based on pre-bronchodilator values): -FEV1/FVC: Reduced @ 66% -FEV1: Moderately reduced @ 60% -FVC: Normal @ 70% -There is no significant bronchodilator response. Lung volumes by plethysmography: -RV: Increased @ 155% -TLC: Normal @ 95% Diffusion capacity: -DLCO: Mild-moderate reduction @ 66 when corrected for Hb 15.8g/dL Flow-volume loop: -Moderate obstructive pattern Impressions: -Spirometry suggests moderate obstruction. An elevated RV suggests air trapping. There is a bjmn-wl-zsaielnfoy reduced diffusion capacity. 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 Clinical correlation required. Electronically Signed On 06-12-2023 13:23:19 EST by Sam Schmid Dictated By: Sam Schmid D.O. Signed By: 06/12/23 1323 06/12/23 1323 DD/ 1320 TD/TT: Scullion Chief: Procedure Note Radiology, Radiologist, MD - 06/12/2023 [facility] [place] [id number] Respiratory Report Signed Patient: MICAH FORBES CMR#: [id number] : 1965Acct:[id number] Age/Sex: 58 / MADM Date: 06/10/23 Loc: CARD Attending Dr: Shaikh Amparo Alvarez Ordering Physician: Shaikh Kim Christensen Date of Service: 06/10/23 Procedure(s): RT pulmonary function test Accession Number(s): [id number] cc: [facility] Test Date: 2023-06-10 Pat Name: MICAH FORBES Department: Room: - Gender: Male Cake Icer: Lesli Lemos RRT : 1965 Requested By: [id number] Order Number: [id number] Reading MD: Sam Schmid Interpretive Statements Pulmonary function testing was completed according to ATS criteria.Findings were considered accurate and reproducible, with exception of DLCO whichdid not meet ATS standards. Both pre- and post-bronchodilator values utilized for spirometry. Spirometry (based on pre-bronchodilator values): -FEV1/FVC: Reduced @ 66% -FEV1: Moderately reduced @ 60% -FVC: Normal @ 70% -There is no significant bronchodilator response. Lung volumes by plethysmography: -RV: Increased @ 155% -TLC: Normal @ 95% Diffusion capacity: -DLCO: Mild-moderate reduction @ 66 when corrected for Hb 15.8g/dL Flow-volume loop: -Moderate obstructive pattern Impressions: -Spirometry suggests moderate obstruction. An elevated RV suggests air trapping. There is a fbgx-dv-jjsaygsirc reduced diffusion capacity.Overall study is compatible with COPD/emphysema. Clinical correlation required. Electronically Signed On 06-12-2023 13:23:19 EST by Sam Schmid Dictated By: Sam Schmid D.O. Signed By:06/12/23 13206/12/23 1323 DD/ 1320 TD/TT: Scullion Chief: us Shaikh Amparo [facility] Final Result documented in this encounter Visit Diagnoses Not on filedocumented in this encounter Care Teams Wood Model Builder Relationship Specialty Start Date End Date Silvio Ott MD PCP - General Family Medicine 03/07/23 10/06/23 Silvio Ott MD [address] [place] [address] PCP - General Family Medicine 10/07/23 Kaia Scherer, RN [address] [place], [place] [id number] Registered Nurse Family Medicine 12/11/23 09/27/24 documented as of this encounter
--- OUTSIDE RECORDS SUMMARY | 2025-02-18 10:29 | XMS_ITS | Encounter Summary ---
Author Organization [facility] Address [address] [facility] [place] [address] Care Team Providers Care Communications Department Head Name Role Phone Silvio Ott MD Primary Care Provider [phone] Reason for Visit * Reason Onset Date Comments Med Refill 02/14/2025 Encounter Details Date Type Department Care Team (Late st Contact Info) Description 02/14/2025 [facility] [address] [place] [address] Silvio Ott MD [address] [place] [address] Spondylosis of cervical spine Social History Tobacco Use Types Packs/Day Years [...] often do you attend chur ch or congregational services? 1 to 4 times per year 07/02/2023 Do you belong to any clubs o r organizations such as baptism groups, unions, fraternal or athletic groups, or [...] Recorded Patient Health Questionnaire-2 Score 0 06/15/2024 [facility] - Occupational Stress Questionnaire Answer Date [...] place to sleep or slept in a half-way (including now)? No 07/02/2023 Sex and Gender [...] Office Visit [facility] [address] [place] [address] Silvio Ott MD [address] [place] [address] documented as of this encounter Visit Diagnoses Diagnosis Spondylosis of cervical spine documented in this encounter Additional Health Concerns Assessment Noted Time PHQ-9 Depression Total Score: 5 06/15/20 24 1:00 PM EST documented as of this encounter Care Teams Communications Department Head Relationship Specialty Start Date End Date Silvio Ott MD [address] [place] [address] PCP - General Family Medicine 10/07/23 documented as of this encounter
--- OUTSIDE RECORDS SUMMARY | 2025-02-18 10:29 | XMS_ITS | Encounter Summary ---
Author Organization [facility] Address [address] [facility] [place] [address] Care Team Providers Care Cash Processing Specialist Name Role Phone Silvio Ott MD Primary Care Provider [phone] Kaia Scherer RN Unavailable [phone] Encounter Details Date Type Department Care Team (Late Contact Info) Description 05/21/2024 Orders Only [facility] [address] [place] [address] Silvio Ott MD [address] [place] [address] Social History Tobacco Use Types Packs/Day Years [...] often do you attend chur ch or latter day services? 1 to 4 times per year 07/02/2023 Do you belong to any clubs o r organizations such as denominational groups, unions, fraternal or athletic groups, or [...] Recorded Patient Health Questionnaire-2 Score 0 10/07/2023 [facility] - Occupational Stress Questionnaire Answer Date [...] place to sleep or slept in a residential (including now)? No 07/02/2023 Sex and Gender [...] Office Visit [facility] [address] [place] [address] Silvio Ott MD [address] [place] [address] documented as of this encounter Visit Diagnoses Not on filedocumented in this encounter Care Teams Cash Processing Specialist Relationship Specialty Start Date End Date Silvio Ott MD [address] [place] [address] PCP - General Family Medicine 10/07/23 Kaia Scherer, RN [address] [place] [address] Registered Nurse Family Medicine 12/11/23 09/27/24 documented as of this encounter
--- OUTSIDE RECORDS SUMMARY | 2025-02-18 10:29 | XMS_ITS | Patient Health Record ---
Author Organization [facility] [place] Address [address] [place] [address] Care Team Providers Care Motor Mechanic Name Role Phone Silvio Ott MD Primary Care Provider Unavailab le Allergies No Known Allergies Reason For Referral No Information Medications Medication SIG (Take, Route, Frequency, Duration) [...] Answer Notes Patient is a current smoker Problems Problem Type SNOMED Code ICD Code Onset Dates Problem Status W/U Status Risk Notes Problem Shortness of breath (330804023) Shortness of breath (R06.02) Active confirmed Problem 88586563484774 Sprain of ligaments of cervical spine, initial encounter (S13.4XXA) Active confirmed Problem 05615496 Displaced fracture of first metatarsal bone, left foot, initial encounter for closed fracture (S92.312A) Active confirmed Problem Cervical radiculopathy (52437319) Cervical radiculopathy (M54.12) Active confirmed Problem Left foot pain (M79.672) Active confirmed Problem Acquired spondylolisthesis (614336523) Anterolisthesis (M43.10) Active confirmed Problem 850394774 Displacement of intervertebral disc at C5-C6 level (M50.222) Active confirmed Problem Spinal stenosis in cervical region (87794825) Foraminal stenosis of cervical region (M48.02) Active confirmed Plan Of Treatment Pending Test Test Name Order Date XR foot LT min 3V 12/08/2023 Insurance Providers Payer Name Payer Address Payer Phone Subscriber Number Group Number Insured Name Patient Relationship to Insured Coverage Start Date Coverage End Date [employer] MED[employer] ADV PLAN [address] [place] [phone] [id number] [facility] 0 Micah Forbes Self - patient is the insured [employer] [facility] [address] [place] [phone] DOI 1 Micah Forbes Self - patient is the insured Medical (General) History Medical History History ICD Code hypertension migraines, headaches diabetes Surgical History Surgery Date(Month/Year) C4-C5 fusion 2011 C4, C5, C10, C7 2012 Hospitalization History Reason Date(Month/Year) neck pain, migraine 06/2020 neck pain, migraine 05/2020
--- OUTSIDE RECORDS SUMMARY | 2025-02-18 10:29 | XMS_ITS | Encounter Summary ---
Author Organization [facility] Address [address] [place] [address] Care Team Providers Care Licensing Worker Name Role Phone Marie Peralta DO Primary Care Provider [phone] Yoni Sotelo MD Unavailable Silvio Ott MD Primary Care Provider [phone] Source Comments In the event this information is protected by the Federal Confidentiality of Alcohol and Drug AbusePatient Records regulations: The Federal rules restrict any use of the information to criminally investigate or prosecute any alcohol or drug abuse patient.[facility] Encounter Details Date Type Department Care Team (Late st Contact Info) Description 08/22/2020 Abstract Neurology [address] [place] [address] (Historical), Unknown Social History Tobacco Use Types Packs/Day Years Used Date Smoking Tobacco: Every Day Cigarettes 0.3 31 Smokeless Tobacco: Never Comments:5 CIGARETTES A DAY Alcohol Use Standard Drinks/Week Comments No 0 (1 standard drink = 0.6 oz pur e alcohol) Sex and Gender Information Value Date Recorded Sex Assigned at Not on file Legal Sex Male 5:42 PM EDT Gender Identity Not on file Sexual Orientation Not on file Occupation Industry Job Start Date Job End Date [employer] Not on file Not on file Not on file documented as of this encounter Functional Status [...] as of this encounter Visit Diagnoses Diagnosis Chronic neck pain- Primary Cervicalgia documented in this encounter Care Teams Licensing Worker Relationship Specialty Start Date End Date Marie Peralta DO PCP - General Family Medicine 01/12/14 04/19/21 Silvio Ott MD [address] [place] [address] PCP - General Family Medicine 04/20/21 Yoni Sotelo MD [address] [address] [place] Referring Team Neurosurgery 08/22/20 documented as of this encounter
--- OUTSIDE RECORDS SUMMARY | 2025-02-18 10:29 | XMS_ITS | Clinical Summary ---
Author Organization [facility] Address [id number] [address] [place] [address] Care Team Providers Care Health Promotion Coordinator Name Role Phone Silvio Ott MD Primary Care Provider [phone] Allergies No known active allergies Medications meloxicam (MOBIC) 7.5 mg tablet Take 7.5 mg by mouth 2 (two) times a day. Active metFORMIN (GLUCOPHAGE) 500 mg tablet Take 500 mg by mouth 2 (two) times a day. Active albuterol (PROVENTIL HFA;VENTOLIN HFA) 90 mcg/actuation inhaler Inhale 1 puff daily. Active aspirin-acetami nophen-caffeine (EXCEDRIN MIGRAINE) 250-250-65 mg per tablet Take 1 tablet by mouth as needed for headaches. Active gabapentin (NEURONTIN) 100 mg capsule Take 100 mg by mouth in the morning and 100 mg at noon and 100 mg before bedtime. Active lisinopriL (PRINIVIL,ZESTR IL) 5 mg tablet Take 5 mg by mouth in the morning. Active QUEtiapine (SEROquel) 100 mg tablet Take 100 mg by mouth nightly. Active ALPRAZolam (XANAX) 0.25 mg tablet Take 0.25 mg by mouth nightly as needed for anxiety. Active amLODIPine (NORVASC) 10 mg tablet Take 10 mg by mouth in the morning. Active methocarbamoL (ROBAXIN) 500 mg tablet Take 500 mg by mouth in the morning and 500 mg at noon and 500 mg in the evening and 500 mg before bedtime. Active Active Problems Problem Noted Date Diagnosed Date Spinal stenosis of cervical region 08/23/2016 Spinal stenosis, cervicothoracic region 08/23/19 17 Other spondylosis, cervical region 08/23/2016 Other cervical disc displace ment, mid-cervical region, unspecified level 08/23/2016 Social History Tobacco Use Types Packs/Day Years Used Date Smoking Tobacco: Every Day Cigarettes Smokeless Tobacco: Never Alcohol Use Standard Drinks/Week Comments No 0 (1 standard drink = 0.6 oz pur e alcohol) Childcare Answer Date Recorded Childcare Unknown 12/16/2018 Employment Answer Date Recorded Employment Unknown 12/16/2018 Purpose - Life Answer Date Recorded Purpose and direction in life Unknown Sex and Gender Information Value Date Recorded Sex Assigned at Not on file Legal Sex Male 11:27 AM EDT Gender Identity Not on file Sexual Orientation Not on file Last Filed Vital Signs Vital Sign Reading Time Taken Comments Blood Pressure 141/85 10/04/2021 4:02 PM EDT Pulse 70 10/04/2021 4:02 PM EDT Temperature 36.6 C (97.8 F) 10/04/2021 2:48 PM EDT Respiratory Rate 19 10/04/2021 4:02 PM EDT Oxygen Saturation 95% 10/04/2021 4:02 PM EDT Inhaled Oxygen Concentration - - Weight 81.6 kg (180 lb) 10/04/2021 2:48 PM EDT Height 172.7 cm (5' 8 ) 10/04/2021 2:48 PM EDT Body Mass Index 27.37 10/04/2021 2:48 PM EDT Plan of Treatment Health Maintenance Due Date Last Done Comments Depression Screening 1977 Tobacco Screening 1977 Adult BMI Screening 1983 DTaP,Tdap and Td Vaccines (1 - Tdap) 1984 Zoster (Shingles) Vaccine (1 of 2) 2015 COVID-19 Vaccine (4 2023-2 5 season) 2024 07/18/2021, 11/30/2020, 11/09/2020 Influenza Vaccine 03/07/2025 05/14/2017, 05/07/2017 Medical Devices Not on file Insurance [address] [place] [address] WORKERS COMPENSATION - GENERIC PLAN Care Teams Health Promotion Coordinator Relationship Specialty Start Date End Date Silvio Ott MD PCP - General Family Medicine 03/29/21
--- OUTSIDE RECORDS SUMMARY | 2025-02-18 10:29 | XMS_ITS | Encounter Summary ---
Author Organization [facility] Address [address] [place] [address] Care Team Providers Care Dental Officer Name Role Phone Silvio Ott MD Primary Care Provider [phone] Kaia Scherer RN Unavailable [phone] Encounter Details Date Type Department Care Team (Late st Contact Info) Description 12/15/2023 Clinisync Result Encounter [facility] External Department Unsolicited [...] any clubs o r organizations such as orthodox groups, unions, fraternal or athletic groups, or [...] Recorded Patient Health Questionnaire-2 Score 0 10/07/2023 [facility] - Occupational Stress Questionnaire Answer Date [...] place to sleep or slept in a senior living (including now)? No 07/02/2023 Sex and Gender Information Value Date Recorded Sex Assigned at Not on file Legal Sex Male 7:22 PM EDT Gender Identity Not on file Sexual Orientation Not on file documented as of this encounter Plan of Treatment Upcoming Encounters Date Type Department Care Team (Late st Contact Info) Description 06/20/2025 1:30 PM EST [facility] Visit [facility] [address] [place] [address] Silvio Ott MD [address] [place] [address] documented as of this encounter Procedures Procedure Name Priority Date/Time Associated Diagnosis Comments CT ANKLE LT WO CON 12/15/2023 6: 45 AM EDT documented in this encounter Results * CT ANKLE LT WO CON (12/15/2023 6:45 AM EDT) Anatomical Region Laterality Modality Other 12/15/2023 6:45 AM EDT Narrative 12/15/2023 6:47 AM EDT The [address] [address] [address] Scan Report Signed Patient: MICAH FORBES MR#: [id number] : 1965 Acct:[id number] Age/Sex: 58 / M ADM Date: 12/12/23 Loc: CT Attending Dr: Chris Chery D.P.M. Ordering Physician: Chris Chery D.P.M. Date of Service: 12/12/23 Procedure(s): CT ankle LT wo con Accession Number(s): [id number] cc: Silvio Ott M.D. [facility] [place] [id number] Patient Name: MICAH FORBES MRN: [id number] date: 1965 Sex: M Assigned Patient Location: CT Current Patient Location: Accession/Order Number: [id number] Exam Date: 12/12/2023 14:50 Report Date: 12/15/2023 06:45 At the request of: CHRIS CHERY Procedure: CT ankle LT wo con EXAMINATION: CT ankle LT wo con HISTORY: First metatarsal fracture S92.312 ; foot and ankle pain since falling COMPARISON: XR ankle left 11/27/2023 TECHNIQUE: Multi-planar CT images were created without and/or with IV contrast according to examination type. Dose reduction techniques were achieved by using automated exposure control and/or adjustment of mA and/or kV according to patient size and/or use of iterative reconstruction technique. FINDINGS: BONES: Mildly fracture through the plantar aspect of base of first metatarsal with extension into the articular surface. Nondisplaced fracture involving plantar surface of the base the second metatarsal with extension into the articular surface. Small minimally displaced cortical fracture fragments from the plantar medial aspect of the lateral cuneiform. Suspect nondisplaced small cortical fracture involving inferior lateral margin of the base of the fourth metatarsal. SOFT TISSUES: Soft tissue swelling. No hematoma. EFFUSION: None visible. OTHER: Negative. CT/CT ankle LT wo con IMPRESSION: 1. Nondisplaced to minimally displaced fractures involving base of the first and second metatarsals and the lateral cuneiform. Electronically authenticated by: YOGI MURPHY Date: 12/15/2023 06:45 Dictated By: Yogi Murphy M.D. Signed By: 12/15/2347 DD/ TD/TT: Accounting Technician: Procedure Note Radiology, Radiologist, - 12/15/2023 [place] [address] CT Scan Report Signed Patient: MICAH FORBES CMR#: [id number] : 1965Acct:[id number] Age/Sex: 58 / MADM Date: 12/12/23 Loc: CT Attending Dr: Chris Chery D.P.M. Ordering Physician: Chris Chery D.P.M. Date of Service: 12/12/23 Procedure(s): CT ankle LT wo con Accession Number(s): [id number] cc: Silvio Ott M.D. [place] [id number] Patient Name: MICAH FORBES MRN: [id number] date: 1965 Sex: M Assigned Patient Location: CT Current Patient Location: Accession/Order Number: [id number] Exam Date: 12/12/2023 14:50 Report Date: 12/15/2023 06:45 At the request of: CHRIS CHERY Procedure: CT ankle LT wo con EXAMINATION: CT ankle LT wo con HISTORY: First metatarsal fracture S92.312 ; foot and ankle pain sincefalling COMPARISON: XR ankle left 11/27/2023 TECHNIQUE: Multi-planar CT images were created without and/or with IVcontrast according to examination type. Dose reduction techniques were achieved by using automated exposure control and/or adjustment of mA and/or kV according to patient size and/or use of iterative reconstruction technique. FINDINGS: BONES: Mildly fracture through the plantar aspect of base offirst metatarsal with extension into the articular surface. Nondisplacedfracture involving plantar surface of the base the second metatarsal with extension into the articular surface. Small minimally displaced cortical fracturefragments from the plantar medial aspect of the lateral cuneiform. Suspectnondisplaced small cortical fracture involving inferior lateral margin of the base ofthe fourth metatarsal. SOFT TISSUES: Soft tissue swelling. No hematoma. EFFUSION: None visible. OTHER: Negative. CT/CT ankle LT wo con IMPRESSION: 1. Nondisplaced to minimally displaced fractures involving base of thefirst and second metatarsals and the lateral cuneiform. Electronically authenticated by: YOGI MURPHY Date: 12/15/2023 06:45 Dictated By: Yogi Murphy M.D. Signed By:12/15/2347 DD/ TD/TT: Accounting Technician: us Generic External Data Provider [facility] Final Result documented in this encounter Visit Diagnoses Not on filedocumented in this encounter Care Teams Dental Officer Relationship Specialty Start Date End Date Silvio Ott MD [address] [place] [address] PCP - General Family Medicine 10/07/23 Kaia Scherer, STEW [address] [place] [address] Registered Nurse Family Medicine 12/11/23 09/27/24 documented as of this encounter
--- OUTSIDE RECORDS SUMMARY | 2025-02-18 10:29 | XMS_ITS | Encounter Summary ---
Author Organization [facility] Address [address] [place] [address] Care Team Providers Care Fiber Technician Name Role Phone Silvio Ott MD Primary Care Provider [phone] Silvio Ott MD Primary Care Provider [phone] Kaia Scherer RN Unavailable [phone] Encounter Details Date Type Department Care Team (Late st Contact Info) Description 07/08/2023 [facility] [address] [place] [address] Shaikh Christensen MD [address] [place] [address] Primary hypertension (Primary Dx) Social History Tobacco Use Types Packs/Day Years Used Date Smoking Tobacco: Every Day Cigarettes 0.5 30 Comments:*Current smoker ,fr equency unknown 5 or [...] often do you attend chur ch or denominational services? 1 to 4 times per year [...] and heating? Not hard at all 07/02/2023 [facility] - Occupational Stress Questionnaire Answer [...] Office Visit [facility] [address] [place] [address] Silvio Ott MD [address] [place] [address] documented as of this encounter Visit Diagnoses Diagnosis Primary hypertension- Primary Unspecified essential hypertension documented in this encounter Care Teams Fiber Technician Relationship Specialty Start Date End Date Silvio Ott MD PCP - General Family Medicine 03/07/23 10/06/23 Silvio Ott MD [address] [place] [address] PCP - General Family Medicine 10/07/23 Kaia Scherer, STEW [address] [place] [address] Registered Nurse Family Medicine 12/11/23 09/27/24 documented as of this encounter
--- OUTSIDE RECORDS SUMMARY | 2025-02-18 10:29 | XMS_ITS | Clinical Summary ---
Author Organization [facility] Address [address] [place], [place] [address] Care Team Providers Care Magnetic Tape Composer Operator Name Role Phone Yoni Sotelo MD Unavailable Silvio Ott MD Primary Care Provider [phone] Allergies No known active allergies Medications amLODIPine (NORVASC) 10 mg tablet Take 10 mg by mouth once daily. Active lisinopril (ZESTRIL, PRINIVIL) 40 mg tablet Take 1 tablet by mouth once daily. 1 Active metFORMIN (GLUCOPHAGE) 850 mg tablet Take 1 tablet by mouth twice daily with meals. 1 Active methocarbamol (ROBAXIN) 750 mg tabletIndications :Fusion of spine, cervical region,Spinal stenosis in cervical region,Acute postoperative pain Take 1 tablet by mouth every 6 hours as needed (Muscle spasms). 60 tablet 03/19/2021 3:43 PM EDT 1 Active ALPRAZolam (XANAX) 1 mg tablet 1 Active zolpidem (AMBIEN) 10 mg 1 Active gabapentin (NEURONTIN) 800 mg tablet Take 1.5 tablets by mouth three times daily. 135 tablet 11 1 Active naratriptan (AMERGE) 2.5 mg tablet Take 1 tab at migraine onset. May repeat once in 2 hours if needed. Give max allowed per insurance. No more than 10 days per month. 12 tablet 11 1 Active Additional Information Patient not taking.Reason: Other, Reported on 08/09/2022 Active Problems Problem Noted Date Diagnosed Date Cervicalgia 06/21/2021 Bilateral occipital neuralgia 06/21/2021 Intractable chronic migraine without aura and with status migrainosus 06/21/2021 Chronic migraine without aur a, with intractable migraine, so stated, with status migrainosus 06/21/2021 Chronic daily headache 06/21/2021 Allodynia 06/21/2021 Spinal stenosis in cervical region 03/16/2021 Assessment & Plan (03/16/2021 10:44 AM EDT): Assessment: Cervical spinal stenosis with radiculopathy PLAN: -PT/OT continue. -Out of bed to chair for meals. -Ambulate pt 3-4 x daily as able. -Monitor: signs, symptoms, disease progression, disease regression. -Evaluate: test results, medication effectiveness, response to treatment. -Pain control: analgesics titrated per consultation with Dr. Prince Palacios MD -Plan discussed with Dr. Prince Palacios MD Fusion of spine, cervical region 03/16/2021 Assessment & Plan (03/19/2021 10:08 AM EDT): Assessment: s/p cervical fusion PLAN: -PT/OT continue. -Out of bed to chair for meals. -Ambulate pt 3-4 x daily as able. -Monitor: signs, symptoms, disease progression, disease regression. -Evaluate: test results, medication effectiveness, response to treatment. -Pain control: analgesics titrated per consultation with Dr. Prince Palacios MD -Plan discussed with Dr. Prince Palacios MD Assessment & Plan (03/16/2021 10:45 AM EDT): Assessment: s/p cervical fusion PLAN: -PT/OT continue. -Out of bed to chair for meals. -Ambulate pt 3-4 x daily as able. -Monitor surgical drain output. -Upright C-spine XR before DC. -Monitor: signs, symptoms, disease progression, disease regression. -Evaluate: test results, medication effectiveness, response to treatment. -Pain control: analgesics titrated per consultation with Dr. Prince Palacios MD -Plan discussed with Dr. Prince Palacios MD Acute postoperative pain 03/16/2021 Assessment & Plan (03/19/2021 10:08 AM EDT): Assessment: Acute postop pain PLAN: -PT/OT continue. -Monitor: signs, symptoms, disease progression, disease regression. -Evaluate: test results, medication effectiveness, response to treatment. -Pain control: analgesics titrated per consultation with Dr. Prince Palacios MD -Plan discussed with Dr. Prince Palacios MD Assessment & Plan (03/16/2021 10:45 AM EDT): Assessment: Acute postop pain PLAN: -PT/OT continue. -Monitor: signs, symptoms, disease progression, disease regression. -Evaluate: test results, medication effectiveness, response to treatment. -Pain control: analgesics titrated per consultation with Dr. Prince Palacios MD -Plan discussed with Dr. Prince Palacios MD Personal history of nicotine dependence 03/16/20 Assessment & Plan (03/19/2021 10:10 AM EDT): Assessment: Hx of cigarette smoking, and intermittent use of other nicotine containing substances PLAN: -Discussed again the importance of abstaining from nicotine in the postoperative period to aid in fusion healing. -Urine nicotine metabolites pending. -Monitor: signs, symptoms, disease progression, disease regression. Assessment & Plan (03/16/2021 10:46 AM EDT): Assessment: Hx of cigarette smoking, and intermittent use of other nicotine containing substances PLAN: -Discussed again the importance of abstaining from nicotine in the postoperative period to aid in fusion healing. -Monitor: signs, symptoms, disease progression, disease regression. Kyphosis of cervical region 03/15/2021 Assessment & Plan (03/19/2021 10:08 AM EDT): Assessment: Cervical kyphosis PLAN: -PT/OT continue. -Out of bed to chair for meals. -Ambulate pt 3-4 x daily as able. -Monitor: signs, symptoms, disease progression, disease regression. -Evaluate: test results, medication effectiveness, response to treatment. -Pain control: analgesics titrated per consultation with Dr. Prince Palacios MD -Plan discussed with Dr. Prince Palacios MD -NE planning. Planned Date of Discharge: Within 24 hours Discharge Disposition: Home with [facility] Assessment & Plan (03/16/2021 10:44 AM EDT): Assessment: Cervical kyphosis PLAN: -PT/OT continue. -Out of bed to chair for meals. -Ambulate pt 3-4 x daily as able. -Monitor: signs, symptoms, disease progression, disease regression. -Evaluate: test results, medication effectiveness, response to treatment. -Pain control: analgesics titrated per consultation with Dr. Prince Palacios MD -Plan discussed with Dr. Prince Palacios MD -NE planning. Planned Date of Discharge: Within 48 - 72 hours Discharge Disposition: Unknown Primary hypertension 03/02/2021 Assessment & Plan (03/16/2021 10:48 AM EDT): Assessment: HTN PLAN: -Continue home Noravsc 10 mg PO daily. -Continue home lisinopril 40 mg PO daily. -Monitor: signs, symptoms, disease progression, disease regression. -Evaluate: test results, medication effectiveness, response to treatment. Assessment & Plan (03/02/2021 9:46 AM EDT): -on Amlodipine and Lisinopril -BP in office today 142/81 Type 2 diabetes mellitus wit hout complication, without long-term current use of insulin 03/02/2021 Assessment & Plan (03/16/2021 10:49 AM EDT): Assessment: DM II PLAN: -Diabetic diet. -Blood glucose monitoring AC/HS. -Postop blood glucose goal < 180. -Continue home metformin 850 mg PO bid. -Humalog SSI # 2 AC and # 1 qBedtime. -Monitor: signs, symptoms, disease progression, disease regression. -Evaluate: test results, medication effectiveness, response to treatment. Assessment & Plan (03/02/2021 9:47 AM EDT): -on Metformin -last A1c 6.2% last year per patient -FBS ~100-120 Atherosclerosis of [place] co ronary artery of [place] heart without angina pectoris 05/24/2020 S/P cervical spinal fusion 07/15/2014 Cervical post-laminectomy syndrome 07/15/2014 Chronic pain 07/15/2014 Pain Arthritis H/O neck disorder Back disorder Immunizations Immunization Administration Dates Next Due COVID-19 original vaccine, a ge 12+ yr, monovalent ([place] - PURPLE TOP) 11/30/2020,11/09/2020 influenza (IIV3) vaccine, tr ivalent, PF (AFLURIA, FLUARIX, FLULAVAL, FLUVIRIN, FLUZONE) 05/14/2017 influenza (IIV4) vaccine, qu adrivalent (AFLURIA, FLULAVAL, FLUZONE) 05/07/2017 Family History Medical History Relation Comments Cancer Father Cancer Maternal Grandfather Cancer Maternal Grandmother Cancer Mother Cancer Sister Anesthesia Problems No Family History Relation Status Comments Father Maternal Grandfather Maternal Grandmother Mother Sister Social History Tobacco Use Types Packs/Day Years Used Date Smoking Tobacco: Former Cigarettes 0.3 31 0 11/14/2020 - 02/04/2021 Smokeless Tobacco: Never Tobacco Cessation:Counseling Given: Not Answered Alcohol Use Standard Drinks/Week Comments Yes 0 (1 standard drink = 0.6 oz pure alcohol) 3 times a month per pt 03/02/2021 Area Deprivation Index Answer Date Moises rded National Score (1-100), lower number is lower ri sk 95 08/09/2022 State Score (1-10), lower number is lower risk N ot on file 08/09/2022 Data from: https://www.neighborhoodatlas.medicine.[facility].edu/. 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 file Not on file Not on file Last Filed Vital Signs Vital Sign Reading Time Taken Comments Blood Pressure 121/69 08/09/2022 9:00 AM EST Pulse 89 08/09/2022 9:00 AM EST Temperature 36.7 C (98.1 F) 03/19/2021 1:47 PM EDT Respiratory Rate 13 08/09/2022 9:00 AM EST Oxygen Saturation 98% 08/09/2022 9:00 AM EST Inhaled Oxygen Concentration - - Weight 88.5 kg (195 lb) 08/09/2022 9:00 AM EST Height 172.7 cm (5' 8 ) 08/09/2022 9:00 AM EST Body Mass Index 29.65 08/09/2022 9:00 AM EST Plan of Treatment Health Maintenance Due Date Last Done Comments Diabetic Foot Exam 1975 Dilated Retinal Exam 1975 Urine Albumin:Creatinine Ratio 1975 Annual PCP Team Chronic Disease Visit 1983 Anxiety Screening 1983 Depression Screening 1983 HIV Screening 1983 Hepatitis C Screening 1983 LDL Cholesterol 1983 DTaP,Tdap,Td Vaccine (1 - Tdap) 1984 Pneumococcal Vaccine: 50+ (1 of 2 - PCV) 1984 CT Colonography 2010 Colonoscopy 2010 Fecal Occult Blood 2010 Sigmoidoscopy 2010 Shingrix Vaccine (1 of 2) 2015 HbA1C 06/02/2021 03/02/2021 Cologuard (FIT-DNA) 02/16/2022 02/16/2019 Colorectal Cancer Screening 02/16/2022 Influenza Vaccine (#1) 2025 05/14/2017, 2016 Prostate Cancer Screening Discussion 06/13/2027 12/0 02/2022 Medical Devices Implanted Type Area Emt/Dispatcher Device Identifier Shelf Expiration Date Model / Serial / Lot [place] Lateral Offset Connector Side Sz 10mm Implanted:Qty: 2 on 03/15/2021 at [facility] Accessories N/A: Spine - Cervical STEFANI [id number] / / Graft Demineralized Bone Matrix Bone Putty Pretreated 10ml - [id number] Implanted:Qty: 1 on 03/15/2021 by Prince Palacios MD at [facility] Bone - Synthetic [employer] DANEK 01/17/2024 [id number] / [id number] / Spacer Avs 4d 8mm Spinal Bone Plug - [id number] Implanted:Qty: 1 on 03/15/2021 by Prince Palacios MD at [facility] Graft STEFANI SPINE 09/03/2025 [id number] / [id number] / [place] Plate, 1 Level, Sz 18mm Implanted:Qty: 1 on 03/15/2021 at [facility] Plate N/A: Spine - Cervical STEFANI [id number] / / Depauw Spn Luigi Csp Mini 3.5x240 Implanted:Qty: 2 on 03/15/2021 at [facility] Luigi N/A: Spine - Cervical [id number] / / Screw St Spnl Oct [place] Ns Lf - [id number] Implanted:Qty: 16 on 03/15/2021 at [facility] Screw N/A: Spine - Cervical STEFANI [id number] / / [place] Oct Polyaxial Screw 4.5mm X 30mm Implanted:Qty: 4 on 03/15/2021 at [facility] Screw N/A: Spine - Cervical STEFANI [id number] 0 / / [place] Oct Polyaxial Screw Sz 3.5mm X 20mm Implanted:Qty: 2 on 03/15/2021 at [facility] Screw N/A: Spine - Cervical STEFANI [id number] 0 / / Polyaxial Screw Size 3.5mm X 14mm Implanted:Qty: 8 on 03/15/2021 at [facility] Screw N/A: Spine - Cervical STEFANI [id number] / / Screw Bn 4mm 14mm [place] Spnl - [id number] Implanted:Qty: 4 on 03/15/2021 at [facility] Screw N/A: Spine - Cervical STEFANI [id number] / / Spacer Bio Avs 4d Lordosis 12mm Cortical Cancellous [id number] Allograft - [id number] Implanted:Qty: 1 on 03/15/2021 by Prince Palacios MD at [facility] Spacer - Bone STEFANI SPINE 12/26/2025 [id number] / [id number] / Procedures Procedure Name Priority Date/Time Associated Diagnosis Comments HEMOGLOBIN A1C Routine 03/02/2021 10:17 AM EDT Pre-op evaluation from Last 3 Months or Most Recently Relevant to Health Maintenance Results * (ABNORMAL) HGB A1C (03/02/2021 10:17 AM EDT) Hemoglobin A1C 8.6(H) 4.3 - 5.6 % 03/03/2021 12:31 PM EDT [facility] Comment: [place] [employer] guidelines indicate that patients with HgbA1c in the range 5.7-6.4% are at increased risk for development of diabetes, and intervention by lifestyle modification may be beneficial. HgbA1c greater or equal to 6.5% is considered diagnostic of diabetes. Estimated Average Glucose 200 mg/dL 03/03/2021 12:31 PM EDT [facility] Comment: eAG: (Estimated average glucose) is a calculated value from HgbA1c and is manufacturers service representative of the average blood glucose level in the last 2-3 month period. Blood specimen (specimen) WHOLE BLOOD SPECIMEN / Unknown 03/02/2021 10:17 AM EDT 03/02/2021 10:19 AM EDT Faiza Rea PA-C LABORATORY Final Result [facility] [address] [place] [address] [facility] [address] [place] [address] from Last 3 Months or Most Recently Relevant to Health Maintenance Insurance [address] [place] [address] [facility] [address] [place] [address] [facility] [place] [address] [place] [address] [address] [place] [address] Care Teams Magnetic Tape Composer Operator Relationship Specialty Start Date End Date Silvio Ott MD [address] [place] [id number] PCP - General Family Medicine 04/20/21 Yoni Sotelo MD [address] [place] [id number] [place] Referring Team Neurosurgery 08/22/20
--- OUTSIDE RECORDS SUMMARY | 2025-02-18 10:32 | XMS_ITS | CCD ---
Author Organization [facility] Care Team Providers Care Stock Preparer Name Role Phone Yoni Sotelo Unavailable Silvio Crain Primary Care Provider SILVIO CRAIN Primary Care Physician Paxton Cerrato Attending Unavailable Dittzeny, Aleksandr Nash Attending Unavailable Aleksandr Sandoval Admitting Unavailable Naderedeven, Silvio Primary Care Unavailable SAMANTHAEREDeven, DR SILVIO Sepulveda Attending Unavailable NADERER, DR SILVIO Sepulveda Admitting Unavailable NADERER, DR SILVIO Sepulveda Primary Care Unavailable NADERER, DR SILVIO Sepulveda Consulting Unavailable MISC, DR CAMPBELL Admitting Unavailable MISC, DR CAMPBELL Consulting Unavailable MISC, DR CAMPBELL Attending Unavailable NADERER, DR SILVIO Sepulveda Primary Care Unavailable ZIEBER, DR CIRA Carvalho Consulting Unavailable SHARITA, ABDON Sepulveda Referring Unavailable ABDON PALACIOS Attending Unavailable PARAS, SILVIO Sepulveda Primary Care Unavailable ABDON PALACIOS Referring Unavailable PARAS, SILVIO Sepulveda Primary Care Unavailable Silvio Crain MD Primary Care Provider Silvio Crain MD Primary Care Provider Gilmer MATHIAS, Crystal Unavailable [phone] SILVIO CRAIN Attending Unavailable PARAS, SILVIO Attending Unavailable PARAS, SILVIO Attending Unavailable Medications Current Medications Medication Drug Class(es) Dates Sig (Normalized) Sig (Original) [id number] 200 actuat albuterol 0.09 mg/actuat metered dose inhaler (1 source) beta2-Adrenergic Agonist Start: 07-02-2023 take 2 puff(s) by inhalation every four hours for wheezing albuterol HFA 90 mcg/act inhaler Indications: Moderate COPD (chronic obstructive pulmonary disease) ([facility]) Inhale 2 puffs every 4 (four) hours if needed for wheezing 8.5 g 3 07/02/2023 Active ALPRAZolam 1 mg oral tablet (20 sources) Benzodiazepine Start: 01-12-2024 End: 03-12-2025 take 1 tablet by mouth three times daily as needed for anxiety ALPRAZolam (Xanax) 1 MG tablet Indications: ETHAN (generalized anxiety disorder) Take 1 tablet (1 mg) by mouth 3 (three) times a day as needed for anxiety 90 tablet 1 01/11/2025 03/12/2025 Active Start: 06-13-2023 End: 09-11-2023 take 1 tablet by mouth three times daily as needed for anxiety ALPRAZolam (Xanax) 1 MG tablet Indications: ETHAN (generalized anxiety disorder) (CMS/HCC) Take 1 tablet (1 mg) by mouth 3 (three) times a day as needed for anxiety 90 tablet 1 08/12/2023 09/11/2023 Active Start: 06-15-2021 ALPRAZolam (XA NAX) 1 mg tablet amLODIPine 10 mg oral tablet (20 sources) Dihydropyridine Calcium Channel [place] Start: 03-29-2024 End: 04-12-2024 take 1 tablet by mouth once daily amLODIPine (Norvasc) 10 MG tablet Indications: Benign essential hypertension Take 1 tablet (10 mg) by mouth Daily 90 tablet 3 04/12/2024 Active Start: 02-26-2024 take 1 tablet by epifanio th once daily amLODIPine (Norvasc) 10 MG tablet Indications: Primary hypertension ([facility]/HCC) Take 1 tablet (10 mg) by mouth [...] once daily. atorvastatin 40 mg oral tablet (20 sources) HMG-CoA Reductase Inhibitor Start: End: take 1 tablet by mouth at bedtime atorvastatin (Lipitor) 40 MG tablet Indications: Dyslipidemia Take 1 tablet (40 mg) by mouth at bedtime 30 tablet 5 01/11/2025 Active Blood Glucose Monitoring Suppl (Blood Glucose Monitor System) w/Device kit (17 sources) Start: End: Blood Glucose Monitoring Suppl (Blood Glucose Monitor System) w/Device kit Indications: Type 2 diabetes mellitus with hyperglycemia, unspecified whether residential insulin use (HCC) Use for monitoring of diabetes. Dispense brand covered by pt insurance 1 kit 01/29/2024 01/28/2025 Active Start: 01-29-2024 End: 01-28-[address] (Blood Glucose Monitor System) w/Device kit Indications: Type 2 diabetes mellitus with hyperglycemia, unspecified whether residential insulin use (CMS/HCC) Use for monitoring of diabetes. Dispense brand covered by pt insurance 1 kit 01/29/2024 01/28/2025 Active celecoxib 200 mg oral capsule (3 sources) Nonsteroidal Anti-inflammatory Drug Start: 02-03-2025 take 1 capsule by mouth in the morning celecoxib (CeleBREX) 200 MG capsule Indications: Arthralgia, unspecified joint Take 1 capsule (200 mg) by mouth in the morning and 1 capsule (200 mg) before bedtime. Take with food. 60 capsule 3 02/03/2025 Active glipiZIDE 10 mg oral tablet (20 sources) Sulfonylurea Start: 09-27-2024 End: 11-08-2024 take 1 tablet by mouth in the morning glipiZIDE (Glucotrol) 10 MG tablet Indications: Type 2 diabetes mellitus with hyperglycemia, without long-term current use of insulin ([facility]) Take 1 tablet (10 mg) by mouth in the morning and 1 tablet (10 mg) in the evening. Take before meals. 60 tablet 5 11/09/2024 Active Start: 06-25-2024 take 1 tablet by epifanio th in [...] Active losartan potassium 100 mg oral tablet (20 sources) Angiotensin 2 Receptor Glen Start: 11-24-2024 take 1 tablet by mouth once daily losartan (Cozaar) 100 MG tablet Indications: Primary hypertension Take 1 tablet (100 mg) by mouth Daily 90 tablet 3 11/24/2024 Active Start: 10-10-2023 take 1 tablet by epifanio th once daily losartan (Cozaar) 100 MG tablet [...] Active metFORMIN hydrochloride 850 mg oral tablet (20 sources) Biguanide Start: 03-31-2024 End: 03-31-2025 take 1 tablet by mouth in the morning metFORMIN (Glucophage) 850 MG tablet Indications: Type 2 diabetes mellitus with hyperglycemia, without long-term current use of insulin (HCC) Take 1 tablet (850 mg) by mouth in the morning and 1 tablet (850 mg) in the evening. Take with meals. 60 tablet 5 01/11/2025 Active Start: 03-24-2023 take 1 tablet by [...] with meals. methocarbamol 750 mg oral tablet (20 sources) Muscle Relaxant Start: End: take 1 tablet by mouth four times daily as needed for muscle spasms methocarbamol (Robaxin) 750 MG tablet Indications: Spondylosis of cervical spine Take 1 tablet (750 mg) by mouth 4 (four) times a day as needed for muscle spasms 120 tablet 5 01/11/2025 Active Start: 10-10-2023 End: 06-15-2024 take 1 tablet by mouth four times daily as needed for muscle spasms methocarbamol (Robaxin) 750 MG tablet Indications: Spondylosis of cervical spine Take 1 tablet (750 mg) by mouth 4 (four) times a day as needed for muscle spasms 120 tablet 5 06/15/2024 Active Start: 03-19-2021 take 1 tablet by [...] 07/02/2023 Active QUEtiapine 50 mg oral tablet (20 sources) Atypical Antipsychotic Start: 12-13-2024 take 1 tablet by mouth at bedtime QUEtiapine (SEROquel) 50 MG tablet Indications: Primary hypertension , Moderate COPD (chronic obstructive pulmonary disease) (HCC) , ETHAN (generalized anxiety disorder) Take 1 tablet (50 mg) by mouth at bedtime 30 tablet 5 12/13/2024 Active Start: 05-03-2024 take 1 tablet by epifanio th at [...] Drug Class(es) Dates Sig (Normalized) Sig (Original) gabapentin 800 mg oral tablet (20 sources) Anti-epileptic Agent Start: 08-25-2024 End: 05-15-2025 take 1 tablet by mouth in the morning, then take 1 tablet by mouth in the evening, then take 1 tablet by mouth at bedtime gabapentin (Neurontin) 800 MG tablet Indications: Spondylosis of cervical spine Take 1 tablet (800 mg) by mouth in the morning and 1 tablet (800 mg) in the evening and 1 tablet (800 mg) before bedtime. 90 tablet 2 01/11/2025 02/14/2025 Discontinued (Reorder) Start: 12-29-2023 End: 05-05-2024 take 1 tablet [...] tablets by mouth three times daily. lisinopril 40 mg oral tablet (4 sources) Angiotensin Converting Enzyme Inhibitor Start: take 1 tablet by mouth once daily lisinopril (ZESTRIL, PRINIVIL) 40 mg tablet Take 1 tablet by mouth once daily. 0 03/19/2021 Active Comment on above: Take 1 tablet by epifanio th once daily. naratriptan 2.5 mg oral tablet (4 sources) Serotonin-1b and Serotonin-1d Receptor Agonist Start: naratriptan (AMERGE) 2.5 mg tablet Take 1 [...] tablet (4 sources) gamma-Aminobutyric Acid-ergic Agonist Start: zolpidem (AMBIEN) 10 mg Problems Active Problems Problem Classification Problem Date Documented Date Episodic/Chronic Adjustment disorders (20 sources) Adjustment disorder with anxious mood; Translations: [Adjustment disorder with anxiety] Onset: 07-02-2023 07-02-2023 Chronic Anxiety disorders (20 sources) Generalized anxiety disorder; Translations: [Generalized anxiety disorder] Onset: 06-13-2023 08-12-2023 Chronic Chronic obstructive pulmonary disease and bronchiectasis (20 sources) Moderate chronic obstructive pulmonary disease; Translations: [Chronic obstructive pulmonary disease, unspecified] Onset: 07-02-2023 Resolved: 12-16-2023 07-02-2023 Chronic Coronary atherosclerosis and other heart disease (20 sources) Coronary atherosclerosis; Translations: [Atherosclerotic heart disease of [place] coronary artery without angina pectoris] Onset: 05-24-2020 [...] Translations: [Immunodeficiency due to conditions classified elsewhere ([facility])] 04-12-2024 Chronic Malaise and fatigue (2 sources) Fatigue; Translations: [Other fatigue] 02-03-2025 Episodic Miscellaneous mental health disorders (20 sources) Primary insomnia; Translations: [Primary insomnia] Onset: 12-16-2023 04-12-2024 Chronic Mood disorders (20 sources) Recurrent major depressive episodes, mild ; Translations: [Major depressive disorder, recurrent, mild] Onset: 12-16-2023 04-12-2024 Chronic Osteoarthritis (20 sources) Arthritis; Translations: [Unspecified osteoarthritis, unspecified site] [...] [Other chronic pain] Onset: 07-15-2014 07-15-2014 Chronic Other non-traumatic joint disorders (5 sources) Joint pain; Translations: [Pain in unspecified joint] Onset: 02-03-2025 02-03-2025 Episodic Residual codes; unclassified (4 sources) Pain; Translations: [Pain, unspecified] 07-15-2014 Episodic Spondylosis; intervertebral disc disorders; other back problems (20 sources) Cervical post-laminectomy syndrome; Translations: [Postlaminectomy syndrome, not elsewhere classified] Onset: 03-30-2013 07-15-2014 Chronic Sprains and strains (1 source) Injury of muscle and tendon at neck level; Translations: [Strain of muscle, fascia and tendon at neck level, initial encounter] Onset: 09-02-2022 Episodic Substance-related disorders (20 sources) Smoker; Translations: [Tobacco dependence syndrome] Onset: 03-16-2021 12-22-2020 Chronic Comment on above: Added secondary [...] headache] Onset: 06-21-2021 06-21-2021 Episodic Mood disorders (13 sources) Mood disorders Onset: 06-15-2024 06-15-2024 Other acquired deformities (20 sources) Acquired spondylolisthesis; Translations: [Spondylolisthesis, site unspecified] Onset: 07-02-2023 07-02-2023 Episodic Other aftercare (1 source) Other lobsterman (current) drug therapy; Translations: [OTH HALFWAY CURRENT DRUG THERAPY] Onset: 06-17-2022 Episodic Other aftercare (20 sources) Long-term current use of drug therapy; Translations: [Other lobsterman (current) drug therapy] Onset: 12-16-2023 12-16-2023 Episodic Other aftercare (1 source) Patient encounter status; Translations: [Other residential (current) drug therapy] Onset: 12-16-2023 12-16-2023 Episodic Other connective tissue disease (20 sources) History of cervical spine fusion; Translations: [Arthrodesis status] Onset: 07-15-2014 Episodic Other nervous system disorders (4 sources) Acute postoperative pain; Translations: [Other acute postprocedural pain] Onset: 03-16-2021 03-19-2021 Episodic Other nervous system disorders (4 sources) Allodynia; Translations: [Other disturbances of skin sensation] Onset: 06-21-2021 06-21-2021 Episodic Other screening for suspected conditions (not mental disorders or infectious disease) (20 sources) Encounter for screening for malignant neoplasm of prostate; Translations: [Patient encounter status] Onset: 06-17-2022 12-16-2023 Episodic Screening and history of mental health and substance abuse codes (20 sources) H/O: drug dependency; Translations: [Personal history [...] Radiology Study observation (narrative) [facility] XR Elbow - left 3 Viewson [facility] Pixplit[employer] e Radiology Study observation (narrative) [facility] XR Shoulder - left 2 ViewsOr dered By: Glory Evans on 08-20-2024 [facility] Health[facility] Radiology Study observation (narrative) [facility] Healthcare XR Thoracic spine 3 Viewson 08-20-2024 [facility] Radiology Study observation (narrative) [facility] MLR HEMOGLOBIN A1Con 024 Glucose [Mass/Vol] 128 mg/dL [facility] HbA1c (Bld) [Mass fraction] 6.1 % 4.5 - 6.2 % [facility] Healthcare Comment on above: ADA RECOMMENDED LIMI T 4.0 - 6.0 ADA THERAPEUTIC TARGET < 7.0 ACTION SUGGESTED > 7.0 [facility] CNPNon 10-25-2022 CNPN Telephone (NIQ) MICAH FORBES ([id number]) 1965 M Date Time Provider Department 10/25/22 ABDON PALACIOS During your visit today, we recorded the following information about you: Terese Schrader 10/25/2022 4:21 PM Signed Received the following record(s) via fax. -CT cspine wo(report) Date 10/25/22 Record(s) scanned into pt's chart. eTrese Schrader Images requested Sharita Carney PA-C 11/15/2022 [...] of cervical region [M40.202] 03/15/2021 Atherosclerosis of [place] coronary artery of na*05/24/2020 Spinal stenosis in [...] Status:Closed by SHARITA CARNEY on 11/15/22 Normal [facility] CT CSPINE WO CONon 3 CT CSPINE [...] by: CIRA LIN Date: 2022-10-25 15:30 Normal [facility] Glucose Poct Glucometerson 0 10-10-2022 Glucose [Mass/Vol] 192 mg/dL Normal [facility] Comment on above: Result Comment: [facility] Glucose Reference Range is dependent on time and content of last meal. Glucose of more than 200 mg/dL in a nonstressed, ambulatory subject supports the diagnosis of Diabetes Mellitus. PERFORMED BY: [facility] [place] [id number] PATHOLOGIST SIGNAL WORKER HELPER ARIANA REEVES M.D. Performed By: #### G JOI #### Point of Care testing , Jeffery 10-10-2022 L Specimen: [id number] Received: 10/10/22 Status: ALO Dumont Num: [id number] Spec Type: Surgical Subm Dr: Aleksandr Sandoval MD Tissues: A Colon Biopsy (SIGMOID POLYP) Procedures: MAYI/Flower Gutiérrez/Ciera L4 Age/ Patient Sex Location Account Attending Physician Micah Forbes/Cely [id number] Aleksandr Sandoval MD SPEC NUM: RECD: 10/10/22 STATUS: ALO DUMONT NUM: [id number] MARSHALL: 10/10/22 DR: Aleksandr Sandoval MD ENTERED: 10/10/[address] [facility] [address]: VICKY TYPE: Surgical DEPT: S ORDERED: [...] support the above pathologic diagnosis. CPT Codes 08944 Specimen: Received: 10/10/22 Status: ALO Dumont Num: [id number] Spec Type: Surgical Subm Dr: Aleksandr Sandoval MD Tissues: A Colon Biopsy (SIGMOID POLYP) Procedures: Flower BRUCE/Ciera L4 Patient: Micah Forbes [id number] (Continued) Signed (signature on file) Kirsten Zelaya MD 10/11/22 [facility] EMS Documentationon 09-12-19 EMS Documentation Please click on link to see report pdfCD:[id number] hVxIFFdZzw8EOUiJgDNM dNviXNMvwN34gcWFkgUS bMTQyNCAwIFIgMTMzNCA wIFIgMiAw IFIgMTMzNSAwIFIgMTQy OLThEPQeV0Mph4OJy0bm GY3pRNIsTUZ9KKBxOMG5 JMSoUL1vA9PioHEu OWZ0UFHeKDOlJNPnJVN0 BjWeFCWvIJObmUDEe0ui WX7eFAJbRHY6LZSkDJX4 SIHjRT8hXIpgYC6i LOB8OU6XYBVzfbGlQKN0 KDBkBGHeRpLca2PgD2Pu DPuhB03dx3WGwGGyOUb4 E6WHEEPhLtRuKOFo Uj4+H9XxftS4MS4PPPJa DYK2JKAmRCXeVSVbYXCm HHvaYBTECz7cVXPlN1Wn cRfaEAICI6CqwHXe K1M2nRaVuMB6XDYpScTf YEAeEa4QH7YjNVB5ZOOu ViTpEDXVKb1vVg86LASr HKCtP1FwdOL4DFKd LD12ftO1R5T3tELkIMCl JH4VOPNpT3N+PgplbmRv NrdQPlUwYU2hcrr6XM9V KO5qeErcWUHuIMw+ DlM8soDacOpdG4EdXPAn SPDyUWQjujwkPQB2NtD6 IJCkIjDnSxdgZwV8CYQw ZQpmCjAgIHNjbgox PYO9RqyvIRO4GXJhLo0v MMSzWPTaXnD1FFBnHwDK CCVhSyTqWfO5LypkOOdz IX89ZKNyRqrnZGZf wpLKCtipMQK4SbwsIRow JG09SBGhYdbvUEGdtwFV HgirXthsBPZxs6EwDxNv CAasWn86SWzfMOR4 EbEwXFDnOF8ySuEebxZC NmvyNpuiCWP2GKipNy92 MWmpSVJ3Dgt3FLYkAE1i NzQgcmUKZgozNDQu DEP9FQtmLb13ZQsyBMG0 Ebw0FANuRM8tTbBdakKA LqqqJIOkS61VDIStTpEl XlK9BBXuQdwxGcLu SR5hOfG4SBHiCZqfUdO3 Ax6hOSJhPmGfIvO0UPAo NhqiMWT2GE1uLtM4BJMx RHobQqS6BR62IsMq IrNsQdC3OKLmEekmJEW7 ZC4nDuB1IJMnRZsuJnZd Kr17DherAmJuRuH1QTXr ZrY1IFWaMA40KlJe CBodOhGfYUY2Dp93LVWj UOT6Tvu5BRQzUM62JHXp vvECCpgoLmxlIID6IOB3 Zn86PMXpLSD5LhHn QzGjHG96PLRjcoPKModw GWEeXDJ7QGL3Dq53IFAi UNF7VfRxFaHsYB05JAGc qtLQZky7IHTfVhZ6 SKviAQ2kYIPcUA43KSVg SCP6RwMuVmMqEAotPyNv FKqkNZ1qAMJnWKX0Bxw8 COKfQY05QJMiouVI CiruHTK8OsJuUHZ0GVEr NlW2QO60CafeCVYjIbVJ QZr1VyHfVHB4ZqThYYE4 RTOsZwB3EY52Edxn GPNnWqQOXJn0SmBiJMA3 EXTnFbl0XQG1IJ35BLUl AEJnIrT2GIXkGsKGVBn1 IcZpTLX7PgKuSAM6 OJYkHgZ4NA68TmlqOORh McPHOgQ9Suv1FeS7ZpDz HZL2ZBNiQnA3JM42Garm MXJoWzWCIdR9Qxr6 GsV2MBCkVxx6BDF2IP94 DTTtBARqJaB6YFZuZuFF DyR8Lui2HsB3EeEoXQB1 BXVoGhL2DF11Bgoz TKHqYlSBLSSvHsB7VvO2 GJAtLytdEyHkDG1pFlR6 JBIpABllSdJsQBgrBV1g LRFrAM16PKUnCEK0 YlIhEkTnXRibFnL4Gj9m BQLnLiW5PeL7XMCjIrT0 NSAtMjcuNTIzIHJlCmYK IMz9DqDbRMH3QMLv Ubc3LLQ9DH60OXRxWSOb UjO4FLHgTqQPPAo5LlWh OPY5PFAaEwv8XYYsXzE6 QP5vFn42XrVvvtLT BuxpXUAyHJZ0IWtbRT8p IBVgJX00CHEhCRM2MrNy IvRcKVkhRhF9VM76NhNz ViT4QuV0KIGdLpsn JUC6CR4yBgV6FWMmRSkr LqP6FE23OcMtLvJ5KfV6 VXQtAbC0QPWgGippUOIk IHJlCmYKMTAgNjg0 Vji5VMV5YVXwHvhhZZ4o NrX8YBYsYEahQlEtNQAd FF8xHQS3MPIpGmptWL3j OpG6MJSkJFcyCbBy OAE6ZX18LKDnZM09BNXg LMK9WE7lPHVwRCbjAcZz Gh32OqnfMqp3Okr6JZXi XmC7OEFtHWX0IcCp XZCoCaZSVR70NOmlGPGf rgxuCV23ZRCtBae2RaHb YCP2WLFxEVuyKF9fWN02 ODUgcmUKZgowICBz L16FDPTdOpM4ZIG8BQ86 LXjuRALcZem9GfLvFI62 UKKinyUYOsejIPS8Diwa VMd1YGWkDd4kLABa MJRdDzI7EZYeOsFUPAEd PQevWjcqVIW3VTHlGspe BR5nDhJ8YAUtZPqdZzLw BFWhWQ74IVCeMF77 YXOxOTS7AlPrZEFbFNqm CmJgYw44BfsaNVR2NoX9 DRLqLaV5HHFePdfgFdX9 NLPnVkHHHQ15YNtp KKTgqotdOP31JGVvDLG8 JdykBVBnTSCbSZc3LS4f DY46IKMmvuJKEtphDSOo W17KXXYlTaS8MQWj FT3dDZA7QO04MJUsYCLm EyT6PYReGxPHWN24LPmc IHNjbgoyNjEuNjQxIDUy MX96LkbsKpSwAsn8 AiPcWXUdPQy1LDQaRvZE FKYyy1AyPkF9ZU64JZKh ZHH9IlPnNgVhAyo0NhSr BH38JORisoSITmnd GBV4PCLbPuI2JPYdQj1s WOPnJMLtXnK1ZVYrKnGZ XJUnVKJcSsG4DOC3QXKy WmwkXU0gUjB7DXOp BXkySlQmUQV2EK0iCxId NK57NJQqMSZ2GyE5WsYk DCriNaJgFp29KcutFDhn QkS4EtAjCxR6DMGw EafuAUHkSWIzTnMIKS68 BAmzYFPsjpcxYC61ZEUr GNg5QzAjYAIrGE51RwUd SSSiMjB0RMQhYSzg BjCuBMEndgqlHO61XNMj EGg9Kjq0SQT1QPYvNFjy RP3fXcO6ANYvHYncExYq BC91EDDhTGi8Srqh GMOdQITiOCq6OC0yDkM7 COCpIZqkYuOkZD57HDZe MXV1Gbd9NsTfWQDqQEg0 JJ2hEsV9SGTzJMrz UcErFS25XPWaAXk3Pbfb FLTaPfA8XKNiMYxwQHhs WUSqBlVHMRDnOmI9RXO4 XbuoZOB1LMGbUfG2 EE38BG83BAHcloKJPxfy QrwzZXDfl2SdLbPzNA2q VBbxJAb8UaB7UWPeVHHp RpJdHC3xLR35YECt pqDAQtlrLETwT78EGFEn MqJ5YRU7AepqAtOnKYQb OlV7BqDoQF85BBElehKJ JaruSQW2RoEcATSj ZFRzKr5jJSSzMBPbDtJ4 PGSlDcRISTYnRiV4LiH8 QAF8ZZIeLdejKL6uGoC5 NSByZQpmCjEwIDQy BO13NEWpOQ19AIAoGMl8 NwVmRvAkTScbIcMwAc94 MjcgNDIwLjgwMiAwLjY1 LQXsWrOmHVD6PZGa PcGILH16IBalFMNrrdlr JV72DUGeTPVaFqW9XtQ3 XDAcOMfmGC6yYS68POVh ilJKJtsoTDPhX48Z JBZwQdN9MNSdQT2bCZah PPEnNnv8RaNoSO04NFKs cmUKZgoxMCAzNDQuNzg2 STRzRn7tCNUzFZTo PdE6WWYtJrNFFAMcAvGt PcI9WbN9HHAdFshdJU8m RpC7JAXuEOkeRzLtXBY5 BL06LIFtFU42QWIp BTFgEd9cJRqqkkSJPxr3 ARYcNcM8BST5TL69FFZh VU97AMZiXNRsNy0aTGed cmUKZgowLjkxOCAg g1LtWmHqXvO1XYRgDLLw MCNuFWAdPcd4EsMlHUFf YOx0FPCxBeBETXRfb5Ew GvCkIeW1JKKdTiUm TePhWUDgCV07VnHjTRMt GwW8ESSsKsZNKMZeNfJz VpccGtL4GWHlCyddMF8t QiY4EFAqUTxrXeJo NYw8RsO0IiS1EKVcOvyw BK3wUrP3OMBwIFmhZuQe MPPvCw55BaSbGK77VUUt RHItZF4nMhAgivEZ Eoe4YXIiTuH6TLNqPf32 PoZoXE11TPMrMFEoWN9l MzYgcmUKZgowLjkxOCAg l1IhOzEjXsH3CVLc MHGjOGJ0YIBmUH96PyIa RWOtOeC0NYYrBUxnIpQl KYDhjutuBP13HDSrHnQr WiOaYfG1CWFfKSmi VU4qJhC8YPMnZZjaQuEl SNdnXxPgEUB8EHVmActw FI3uHkD8RWQkQMmkHwVh WFYpJLWaIhB6KFN4 RkVzDDHoVAreTuZwNm69 YltqEmWxPC65YSLmOTip CHM5WNLjPfONLA30GPjz SUJfsqptAZ87VFOm TSJxZpY2AUYxET19HoAu MBTzJmF9NSWiLHdlFxIz EOTzfwzgWP26UIJwUjGv ZMU4IBQjZQ87KpRt ACAkFzX2AQRuYpZSMXjd XdA6HCBcHv60HoEtNVPa HiE3XXMkWF21VCJxupGS DnrcZo2pYWfuCXD3 BxMrUsFgPfYeDtv5UY4s LrF8PIRwMKpyHoI8ZhIx UEP3VICiILV0CNYsBnY0 AR50WC69VDZsypUM BprgBPflOGN8TCPlSd26 UjOsQD75EXFrMMC2Jvuz SPAaJDfyKdReXZS0ZERu A13MFIhkTZA4RBLj Oc84IULbFeDnDVMuUZ61 FpadTJPnQsJWUJLob8Ir AkI4MO66ZCXyWtMmEcR5 VRTrHTPyXAT9MF2s XyJ8KSTeFFxkJlJ9GS38 ONAbIOC0SxO7JsUwFLHc SHU8JL4pNcX7GBIuFNsn ScK3PZ98KJXxDrRw NaQ6OVCxRzA8UDAuVLxi HAA4USMqDpCDXmszEmcs LxR9NHYrHFE9 (more content not included)... [facility] Alma Delia 09-06-2022 CNPN Telephone (NIQ) MICAH FORBES ([id number]) 1965 M Date Time Provider Department 09/06/22 ABDON PALACIOS During your visit today, we recorded the following information about you: Maggie Selby 09/06/2022 10:40 AM Signed [place] calling Fuad SMITH calling asking for a C9 for a CT scan. Call back # [phone] Nyla Wilks, RN 09/06/2022 11:02 AM Signed Message forwarded to [facility] Forms for C-9. Allergies As of Date: 09/06/2022 (No Known Allergies) Date Reviewed: 08/09/2022 Reviewed by: Mauricio Noriega LPN - Fully Assessed Reason for Visit: [employer] - Other [3602] Orders [681] Prescriptions as [...] of cervical region [M40.202] 03/15/2021 Atherosclerosis of [place] coronary artery of na*05/24/2020 Spinal stenosis in [...] NYLA WILKS on 09/06/22 [facility] Coding Summary.on 09-06-2022 Coding Summary. [id number] Gh0bWw+PGhlYWQ+PE1FV MKmM05zsBDpzW2GK9bWA W3TQSIKPKLTSA3JZQ1de OO4VZmxT1YxhmAt YjlgxBOjVS66GUn3OCT9 gKctKSyuuO2nbTJlN4t5 MgCrWV04zT51OFjyGOVw NfT8HnEspzjuvROz Y3nmXhHbwYJiCkt+PHRh YmxlIHdpZHRoPScxMDAl YcScpHmaZC7dUr1tYAXx LWNvbGxhcHNlOiBj j9sqOKUkXUfpZN1efZzd A5KqqKN9AJRdj1x4Jh55 dHI+LZGtQWL4kImxBThm b985PaOly4irOQD2 fDMrWLssHHM5Z24jw8E3 MQTkNXWlFDG4fOC9bU1n jXsqfbetB9BprREmXoQ9 ICZ8hCBllG9tbUqn jyulxH6zOim+L77HKL1S CGQTDH1QGne1T7TzIxuy dHI+FG72WWQmFR96bTVr eINir6vtyHm3VfSy NFRzALJ6mMqlFFhtp3Yi JXGbN55idMOth2E6TOKt uUoqcDCtBmQdmFA9lK1z OTgqcmedx4tsdcoz Kiyjn4uyho63gE70G53o XMtaJPXpSDM4UXYbVEHt qYcscv6scK4vTp6+IDxj z5qyl8nkuBz5OzEr JFIaedPccAzhHKY6s6Vp Ju67O7AbtNcwp4RgTuo9 je83iSNrv8L1pUH8XJna HTZemW5mBOvuEzA6 LRFpBiBjxM43iYQjNXeu As2uyTsiiVxtUE2fDZEg dghdXQUrhH5hHFKxtLCb rJedGG9aNDMsqawb u999GrToTUG1MJMegDJs V3OyhR7mSkVyTRXtKLMz W6IkqBThDRbsL679EBpc VjP9EZVtxxNoQ9Ze YDKaeLbsVdF0d0O4Pf9R w0JalwrdWTP7EWbtQNSe GvCyPfDgQqA1B5UfRav7 HGRyhSugGW4vO7Qc ZWJsocdmwubqoQK7GXWa YNOqcO61yYQsYXdqBx2k s7H3a538IDNjXWMpnV94 Az7teYwzOQEyrTFV qS5ndhwwe0rybbdcNlXa BNLkYYd7UGi3SUWghDqm UdUsAMQ3FoZ7FQK6bSWw kO5xeJlwkbajlI8a Oyc+C45aoV9sASW0POM8 zrqmQNPhpiEqJK23JY94 H4ZpJsvkgNJbdFH+PGRp esRngMlmOH4zEkGo q3iln0ZeWBwtI4PqLEGp EIvqRqx6FRAuGMW2tJF6 cB1wWZEdXPxws0I2pPX6 V2YqyvSwoy1sy4dm AJZtPIsyF96ovDQyx4V1 ATGirOW5YQOvuBuxBuLs lK97Cql+EOLiqKygz9Do Lrnch3amb4ngtHh1 IjMwJSIgdmFsaWduPSJ0 u8OvBp00M74nIBwjOCTf PMBkDFJsQTPksWrese6m xQ6tAz5+PGNvbCB3 xQK8iY2jIPWnYoW7JPre T790ZuNpnUPvRtkex3gw e3nraJm3UmAbHBWvwjVm gHibSLB0q7NgNa83 L12pFJjkFQShQPTwLUHs BKWbmQsbkt9kvU3gAe4+ DM9wn3ekns43gO87pMW+ JSGqASU5oQgeXNrt KGVxzW6bRLrcPtT2XRLa MtOwaW47eXAjEUlhPq1c uGqjoRmmQB8kKQBuljdr c031BlHzq8cgWXFn dWNmYWxdXMP8H65sb0X6 OFYdHZKmNSS4wBS3cF5n bGlnbjogbGVmdDsgdmVy yLsnALhqWYjvD290 IHRvcDsnPlBhdGllbnQg AuGkHQd3S3XpOas4SSBz vVlbGX3xeNNcWGjbQc5e xIcddGnhGF5oYIPc bujmj406ReKqi8muMZGg tCAgCKbvPJZ8O56rz6W3 BARdGOCqAXO1xWD5hS9n bGlnbjogbGVmdDsg tiMnwQdxXMtxKQnoP779 IHRvcDsnPkJpcnRoIERh eKS7WM53XR48xUAlw5A9 kFI4P5TeBNDhetvo kfrclZM0VUXxJJDrgU32 Gq3uiInaZu9yWHRmIYL9 ODKmdFHkX2DlrN9vApRl FDHfWVOhV1UwdRIw FPnyV042LXdeZzU3ZJCs uaHbY9MjRXUyvLmyCkO9 r5U7Gz7UW0N3PL83II34 sOCsu5H1uBZ4M7Rl YYTeftdysyunvDO1MRWe GWMvoF26Gl6evHwlUx4r DTKmEVS8IVIjrPUvS0Dt vT2tBqVlSXEdFZLt G6YhqEBgEIxpZ938AGfs IaJ8IKTsfxQwT0AkUGBi kAgyTmQ7a9X3It8IKNo2 TU94XH38cBKut7G0 tIK3U5BdQZHwrbfxlfaq kCY3AMAqNSBilO22Yk0q dVwzSt5lYJTtTGZ8CUSz qMUfV6NsjF7rFmYh CZDsWFNrW1RmqVBpVQhf T894VXhbJfN2GRByrsEa Z9CmANXsuCjzEqM7c3R9 Aj7KSTLwSA99XJX6 rNN2FW07VU19X0MtMyfy dGFibGU+PHRhYmxlIHdp ZHRoPScxMDAlJyBzdHls SL7hQx1kIJJhSWIp mAoqzKAsXgUrr6rpCCVm CLpfRR0daAgdV7OhgPD8 VVEhk2z2Yi24M01cV8Ug dXA+XVRvcRB9ySB2 rB7uAvVhFjE3ZSvsP987 JxIhjLFzPpnbb5qbr0ms iZu3WqS6FQCbaiDzqYkl EBE5l9QmJa49N22f IHdpZHRoPSIxNSUiIHZh vXjwkd0ggK9jHi6+PGNv bCT1yCQ5mL1xUgCsHcV7 XLmjR950ZqQbbNMc Vdwhv8bqw3xwnGz1XaZc ABGeqcOlxGflELP7d3Ae Ja93V4LdfTbhn0EvCmz7 cs69hBHoo8P0hDQ2 R7WkTHSdiepygKHtuAcz KF8yATSczcffFDYniY4m HZZfX3c4BrWkRrA9DRga L2FsgsI2ZFDkkOKv BRepDUV8H54ax2N0NGGc BBOoTMW4tRY7sE2eeQlq bjogbGVmdDsgdmVydGlj FItaBIbnE320SHFp fVzlEWFryE5aXTZfrABe vTrsCX2pPBPtsvapDmDB RS4TOAWzFQzQY9PNUXBI EO56GF38jUCmy4U1 tNP1I5HxXOMeioqqetfr dRJ9ITJqLFGtpQ11yPJe PFbcRf1ad2F5p071ZCLk HJQlsU63Uv2liJmq IYSvlHUAcC2lbjmrc7ka vhzgZdDbSENzRWl0OHm0 GHFzpVqwXuRfHNJ6ZmV0 MWP1dVEjnJ2sfHrs yulkiW7iBns+MTEvMDMv DOi4PIulnVX+PHRkIHN0 bLhhNDziOFHnpY7iFEIc F6k1RxYwLjP8RNwz C5DgLTEuwterNl87eY4e ZsCxJzK8RMmzW1UtruI0 OYCfiAOtIOquJXO3S17b c0U3TEXdMJEkGUZ3 bTP3aD2vkBmyrnnlxUZc dDsgdmVydGljYWwtYWxp N989AMTjiZetLeO6HJml WUUdIP77JW96fUEu m9O4oNU5S9JvIGJlqwpt axrypWQ1OCEjKNKjiW71 qSHeYGrpEw4ug5S9r218 KENvXPRfzB09Qa4s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 activity/Vol] 16 U/L Normal 15-37 [facility] Comment on above: Performed By: #### L IVER, LIPID, BMP #### [facility] [address] [place] [address] Dr. Marce Tabares BILI, CONJUGATED 0.1 mg/dL Normal 0.0-0.[address] [facility] Comment on above: Performed By: #### L IVER, LIPID, BMP #### [facility] [address] [place] [address] Dr. Marce Tabares Bilirubin [Mass/Vol] 0.3 mg/dL Normal 0.2-1.0 [facility] Comment on above: Performed By: #### L IVER, LIPID, BMP #### [facility] [address] [place] [address] Dr. Marce Tabares Globulin (S) [Mass/Vol] 3.3 g/dL Normal [facility] Comment on above: Performed By: #### L IVER, LIPID, BMP #### [facility] [address] [place] [address] Dr. Marce Tabares Protein [Mass/Vol] 7.2 g/dL Normal 6.4-8.2 [facility] Comment on above: Performed By: #### L IVER, LIPID, BMP #### [facility] [address] [place] [address] Dr. Marce Tabares MICROALBUMIN, RAND URon 12-0 mALB <1.3 Normal <=30.0 [facility] Comment on above: Performed By: #### M ALBR #### [facility] [address] [place] [address] Dr. Marce Tabares PROF CHEM 8 (BAS METB)on Anion gap [Moles/Vol] 11.6 mmol/L Normal [facility] Comment on above: Performed By: #### L IVER, LIPID, BMP #### [facility] [address] [place] [address] Dr. Marce Tabares Calcium [Mass/Vol] 8.8 mg/dL Normal 8.5-10.1 [facility] Comment on above: Performed By: #### L IVER, LIPID, BMP #### [facility] [address] [place] [address] Dr. Marce Tabares Chloride [Moles/Vol] 101 mmol/L Normal 98-107 [facility] Comment on above: Performed By: #### L IVER, LIPID, BMP #### [facility] [address] [place] [address] Dr. Marce Tabares CO2 [Moles/Vol] 30.8 mmol/L Normal 21.0-32.[address] [facility] Comment on above: Performed By: #### L IVER, LIPID, BMP #### [facility] [address] [place] [address] Dr. Marce Tabares Creatinine [Mass/Vol] 1.05 mg/dL Normal 0.70-1.30 [facility] Comment on above: Performed By: #### L IVER, LIPID, BMP #### [facility] [address] [place] [address] Dr. Marce Tabares EGFR-AF PALESTINIAN >60 Normal >=[address] [facility] Comment on above: Performed By: #### L IVER, LIPID, BMP #### [facility] [address] [place] [address] Dr. Marce Tabares EGFR-NON AF PALESTINIAN >60 Normal >=60 [facility] Comment on above: Performed By: #### L IVER, LIPID, BMP #### [facility] [address] [place] [address] Dr. Marce Tabares Glucose [Mass/Vol] 170 mg/dL Critically high 74-106 [facility] Comment on above: Performed By: #### L IVER, LIPID, BMP #### [facility] [address] [address] [address] Marce Tabares Potassium [Moles/Vol] 4.1 mmol/L Normal 3.5-5.1 [facility] Comment on above: Performed By: #### L IVER, LIPID, BMP #### [facility] [address] [address] [address] Marce Tabares Sodium [Moles/Vol] 140 mmol/L Normal 136-145 [facility] Comment on above: Performed By: #### L IVER, LIPID, BMP #### [facility] [address] [address] [address] Marce Tabares Urea nitrogen [Mass/Vol] 13.0 mg/dL Normal 7.0-18.0 [facility] Comment on above: Performed By: #### L IVER, LIPID, BMP #### [facility] [address] [place] [address] Dr. Marce Tabares Urea nitrogen/Creatinine [Mass ratio] 12.4 mg/mg Normal [facility] Comment on above: Performed By: #### L IVER, LIPID, BMP #### [facility] [address] [place] [address] Dr. Marce Tabares Vital Signs Date Time Vital Sign Value Performing Clinician Facility 02-03-2025 14:52-0400 Body height 172.7 cm Silvio Crain MD Work Phone: [facility] 02-03-2025 14:52-0400 Body mass index (BMI) [Ratio] 29.5 kg/m2 Silvio Crain MD Work Phone: [facility] 02-03-2025 14:52-0400 Body temperature 97.81 [degF] Silvio Crain MD Work Phone: [facility] 02-03-2025 14:52-0400 Body weight 88 kg Silvio Crain MD Work Phone: [facility] 02-03-2025 14:52-0400 Diastolic blood pressure 72 mm[Hg] Silvio Crain MD Work Phone: [facility] 02-03-2025 14:52-0400 Heart rate 85 /min Silvio Crain MD Work Phone: [facility] 02-03-2025 14:52-0400 Respiratory rate 18 /min Silvio Crain MD Work Phone: [facility] 02-03-2025 14:52-0400 SaO2% (BldA) [Mass fraction] 91 % Silvio Crain MD Work Phone: [facility] 02-03-2025 14:52-0400 Systolic blood pressure 128 mm[Hg] Silvio Crain MD Work Phone: [facility] 06-15-2024 13:12-0500 Body height 172.7 cm Silvio Crain MD Work Phone: [facility] 06-15-2024 13:12-0500 Body mass index (BMI) [Ratio] 29.35 kg/m2 Silvio Crain MD Work Phone: [facility] 06-15-2024 13:12-0500 Body temperature 98.2 [degF] Silvio Crain MD Work Phone: [facility] 06-15-2024 13:12-0500 Body weight 87.54 kg Silvio Crain MD Work Phone: [facility] 06-15-2024 13:12-0500 Diastolic blood pressure 66 mm[Hg] Silvio Crain MD Work Phone: [facility] 06-15-2024 13:12-0500 Heart rate 77 /min Silvio Crain MD Work Phone: [facility] 06-15-2024 13:12-0500 Respiratory rate 22 /min Silvio Crain MD Work Phone: [facility] 06-15-2024 13:12-0500 SaO2% (BldA) [Mass fraction] 91 % Silvio Crain MD Work Phone: [facility] 06-15-2024 13:12-0500 Systolic blood pressure 130 mm[Hg] Silvio Crain MD Work Phone: [facility] 04-12-2024 14:58-0400 Body height 172.7 cm Silvio Crain MD Work Phone: [facility] 04-12-2024 14:58-0400 Body mass index (BMI) [Ratio] 29.5 kg/m2 Silvio Crain MD Work Phone: [facility] 04-12-2024 14:58-0400 Body temperature 97.81 [degF] Silvio Crain MD Work Phone: [facility] 04-12-2024 14:58-0400 Body weight 88 kg Silvio Crain MD Work Phone: [facility] 04-12-2024 14:58-0400 Diastolic blood pressure 62 mm[Hg] Silvio Crain MD Work Phone: [facility] 04-12-2024 14:58-0400 Heart rate 71 /min Silvio Crain MD Work Phone: [facility] 04-12-2024 14:58-0400 Respiratory rate 20 /min Silvio Crain MD Work Phone: [facility] 04-12-2024 14:58-0400 SaO2% (BldA) [Mass fraction] 91 % Silvio Crain MD Work Phone: [facility] 04-12-2024 14:58-0400 Systolic blood pressure 110 mm[Hg] Silvio Crain MD Work Phone: [facility] 09-02-2022 18:15-0500 Diastolic blood pressure 102 mm[Hg] Paxton Cerrato [facility] 09-02-2022 18:15-0500 Heart rate 71 /min Paxton Cerrato [facility] 09-02-2022 18:15-0500 Mean blood pressure 111 mm[Hg] Paxton Cerrato [facility] 09-02-2022 18:15-0500 Respiratory rate 20 /min Paxton Cerrato [facility] 09-02-2022 18:15-0500 SaO2% (BldA) [Mass fraction] 93 % Paxton Cerrato [facility] 09-02-2022 18:15-0500 Systolic blood pressure 130 mm[Hg] Paxton Cerrato [facility] 09-02-2022 17:37-0500 Body temperature 99.68 [degF] Paxton Cerrato [facility] 09-02-2022 17:37-0500 Diastolic blood pressure 104 mm[Hg] Paxton Cerrato [facility] 09-02-2022 17:37-0500 Heart rate 82 /min Paxton Cerrato [facility] 09-02-2022 17:37-0500 Respiratory rate 20 /min Paxton Cerrato [facility] 09-02-2022 17:37-0500 SaO2% (BldA) [Mass fraction] 93 % Paxton Cerrato [facility] 09-02-2022 17:37-0500 Systolic blood pressure 158 mm[Hg] Paxton Cerrato [facility] 08-09-2022 09:00-0500 Body height 172.7 cm Abdon Palacios MD Work Phone: [facility] 08-09-2022 09:00-0500 Body weight 88.45 kg Abdon Palacios MD Work Phone: [facility] 08-09-2022 09:00-0500 Diastolic blood pressure 69 mm[Hg] Abdon Palacios MD Work Phone: [facility] 08-09-2022 09:00-0500 Heart rate 89 /min Abdon Palacios MD Work Phone: [facility] 08-09-2022 09:00-0500 Respiratory rate 13 /min Abdon Palacios MD Work Phone: [facility] 08-09-2022 09:00-0500 SaO2% (BldA) [Mass fraction] 98 % Abdon Palacios MD Work Phone: [facility] 08-09-2022 09:00-0500 Systolic blood pressure 121 mm[Hg] Abdon Palacios MD Work Phone: [facility] Encounters Encounter Date Encounter Type Care Provider Facility Start: 02-14-2025 End: 02-14-2025 Refill Silvio Crain MD Work Phone: [facility] Comment on above: Spondylosis of cervi deepa spine Start: 02-03-2025 End: 02-03-2025 Office outpatient visit 25 minutes Silvio Crain MD Work Phone: [facility] Comment on above: Type 2 diabetes adalid itus with hyperglycemia, without long-term current use of insulin (HCC) (Primary Dx); Benign essential hypertension ; Moderate COPD (chronic obstructive pulmonary disease) (HCC); MDD (major depressive disorder), recurrent episode, mild ; ETHAN (generalized anxiety disorder) ; Primary insomnia; 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); Arthralgia, unspecified joint; Encounter for long-term current use of medication; Dyslipidemia ; Screening PSA (prostate specific antigen); Fatigue, unspecified type; Cigarette smoker Start: 02-03-2025 End: 02-03-2025 ambulatory SILVIO CRAIN Not Available Start: 02-03-2025 End: 02-03-2025 Bamboo flowsheet Silvio Crain MD Work Phone: [facility] Start: 02-03-2025 End: 02-03-2025 Bamkareno flowsheet Silvio Crain MD Work Phone: [facility] Start: 01-11-2025 End: 01-11-2025 Refill Silvio Crain MD Work Phone: [facility] Comment on above: ETHAN (generalized anx iety disorder) ; Spondylosis of cervical spine; Dyslipidemia ; Type 2 diabetes mellitus with hyperglycemia, without long-term current use of insulin ([facility]) Start: 12-14-2024 End: 12-14-2024 Refill Silvio Crain MD Work Phone: [facility] Comment on above: Spondylosis of cervi deepa spine Start: 11-18-2024 End: 11-18-2024 Refill Silvio Crain MD Work Phone: [facility] Comment on above: ETHAN (generalized anx iety disorder) (CMS/[facility]) Start: 11-08-2024 End: 11-09-2024 Refill Silvio Crain MD Work Phone: [facility] Comment on above: Type 2 diabetes adalid itus with hyperglycemia, without long-term current use of insulin ([facility]) Start: 09-07-2024 End: 09-07-2024 Bamboo flowsheet Silvio Crain MD Work Phone: [facility] Start: 09-07-2024 End: 09-07-2024 Bamboo flowsheet Silvio Crain MD Work Phone: [facility] Start: 08-20-2024 End: 08-25-2024 Orders Only Silvio Crain MD Work Phone: [facility] Comment on above: ETHAN (generalized anx iety disorder) ([facility]); Spondylosis of cervical spine Start: 07-14-2024 End: [...] minutes Silvio Crain MD Work Phone: [facility] Comment on above: Type 2 diabetes adalid itus with hyperglycemia, without long-term current use of insulin (CMS/HCC) (Primary Dx); Benign essential hypertension (CMS/HCC); MDD (major depressive disorder), recurrent episode, mild (HCC) (CMS/HCC); ETHAN (generalized anxiety disorder) (CMS/HCC); Primary insomnia; Moderate COPD (chronic obstructive pulmonary disease) (CMS/HCC); Polyneuropathy due to type 2 diabetes mellitus (CMS/HCC); Immunodeficiency due to conditions classified elsewhere ([facility]) Start: 04-12-2024 End: 04-12-2024 ambulatory SILVIO [...] on above: ETHAN (generalized anx iety disorder) ([facility]) Start: 08-12-2023 Refill Silvio Moreno Work Phone: [facility] Comment on above: ETHAN (generalized anx iety disorder) (CMS/HCC) Start: 10-25-2022 End: 10-26-[address] DOCTOR SANTANA Facility: Start: 10-25-2022 Telephone encounter Abdon macias MD Work Phone: Neurology Comment on above: Results Start: 10-10-2022 End: 10-10-2022 ambulatory Aleksandr Sandoval Facility:[facility] Start: 09-06-2022 Telephone encounter Abdon macias MD Work Phone: Neurology Comment on above: [employer] [facility] [employer]; Orders Start: 09-02-2022 End: 09-02-2022 Emergency department patient visit Paxton Cerrato Facility:[facility] Start: 09-02-2022 End: 09-02-2022 Emergency department patient visit Paxton Cerrato [facility] Start: 08-09-2022 End: 08-09-2022 ambulatory ABDON PALACIOS Facility:[facility] Start: 08-09-2022 End: 08-09-2022 ambulatory ABDON PALACIOS Facility:[facility] Start: 08-09-2022 End: 08-09-2022 Subsequent hospital visit by physician Koko Mendiola [id number] Work Phone: Radiology Comment on above: Spinal stenosis of c ervical region [M48.02] Start: 08-09-2022 End: 08-09-2022 Patient encounter procedure Abdon Plaacios MD Work Phone: [facility] [place] Comment on above: Spinal stenosis of c [...] Comment on above: Performed By: #### P [facility] #### [facility] [address] [place] [address] Dr. Marce Tabares Plan of Treatment Date Care Activity Detail Author Start: 10-10-2032 [facility] Start: 06-13-2027 PROSTATE CANCER SCRE ENING DISCUSSION PROSTATE CANCER SCREENING DISCUSSION [facility] Start: 06-20-2025 End: 06-20-2025 Patient encounter procedure 06/20/2025 1:30 PM EST Office Visit [facility] [address] [place] [phone] Silvio Crain MD [address] [place] [id number] [facility] Start: 06-15-2025 Medicare Annual Well ness (AWV) Medicare Annual Wellness (AWV) [facility] Start: 03-07-2025 Influenza vaccination [facility] Start: 02-03-2025 End: 02-03-2025 Patient encounter procedure [facility] Comment on above: Arrived Start: 02-03-2025 End: 02-03-2026 Basic metabolic 1998 panel - Serum or Plasma Basic metabolic panel Lab Routine Type 2 diabetes mellitus with hyperglycemia, without long-term current use of insulin (HCC) Expected: 02/03/2025 (Approximate), Expires: 02/03/2026 [facility] Comment on above: Expected: 02/03/2025 (Approximate), Expires: 02/03/2026 Start: 02-03-2025 End: 02-03-2026 C reactive protein [Mass/volume] in Serum or Plasma C-reactive protein Lab Routine Arthralgia, unspecified joint Expected: 02/03/2025 (Approximate), Expires: 02/03/2026 [facility] Comment on above: Expected: 02/03/2025 (Approximate), Expires: 02/03/2026 Start: 02-03-2025 End: 02-03-2026 CBC W Auto Differential panel - Blood CBC and differential Lab Routine Encounter for long-term current use of medication Expected: 02/03/2025 (Approximate), Expires: 02/03/2026 [facility] Comment on above: Expected: 02/03/2025 (Approximate), Expires: 02/03/2026 Start: 02-03-2025 End: 02-03-2026 CT Chest for screening WO contrast CT lung screening low dose Imaging Routine Cigarette smoker Expected: 02/03/2025, Expires: 02/03/2026 [facility] Comment on above: Expected: 02/03/2025 , Expires: 02/03/2026 Start: 02-03-2025 End: 02-03-2026 Erythrocyte sedimentation rate Sedimentation rate, automated Lab Routine Arthralgia, unspecified joint Expected: 02/03/2025 (Approximate), Expires: 02/03/2026 [facility] Comment on above: Expected: 02/03/2025 (Approximate), Expires: 02/03/2026 Start: 02-03-2025 End: 02-03-2026 Hemoglobin A1c/Hemoglobin.total in Blood Hemoglobin A1c Lab Routine Type 2 diabetes mellitus with hyperglycemia, without long-term current use of insulin (HCC) Expected: 02/03/2025 (Approximate), Expires: 02/03/2026 [facility] Comment on above: Expected: 02/03/2025 (Approximate), Expires: 02/03/2026 Start: 02-03-2025 End: 02-03-2026 Hepatic function 2000 panel - Serum or Plasma Hepatic function panel Lab Routine Encounter for long-term current use of medication Expected: 02/03/2025 (Approximate), Expires: 02/03/2026 [facility] Comment on above: Expected: 02/03/2025 (Approximate), Expires: 02/03/2026 Start: 02-03-2025 End: 02-03-2026 Lipid 1996 panel - Serum or Plasma Lipid panel Lab Routine Dyslipidemia Expected: 02/03/2025 (Approximate), Expires: 02/03/2026 [facility] Comment on above: Expected: 02/03/2025 (Approximate), Expires: 02/03/2026 Start: 02-03-2025 End: 02-03-2026 Microalbumin/Creatinine panel in random Urine Microalbumin / creatinine, urine ratio Lab Routine Type 2 diabetes mellitus with hyperglycemia, without long-term current use of insulin (HCC) Expected: 02/03/2025 (Approximate), Expires: 02/03/2026 [facility] Work Phone: Comment on above: Expected: 02/03/2025 (Approximate), Expires: 02/03/2026 Start: 02-03-2025 End: 02-03-2026 Nuclear Ab [Titer] in Serum by Immunofluorescence JOSE MARTIN Lab Routine Arthralgia, unspecified joint Expected: 02/03/2025 (Approximate), Expires: 02/03/2026 [facility] Comment on above: Expected: 02/03/2025 (Approximate), Expires: 02/03/2026 Start: 02-03-2025 End: 02-03-2026 Prostate specific Ag [Mass/volume] in Serum or Plasma PSA Lab Routine Screening PSA (prostate specific antigen) Expected: 02/03/2025 (Approximate), Expires: 02/03/2026 [facility] Comment on above: Expected: 02/03/2025 (Approximate), Expires: 02/03/2026 Start: 02-03-2025 End: 02-03-2026 Rheumatoid factor [Units/volume] in Serum or Plasma Rheumatoid factor Lab Routine Arthralgia, unspecified joint Expected: 02/03/2025 (Approximate), Expires: 02/03/2026 [facility] Comment on above: Expected: 02/03/2025 (Approximate), Expires: 02/03/2026 Start: 02-03-2025 End: 02-03-2026 Thyrotropin [Units/volume] in Serum or Plasma TSH Lab Routine Fatigue, unspecified type Expected: 02/03/2025 (Approximate), Expires: 02/03/2026 [facility] Comment on above: Expected: 02/03/2025 (Approximate), Expires: 02/03/2026 Start: 12-23-2024 Urine screening for protein Di abetes: Urine Protein Screening [facility] Start: 12-14-2024 End: 12-14-2024 Patient encounter procedure 12/14/2024 1:30 PM EDT Office Visit [facility] [address] [place] [address] Silvio Crain MD [address] [place] [phone] [facility] Start: 11-19-2024 Hemoglobin A1c measurement Joanne betes: Hemoglobin A1C [facility] Start: 06-24-2024 Hemoglobin A1c measurement Joanne betes: Hemoglobin A1C [facility] Start: 06-15-2024 End: 06-15-2024 Patient encounter procedure 06/15/2024 1:00 PM EST Office Visit [facility] [address] [place] [phone] Silvio Crain MD [address] [place] [phone] [facility] Start: 04-12-2024 End: 04-12-2024 Patient encounter procedure 04/12/2024 2:45 PM EDT Office Visit [facility] [address] [place] [id number] Silvio Crain MD [address] [place] [phone] Arrived [facility] Comment on above: Arrived Start: 04-12-2024 End: 04-12-2025 Hemoglobin A1c/Hemoglobin.total in Blood Hemoglobin A1c Lab Routine Type 2 diabetes mellitus with hyperglycemia, without long-term current use of insulin ([facility]) Expected: 04/12/2024 (Approximate), Expires: 04/12/2025 [facility] Work Phone: Comment on above: Expected: 04/12/2024 (Approximate), Expires: 04/12/2025 Start: 04-06-2024 End: 04-06-2024 Patient encounter procedure 04/06/2024 9:15 AM EDT Office Visit [facility] [address] [place] [address] Silvio Crain MD [address] [place] [phone] [facility] Start: 03-07-2024 Influenza vaccination Influenza Vacc ine (#1) [facility] Start: 09-18-2023 End: 09-18-2023 Patient encounter procedure 09/18/2023 1:00 PM EDT Office Visit [facility] [address] [place] [phone] Silvio Crain MD [address] [place] [address] [facility] Start: 08-09-2023 BP CONTROLLED (<130/80) BP CON TROLLED (<130/80) [facility] Start: 03-07-2023 Influenza vaccination INFLUENZ A (Season Ended) [facility] Start: 08-16-2022 End: 09-08-2023 Ct cervical spine w/o contrast material CT CERVICAL SPINE WO IVCON Radiology Routine Spinal stenosis of cervical region Expected: 08/16/2022, Expires: 09/08/2023 [facility] Work Phone: Comment on above: Expected: 08/16/2022 , Expires: 09/08/2023 Start: 07-07-2022 DEPRESSION ASSESSMENT DEPRESSION ASS ESSMENT [facility] Start: 03-24-2022 Glaucoma screening Diabetes: R etinopathy Screening [facility] Start: 03-07-2022 Influenza vaccination INFLUENZA (#1) [facility] Start: 02-16-2022 Screening for malign ant neoplasm of colon [facility] Start: 09-12-2021 COVID-19 VACCINE (4 - Booster for Pfizer series) COVID-19 VACCINE (4 - Booster for Pfizer series) [facility] Start: 08-30-2021 Hemoglobin A1c measurement Joanne betes: Hemoglobin A1C [facility] Start: 06-02-2021 Hemoglobin A1c/Hemoglobin.total in Blood HBA1C [facility] Start: 05-26-2020 Glaucoma screening Diabetes: R etinopathy Screening [facility] Start: 2015 SHINGRIX VACCINE (1 of 2) OBRIEN GRIX VACCINE (1 of 2) [facility] Start: 2010 COLOGUARD (FIT-DNA) COLOGUARD (FIT-D NA) [facility] Start: 2010 Colonoscopy COLONOSCOPY [facility] Start: 2010 COLORECTAL CANCER SCREENING CO LORECTAL CANCER SCREENING [facility] Start: [address] COLONOGRAPHY [facility] Start: 2010 FECAL OCCULT BLOOD FECAL OCCULT BLOO D [facility] Start: 2010 SIGMOIDOSCOPY SIGMOIDOSCOPY [facility] Start: 1984 Urine microalbumin profile DTA P,TDAP,TD (1 - Tdap) [facility] Start: 1984 Urine screening for protein Di abetes: Urine Protein Screening [facility] Start: 1983 ANNUAL PCP TEAM CENTER AISLE CASHIER STEFANI DISEASE VISIT ANNUAL PCP TEAM CHRONIC DISEASE VISIT [facility] Start: 1983 Hepatitis B surface antibody level LDL CHOLESTEROL [facility] Start: 1983 HEPATITIS C SCREENING HEPATITIS C SC REENING [facility] Start: 1983 HIV SCREENING HIV SCREENING [facility] Start: 1975 3 comp foot exam completed DIABETIC FOOT EXAM [facility] Start: 1975 Hepatitis B screening URINE ALBUMIN:CREATININE RATIO [facility] Start: 1975 Hepatitis C antibody , confirmatory test DILATED RETINAL EXAM [facility] Start: 1971 PNEUMOCOCCAL (1 - PCV) PNEUMOCOCCAL (1 - PCV) [facility] Start: 1965 HEPATITIS B (1 of 3 - 3-dose series) HEPATITIS B (1 of 3 - 3-dose series) [facility] Start: 1965 Medicare Annual Well ness (AWV) Medicare Annual Wellness (AWV) [facility] Start: 1965 Screening for malign ant neoplasm of colon [facility] Start: 1965 Screening for malign ant neoplasm of lung Lung Cancer Screening Shared Decision Making [facility] Immunizations Immunization Date Immunization Notes Care Provider [facility] 03-20-2023 Seasonal, quadrivalent, recombinant, injectable influenza vaccine, preservative free Silvio Crain MD Work Phone: [facility] 03-20-2023 zoster vaccine recombinant Silvio Crain MD Work Phone: [facility] 03-20-2023 influenza virus vaccine, unspecified formulation Silvio Crain MD Work Phone: [facility] 11-30-2020 COVID-19 original vaccine, age 12+ yr, monovalent (PFIZER-BIONTECH - PURPLE TOP) Abdon Palacios MD Work Phone: [facility] 11-09-2020 COVID-19 original vaccine, age 12+ yr, monovalent (PFIZER-BIONTECH - PURPLE TOP) Abdon Palacios MD Work Phone: [facility] 05-14-2017 influenza, seasonal, injectable, preservative free Abdon Palacios MD Work Phone: [facility] Work Phone: 05-07-2017 influenza, injectabl e, quadrivalent, contains preservative Abdon Palacios MD Work Phone: [facility] Work Phone: Payers Date Payer Category Payer Self-pay 2021 Medicare (Managed Care) [employer] [id number] 2013 Medicare [id number] 2011 Unknown [employer] [id number] 2011-Present [phone] [address] [place] [address] [facility] [id number] 2011 Unknown [id number] 1965 Unknown [id number] 1965 Unknown [id number] 1965 Unknown [id number] 1965 Unknown [id number] 1965 Unknown [id number] 1965 Unknown [id number] 1959 Unknown [id number] 1959 Unknown [id number] Unknown [id number] Social History Date Type Detail Facility Start: 08-09-2022 End: 10-07-2023 Tobacco smoking status VAIS Ex-smoker [facility] Start: 11-14-2020 End: 02-04-2021 History of tobacco use Current smoker [facility] Start: 11-14-2020 End: 02-04-2021 History of tobacco use Cigarette Smoker [facility] Start: 08-09-2022 End: 07-02-2023 Cigarettes smoked current (pack per day) - Reported 0.3 [facility] Start: 08-09-2022 End: 02-03-2025 Tobacco use and exposure Smokeless tobacco non-user [facility] Start: 08-09-2022 Alcohol intake Current drinker of alcohol (finding) [facility] Start: 03-02-2021 Alcohol Comment 3 times a month per pt 03/02/2021 [facility] Start: 1965 Sex Assigned At Not on file [facility] Tobacco smoking status No Smokin g Status Entered [facility] Start: 07-02-2023 End: 06-15-2024 Sex Assigned At Male [facility] Start: 07-01-2023 End: 02-03-2025 Tobacco smoking status [facility] Smokes tobacco daily [facility] Start: 07-01-2023 End: 02-03-2025 Alcohol intake Lifetime non-drinker (finding) [facility] Within the last year , have you been afraid of your partner or ex-partner? No [facility] Do you belong to any clubs or organizations such as judaism groups, unions, fraternal or athletic groups, or [...] Equipment Origin al Text Equipment Identifier Dates [place] Lateral Of fset Connector Side Sz 10mm [id number] Start: 03-15-2021 Graft Deminerali zed Bone Matrix Bone Putty Pretreated 10ml - [id number] Start: 03-15-2021 Spacer Avs 4d 8m m Spinal Bone Plug - [id number] Start: 03-15-2021 Troup Plate, 1 L evel, Sz 18mm [id number] Start: 03-15-2021 [place] Spn Luigi Csp Mini 3.5x240 [id number] Start: 03-15-2021 Screw Bn 4mm 14m m Troup Spnl - [id number] Start: 03-15-2021 Spacer Bio Avs 4 d Lordosis 12mm Cortical Cancellous [id number] Allograft - [id number] Start: 03-15-2021 1 strip by In Vi tro route Daily [id number] Start: 02-06-2024 1 Lancet Daily [id number] Start: 02-26-2024 Functional Status Date Assessment Result Facility 09-02-2022 Functional Status N/A [facility] Clinical Notes 08-09-2022 to 02-03-2025 Silvio Crain MD - 02/03/2025 3:27 PM Natalia Crain MD - 02/03/2025 3:27 PM Natalia Crain MD - 02/03/2025 3:27 PM Natalia Crain MD - 02/03/2025 3:27 PM EDT Note Date & Type Note Facility 02-03-2025 History of Presen t illness Narrative Associated Problem(s): Type 2 diabetes mellitus with hyperglycemia, without long-term current use of insulin (HCC) Reports BS controlled and due for A1C. Stick to ADA diet and limit carbs. Associated Problem(s): Primary insomnia Sleeping well with seroquel and continue. Associated Problem(s): 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) Neuropathy stable with gabapentin and continue. Associated Problem(s): Moderate COPD (chronic obstructive pulmonary disease) ([facility]) Breathing stable and use albuterol PRN. Stressed need to stop smoking. Associated Problem(s): MDD (major depressive disorder), recurrent episode, mild Symptoms stable with medication and continue. Associated Problem(s): ETHAN (generalized anxiety disorder) Symptoms stable with medication and continue. Use xanax PRN. Associated Problem(s): Cigarette smoker Continues to smoke and over 30 pack year history. Check LDCT. Associated Problem(s): Benign essential hypertension BP controlled and monitor PRN. Associated Problem(s): Arthralgia Pain all over and likely OA. Start celebrex. Check labs. Images from the original note were not included. Subjective Patient ID: Micah Forbes is a 59 y.o. male who presents for Follow-up (Med refills/Wide spread body pain). Follow up DM, HTN, neuropathy, depression, anxiety, insomnia, and COPD. Reports BS controlled around 110-115. Tries to eat well and stick to [...] sputum and worse in am. Still smoking about 1/2 pack per day. Previously smoked 1-2 PPD for over 30 years. C/o increased joint pain. Pain in knees, hips, elbows, and shoulders. Decreased ROM and hard to stay active. OTC not helping. Review of Systems Constitutional: Negative for fatigue. [...] Addressed This Visit ETHAN (generalized anxiety disorder) Symptoms stable with medication and continue. Use xanax PRN. Polyneuropathy due to type 2 diabetes mellitus ([facility]) Neuropathy stable with gabapentin and continue. Benign essential hypertension BP controlled and monitor PRN. Moderate COPD (chronic obstructive pulmonary disease) ([facility]) Breathing stable and use albuterol PRN. Stressed need to stop smoking. Cigarette smoker Continues to smoke and over 30 pack year history. Check LDCT. Relevant Orders CT lung screening low dose Type 2 diabetes mellitus with hyperglycemia, without long-term current use of insulin ([facility]) - Primary Reports BS controlled and due for A1C. Stick to ADA diet and limit carbs. Relevant Orders Microalbumin / creatinine, urine ratio Basic metabolic panel Hemoglobin A1c MDD (major depressive disorder), recurrent episode, mild Symptoms stable with medication and continue. Primary insomnia Sleeping well with seroquel and continue. Encounter for long-term current use of medication Relevant Orders CBC and differential Hepatic function panel Screening PSA (prostate specific antigen) Relevant Orders PSA Dyslipidemia Relevant Orders Lipid panel Arthralgia Pain all over and likely OA. Start celebrex. Check labs. Relevant Medications celecoxib (CeleBREX) 200 MG capsule Other Relevant Orders Sedimentation rate, automated C-reactive protein JOSE MARTIN Rheumatoid factor Other Visit Diagnoses Fatigue, unspecified type Relevant Orders TSH documented in this encounter [facility] 06-15-2024 History of Presen t illness Narrative [...] daily Aspirin therapy. documented in this encounter [facility] 04-12-2024 History of Presen t illness Narrative [...] seroquel and continue. documented in this encounter [facility] 11-15-2022 Miscellaneous Notes Called and spoke with [...] Schrader Images requested documented in this encounter [facility] 09-06-2022 Miscellaneous Notes Message forwarded to [employer] Forms for C-9. [place] calling [employer] calling asking for a C9 for a CT scan. Call back # [phone] documented in this encounter [facility] 09-02-2022 Hospital Discharg e instructions Patient Education [...] Follow these instructions at home: Medicines Take zayg-tob-bqyrqnj and prescription medicines only as told by [...] and water are not available, use hand rides supervisor. ?Leave stitches (sutures), skin glue, or adhesive [...] 06/23/2006 Document Revised: 09/06/2019 Document Reviewed: 09/08/2019 [facility] Patient Education 2020 [email or web address]. 09/02/2022 19:17:16 Cervical Sprain Cervical Sprain A [...] provider or physical therapist. General instructions Take chnj-fra-xtncilm and prescription medicines only as told by [...] 04/19/2008 Document Revised: 10/13/2019 Document Reviewed: 02/19/2017 [facility] Patient Education [facility] Up [facility] 09/02/2022 17:27:40 With:SILVIO SINGHJOSE CARLOS Address: [address] [place], [place] [address] [address] Business (1) When:09/05/2022 18:51:13 [facility] 08-09-2022 Note HNO ID: [id number] Author: RT Khushboo(R) Service: Radiology Author Type: [...] RT Khushboo(R) August 09, 2022 11:39 AM [facility] 08-09-2022 Note HNO ID: [id number] Author: Abdon Palacios MD Service: ? Author [...] which included preparing to see the patient, pjgg-[id number] patient care, completing clinical documentation, obtaining and/or reviewing separately obtained history, performing a medically appropriate examination, counseling and educating the patient/family/caregiver, ordering medications, tests, or procedures, independently interpreting results (not separately reported), and care coordination (not separately reported). SIGNATURE: Abdon Palacios MD PATIENT NAME: Micah Forbes DATE: August 09, 2022 TIME: 10:15 AM PAGER: [facility] 08-09-2022 History of Presen t [...] 2022 11:39 AM documented in this encounter [facility] 08-09-2022 History of Presen t illness Narrative [...] which included preparing to see the patient, melp-gi-msiz patient care, completing clinical documentation, obtaining and/or reviewing separately obtained history, performing a medically appropriate examination, counseling and educating the patient/family/caregiver, ordering medications, tests, or procedures, independently interpreting results (not separately reported), and care coordination (not separately reported). SIGNATURE: Abdon Palacios MD PATIENT NAME: Micah Forbes DATE: August 09, 2022 TIME: 10:15 AM PAGER: documented in this encounter [facility] Evaluation + Plan note No data available for this section [facility] Evaluation note Diagnosis Spinal stenosis of cervical region- Primary Spinal stenosis in cervical region S/P cervical spinal fusion Arthrodesis status documented [facility] Diagnosis Spinal stenosis of cervical region Spinal stenosis in cervical region [facility] Diagnosis ETHAN (generalized anxiety disorder) ([facility]) Generalized anxiety disorder documented in this encounter [facility]* Diagnosis Type 2 diabetes mellitus with hyperglycemia, without long-term current use of insulin ([facility])- Primary Benign essential hypertension ([facility]/HCC) Essential hypertension, benign MDD (major depressive disorder), recurrent episode, mild (HCC) ([facility]) ETHAN (generalized anxiety disorder) ([facility]) Generalized anxiety disorder Primary insomnia Persistent disorder of initiating or maintaining sleep Moderate COPD (chronic obstructive pulmonary disease) ([facility]) Polyneuropathy due to type 2 diabetes mellitus ([facility]) Immunodeficiency due to conditions classified elsewhere ([facility]) documented in this encounter [facility] Healthcare[facility]* Diagnosis Primary hypertension (CMS/HCC)- Primary Unspecified essential hypertension Moderate COPD (chronic obstructive pulmonary disease) (CMS/HCC) Tobacco dependency Tobacco use disorder Type 2 diabetes mellitus with hyperglycemia, without long-term current use of insulin ([facility])- Primary Primary hypertension (CMS/HCC) Unspecified essential hypertension Polyneuropathy due to type 2 diabetes mellitus (CMS/HCC) MDD (major depressive disorder), recurrent episode, mild (HCC) ([facility]) Primary insomnia Persistent disorder of initiating or maintaining sleep Moderate COPD (chronic obstructive pulmonary disease) ([facility]/HCC) ETHAN (generalized anxiety disorder) ([facility]) Generalized anxiety disorder Dyslipidemia ([facility]) Other and unspecified hyperlipidemia Encounter for long-term current use of medication Screening PSA (prostate specific antigen) Special screening for malignant neoplasm of prostate Type 2 diabetes mellitus with hyperglycemia, without long-term current use of insulin ([facility])- Primary Benign essential hypertension ([facility]) Essential hypertension, benign MDD (major depressive disorder), recurrent episode, mild (HCC) ([facility]) ETHAN (generalized anxiety disorder) ([facility]) Generalized anxiety disorder Primary insomnia Persistent disorder of initiating or maintaining sleep Moderate COPD (chronic obstructive pulmonary disease) ([facility]) Polyneuropathy due to type 2 diabetes mellitus ([facility]) Immunodeficiency due to conditions classified elsewhere ([facility]) ETHAN (generalized anxiety disorder) ([facility]) Generalized anxiety disorder documented in this encounter [facility] HealthcareEvaluation [facility]* Diagnosis Primary hypertension ([facility])- Primary Unspecified essential hypertension Moderate COPD (chronic obstructive pulmonary disease) ([facility]) Tobacco dependency Tobacco use disorder Type 2 diabetes mellitus with hyperglycemia, without long-term current use of insulin ([facility])- Primary Primary hypertension ([facility]) Unspecified essential hypertension Polyneuropathy due to type 2 diabetes mellitus ([facility]) MDD (major depressive disorder), recurrent episode, mild (HCC) ([facility]) Primary insomnia Persistent disorder of initiating or maintaining sleep Moderate COPD (chronic obstructive pulmonary disease) ([facility]) ETHAN (generalized anxiety disorder) ([facility]) Generalized anxiety disorder Dyslipidemia ([facility]) Other and unspecified hyperlipidemia Encounter for long-term current use of medication Screening PSA (prostate specific antigen) Special screening for malignant neoplasm of prostate Type 2 diabetes mellitus with hyperglycemia, without long-term current use of insulin ([facility])- Primary Benign essential hypertension ([facility]) Essential hypertension, benign MDD (major depressive disorder), recurrent episode, mild (HCC) ([facility]) ETHAN (generalized anxiety disorder) ([facility]) Generalized anxiety disorder Primary insomnia Persistent disorder of initiating or maintaining sleep Moderate COPD (chronic obstructive pulmonary disease) ([facility]) Polyneuropathy due to type 2 diabetes mellitus ([facility]) Immunodeficiency due to conditions classified elsewhere ([facility]) Medicare annual wellness visit, subsequent- Primary Spondylosis of cervical spine [facility] Diagnosis ETHAN (generalized anxiety disorder) ([facility]) Generalized anxiety disorder [facility] Diagnosis Spondylosis of cervical spine documented [facility] this [facility] Diagnosis Primary hypertension ([facility])- Primary Unspecified essential hypertension Moderate COPD (chronic obstructive pulmonary disease) ([facility]) Tobacco dependency Tobacco use disorder Type 2 diabetes mellitus with hyperglycemia, without long-term current use of insulin ([facility])- Primary Primary hypertension ([facility]) Unspecified essential hypertension Polyneuropathy due to type 2 diabetes mellitus ([facility]) MDD (major depressive disorder), recurrent episode, mild (HCC) ([facility]) Primary insomnia Persistent disorder of initiating or maintaining sleep Moderate COPD (chronic obstructive pulmonary disease) ([facility]) ETHAN (generalized anxiety disorder) ([facility]) Generalized anxiety disorder Dyslipidemia ([facility]) Other and unspecified hyperlipidemia Encounter for long-term current use of medication Screening PSA (prostate specific antigen) Special screening for malignant neoplasm of prostate Type 2 diabetes mellitus with hyperglycemia, without long-term current use of insulin ([facility])- Primary Benign essential hypertension ([facility]) Essential hypertension, benign MDD (major depressive disorder), recurrent episode, mild (HCC) ([facility]) ETHAN (generalized anxiety disorder) ([facility]) Generalized anxiety disorder Primary insomnia Persistent disorder of initiating or maintaining sleep Moderate COPD (chronic obstructive pulmonary disease) ([facility]) Polyneuropathy due to type 2 diabetes mellitus ([facility]) Immunodeficiency due to conditions classified elsewhere ([facility]) Medicare annual wellness visit, subsequent- Primary Spondylosis of cervical spine ETHAN (generalized anxiety disorder) ([facility]) Generalized anxiety disorder documented in this encounter [facility]* Diagnosis Primary hypertension ([facility])- Primary Unspecified essential hypertension Moderate COPD (chronic obstructive pulmonary disease) ([facility]) Tobacco dependency Tobacco use disorder Type 2 diabetes mellitus with hyperglycemia, without long-term current use of insulin ([facility])- Primary Primary hypertension ([facility]) Unspecified essential hypertension Polyneuropathy due to type 2 diabetes mellitus ([facility]) MDD (major depressive disorder), recurrent episode, mild (HCC) ([facility]) Primary insomnia Persistent disorder of initiating or maintaining sleep Moderate COPD (chronic obstructive pulmonary disease) ([facility]) ETHAN (generalized anxiety disorder) ([facility]) Generalized anxiety disorder Dyslipidemia ([facility]) Other and unspecified hyperlipidemia Encounter for long-term current use of medication Screening PSA (prostate specific antigen) Special screening for malignant neoplasm of prostate Type 2 diabetes mellitus with hyperglycemia, without long-term current use of insulin ([facility])- Primary Benign essential hypertension ([facility]) Essential hypertension, benign MDD (major depressive disorder), recurrent episode, mild (HCC) ([facility] [place] ETHAN (generalized anxiety disorder) ([facility] [place]) Generalized anxiety disorder Primary insomnia Persistent disorder of initiating or maintaining sleep Moderate COPD (chronic obstructive pulmonary disease) ([facility]) Polyneuropathy due to type 2 diabetes mellitus ([facility]) Immunodeficiency due to conditions classified elsewhere ([facility]) Medicare annual wellness visit, subsequent- Primary Spondylosis of cervical spine ETHAN (generalized anxiety disorder) ([facility]) Generalized anxiety disorder Spondylosis of cervical spine documented in this encounter [facility] Healthcare[facility]* Diagnosis Primary hypertension ([facility])- Primary Unspecified essential hypertension Moderate COPD (chronic obstructive pulmonary disease) ([facility]) Tobacco dependency Tobacco use disorder Type 2 diabetes mellitus with hyperglycemia, without long-term current use of insulin ([facility] [place] Primary Primary hypertension ([facility]) Unspecified essential hypertension Polyneuropathy due to type 2 diabetes mellitus ([facility]) MDD (major depressive disorder), recurrent episode, mild (HCC) ([facility] [place]) Primary insomnia Persistent disorder of initiating or maintaining sleep Moderate COPD (chronic obstructive pulmonary disease) ([facility]) ETHAN (generalized anxiety disorder) ([facility] [place]) Generalized anxiety disorder Dyslipidemia ([facility]) Other and unspecified hyperlipidemia Encounter for long-term current use of medication Screening PSA (prostate specific antigen) Special screening for malignant neoplasm of prostate Type 2 diabetes mellitus with hyperglycemia, without long-term current use of insulin ([facility] [place] Primary Benign essential hypertension ([facility]) Essential hypertension, benign MDD (major depressive disorder), recurrent episode, mild (HCC) ([facility] [place] ETHAN (generalized anxiety disorder) ([facility] [place]) Generalized anxiety disorder Primary insomnia Persistent disorder of initiating or maintaining sleep Moderate COPD (chronic obstructive pulmonary disease) ([facility]) Polyneuropathy due to type 2 diabetes mellitus ([facility]) Immunodeficiency due to conditions classified elsewhere ([facility]) Medicare annual wellness visit, subsequent- Primary Spondylosis of cervical spine Type 2 diabetes mellitus with hyperglycemia, without long-term current use of insulin ([facility]) documented in this encounter [facility] HealthcareEvaluation note* Diagnosis Primary hypertension ([facility])- Primary Unspecified essential hypertension Moderate COPD (chronic obstructive pulmonary disease) ([facility]) Tobacco dependency Tobacco use disorder Type 2 diabetes mellitus with hyperglycemia, without long-term current use of insulin ([facility])- Primary Primary hypertension ([facility]) Unspecified essential hypertension Polyneuropathy due to type 2 diabetes mellitus ([facility]) MDD (major depressive disorder), recurrent episode, mild (HCC) ([facility]) Primary insomnia Persistent disorder of initiating or maintaining sleep Moderate COPD (chronic obstructive pulmonary disease) ([facility]) ETHAN (generalized anxiety disorder) ([facility]) Generalized anxiety disorder Dyslipidemia ([facility]) Other and unspecified hyperlipidemia Encounter for long-term current use of medication Screening PSA (prostate specific antigen) Special screening for malignant neoplasm of prostate Type 2 diabetes mellitus with hyperglycemia, without long-term current use of insulin ([facility] [place] Primary Benign essential hypertension ([facility]) Essential hypertension, benign MDD (major depressive disorder), recurrent episode, mild (HCC) ([facility]) ETHAN (generalized anxiety disorder) ([facility]) Generalized anxiety disorder Primary insomnia Persistent disorder of initiating or maintaining sleep Moderate COPD (chronic obstructive pulmonary disease) ([facility]) Polyneuropathy due to type 2 diabetes mellitus ([facility]) Immunodeficiency due to conditions classified elsewhere ([facility]) Medicare annual wellness visit, subsequent- Primary Spondylosis of cervical spine Spondylosis of cervical spine documented in this encounter [facility] HealthcareEvaluation note* Diagnosis Primary hypertension- Primary Unspecified essential hypertension Moderate COPD (chronic obstructive pulmonary disease) ([facility]) Tobacco dependency Tobacco use disorder Type 2 diabetes mellitus with hyperglycemia, without long-term current use of insulin ([facility])- Primary Primary hypertension Unspecified essential hypertension Polyneuropathy due to type 2 diabetes mellitus ([facility]) MDD (major depressive disorder), recurrent episode, mild Primary insomnia Persistent disorder of initiating or maintaining sleep Moderate COPD (chronic obstructive pulmonary disease) ([facility]) ETHAN (generalized anxiety disorder) Generalized anxiety disorder Dyslipidemia Other and unspecified hyperlipidemia Encounter for long-term current use of medication Screening PSA (prostate specific antigen) Special screening for malignant neoplasm of prostate Type 2 diabetes mellitus with hyperglycemia, without long-term current use of insulin ([facility])- Primary Benign essential hypertension Essential hypertension, benign MDD (major depressive disorder), recurrent episode, mild ETHAN (generalized anxiety disorder) Generalized anxiety disorder Primary insomnia Persistent disorder of initiating or maintaining sleep Moderate COPD (chronic obstructive pulmonary disease) ([facility]) Polyneuropathy due to type 2 diabetes mellitus ([facility]) Immunodeficiency due to conditions classified elsewhere ([facility]) Medicare annual wellness visit, subsequent- Primary Spondylosis of cervical spine ETHAN (generalized anxiety disorder) Generalized anxiety disorder Spondylosis of cervical spine Dyslipidemia Other and unspecified hyperlipidemia Type 2 diabetes mellitus with hyperglycemia, without long-term current use of insulin ([facility]) documented in this encounter [facility]* Diagnosis Primary hypertension- Primary Unspecified essential hypertension Moderate COPD (chronic obstructive pulmonary disease) ([facility]) Tobacco dependency Tobacco use disorder Type 2 diabetes mellitus with hyperglycemia, without long-term current use of insulin ([facility])- Primary Primary hypertension Unspecified essential hypertension Polyneuropathy due to type 2 diabetes mellitus ([facility]) MDD (major depressive disorder), recurrent episode, mild Primary insomnia Persistent disorder of initiating or maintaining sleep Moderate COPD (chronic obstructive pulmonary disease) ([facility]) ETHAN (generalized anxiety disorder) Generalized anxiety disorder Dyslipidemia Other and unspecified hyperlipidemia Encounter for long-term current use of medication Screening PSA (prostate specific antigen) Special screening for malignant neoplasm of prostate Type 2 diabetes mellitus with hyperglycemia, without long-term current use of insulin ([facility])- Primary Benign essential hypertension Essential hypertension, benign MDD (major depressive disorder), recurrent episode, mild ETHAN (generalized anxiety disorder) Generalized anxiety disorder Primary insomnia Persistent disorder of initiating or maintaining sleep Moderate COPD (chronic obstructive pulmonary disease) ([facility]) Polyneuropathy due to type 2 diabetes mellitus ([facility]) Immunodeficiency due to conditions classified elsewhere ([facility]) Medicare annual wellness visit, subsequent- Primary Spondylosis of cervical spine Type 2 diabetes mellitus with hyperglycemia, without long-term current use of insulin ([facility])- Primary Benign essential hypertension Essential hypertension, benign Moderate COPD (chronic obstructive pulmonary disease) ([facility]) MDD (major depressive disorder), recurrent episode, mild ETHAN (generalized anxiety disorder) Generalized anxiety disorder Primary insomnia Persistent disorder of initiating or maintaining sleep Polyneuropathy due to type 2 diabetes mellitus ([facility]) Arthralgia, unspecified joint Encounter for long-term current use of medication Dyslipidemia Other and unspecified hyperlipidemia Screening PSA (prostate specific antigen) Special screening for malignant neoplasm of prostate Fatigue, unspecified type Cigarette smoker Tobacco use disorder documented in this encounter [facility] HealthcareEvaluation note* Diagnosis Primary hypertension- Primary Unspecified essential hypertension Moderate COPD (chronic obstructive pulmonary disease) (HCC) Tobacco dependency Tobacco use disorder Type 2 diabetes mellitus with hyperglycemia, without long-term current use of insulin (HCC)- Primary Primary hypertension Unspecified essential hypertension 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) MDD (major depressive disorder), recurrent episode, mild Primary insomnia Persistent disorder of initiating or maintaining sleep Moderate COPD (chronic obstructive pulmonary disease) (HCC) ETHAN (generalized anxiety disorder) Generalized anxiety disorder Dyslipidemia Other and unspecified hyperlipidemia Encounter for long-term current use of medication Screening PSA (prostate specific antigen) Special screening for malignant neoplasm of prostate Type 2 diabetes mellitus with hyperglycemia, without long-term current use of insulin (HCC)- Primary Benign essential hypertension Essential hypertension, benign MDD (major depressive disorder), recurrent episode, mild ETHAN (generalized anxiety disorder) Generalized anxiety disorder Primary insomnia Persistent disorder of initiating or maintaining sleep Moderate COPD (chronic obstructive pulmonary disease) (HCC) Polyneuropathy due to type 2 diabetes mellitus ([facility]) Immunodeficiency due to conditions classified elsewhere ([facility]) Medicare annual wellness visit, subsequent- Primary Spondylosis of cervical spine Type 2 diabetes mellitus with hyperglycemia, without long-term current use of insulin ([facility])- Primary Benign essential hypertension Essential hypertension, benign Moderate COPD (chronic obstructive pulmonary disease) (HCC) MDD (major depressive disorder), recurrent episode, mild ETHAN (generalized anxiety disorder) Generalized anxiety disorder Primary insomnia Persistent disorder of initiating or maintaining sleep 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) Arthralgia, unspecified joint Encounter for long-term current use of medication Dyslipidemia Other and unspecified hyperlipidemia Screening PSA (prostate specific antigen) Special screening for malignant neoplasm of prostate Fatigue, unspecified type Cigarette smoker Tobacco use disorder Spondylosis of cervical spine documented in this encounter [facility] No data available for this section [facility] Reason for Referral Specialty Diagnoses / Procedures Referred By Contac t Referred To Contact CT IMAGING Diagnoses Spinal stenosis of cervical region Procedures CT CERVICAL SPINE WO IVCON CT CERVICAL SPINE W/O CONTRAST MATERIAL Abdon Palacios MD [address] [place] [address] Ct Imaging Referral ID Status Reason Start Date Expiration Date Visits Requested Visits Authorized [id number] Pending Review Auto-Generat ed Referral 08/16/2022 09/08/2023 1 1 Specialty Diagnoses / Procedures Referred By Contac t Referred To Contact XR IMAGING Diagnoses Spinal stenosis of cervical region Procedures XR CERV OTHER 4V AP/LAT/OBL RADEX SPINE CERVICAL 4 OR 5 VIEWS Abdon Palacios MD [address] [place] [address] Xr Imaging Referral ID Status Reason Start Date Expiration Date V isits Requested Visits Authorized [id number] Closed Auto-Generate d Referral 08/09/2022 09/08/2023 1 [...] drug abuse [facility] [place] the event this information is protected by the Federal Confidentiality of Alcohol and Drug Abuse Patient Records regulations: The Federal rules restrict any use of the information to criminally investigate or prosecute any alcohol or drug abuse patient.[facility] [place] the event this information is protected by the Federal Confidentiality of Alcohol and Drug Abuse Patient Records regulations: The Federal rules restrict any use of the information to criminally investigate or prosecute any alcohol or drug abuse patient.[facility] [place] the event this information is protected by the Federal Confidentiality of Alcohol and Drug Abuse Patient Records regulations: The Federal rules restrict any use of the information to criminally investigate or prosecute any alcohol or drug abuse patient.[facility] [place] Reason for Visit (unrecogniz ed section and content) Reason Comments Established Patient Follow Up Specialty Diagnoses / Procedures Referred By Contac t Referred To Contact Spine Health / SPINE SURGERY Diagnoses follow up Procedures EST NI PATIENT Abdon Palacios MD [address] [place] [address] Abdon Palacios MD [address] [facility] [place] [address] Referral ID Status Reason Start Date Expiration Date Visits Re quested Visits Authorized [id number] Closed 08/09/2022 11/07/2022 1 1 Reason Comments Radio Main J1 Specialty Diagnoses / Procedures Referred By Contac t Referred To Contact XR IMAGING Diagnoses Spinal stenosis of cervical region Procedures XR CERV OTHER 4V AP/LAT/OBL RADEX SPINE CERVICAL 4 OR 5 VIEWS Abdon Palacios MD [address] [facility] [place] [address] Xr Imaging Referral ID Status Reason Start Date Expiration Date V isits Requested Visits Authorized [id number] Closed Auto-Generate d Referral 08/09/2022 09/08/2023 1 1 Reason Comments [employer] - Other Orders Reason Comments Results Reason Onset Date Comments Med Refill 08/12/2023 Reason Comments Annual Exam wellness Reason Onset Date Comments Med Refill 05/13/2024 Reason Comments Medicare Annual Wellness Visit Subsequen t wellness Reason Onset Date Comments Med Refill 03/15/2024 Reason Onset Date Comments Med Refill 04/05/2024 Reason Onset Date Comments Med Refill 07/14/2024 Reason Onset Date Comments Med Refill 11/08/2024 Reason Onset Date Comments Med Refill 11/18/2024 Reason Onset Date Comments Med Refill 12/14/2024 Reason Onset Date Comments Med Refill 01/11/2025 Reason Comments Follow-up Med refillsWide spre ad body pain Reason Onset Date Comments Med Refill 02/14/2025 Care Teams (unrecognized sec tion and content) Stock Preparer Relationship Specialty Start Date End Date Silvio Crain [address] [place] [address] PCP - General Family Medicine 04/20/21 Yoni Sotelo [address] [place] [address] NI Referring Team Neurosurgery 08/22/20 Stock Preparer Relationship Specialty Start Date End Date Silvio Crain [address] [place] [address] PCP - General Family Medicine 04/20/21 Yoni Sotelo [address] [place] [address] NI Referring Team Neurosurgery 08/22/20 Stock Preparer Relationship Specialty Start Date End Date Silvio Crain [address] [place] [address] PCP - General Family Medicine 04/20/21 Yoni Sotelo [address] [place] [address] NI Referring Team Neurosurgery 08/22/20 Stock Preparer Relationship Specialty Start Date End Date Silvio Crain [address] [place] [address] PCP - General Family Medicine 04/20/21 Yoni Sotelo [address] [place] [address] NI Referring Team Neurosurgery 08/22/20 Stock Preparer Relationship Specialty Start Date End Date Silvio Crain MD PCP - General Family Medicine 03/07/23 Stock Preparer Relationship Specialty Start Date End Date Silvio Crain MD [address] [place] [address] PCP - General Family Medicine 10/07/23 Kaia Scherer RN [address] [place] [address] Registered Nurse Family Medicine 12/11/23 Stock Preparer Relationship Specialty Start Date End Date Silvio Crain MD [address] [place] [address] PCP - General Family Medicine 10/07/23 Kaia Scherer RN [address] [place] [address] Registered Nurse Family Medicine 12/11/23 Stock Preparer Relationship Specialty Start Date End Date Silvio Crain MD [address] [place] [address] PCP - General Family Medicine 10/07/23 Kaia Scherer RN [address] [place] [address] Registered Nurse Family Medicine 12/11/23 Stock Preparer Relationship Specialty Start Date End Date Silvio Crain MD [address] [place] [address] PCP - General Family Medicine 10/07/23 Kaia Scherer RN [address] [place] [address] Registered Nurse Family Medicine 12/11/23 Stock Preparer Relationship Specialty Start Date End Date Silvio Crain MD [address] [place] [address] PCP - General Family Medicine 10/07/23 Kaia Scherer RN [address] [place] [address] Registered Nurse Family Medicine 12/11/23 Stock Preparer Relationship Specialty Start Date End Date Silvio Crain MD [address] [place] [address] PCP - General Family Medicine 10/07/23 Kaia Scherer RN [address] [place] [address] Registered Nurse Family Medicine 12/11/23 Stock Preparer Relationship Specialty Start Date End Date Silvio Crain MD [address] [place] [address] PCP - General Family Medicine 10/07/23 Kaia Scherer RN [address] [place] [address] Registered Nurse Family Medicine 12/11/23 Stock Preparer Relationship Specialty Start Date End Date Silvio Crain MD [address] [place] [address] PCP - General Family Medicine 10/07/23 Kaia Scherer RN [address] [place] [address] Registered Nurse Family Medicine 12/11/23 Stock Preparer Relationship Specialty Start Date End Date Silvio Crain MD [address] [place] [address] PCP - General Family Medicine 10/07/23 Kaia Scherer RN [address] [place] [address] Registered Nurse Family [facility] 12/11/23 Stock Preparer Relationship Specialty Start Date End Date Silvio Crain MD [address] [place] [address] PCP - General Family Medicine 10/07/23 Kaia Scherer RN [address] [place] [address] Registered Nurse Family [facility] 12/11/23 Stock Preparer Relationship Specialty Start Date End Date Silvio Crain MD [address] [place] [address] PCP - General Family Medicine 10/07/23 Stock Preparer Relationship Specialty Start Date End Date Silvio Crain MD [address] [place] [address] PCP - General Family Medicine 10/07/23 Stock Preparer Relationship Specialty Start Date End Date Silvio Crain MD [address] [place] [address] PCP - General Family Medicine 10/07/23 Stock Preparer Relationship Specialty Start Date End Date Silvio Crain MD [address] [place] [address] PCP - General Family Medicine 10/07/23 Stock Preparer Relationship Specialty Start Date End Date Silvio Crain MD [address] [place] [address] PCP - General Family Medicine 10/07/23 Stock Preparer Relationship Specialty Start Date End Date Silvio Crain MD [address] [place] [place] [address] PCP - General Family Medicine 10/07/23 (unrecognized sect ion and content) No Status Records FoundNo Status Records FoundNo Status Records FoundNo Status Records FoundNo Status Records Found INFORMATION SOURCE (unrecogn ized section and content) DATE CREATED AUTHOR 09/13/2022 [facility] DATE CREATED AUTHOR AUTHOR'S ORGANIZ ATION 10/15/2022 [facility] DATE CREATED AUTHOR AUTHOR'S ORGANIZ ATION 11/04/2022 [facility] DATE CREATED AUTHOR AUTHOR'S ORGANIZ ATION 11/17/2022 [facility] DATE CREATED AUTHOR AUTHOR'S ORGANIZ ATION 02/06/2025 [facility] FOR RECORDS PERTAINING TO PATIENTS WHO [...] BE BASED ON THE PRIMARY CLINICAL RECORDS. [employer] provides no warranty or guarantee of the accuracy or completeness of information in this document.
[2025-02-18 11:04] LABS: Hematocrit 45.3 % (42.0-54.0); Hemoglobin 15.4 g/dL (14.0-18.0); Immature Granulocytes Abs Auto 0.02 10^3/uL (0.00-0.03); Immature Granulocytes Pct Auto 0.3 % (0.0-0.5); Lymphocytes Absolute Auto 1.7 10^3/uL (1.2-3.8); Mean Corpuscular HGB Conc 34.0 g/dL (29.9-35.2); Mean Corpuscular Hemoglobin 32.2 pg (25.9-34.0); Mean Corpuscular Volume 94.8 fL (80.0-94.0); Platelet Count 179 10^3/uL (150-450); Red Blood Count 4.78 10^6/uL (4.70-6.10); White Blood Count 6.5 10^3/uL (4.0-11.0)
[2025-02-18 11:21] LABS: Microalbum Creatinine Ratio Ur 89.8 mg/g (0.0-29.9)
[2025-02-18 11:58] LABS: Alanine Aminotransferase 21 U/L (16-63); Albumin Globulin Ratio 1.2; Albumin Level 4.0 g/dL (3.4-5.0); Alkaline Phosphatase 63 U/L (46-116); Anion Gap 9.7; Aspartate Amino Transferase 14 U/L (15-37); Blood Urea Nitrogen 9.0 mg/dL (7.0-18.0); Calcium 8.9 mg/dL (8.5-10.1); Carbon Dioxide 31.8 mmol/L (21.0-32.0); Chloride 106 mmol/L (98-107); Cholesterol 108 mg/dL (<=200); Estimated GFR (African America >60 (>=60 mL/min/1.73m^2); Estimated GFR (Non-African Ame >60 (>=60 mL/min/1.73m^2); Globulin 3.3 g/dL; Glucose 103 mg/dL (74-106); HDL Cholesterol 45 mg/dL (40-60); Potassium 4.5 mmol/L (3.5-5.1); Sodium 143 mmol/L (136-145); Thyroid Stimulating Hormone 1.255 uIU/mL (0.358-3.740); Total Protein 7.3 g/dL (6.4-8.2); Triglycerides 84 mg/dL (<=150); VLDL CHOLESTEROL 16.8 mg/dL
[2025-02-21 14:08] LABS: Antinuclear Antibodies, IFA Positive (.)
== END 2025-02-18 10:25 | disposition home or self-care (01) ==
LOC: LAB 10:26
PROVIDERS: PCP Family Medicine; Visit Provider Family Medicine
DX: E78.5 Hyperlipidemia, unspecified (principal); E11.65 Type 2 diabetes mellitus with hyperglycemia; Z79.899 Other long term (current) drug therapy; R53.83 Other fatigue; M25.50 Pain in unspecified joint; Z12.5 Encounter for screening for malignant neoplasm of prostate
CPT/HCPCS: 36415; 80048; 80061; 80076; 82043; 82570; 83036; 84443; 85025; 85652; 86038; 86140; 86431; G0103

== ENCOUNTER 2025-03-16 12:48 | Outpatient (OUT) | payer MEDICARE, SELFPAY ==
--- OUTSIDE RECORDS SUMMARY | 2013-03-22 13:16 | XMS_ITS | Encounter Summary ---
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 Prev. 18 pk per day Sex and Gender Information Value Date Recorded Sex Assigned at Not on file Legal Sex Male 11:34 AM EST Gender Identity Not on file Sexual Orientation Not on file documented as of this encounter Last Filed Vital Signs Vital Sign Reading Time Taken Comments Blood Pressure 161/90 03/22/2013 1:42 PM EDT Pulse 74 03/22/2013 1:42 PM EDT Temperature 36.9 C (98.4 F) 03/22/2013 1:42 PM EDT Respiratory Rate 18 03/22/2013 1:42 PM EDT Oxygen Saturation 95% 03/22/2013 1:42 PM EDT Inhaled Oxygen Concentration - - Weight 89.4 kg (197 lb 1.5 oz) 03/22/2013 1:42 P M EDT Height 172.7 cm (5' 8 ) 03/22/2013 1:42 PM EDT Body Mass Index 29.97 03/22/2013 1:42 PM EDT documented in this encounter Progress Notes * Crystal Willoughby APRN - NP - 03/22/2013 2:25 PM EDT Anesthesia Focused Assessment Obstructive Sleep Apnea: Yes, his states that he snores loudly and that he stops breathing at times while sleeping. He has never been formally diagnosed. If YES, machine used: Type 1 DM: No T2DM: No If yes, insulin dependent? 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 Hx of anesthesia complications with Patient No Hx of anesthesia complications with family No Medical or cardiac clearance ordered: No Anesthesiologist: Patient was seen in PAT, anesthesia guidelines applied. NPO guidelines, medication instructions andscheduled arrival time reviewed with patient, all questions answered. Patient verbalized understanding. Smoking cessation counseling given. CAROL JOSEPH APRN Electronically signed 03/22/2013 at 2:26 PM Scheduled for: documented in this encounter Plan of Treatment Scheduled Orders Name Type Priority Associated Diagnoses Orde r Schedule EKG 12 Lead ECG Today One Time for 1 Occurrences starting 03/22/2013 until 03/22/2013 documented as of this encounter Procedures Procedure Name Priority Date/Time Associated Diagnosis Comments BUN & CREATININE Routine 03/22/2013 2:40 PM EDT CBC WITH AUTO DIFFERENTIAL Routine 03/22/2013 2:40 PM EDT APTT Routine 03/22/2013 2:40 PM EDT PROTIME-INR Routine 03/22/2013 2:40 PM EDT GLUCOSE, RANDOM Routine 03/22/2013 2:40 PM EDT ELECTROLYTE PANEL Routine 03/22/2013 2:4 0 PM EDT XR CHEST (2 VW) Routine 03/22/2013 2:34 PM EDT documented in this encounter Results * BUN & Creatinine (03/22/2013 2:40 PM EDT) BUN 17 6 - 20 mg/dL 03/22/2013 3:24 PM EDT [facility] Creatinine 1.02 0.6 - 1.4 mg/dL 03/22/2013 3:24 PM EDT [facility] GFR Non- >60 >60 mL/min 03/22/2013 3:24 PM EDT [facility] GFR >60 >60 mL/min 03/22/2013 3:24 PM EDT [facility] GFR Comment 03/22/2013 3:24 PM EDT [facility] Comment: Average GFR for 40-49 years old: 99 mL/min/1.73sq m Chronic Kidney Disease: <60 mL/min/1.73sq m Kidney failure: <15 mL/min/1.73sq m GFR is a calculated value that has proven clinically to be a more effective measure of kidney function when reported with serum creatinine. [employer] [address] [place] [address] GFR Staging NOT REPORTED [facility] BLOOD SPECIMEN / Unknown 03/22/2013 2:40 PM EDT 03/22/2013 2:45 PM EDT us Farshad Fletcher MD CHEMISTRY ORDERABLES Final Re sult [employer] [address] [place] [address], [facility] [phone] [facility] * APTT (03/22/2013 2:40 PM EDT) APTT 24.6 21.3 - 31.3 sec 03/22/2013 2:59 PM EDT [facility] Comment:[facility] [address] [place] [address] BLOOD SPECIMEN / Unknown 03/22/2013 2:40 PM EDT 03/22/2013 2:45 PM EDT Farshad Fletcher MD HEMATOLOGY ORDERABLES Final R esult Performing Organization Address [facility] [place] [address], [facility] [phone] [facility] * Protime-INR (03/22/2013 2:40 PM EDT) Protime 10.3 9.4 - 12.6 sec 03/22/2013 2:59 PM EDT [facility] INR 0.9 03/22/2013 2:59 PM EDT [facility] Comment: Therapeutic Range: Moderate Anticoagulant Intensity: INR = 2.0-3.0 High Anticoagulant Intensity: INR = 2.5-3.5 [facility] [address] [place] [address] BLOOD SPECIMEN / Unknown 03/22/2013 2:40 PM EDT 03/22/2013 2:45 PM EDT Farshad Fletcher MD HEMATOLOGY ORDERABLES Final R esult Performing Organization Address [facility] Co de Phone Number [facility] [employer] [address] [place] [address], [facility] [phone] [facility] * Electrolyte panel (03/22/2013 2:40 PM EDT) Sodium 140 136 - 145 mmol/L 03/22/2013 3:24 PM EDT [facility] Potassium 4.0 3.5 - 5.1 mmol/L 03/22/2013 3:24 PM EDT [facility] Chloride 105 98 - 110 mmol/L 03/22/2013 3:24 PM EDT [facility] CO2 27 20 - 31 mmol/L 03/22/2013 3:24 PM EDT [facility] Anion Gap 12 8 - 16 mmol/L 03/22/2013 3:24 PM EDT [facility] Comment:[facility] [address] [place], [place] [phone] BLOOD SPECIMEN / Unknown 03/22/2013 2:40 PM EDT 03/22/2013 2:45 PM EDT Farshad Fletcher MD CHEMISTRY ORDERABLES Final Re sult [facility] [address] [place] [address] [facility] * Glucose, random (03/22/2013 2:40 PM EDT) Glucose 85 74 - 106 mg/dL 03/22/2013 3:24 PM EDT [facility] Comment:[facility] [address] [place], [place] [id number] BLOOD SPECIMEN / Unknown 03/22/2013 2:40 PM EDT 03/22/2013 2:45 PM EDT Farshad Fletcher MD CHEMISTRY ORDERABLES Final Re sult Performing Organization Address City/[facility]/ZIP Co de Phone Number [facility] [employer] [address] [place] [address] [facility] * CBC Auto Differential (03/22/2013 2:40 PM EDT) WBC 9.4 3.5 - 11.0 k/uL 03/22/2013 2:49 PM EDT [facility] RBC 5.01 4.5 - 5.9 m/uL 03/22/2013 2:49 PM EDT [facility] Hemoglobin 15.9 13.5 - 17.5 g/dL 03/22/2013 2:49 PM EDT [facility] Hematocrit 45.2 41 - 53 % 03/22/2013 2:49 PM EDT [facility] MCV 90.1 80 - 100 fL 03/22/2013 2:49 PM EDT [facility] MCH 31.8 26 - 34 pg 03/22/2013 2:49 PM EDT [facility] MCHC 35.2 31 - 37 g/dL 03/22/2013 2:49 PM EDT [facility] RDW 14.3 12.5 - 15.4 % 03/22/2013 2:49 PM EDT [facility] Platelets 212 140 - 450 k/uL 03/22/2013 2:49 PM EDT [facility] MPV 8.0 6.0 - 12.0 fL 03/22/2013 2:49 PM EDT [facility] Differential Type NOT REPORTED [facility] Seg Neutrophils 56 36 - 66 % 03/22/2013 2:49 PM EDT [facility] Lymphocytes 31 24 - 44 % 03/22/2013 2:49 PM EDT [facility] Monocytes % 10 2 - 11 % 03/22/2013 2:49 PM EDT [facility] Eosinophils % 3 1 - 4 % 03/22/2013 2:49 PM EDT [facility] Basophils % 0 0 - 2 % 03/22/2013 2:49 PM EDT [facility] Neutrophils Absolute 5.20 1.8 - 7.7 k/uL 03/22/2013 2:49 PM EDT [facility] Lymphocytes Absolute 2.90 1.0 - 4.8 k/uL 03/22/2013 2:49 PM EDT [facility] Monocytes Absolute 1.00 0.1 - 1.2 k/uL 03/22/2013 2:49 PM EDT [facility] Eosinophils Absolute 0.30 0.0 - 0.4 k/uL 03/22/2013 2:49 PM EDT [facility] Basophils Absolute 0.00 0.0 - 0.2 k/uL 03/22/2013 2:49 PM EDT [facility] Comment:[facility] [address] [place], [place] [phone] WBC Morphology NOT REPORTED [facility] RBC Morphology NOT REPORTED [facility] Platelet Estimate NOT REPORTED [facility] BLOOD SPECIMEN / Unknown 03/22/2013 2:40 PM EDT 03/22/2013 2:45 PM EDT Farshad Fletcher MD HEMATOLOGY ORDERABLES Final R esult [facility] [address] [place] [address], [facility] [phone] [facility] * XR Chest Standard TWO VW (03/22/2013 2:34 PM EDT) Anatomical Region Laterality Modality Chest Radiographic Robyn ging 03/22/2013 2:34 PM EDT Narrative 03/22/2013 2:57 PM EDT FINAL Procedure: PAT Mar 22 2013 2:34PM [id number] CHEST PA AND LATERAL Reason for Exam: ^pre op ^cervical stenosis FULL RESULT: PA and lateral image of the chest, 03/22/13. Indication: Preoperative. Comparison: 03/30/12. Findings: Lungs are clear. Normal cardiomediastinal silhouette. IMPRESSION: 1. No acute cardiopulmonary abnormality. Report Transcribed by: [facility] on Mar 22 2013 2:57P Read by: WILBUR FUNEZ M.D. [id number] on Mar 22 2013 2:57P Electronically Signed by: DR. WILBUR FUNEZ M.D. on: Mar 22 2013 2:57P Procedure Note Wilbur Funez MD - 03/22/2013 FINAL Procedure: PAT Mar 22 2013 2:34PM [id number] CHEST PA AND LATERAL Reason for Exam: ^pre op ^cervical stenosis FULL RESULT: PA and lateral image of the chest, 03/22/13. Indication: Preoperative. Comparison: 03/30/12. Findings: Lungs are clear. Normal cardiomediastinal silhouette. IMPRESSION: 1. No acute cardiopulmonary abnormality. Report Transcribed by: [facility] on Mar 22 2013 2:57P Read by: WILBUR FUNEZ M.D. [id number] on Mar 22 2013 2:57P Electronically Signed by: DR. WILBUR FUNEZ M.D. on: Mar 22 2013 2:57P Farshad Fletcher MD IMG DIAGNOSTIC IMAGING ORDERA BLES Edited Result - Final documented in this encounter Visit Diagnoses Not on filedocumented in this encounter Care Teams Car Barn Laborer Relationship Specialty Start Date End Date Farshad Fletcher MD PCP - General Neurology 05/11/12 documented as of this encounter
--- OUTSIDE RECORDS SUMMARY | 2024-01-01 10:20 | XMS_ITS ---
Author Organization The [facility] [place] Address [address] [place] [address] Care Team Providers Care Multiple Games Dealer Name Role Phone Silvio Ott MD Primary Care Provider Unavailab Irene Phillips Unavailable [phone] REASON FOR VISIT 2 week follow up Encounters Encounter Location Date Provider Diagnosis [facility] (PODIATRY) [address] [place] [address] [place] [address] 01/01/2024 Irene Maxwell Plan Of Treatment No Information Progress Notes * Micah FORBESDOB: 5 (59 yo M)Acc No.[id number]:01/01/2024 UNLOCKED PROGRESS NOTE Follow Up Patient: Micah LYLES Provider: Magi Maxwell PA-C :1965 A ge:58 Y S ex:Male Date:01/01/2024 Address:[address] [place] [address], [place] [address] [facility] Pcp:Silvio Ott MD Subjective: * Chief Complaints: * 1 . 2 week follow up. * Medical History: Objective: * Vitals: Assessment: Plan: * Treatment: * * Electronic signature of Som Maxwell PA-C on 03/16/2025 at 12:50 PM EDT Sign off status: Pending Visit Status: C ANC (Cancelled) * Provider: Magi Maxwell PA-C Date: 0 01/01/2024 Generated for Printi ng/Faxing/eTransmitting on: 0 03/16/2025 12:50 PM EDT
--- OUTSIDE RECORDS SUMMARY | 2024-01-07 06:45 | XMS_ITS ---
Author Organization [facility] [place] Address [address] [place] [address] Care Team Providers Care Machine Stoppage Frequency Checker Name Role Phone Silvio Ott MD Primary Care Provider Unavailab Owen Ribeiro Unavailable [phone] Allergies No Known Allergies Results Component Value Reference Range Notes XR Foot LT (3 views) * Reviewed date:04/01/2024 01:34:29 PM Interpretation: Performing Lab: Notes/Report: REASON FOR VISIT 1 week follow up Medications Medication SIG (Take, Route, Frequency, Duration) Notes Start Date End Date Status SEROquel 25 MG 1 tablet at bedtime Orally Once a day Active Lisinopril 40 MG 1 tablet Orally Once a day for 30 day(s) Active metFORMIN HCl 850 MG 1 tablet with a wilmer l Orally Once a day for 30 day(s) Active Methocarbamol 750 MG 1 tablet Orally eri ry 4 hrs for 30 day(s) Active oxyCODONE-Acetaminophen 5-325 MG 1 tablet as needed Orally every 6 hrs for 7 days 12/05/2023 Active Atorvastatin Calcium 40 MG 1 tablet Oral ly Once a day for 30 day(s) Active Gabapentin 800 MG 1 tablet Orally Once a day Active Social History Tobacco Use: Social History Observation Description Date Details (start date - stop date) Current Smoker NA - NA Tobacco Use/Smoking Question Answer Notes Patient is a current smoker Vital Signs Height 68 in 01/07/2024 Temperature 98.6 degrees Fahrenheit 01/07/20 24 Heart Rate 77 /min 01/07/2024 Oximetry 98 % 01/07/2024 Encounters Encounter Location Date Provider Diagnosis [facility] (PODIATRY) [address] [place] [address] [place] [address] 01/07/2024 Owen Chery Displaced fracture of first metatarsal bone, left foot, initial encounter for closed fracture S92.312A ; Displaced fracture of second metatarsal bone, left foot, initial encounter for closed fracture S92.322A ; Nondisplaced fracture of lateral cuneiform of right foot, initial encounter for closed fracture S92.224A and Left foot pain M79.672 Assessments Encounter Date Diagnosis (ICD Code) Assessment Notes Treatment Notes Treatment Clinical Notes Section Notes 01/07/2024 Displaced fracture of first metatarsal bone, left foot, initial encounter for closed fracture (ICD-10 - S92.312A) Patient presents for follow-up for Lisfranc variant fracture. Up until this point he has been very noncompliant however today he and his are proud to report that he has been much less active and his cast which was removed today shows only little wear on the bottom of his foot. I am however not surprised that there is not clear evidence of bone healing at this point given his noncompliance for the first few weeks.Patient does remain at high risk due to smoking and noncompliance for long-term pain and dysfunction including nonunion, delayed union, malunion, posttraumatic arthritis.After verbal consent a short leg cast with multiple layers of cast padding taking care to pad all bony prominences was applied then multiple layers of fiberglass casting material were placed with the foot and ankle held in neutral position.I did again discuss with him the importance of smoking cessation and how smoking affects tissue/bone healing. His also smokes was present and I recommended that he avoid secondhand smoke and she agreed to go outside to smoke.He will follow-up in 2 to 3 weeks for cast removal and nonweightbearing foot x-rays 01/07/2024 Displaced fracture of second metatarsal bone, left foot, initial encounter for closed fracture (ICD-10 - S92.322A) 01/07/2024 Nondisplaced fracture of lateral cuneiform of right foot, initial encounter for closed fracture (ICD-10 - S92.224A) 01/07/2024 Left foot pain (ICD-10 - M79.672) Plan Of Treatment Treatment Notes Assessment Notes Displaced fracture of first metatarsal bone, left foot, initial encounter for closed fracture Patient presents for follow-up for Lisfr anc variant fracture. Up until this point he has been very noncompliant however today he and his are proud to report that he has been much less active and his cast which was removed today shows only little wear on the bottom of his foot. I am however not surprised that there is not clear evidence of bone healing at this point given his noncompliance for the first few weeks.Patient does remain at high risk due to smoking and noncompliance for long-term pain and dysfunction including nonunion, delayed union, malunion, posttraumatic arthritis.After verbal consent a short leg cast with multiple layers of cast padding taking care to pad all bony prominences was applied then multiple layers of fiberglass casting material were placed with the foot and ankle held in neutral position.I did again discuss with him the importance of smoking cessation and how smoking affects tissue/bone healing. His also smokes was present and I recommended that he avoid secondhand smoke and she agreed to go outside to smoke.He will follow-up in 2 to 3 weeks for cast removal and nonweightbearing foot x-rays Progress Notes * Micah FORBESDOB: 5 (58 yo M)Acc No.[id number]:01/07/2024 Follow Up Patient: Micah LYLES Provider: Chilango Chery DPM, MS :1965 A ge:58 Y S ex:Male Date:01/07/2024 Address:[address] [place], [place] [id number] Pcp:Silvio Ott MD Check In:10:39 AM ESTCheck O ut:12:06 PM EST Subjective: * Chief Complaints: * 1 week follow up * HPI: G eneral: Patient returns today for follow up on left foot injury. Patient has history of fall DOI 11/25/23. He was placed in a well padded short leg cast due to breaking his splint from previous visit. Cast bottom does look intact. Patient reports pain 6/10 constant. Does elevate in the evening 9/10. He states only change to health history is a new cholesterol medication. * ROS: G eneral/Constitutional: Chills d enies. F ever d enies. W eight gain?denies. W eight loss d enies. S kin: Skin Ulcers d enies. S kin lesion(s) d enies. ? C ardiovascular: Difficulty breathing on exertion d enies. L eg cramps?denies. E leonard d enies. C hest pain d enies. R espiratory: Difficulty breathing d enies. D yspnea d enies.?Cough d enies. G astrointestinal: Diarrhea d enies. N ausea d enies. V omiting?denies. M usculoskeletal: Bone/Joint Symptoms d enies. C iain Pain d enies.?Leg cramps d enies. N eurologic: Numbness d enies. T ingling d enies . G ait abnormality d enies. ? H ematology: Anemia D enies. E asy bruising d enies. ? A ll Other Systems: Review of Systems (ROS) S ee HPI for details,All others negative except those mentioned in HPI. 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 Modified On:08/07/2020U Status:confirmed S13.4XXA Sprain of ligaments of cervical spine, initial encounter Modified On:08/07/2020U Status:confirmed R06.02 Shortness of breath Modified On:10/14/2023U Status:confirmed M79.672 Left foot pain Modified On:12/05/2023U Status:confirmed S92.312A Displaced fracture o f first metatarsal bone, left foot, initial encounter for closed fracture Modified On:12/05/2023U Status:confirmed * Medical History: * Surgical History: C 4-C5 fusion 2011C4, C5, C10, C7 2012 * Hospitalization/Major Diagno stic Procedure: n paddy pain, migraine 05/2020neck pain, migraine 06/2020 * Family History: F ather: . M other: . * Social History: T obacco Use: T obacco Use/Smoking P dante is a c urrent smoker * Medications: T akingAtorvastatin Calcium 40 MG Tablet 1 tablet Orally Once a day Gabapentin 800 MG Tablet 1 tablet Orally Once a day Lisinopril 40 MG Tablet 1 tablet Orally Once a day metFORMIN HCl 850 MG Tablet 1 tablet with a meal Orally Once a day Methocarbamol 750 MG Tablet 1 tablet Orally every 4 hrs oxyCODONE-Acetaminophen 5-325 MG Tablet 1 tablet as needed Orally every 6 hrs SEROquel(QUEtiapine Fumarate) 25 MG Tablet 1 tablet at bedtime Orally Once a day Medication List reviewed and reconciled with the patientTaking Atorvastatin Calcium 40 MG Tablet 1 tablet Orally Once a day Taking Gabapentin 800 MG Tablet 1 tablet Orally Once a day Taking Lisinopril 40 MG Tablet 1 tablet Orally Once a day Taking metFORMIN HCl 850 MG Tablet 1 tablet with a meal Orally Once a day Taking Methocarbamol 750 MG Tablet 1 tablet Orally every 4 hrs Taking oxyCODONE-Acetaminophen 5-325 MG Tablet 1 tablet as needed Orally every 6 hrs Taking SEROquel(QUEtiapine Fumarate) 25 MG Tablet 1 tablet at bedtime Orally Once a day Medication List reviewed and reconciled with the patient * Allergies: N .K.D.A.no[Allergies Verified] Objective: * Vitals: H t: 68 in, Temp:98.6F, HR:77/min, Pain scale:61-10, Oxygen sat %:98%, Ht-cm: 172.72 cm. * Examination: P odiatry Examination: SKIN: s kin intact, n o sign of infection. MUSCULOSKELETAL: S trength and range of motion deferred due to known fracture but no obvious deformity. Patient is able wiggle his toes without pain.? NEUROLOGICAL: l ight touch sensation intact Although slightly altered on dorsal foot, n egative tinel's sign. VASCULAR: P edal pulses palpable, C apillaryrefill is brisk to toe, D igitalhair A bsent. Skin wrinkles are intact with only mild dorsal foot swelling. No calf pain on squeeze. X -rays: x-rays were obtained & reviewed in my office. X-rays were compared to those obtained roughly 2 weeks ago and show no clear evidence of bone healing. No further displacement is notable which is best visualized on oblique projection. Assessment: * Assessment: 1. D isplaced fracture of first metatarsal bone, left foot, initial encounter for closed fracture - S92.312A (Primary) 2 . D isplaced fracture of second metatarsal bone, left foot, initial encounter for closed fracture - S92.322A 3 . N ondisplaced fracture of lateral cuneiform of right foot, initial encounter for closed fracture - S92.224A 4 . L eft foot pain - M79.672? Plan: * Treatment: 2. L eft foot pain I maging: XR Foot LT (3 views) * * Procedure Codes: 2 9405 SHORT LEG KNEE TO TOES, Modifiers: LT * * Sign off status: Completed Visit Status: C HK (Check Out) true * Provider: Chilango Chery DPM, MS Date: 0 01/07/2024 Generated for Loree caruso/Zachariah/Marielitting on: 0 03/16/2025 12:50 PM EDT History and Physical Notes * HPI (History of Present Illness) Category Sub-Category Detail Notes Category Not es General Patient returns today for follow up on left foot injury. Patient has history of fall DOI 11/25/23. He was placed in a well padded short leg cast due to breaking his splint from previous visit. Cast bottom does look intact. Patient reports pain 6/10 constant. Does elevate in the evening 9/10. He states only change to health history is a new cholesterol medication. Examination Category Sub-Category Detail Notes Category Not es Podiatry Examination SKIN: skin intact, no sign of infection X-rays: x-rays were obtained & reviewed in my office. X-rays were compared to those obtained roughly 2 weeks ago and show no clear evidence of bone healing. No further displacement is notable which is best visualized on oblique projection. MUSCULOSKELETAL: Strength and range o f motion deferred due to known fracture but no obvious deformity. Patient is able wiggle his toes without pain NEUROLOGICAL: light touch sensatio n intact Although slightly altered on dorsal foot, negative tinel's sign VASCULAR: Pedal pulses palpable, Capillary refill is brisk to toe, Digital hair Absent. Skin wrinkles are intact with only mild dorsal foot swelling. No calf pain on squeeze
--- OUTSIDE RECORDS SUMMARY | 2024-01-14 09:30 | XMS_ITS ---
Author Organization [facility] [place] Address [address] [place] [address] Care Team Providers Care Manager Of Drilling Name Role Phone Silvio Ott MD Primary Care Provider Unavailab Owen Ribeiro Unavailable [phone] Allergies No Known Allergies Results Component Value Reference Range Notes XR Foot LT (3 views) * Reviewed date:04/01/2024 03:25:33 PM Interpretation: Performing Lab: Notes/Report: REASON FOR VISIT 1 week follow up Medications Medication SIG (Take, Route, Frequency, Duration) Notes Start Date End Date Status SEROquel 25 MG 1 tablet at bedtime Orally Once a day Active Methocarbamol 750 MG 1 tablet Orally eri ry 4 hrs for 30 day(s) Active oxyCODONE-Acetaminophen 5-325 MG 1 tablet as needed Orally every 6 hrs for 7 days 12/05/2023 Active Lisinopril 40 MG 1 tablet Orally Once a day for 30 day(s) Active metFORMIN HCl 850 MG 1 tablet with a wilmer l Orally Once a day for 30 day(s) Active Atorvastatin Calcium 40 MG 1 tablet Oral ly Once a day for 30 day(s) Active Gabapentin 800 MG 1 tablet Orally Once a day Active Social History Tobacco Use: Social History Observation Description Date Details (start date - stop date) Current Smoker NA - NA Tobacco Use/Smoking Question Answer Notes Patient is a current smoker Vital Signs Weight 190 lbs 01/14/2024 Height 68 in 01/14/2024 Temperature 98.2 degrees Fahrenheit 01/14/20 24 Heart Rate 88 /min 01/14/2024 Respiratory Rate 16 /min 01/14/2024 BMI 28.89 kg/m2 01/14/2024 Encounters Encounter Location Date Provider Diagnosis [facility] (PODIATRY) [address] [place] [address] [place] [address] 01/14/2024 Owen Chery Displaced fracture of first metatarsal bone, left foot, initial encounter for closed fracture S92.312A ; Nondisplaced fracture of lateral cuneiform of right foot, initial encounter for closed fracture S92.224A ; Displaced fracture of second metatarsal bone, left foot, initial encounter for closed fracture S92.322A and Left foot pain M79.672 Assessments Encounter Date Diagnosis (ICD Code) Assessment Notes Treatment Notes Treatment Clinical Notes Section Notes 01/14/2024 Displaced fracture of first metatarsal bone, left foot, initial encounter for closed fracture (ICD-10 - S92.312A) Patient is roughly 6 weeks from Lisfranc variant fracture. He has had a great deal with cast and compliance with nonweightbearing. Fortunately he is doing much better clinically and not having any pain. He relates even when he was placing weight on his foot in the cast he was not having any pain. Given his recurrent issues with the cast and there is been no change in alignment and his fractures he may transition to a cam boot and progress his weightbearing status as pain allows. I recommended active range of motion exercises of his ankle multiple times throughout the day as well as icing and elevation. He will follow-up in 2 to 3 weeks with weightbearing foot x-rays 01/14/2024 Nondisplaced fracture of lateral cuneiform of right foot, initial encounter for closed fracture (ICD-10 - S92.224A) 01/14/2024 Displaced fracture of second metatarsal bone, left foot, initial encounter for closed fracture (ICD-10 - S92.322A) 01/14/2024 Left foot pain (ICD-10 - M79.672) 01/14/2024 Other Patient does remain at high risk for posttraumatic arthritis, nonunion and persistent pain he was educated on these heightened risk and further education for smoking cessation was provided Plan Of Treatment Treatment Notes Assessment Notes Displaced fracture of first metatarsal bone, left foot, initial encounter for closed fracture Patient is roughly 6 weeks from Lisfranc variant fracture. He has had a great deal with cast and compliance with nonweightbearing. Fortunately he is doing much better clinically and not having any pain. He relates even when he was placing weight on his foot in the cast he was not having any pain. Given his recurrent issues with the cast and there is been no change in alignment and his fractures he may transition to a cam boot and progress his weightbearing status as pain allows. I recommended active range of motion exercises of his ankle multiple times throughout the day as well as icing and elevation. He will follow-up in 2 to 3 weeks with weightbearing foot x-rays Other Patient does remain at high risk for posttraumatic arthritis, nonunion and persistent pain he was educated on these heightened risk and further education for smoking cessation was provided Progress Notes * Micah FORBESDOB: 5 (58 yo M)Acc No.[id number]:01/14/2024 Follow Up Patient: Micah LYLES Provider: Chilagno Chery DPM, MS :1965 A ge:58 Y S ex:Male Date:01/14/2024 Address:[address] [place], [place] [id number] Pcp:Silvio Ott MD Check In:01:20 PM ESTCheck O ut:02:30 PM EST Subjective: * Chief Complaints: * 1 week follow up * HPI: G eneral: follow up left foot injury from fall DOII 11/25/23. displaced fracture 1st metatarsal bone left foot. C/o cast too loose and left leg flopping around inside of cast. cast removed today in office. some swelling continues in left foot. States pain has been very minimal. * ROS: G eneral/Constitutional: Chills d enies. [...] region Modified On:08/07/2020U Status:confirmed M43.10 Anterolisthesis Modified On:08/07/2020 Status:confirmed M50.222 Displacement of inte rvertebral disc at C5-C6 level Modified On:08/07/2020 Status:confirmed S13.4XXA Sprain of ligaments of cervical spine, initial encounter Modified On:08/07/2020 Status:confirmed R06.02 Shortness of breath Modified On:10/14/2023U Status:confirmed M79.672 Left foot pain Modified On:12/05/2023U Status:confirmed S92.312A Displaced fracture o f first metatarsal bone, left foot, initial encounter for closed fracture Modified On:12/05/2023 Status:confirmed * Medical History: * Surgical History: [...] Allergies: N .K.D.A.no[Allergies Verified] Objective: * Vitals: W t:190lbs, Ht: 68 in, Temp:98.2F, HR:88/min, RR:16/min, BMI:28.89Index, Pain scale:21-10, Ht-cm: 172.72 cm, Wt-k.18 kg. * Examination: P odiatry Examination: SKIN: s kin intact, n o sign of infection. MUSCULOSKELETAL: N o pain to palpation, N o gross deformity, S trength and range of motion deferred due to known fracture. Mild to moderate swelling to the dorsal foot but compartments are soft and compressible. He is able to wiggle his toes.. NEUROLOGICAL: l ight touch sensation intact, n egative tinel's sign. VASCULAR: P edal pulses palpable, C apillary refill is brisk to toe, D igital hair intact. X -rays: x-rays were obtained & reviewed in my office. There is no significant change in x-rays today as compared to the last 2 appointments. There is incomplete bone healing of plantar first metatarsal fracture but again no change in alignment. Assessment: * Assessment: 1. D isplaced fracture of first metatarsal bone, left foot, initial encounter for closed fracture - S92.312A (Primary) 2 . N ondisplaced fracture of lateral cuneiform of right foot, initial encounter for closed fracture - S92.224A 3 . D isplaced fracture of second metatarsal bone, left foot, initial encounter for closed fracture - S92.322A 4 . L eft foot pain - M79.672? Plan: * Treatment: 2. L eft foot pain I maging: XR Foot LT (3 views) * 3. O thers Notes: Patient does remain at high risk for posttraumatic arthritis, nonunion and persistent pain he was educated on these heightened risk and further education for smoking cessation was provided? * Procedure Codes: * Preventive Medicine: Screenings/Counseling: T OBACCO ACTION PLAN Patient counselled on the dangers of tobacco use and urged to quit. 0 01/14/2024 * * Sign off status: Completed Visit Status: C HK (Check Out) true * Provider: Chilango Chery DPM, MS Date: 0 01/14/2024 Generated for Loree caruso/Zachariah/Sarah on: 0 03/16/2025 12:51 PM EDT History and Physical Notes * HPI (History of Present Illness) Category Sub-Category Detail Notes Category Not es General follow up left foot injury from fall DOII 11/25/23. displaced fracture 1st metatarsal bone left foot. C/o cast too loose and left leg flopping around inside of cast. cast removed today in office. some swelling continues in left foot. States pain has been very minimal. Examination Category Sub-Category Detail Notes Category Not es Podiatry Examination SKIN: skin intact, no sign of infection X-rays: x-rays were obtained & reviewed in my office. There is no significant change in x-rays today as compared to the last 2 appointments. There is incomplete bone healing of plantar first metatarsal fracture but again no change in alignment. MUSCULOSKELETAL: No pain to palpation , No gross deformity, Strength and range of motion deferred due to known fracture. Mild to moderate swelling to the dorsal foot but compartments are soft and compressible. He is able to wiggle his toes. NEUROLOGICAL: light touch sensatio n intact, negative tinel's sign VASCULAR: Pedal pulses palpabl e, Capillary refill is brisk to toe, Digital hair intact
--- OUTSIDE RECORDS SUMMARY | 2024-02-04 04:59 | XMS_ITS ---
Author Organization [facility] in [place] Address [address] [place] [address] Care Team Providers Care Ends Down Checker Name Role Phone Silvio Ott MD Primary Care Provider Unavailab Owen Ribeiro Unavailable [phone] Encounters Encounter Location Date Provider Diagnosis [facility] (PODIATRY) [address] [place] [address] [place] [address] 02/04/2024 Owen Chery Plan Of Treatment No Information Progress Notes * Micah FORBESDOB: 5 (58 yo M)Acc No.[id number]:02/04/2024 Patient: Micah LYLES :1965 A ge:58 Y S ex:Male Address:[facility] [address], [place], [address] * true * Date: Generated for Genesisi shady/Zachariah/eTransmitting on: 0 03/16/2025 12:49 PM EDT
--- OUTSIDE RECORDS SUMMARY | 2024-02-04 09:15 | XMS_ITS ---
Author Organization The [facility] in [place] Address [address] [place] [address] Care Team Providers Care News Broadcaster Name Role Phone Silvio Ott MD Primary Care Provider Unavailab Owen Ribeiro Unavailable [phone] REASON FOR VISIT 3 week f/u Encounters Encounter Location Date Provider Diagnosis [facility] (PODIATRY) [address] [place] [address] [place] [address] 02/04/2024 Owen Chery Plan Of Treatment No Information Progress Notes * Micah FORBESDOB: 5 (59 yo M)Acc No.[id number]:02/04/2024 UNLOCKED PROGRESS NOTE Follow Up Patient: Micah LYLES Provider: Chilango Chery DPM, MS :1965 A ge:58 Y S ex:Male Date:02/04/2024 Address:[address] [place], [place] [address] Pcp:Silvio Ott MD Subjective: * Chief Complaints: * 1 . 3 week f/u. * Medical History: Objective: * Vitals: Assessment: Plan: * Treatment: * * Electronic signature of Dennis Chery DPM on 03/16/2025 at 12:51 PM EDT Sign off status: Pending Visit Status: C ANC (Cancelled) * Provider: Chilango Chery DPM, MS Date: 0 02/04/2024 Generated for Printi ng/Faxing/eTransmitting on: 0 03/16/2025 12:51 PM EDT
--- OUTSIDE RECORDS SUMMARY | 2025-03-16 12:49 | XMS_ITS | Encounter Summary ---
Author Organization [facility] Address [address] [place] [address] Care Team Providers Care Clerical Office Worker Name Role Phone Yoni Sotelo MD Unavailable Silvio Ott MD Primary Care Provider [phone] Source Comments In the event this information is protected by the Federal Confidentiality of Alcohol and Drug AbusePatient Records regulations: The Federal rules restrict any use of the information to criminally investigate or prosecute any alcohol or drug abuse patient.[facility] Encounter Details Date Type Department Care Team (Late st Contact Info) Description 04/24/2021 Patient Msg Neurology [address] [id number] Monae Lombardi PSS Headache consult Social History [...] N ot on file 08/31/2020 Data from: https://www.neighborhoodatlas.medicine.[facility]/. 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
--- OUTSIDE RECORDS SUMMARY | 2025-03-16 12:49 | XMS_ITS | Encounter Summary ---
Author Organization [facility] Address [address] [place] [address] Care Team Providers Care Pond Scaler Name Role Phone Silvio Ott MD Primary Care Provider +-[phone] Kaia Scherer RN Unavailable Encounter Details Date [...] How often do you attend chur or sabianism services? 1 to 4 times per year 07/02/2023 Do you belong to any clubs o r organizations such as nondenominational groups, unions, fraternal or athletic groups, or [...] Recorded Patient Health Questionnaire-2 Score 0 10/07/2023 [facility] - Occupational Stress Questionnaire Answer [...] place to sleep or slept in a intermediate (including now)? No 07/02/2023 Sex and Gender Information Value Date Recorded Sex Assigned at Not on file Legal Sex Male 7:22 PM EDT Gender Identity Not on file Sexual Orientation Not on file documented as of this encounter Plan of Treatment Not on file documented as of this encounter Procedures Procedure Name Priority Date/Time Associated Diagnosis Comments XR FOOT LT MIN 3V 01/14/2024 2:2 8 PM EDT documented in this encounter Results * XR FOOT LT MIN 3V (01/14/2024 2:28 PM EDT) Anatomical Region Laterality Modality Other 01/14/2024 2:28 PM EDT Narrative 01/14/2024 2:30 [place] [address] XRay Report Signed Patient: MICAH FORBES MR#: [id number] : 1965 Acct:[id number] Age/Sex: 58 / M ADM Date: 01/14/24 Loc: EC Attending Dr: Chris Chery D.P.M. Ordering Physician: Chris Chery D.P.M. Date of Service: 01/14/24 Procedure(s): XR foot LT min 3V Accession Number(s): [id number] cc: Chris Chery D.P.M.; Silvio Ott M.D. [address] [place] [address] Patient Name: MICAH FORBES MRN: [id number] date: 1965 Sex: M Assigned Patient Location: Current Patient Location: EC Accession/Order Number: [id number] Exam Date: 01/14/2024 13:35 Report Date: 01/14/2024 [...] Signed By: 01/14/24 1430 DD/ 1428 TD/TT: Pattern Changer And Repairer: Procedure Note Radiology, Radiologist, MD - 01/14/2024 [place] [address] XRay Report Signed Patient: MICAH FORBES CMR#: [id number] : 1965Acct:[id number] Age/Sex: 58 / MADM Date: 01/14/24 Loc: EC Attending Dr: Chris Chery D.P.M. Ordering Physician: Chris Chery D.P.M. Date of Service: 01/14/24 Procedure(s): XR foot LT min 3V Accession Number(s): [id number] cc: Chris Chery D.P.M.; Silvio Ott M.D. The [place] [id number] Patient Name: MICAH FORBES MRN: [id number] date: 1965 Sex: M Assigned Patient Location: Current Patient Location: EC Accession/Order Number: [id number] Exam Date: 01/14/2024 13:35 Report Date: 01/14/2024 [...] M.D. Signed By:01/14/24 1430 DD/ 1428 TD/TT: Pattern Changer And Repairer: us Generic External Data Provider [facility] Final Result documented in this encounter Visit Diagnoses Not on filedocumented in this encounter Care Teams Pond Scaler Relationship Specialty Start Date End Date Silvio Ott MD PCP - General Family Medicine 10/07/23 Kaia Scherer, STEW [address] [place] [address] Registered Nurse Family Medicine 12/11/23 09/27/24 documented as of this encounter
--- OUTSIDE RECORDS SUMMARY | 2025-03-16 12:49 | XMS_ITS | Encounter Summary ---
Author Organization [facility] Address [address] [place] [address] Care Team Providers Care Tour Driver Name Role Phone Silvio Ott MD Primary Care Provider [phone] Kaia Scherer RN Unavailable [phone] Encounter Details Date Type Department Care Team (Late st Contact Info) Description 02/05/2024 Abstract [facility] [address] [place] [id number] Reta Whitaker, OFFICE WORKER [address] [place] [address] Social History Tobacco Use Types [...] How often do you attend chur or denominational services? 1 to 4 times per year 07/02/2023 Do you belong to any clubs o r organizations such as spiritism groups, unions, fraternal or athletic groups, or [...] Recorded Patient Health Questionnaire-2 Score 0 10/07/2023 [facility] Occupat ional Health - Occupational Stress [...] on filedocumented in this encounter Care Teams Tour Driver Relationship Specialty Start Date End Date Silvio Ott MD PCP - General Family Medicine 10/07/23 Kaia Scherer, STEW [address] [place] [address] Registered Nurse Family Medicine 12/11/23 09/27/24 documented as of this encounter
--- OUTSIDE RECORDS SUMMARY | 2025-03-16 12:49 | XMS_ITS | Encounter Summary ---
Author Organization [facility] Address [address] [place] [address] Care Team Providers Care Splicing Technician Name Role Phone Silvio Ott MD Primary Care Provider +-[phone] Kaia Scherer RN Unavailable [phone] Encounter Details Date Type Department Care [...] How often do you attend chur or restorationist services? 1 to 4 times per year [...] Recorded Patient Health Questionnaire-2 Score 0 10/07/2023 [facility] - Occupational Stress Questionnaire Answer Date [...] EDT Narrative 01/08/2024 6:27 [place] [address] XRay Report Signed Patient: MICAH FORBES MR#: [id number] : 1965 Acct:[id number] Age/Sex: 58 / M ADM Date: 01/07/24 Loc: EC Attending Dr: Chris Chery D.P.M. Ordering Physician: Chris Chery D.P.M. Date of Service: 01/07/24 Procedure(s): XR foot LT min 3V Accession Number(s): [id number] cc: Chris Chery D.P.M.; Silvio Ott M.D. [address] [place] [id number] Patient Name: MICAH FORBES MRN: [id number] date: 1965 Sex: M Assigned Patient Location: Current Patient Location: Accession/Order Number: [id number] Exam Date: 01/07/2024 10:50 Report Date: 01/08/2024 [...] Yogi Murphy M.D. Signed By: 01/08/24626 DD/ TD/TT: Powersaw Supervisor: Procedure Note Radiology, Radiologist, MD - 01/08/2024 [place] [address] XRay Report Signed Patient: MICAH FORBES CMR#: [id number] : 1965Acct:[id number] Age/Sex: 58 / MADM Date: 01/07/24 Loc: EC Attending Dr: Chris Chery D.P.M. Ordering Physician: Chris Chery D.P.M. Date of Service: 01/07/24 Procedure(s): XR foot LT min 3V Accession Number(s): [id number] cc: Chris Chery D.P.M.; Silvio Ott M.D. [address] [place] [address] Patient Name: MIACH FORBES MRN: [id number] date: 1965 Sex: M Assigned Patient Location: Current Patient Location: Accession/Order Number: [id number] Exam Date: 01/07/2024 10:50 Report Date: 01/08/2024 [...] Murphy M.D. Signed By:01/08/24626 DD/ 4 TD/TT: Powersaw Supervisor: Generic External Data Provider [facility] Final Result documented in this encounter Visit Diagnoses Not on filedocumented in this encounter Care Teams Splicing Technician Relationship Specialty Start Date End Date Silvio Ott MD PCP - General Family Medicine 10/07/23 Kaia Scherer, STEW [address] [place] [address] Registered Nurse Family Medicine 12/11/23 09/27/24 documented as of this encounter
--- OUTSIDE RECORDS SUMMARY | 2025-03-16 12:49 | XMS_ITS | Encounter Summary ---
Author Organization [facility] Address [address] [place] [address] Care Team Providers Care Stone Mill Operator Name Role Phone Silvio Ott MD Primary Care Provider +-[phone] Kaia Scherer RN Unavailable [phone] Encounter Details Date Type Department Care [...] How often do you attend chur or zoroastrianism services? 1 to 4 times per year 07/02/2023 Do you belong to any clubs o r organizations such as yazidi groups, unions, fraternal or athletic groups, or [...] Recorded Patient Health Questionnaire-2 Score 0 10/07/2023 [facility] - Occupational Stress Questionnaire Answer [...] place to sleep or slept in a halfway (including now)? No 07/02/2023 Sex and Gender [...] EDT Narrative 12/30/2023 1:14 [place] [address] XRay Report Signed Patient: MICAH FORBES MR#: [id number] : 1965 Acct:[id number] Age/Sex: 58 / M ADM Date: 12/30/23 Loc: EC Attending Dr: Chris Chery D.P.M. Ordering Physician: Chris Chery D.P.M. Date of Service: 12/30/23 Procedure(s): XR foot LT min 3V Accession Number(s): [id number] cc: Chris Chery D.P.M.; Silvio Ott M.D. [address] [place] [id number] Patient Name: MICAH FORBES MRN: [id number] date: 1965 Sex: M Assigned Patient Location: EC Current Patient Location: EC Accession/Order Number: [id number] Exam Date: 12/30/2023 10:50 Report Date: 12/30/2023 [...] Signed By: 12/30/23 1314 DD/ 1311 TD/TT: Spray Painting Machine Operator: Procedure Note Radiology, Radiologist, MD - 12/30/2023 [place] [address] XRay Report Signed Patient: MICAH FORBES CMR#: [id number] : 1965Acct:[id number] Age/Sex: 58 / MADM Date: 12/30/23 Loc: EC Attending Dr: Chris Chery D.P.M. Ordering Physician: Chris Chery D.P.M. Date of Service: 12/30/23 Procedure(s): XR foot LT min 3V Accession Number(s): [id number] cc: Chris Chery D.P.M.; Silvio Ott M.D. [address] [place] [id number] Patient Name: MICAH FORBES MRN: [id number] date: 1965 Sex: M Assigned Patient Location: EC Current Patient Location: EC Accession/Order Number: [id number] Exam Date: 12/30/2023 10:50 Report Date: 12/30/2023 [...] Yaa Esteban M.D. Signed By:12/30/23 1314 DD/ 131 TD/TT: Spray Painting Machine Operator: us Generic External Data Provider [facility] Final Result documented in this encounter Visit Diagnoses Not on filedocumented in this encounter Care Teams Stone Mill Operator Relationship Specialty Start Date End Date Silvio Ott MD PCP - General Family Medicine 10/07/23 Kaia Scherer, STEW [address] [place] [address] Registered Nurse Family Medicine 12/11/23 09/27/24 documented as of this encounter
--- OUTSIDE RECORDS SUMMARY | 2025-03-16 12:50 | XMS_ITS | Encounter Summary ---
Author Organization [facility] Address [address] [place] [address] Care Team Providers Care Project Control Manager Name Role Phone Silvio Ott MD Primary Care Provider +-[phone] Silvio Ott MD Primary Care Provider +-83 Kaia Scherer RN Unavailable [phone] Encounter Details Date Type Department Care Team (Late st Contact Info) Description 07/08/2023 Orders Only [facility] [place] [facility] [address] [place] [address] Shaikh Christensen MD [address] [address] Primary hypertension (Primary Dx) Social History Tobacco [...] often do you attend chur ch or gnosticism services? 1 to 4 times per year 07/02/2023 Do you belong to any clubs o r organizations such as cheondoism groups, unions, fraternal or athletic groups, or [...] and heating? Not hard at all 07/02/2023 [facility] Occupat ional Health - Occupational Stress [...] place to sleep or slept in a penitentiary (including now)? No 07/02/2023 Sex and Gender [...] hypertension documented in this encounter Care Teams Project Control Manager Relationship Specialty Start Date End Date Silvio Ott MD PCP - General Family Medicine 03/07/23 10/06/23 Silvio Ott MD PCP - General Family Medicine 10/07/23 Kaia Scherer, STEW [address] [place] [address] Registered Nurse Family Medicine 12/11/23 09/27/24 documented as of this encounter
--- OUTSIDE RECORDS SUMMARY | 2025-03-16 12:50 | XMS_ITS | Encounter Summary ---
Author Organization [facility] Address [address] [place] [address] Care Team Providers Care Accounting Officer Name Role Phone Silvio Ott MD Primary Care Provider +-[phone] Silvio Ott MD Primary Care Provider +35 Kaia Scherer RN Unavailable [phone] Encounter Details Date Type Department Care Team (Late st Contact Info) Description 06/10/2023 Clinisync Result Encounter [facility] External Department Unsolicited Shaikh Christensen MD [address] [place] [address] Social History Tobacco Use Types Packs/Day Years [...] PM EST Narrative 06/12/2023 1:23 PM EST The [address] [address] Respiratory Report Signed Patient: MICAH FORBES MR#: [id number] : 1965 Acct:[id number] Age/Sex: 58 / M ADM Date: 06/10/23 Loc: CARD Attending Dr: Shaikh Amparo Alvarez Ordering Physician: Shaikh Kim Christensen Date of Service: 06/10/23 Procedure(s): RT pulmonary function test Accession Number(s): [id number] cc: The [facility] Test Date: 2023-06-10 Pat Name: MICAH FORBES Department: Room: - Gender: Male Policy Writer Typist: Lesli Lemos RRT : 1965 Requested By: [id number] Order Number: [id number] Reading MD: Sam Schmid Interpretive Statements Pulmonary [...] RV suggests air trapping. There is a psue-ad-zutargomfn reduced diffusion capacity. 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 Clinical correlation required. Electronically Signed On 06-12-2023 13:23:19 EST by Sam Schmid Dictated By: Sam Schmid D.O. Signed By: 06/12/23 1323 06/12/23 1323 DD/ 1320 TD/TT: Lumber Press Operator: Procedure Note Radiology, Radiologist, MD - 06/12/2023 [place] [address] Respiratory Report Signed Patient: MICAH FORBES CMR#: [id number] : 1965Acct:[id number] Age/Sex: 58 / MADM Date: 06/10/23 Loc: CARD Attending Dr: Shaikh Amparo Alvarez Ordering Physician: Shaikh Kim Christensen Date of Service: 06/10/23 Procedure(s): RT pulmonary function test Accession Number(s): [id number] cc: [facility] Test Date: 2023-06-10 Pat Name: MICAH FORBES Department: Room: - Gender: Male Policy Writer Typist: Lesli Lemos RRT : 1965 Requested By: [id number] Order Number: [id number] Reading MD: Sam Schmid Interpretive Statements Pulmonary [...] RV suggests air trapping. There is a xwjm-ro-dockoybucy reduced diffusion capacity.Overall study is compatible with COPD/emphysema. Clinical correlation required. Electronically Signed On 06-12-2023 13:23:19 EST by Sam Schmid Dictated By: Sam Schmid D.O. Signed By:06/12/23 1323 06/12/23 1323 DD/ 1320 TD/TT: Lumber Press Operator: us Shaikh Amparo DACOSTA [facility] Final Result documented in this encounter Visit Diagnoses Not on filedocumented in this encounter Care Teams Accounting Officer Relationship Specialty Start Date End Date Silvio Ott MD PCP - General Family Medicine 03/07/23 10/06/23 Silvio Ott MD PCP - General Family Medicine 10/07/23 Kaia Scherer, RN [address] [place] [address] Registered Nurse Family Medicine 12/11/23 09/27/24 documented as of this encounter
--- OUTSIDE RECORDS SUMMARY | 2025-03-16 12:50 | XMS_ITS | Encounter Summary ---
Author Organization [facility] Address [address] [place] [address] Care Team Providers Care Senior Benefits Analyst Name Role Phone Silvio Ott MD Primary Care Provider [phone] Kaia Scherer RN Unavailable [phone] Encounter Details Date Type Department Care Team (Late st Contact Info) Description 10/08/2023 Orders Only [facility] [place] [facility] [address] [place] [address] Jose Ramon Olivarez MD [address] [place], [place] [id number] Social History Tobacco Use Types Packs/Day Years [...] often do you attend chur ch or synagogue services? 1 to 4 times per year 07/02/2023 Do you belong to any clubs o r organizations such as mandaeism groups, unions, fraternal or athletic groups, or [...] Recorded Patient Health Questionnaire-2 Score 0 10/07/2023 [facility] - Occupational Stress Questionnaire Answer [...] on filedocumented in this encounter Care Teams Senior Benefits Analyst Relationship Specialty Start Date End Date Silvio Ott MD PCP - General Family Medicine 10/07/23 Kaia Scherer, STEW [address] [place] [address] Registered Nurse Family Medicine 12/11/23 09/27/24 documented as of this encounter
--- OUTSIDE RECORDS SUMMARY | 2025-03-16 12:50 | XMS_ITS | Clinical Summary ---
Author Organization [facility] Address [address] [place], [place] [address] Care Team Providers Care Route Sales Specialist Name Role Phone Yoni Sotelo MD Unavailable Silvio Ott MD Primary Care Provider [phone] Allergies No known active allergies Medications amLODIPine [...] analgesics titrated per consultation with Dr. Prince Palaciso MD -Plan discussed with Dr. Prince Palacios [...] -Plan discussed with Dr. Prince Palacios MD -MT planning. Planned Date of Discharge: Within 24 hours Discharge Disposition: Home with [facility] Assessment & Plan (03/16/2021 10:44 AM EDT): Assessment: Cervical kyphosis PLAN: -PT/OT continue. -Out of bed to chair for meals. -Ambulate pt 3-4 x daily as able. -Monitor: signs, symptoms, disease progression, disease regression. -Evaluate: test results, medication effectiveness, response to treatment. -Pain control: analgesics titrated per consultation with Dr. Prince Palacios MD -Plan discussed with Dr. Prince Palacios MD -MT planning. 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 on file Not [...] 12/0 02/2022 Medical Devices Implanted Type Area Functional Mental Disability Teacher Device Identifier Shelf Expiration Date Model / Serial / Lot [place] Lateral Offset Connector Side Sz 10mm Implanted:Qty: 2 on 03/15/2021 at [facility] Accessories N/A: Spine - Cervical STEFANI [id number] [id number] / / Graft Demineralized Bone Matrix Bone Putty Pretreated 10ml - [id number] Implanted:Qty: 1 on 03/15/2021 by Prince Palacios MD at [facility] Bone - Synthetic MEDTRONIC SOFAMOR DANEK 01/17/2024 [id number] / [id number] / Spacer Avs 4d 8mm Spinal Bone Plug - [id number] Implanted:Qty: 1 on 03/15/2021 by Prince Palacios MD at [facility] Graft STEFANI SPINE 09/03/2025 [id number] / [id number] / [place] Plate, 1 Level, Sz 18mm Implanted:Qty: 1 on 03/15/2021 at [facility] Plate N/A: Spine - Cervical STEFANI [id number] / / Baxter Spn Luigi Csp Mini 3.5x240 Implanted:Qty: 2 on 03/15/2021 at [facility] Luigi N/A: Spine - Cervical [id number] 40 / / Screw St Spnl Oct Alberta Ns Lf - [id number] Implanted:Qty: 16 on 03/15/2021 at [facility] Screw N/A: Spine - Cervical STEFANI [id number] 1 / / Alberta Oct Polyaxial Screw 4.5mm X 30mm Implanted:Qty: 4 on 03/15/2021 at [facility] Screw N/A: Spine - Cervical STEFANI [id number] 0 / / Alberta Oct Polyaxial Screw Sz 3.5mm X 20mm Implanted:Qty: 2 on 03/15/2021 at [facility] Screw N/A: Spine - Cervical STEFANI [id number] 0 / / Polyaxial Screw Size 3.5mm X 14mm Implanted:Qty: 8 on 03/15/2021 at [facility] Screw N/A: Spine - Cervical STEFANI [id number] 4 / / Screw Bn 4mm 14mm [place] Spnl - [id number] Implanted:Qty: 4 on 03/15/2021 at [facility] Screw N/A: Spine - Cervical STEFANI [id number] 4DA / / Spacer Bio Avs 4d Lordosis 12mm Cortical Cancellous [id number] Allograft - [id number] Implanted:Qty: 1 on 03/15/2021 by Prince Palacios MD at [facility] Spacer - Bone STEFANI SPINE 12/26/2025 [id number] / [id number] / Procedures Procedure Name Priority Date/Time Associated Diagnosis Comments HEMOGLOBIN A1C Routine 03/02/2021 10:17 AM EDT Pre-op evaluation from Last 3 Months or Most Recently Relevant to Health Maintenance Results * (ABNORMAL) HGB A1C (03/02/2021 10:17 AM EDT) Hemoglobin A1C 8.6(H) 4.3 - 5.6 % 03/03/2021 12:31 PM EDT [facility] Comment: [place] Diabetes [employer] guidelines indicate that patients with HgbA1c in the range 5.7-6.4% are at increased risk for development of diabetes, and intervention by lifestyle modification may be beneficial. HgbA1c greater or equal to 6.5% is considered diagnostic of diabetes. Estimated Average Glucose 200 mg/dL 03/03/2021 12:31 PM EDT [facility] Comment: eAG: (Estimated average glucose) is a calculated value from HgbA1c and is welding equipment sales representative of the average blood glucose level in the last 2-3 month period. Blood specimen (specimen) WHOLE BLOOD SPECIMEN / Unknown 03/02/2021 10:17 AM EDT 03/02/2021 10:19 AM EDT Faiza Rea PA-C LABORATORY Final Result [facility] [address] [place] [address] [facility] [address] [place] [address] from Last 3 Months or Most Recently Relevant to Health Maintenance Insurance [address] [place] [address] [facility] [address] [place] [address] [facility] [address] [place] [address] [address] [place] [address] Care Teams Route Sales Specialist Relationship Specialty Start Date End Date Silvio Ott MD [address] [place] [address] PCP - General Family Medicine 04/20/21 Yoni Sotelo MD [address] [place] [address] NI Referring Team Neurosurgery 08/22/20
--- OUTSIDE RECORDS SUMMARY | 2025-03-16 12:50 | XMS_ITS | Encounter Summary ---
Author Organization [facility] Address [address] [place] [address] Care Team Providers Care Pressure Welder Name Role Phone Silvio Ott MD Primary Care Provider [phone] Kaia Scherer RN Unavailable [phone] Encounter Details Date Type Department Care Team (Late st Contact Info) Description 05/21/2024 Orders Only [facility] [address] [place] [address] Silvio Ott MD [address] [place] [address] Social History Tobacco Use Types Packs/Day Years [...] often do you attend chur ch or orthodox services? 1 to 4 times per year 07/02/2023 Do you belong to any clubs o r organizations such as anabaptism groups, unions, fraternal or athletic groups, or [...] Recorded Patient Health Questionnaire-2 Score 0 10/07/2023 [facility] - Occupational Stress Questionnaire Answer Date [...] on filedocumented in this encounter Care Teams Pressure Welder Relationship Specialty Start Date End Date Silvio Ott MD PCP - General Family Medicine 10/07/23 Kaia Scherer RN [address] [place] [address] Registered Nurse Family Medicine 12/11/23 09/27/24 documented as of this encounter
--- OUTSIDE RECORDS SUMMARY | 2025-03-16 12:50 | XMS_ITS | Encounter Summary ---
Author Organization [facility] Address [address] [place] [address] Care Team Providers Care Agricultural Equipment Salesperson Name Role Phone Marie Peralta DO Primary Care Provider [phone] Yoni Sotelo MD Unavailable Silvio Ott MD Primary Care Provider [phone] Source Comments In the event this information is protected by the Federal Confidentiality of Alcohol and Drug AbusePatient Records regulations: The Federal rules restrict any use of the information to criminally investigate or prosecute any alcohol or drug abuse patient.[facility] Encounter Details Date Type Department Care Team (Late st Contact Info) Description 08/22/2020 Abstract Neurology [address] [place] [address] (Historical), Unknown Social History Tobacco Use Types [...] 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
--- OUTSIDE RECORDS SUMMARY | 2025-03-16 12:50 | XMS_ITS | Clinical Summary ---
Author Organization [facility] Address [address], [address] [place] [address] Care Team Providers Care Floor Clerk Name Role Phone Farshad Fletcher MD Primary Care Provider [phone] Allergies No known active allergies Medications oxyCODONE-acetam [...] of Treatment Not on file [place] [facility] on file Advance Directives * Full Code (Latest Code Status on File) Date Activated Date Inactivated Comments 03/30/2013 1:35 PM 04/01/2013 1:06 PM Care Teams Floor Clerk Relationship Specialty Start Date End Date Farshad Fletcher MD PCP - General Neurology 05/11/12
--- OUTSIDE RECORDS SUMMARY | 2025-03-16 12:50 | XMS_ITS | Encounter Summary ---
Author Organization [facility] Address [address] [place] [address] Care Team Providers Care Mangle Catcher Name Role Phone Silvio Ott MD Primary Care Provider [phone] Encounter Details Date Type Department Care Team (Late st Contact Info) Description 02/23/2025 Abstract [facility] [address] [place] [address] Silvio Ott MD [address] [place] [address] Social History Tobacco Use Types Packs/Day Years [...] How often do you attend chur or restorationism services? 1 to 4 times per year 07/02/2023 Do you belong to any clubs o r organizations such as samaritan groups, unions, fraternal or athletic groups, or [...] Recorded Patient Health Questionnaire-2 Score 0 06/15/2024 [facility] ional [facility] - Occupational [...] place to sleep or slept in a correction (including now)? No 07/02/2023 Sex and Gender Information Value Date Recorded Sex Assigned at Not on file Legal Sex Male 7:22 PM EDT Gender Identity Not on file Sexual Orientation Not on file documented as of this encounter Plan of Treatment Not on file documented as of this encounter Visit Diagnoses Not on filedocumented in this encounter Additional Health Concerns Assessment Noted Time PHQ-9 Depression Total Score: 5 06/15/20 24 1:00 PM EST documented as of this encounter Care Teams Mangle Catcher Relationship Specialty Start Date End Date Silvio Ott MD PCP - General Family Medicine 10/07/23 documented as of this encounter
--- OUTSIDE RECORDS SUMMARY | 2025-03-16 12:50 | XMS_ITS | Encounter Summary ---
Author Organization [facility] Address [address] [facility] [place] [address] Care Team Providers Care Manager Plant Name Role Phone Silvio Ott MD Primary Care Provider [phone] Kaia Scherer RN Unavailable [phone] Encounter Details Date Type Department Care Team (Late st Contact Info) Description 10/23/2023 Orders Only [facility] [address] [facility] [place] [address] Jovan Ash MD [address] [facility] Social History Tobacco Use Types Packs/Day Years [...] any clubs o r organizations such as presybeterian groups, unions, fraternal or athletic groups, or [...] Recorded Patient Health Questionnaire-2 Score 0 10/07/2023 [facility] ional Health - Occupational [...] Shoulder Right Radi ographic Imaging us Jovan ANDERSG XR PROCEDURES Final Result documented in this encounter Visit Diagnoses Not on filedocumented in this encounter Care Teams Manager Plant Relationship Specialty Start Date End Date Silvio Ott MD PCP - General Family Medicine 10/07/23 Kaia Scherer, RN [address] [place] [address] Registered Nurse Family Medicine 12/11/23 09/27/24 documented as of this encounter
--- OUTSIDE RECORDS SUMMARY | 2025-03-16 12:50 | XMS_ITS | Encounter Summary ---
Author Organization [facility] Address [address] [place] [address] Care Team Providers Care Senior Medical Director Name Role Phone Silvio Ott MD Primary Care Provider [phone] Kaia Scherer RN Unavailable [phone] Encounter Details Date Type Department Care Team (Late st Contact Info) Description 10/09/2023 Orders Only [facility] [address] [place] [address] Silvio Ott MD [address] [place] [address] Social History Tobacco Use Types Packs/Day Years [...] often do you attend chur ch or mu-ism services? 1 to 4 times per year 07/02/2023 Do you belong to any clubs o r organizations such as latter day groups, unions, fraternal or athletic groups, or [...] Recorded Patient Health Questionnaire-2 Score 0 10/07/2023 [facility] - Occupational Stress Questionnaire Answer Date [...] filedocumented in this encounter Care Teams Senior Medical Director Relationship Specialty Start Date End Date Silvio Ott MD PCP - General Family Medicine 10/07/23 Kaia Scherer, STEW [address] [place] [address] Registered Nurse Family Medicine 12/11/23 09/27/24 documented as of this encounter
--- OUTSIDE RECORDS SUMMARY | 2025-03-16 12:50 | XMS_ITS | Encounter Summary ---
Author Organization [facility] Address [address] [place] [address] Care Team Providers Care Security Dispatcher Name Role Phone Silvio Ott MD Primary Care Provider [phone] Kaia Scherer RN Unavailable [phone] Encounter Details Date Type Department Care [...] How often do you attend chur or episcopalian services? 1 to 4 times per year 07/02/2023 Do you belong to any clubs o r organizations such as shinto groups, unions, fraternal or athletic groups, or [...] Recorded Patient Health Questionnaire-2 Score 0 10/07/2023 [facility] - Occupational Stress Questionnaire Answer Date [...] place to sleep or slept in a skilled nursing (including now)? No 07/02/2023 Sex and Gender [...] AM EDT Narrative 12/15/2023 6:47 AM EDT [address] [address] [address] Scan Report Signed Patient: MICAH FORBES MR#: [id number] : 1965 Acct:[id number] Age/Sex: 58 / M ADM Date: 12/12/23 Loc: CT Attending Dr: Chris Chery D.P.M. Ordering Physician: Chris Chery D.P.M. Date of Service: 12/12/23 Procedure(s): CT ankle LT wo con Accession Number(s): [id number] cc: Silvio Ott M.D. [address] [address] Patient Name: MCIAH FORBES MRN: [id number] date: 1965 Sex: M Assigned Patient Location: CT Current Patient Location: Accession/Order Number: [id number] Exam Date: 12/12/2023 14:50 Report Date: 12/15/2023 [...] Murphy M.D. Signed By: 12/15/2347 DD/ TD/TT: Hypo Dipper: Procedure Note Radiology, Radiologist, MD - 12/15/2023 [place] [address] CT Scan Report Signed Patient: MICAH FORBES CMR#: [id number] : 1965Acct:[id number] Age/Sex: 58 / MADM Date: 12/12/23 Loc: CT Attending Dr: Chris Chery D.P.M. Ordering Physician: Chris Chery D.P.M. Date of Service: 12/12/23 Procedure(s): CT ankle LT wo con Accession Number(s): [id number] cc: Silvio Ott M.D. [address] [address] Patient Name: MICAH FORBES MRN: [id number] date: 1965 Sex: M Assigned Patient Location: CT Current Patient Location: Accession/Order Number: [id number] Exam Date: 12/12/2023 14:50 Report Date: 12/15/2023 [...] Yogi Murphy M.D. Signed By:12/15/2347 DD/ TD/TT: Hypo Dipper: us Generic External Data Provider [facility] Final Result documented in this encounter Visit Diagnoses Not on filedocumented in this encounter Care Teams Security Dispatcher Relationship Specialty Start Date End Date Silvio Ott MD PCP - General Family Medicine 10/07/23 Kaia Scherer, RN [address] [place] [address] Registered Nurse Family Medicine 12/11/23 09/27/24 documented as of this encounter
--- OUTSIDE RECORDS SUMMARY | 2025-03-16 12:50 | XMS_ITS | Encounter Summary ---
Author Organization [facility] Address [address] [place] [address] Care Team Providers Care Domestic Violence Advocate Name Role Phone Silvio Ott MD Primary Care Provider [phone] Encounter Details Date Type Department Care Team (Late st Contact Info) Description 02/18/2025 [facility] [address] [place] [address] Silvio Ott MD [address] [place] [address] ALL CBC WITH AUTO DIFF, MLR HEMOGLOBIN A1C, TBH MICROALB CREAT RATIO RANDOM, Additional followed-up results: 9 Social History Tobacco Use Types Packs/Day Years [...] often do you attend chur ch or religion services? 1 to 4 times per year [...] Recorded Patient Health Questionnaire-2 Score 0 06/15/2024 [facility] - Occupational Stress Questionnaire Answer Date [...] No 07/02/2023 Housing Stability Vital Sign Answer Aaorn e Recorded In the last 12 months, [...] documented as of this encounter Care Teams Domestic Violence Advocate Relationship Specialty Start Date End Date Silvio Ott MD PCP - General Family Medicine 10/07/23 documented as of this encounter
--- OUTSIDE RECORDS SUMMARY | 2025-03-16 12:50 | XMS_ITS | Clinical Summary ---
Author Organization [facility] Address [address] [place] [address] Care Team Providers Care Cryptologic Linguist Name Role Phone Silvio Ott MD Primary Care Provider [phone] Allergies No known active allergies Medications Glucose Blood (Blood Glucose Test) stripIndications: Type 2 diabetes mellitus with hyperglycemia, unspecified whether long-term insulin use ([facility]) 1 strip by In Vitro route Daily 100 strip 4 Active OneTouch Delica Lancets 33G miscIndications:T ype 2 diabetes mellitus with hyperglycemia, unspecified whether long-term insulin use ([facility]) 1 Lancet Daily 100 each 3 4 Active amLODIPine (Norvasc) 10 MG tabletIndications :Benign essential hypertension Take 1 tablet (10 mg) by mouth Daily 90 tablet 3 4 Active glipiZIDE (Glucotrol) 10 MG tabletIndications :Type 2 diabetes mellitus with hyperglycemia, without long-term current use of insulin ([facility]) Take 1 tablet (10 mg) by mouth in the morning and 1 tablet (10 mg) in the evening. Take before meals. 60 tablet 5 5 Active losartan (Cozaar) 100 MG tabletIndications :Primary hypertension Take 1 tablet (100 mg) by mouth Daily 90 tablet 3 5 Active QUEtiapine (SEROquel) 50 MG tabletIndications :Primary hypertension,Mode rate COPD (chronic obstructive pulmonary disease) (HCC),ETHAN (generalized anxiety disorder) Take 1 tablet (50 mg) by mouth at bedtime 30 tablet 5 5 Active ALPRAZolam (Xanax) 1 MG tabletIndications :ETHAN (generalized anxiety disorder) Take 1 tablet (1 mg) by mouth 3 (three) times a day as needed for anxiety 90 tablet 1 5 Active atorvastatin (Lipitor) 40 MG tabletIndications :Dyslipidemia Take 1 tablet (40 mg) by mouth at bedtime 30 tablet 5 5 Active metFORMIN (Glucophage) 850 MG tabletIndications :Type 2 diabetes mellitus with hyperglycemia, without long-term current use of insulin (HCC) Take 1 tablet (850 mg) by mouth in the morning and 1 tablet (850 mg) in the evening. Take with meals. 60 tablet 5 5 Active methocarbamol (Robaxin) 750 MG tabletIndications :Spondylosis of cervical spine Take 1 tablet (750 mg) by mouth 4 (four) times a day as needed for muscle spasms 120 tablet 5 5 Active celecoxib (CeleBREX) 200 MG capsuleIndication s:Arthralgia, unspecified joint Take 1 capsule (200 mg) by mouth in the morning and 1 capsule (200 mg) before bedtime. Take with food. 60 capsule 3 5 Active gabapentin (Neurontin) 800 MG tabletIndications :Spondylosis of cervical spine Take 1 tablet (800 mg) by mouth in the morning and 1 tablet (800 mg) in the evening and 1 tablet (800 mg) before bedtime. 90 tablet 2 5 05/15/20 25 Active Active Problems Problem Noted Date Diagnosed [...] C/w Norvasc 10 mg daily. Atherosclerosis of jena co ronary artery of jena heart without angina pectoris 05/24/2020 S/P cervical [...] Encounters Date Type Department Care Team Description 02/23/2025 Abstract [facility] [address] [place] [address] Silvio Ott MD 02/18/2025 Results Follow-Up [facility] [address] [place] [address] Silvio Ott MD ALL CBC WITH AUTO DIFF, MLR HEMOGLOBIN A1C, TBH MICROALB CREAT RATIO RANDOM, Additional followed-up results: 9 02/18/2025 Clinisync Result Encounter [facility] External Department Unsolicited Silvio Ott MD 02/14/2025 Refill [facility] [address] [place] [address] Silvio Ott MD Spondylosis of cervical spine 02/03/2025 3:00 PM EDT Office Visit [facility] [address] [place] [address] Silvio Ott MD Type 2 diabetes mellitus with hyperglycemia, without long-term current use of insulin ([facility]) (Primary Dx); Benign essential hypertension ; Moderate COPD (chronic obstructive pulmonary disease) ([facility]); MDD (major depressive disorder), recurrent episode, mild ; ETHAN (generalized anxiety disorder) ; Primary insomnia; Polyneuropathy due to type 2 diabetes mellitus ([facility]); Arthralgia, unspecified joint; Encounter for long-term current use of medication; Dyslipidemia ; Screening PSA (prostate specific antigen); Fatigue, unspecified type; Cigarette smoker 02/03/2025 Bamboo flowsheet [facility] [address] [place] [id number] Silvio Ott MD 01/11/2025 Refill [facility] [address] [place] [address] Silvio Ott MD ETHAN (generalized anxiety disorder) ; Spondylosis of cervical spine; Dyslipidemia ; Type 2 diabetes mellitus with hyperglycemia, without long-term current use of insulin ([facility]) 12/14/2024 Refill [facility] [address] [place] [address] Silvio Ott MD Spondylosis of cervical spine from Last 3 Months Immunizations Immunization Administration [...] How often do you attend chur or faith services? 1 to 4 times per year 07/02/2023 Do you belong to any clubs o r organizations such as rastafarian groups, unions, fraternal or athletic groups, or [...] Recorded Patient Health Questionnaire-2 Score 0 06/15/2024 [facility] - Occupational Stress Questionnaire Answer [...] 02/03/2025 2:52 PM EDT Plan of Treatment Health Maintenance Due Date Last Done Comments CT Colonography 1965 FIT 1965 FOBT 1965 Lung Cancer Screening Shared Decision Making 1965 Sigmoidoscopy 1965 FIT-DNA 02/16/2022 02/16/2019, 02/16/2019 Diabetes: Retinopathy Screening 03/24/2022 0, 05/26/2018 Diabetes: Hemoglobin A1C 11/19/2024 024, 12/24/2023, 05/30/2021, Additional history exists Influenza Vaccine (#1) 2025 3, 05/14/2017, 05/07/2017 Medicare Annual Wellness (AWV) 06/15/2025 06/15/2024 Diabetes: Urine Protein Screening 02/18/2026 025, 12/24/2023 Colonoscopy 10/10/2032 10/10/2022 Colorectal Cancer Screening 10/10/2032 Procedures Procedure Name Priority Date/Time Associated Diagnosis Comments TBH MICROALB CREAT RATIO RANDOM Routine 02/18/2025 10:51 AM EDT ANTINUCLEAR ANTIBODIES, IFA Routine 02/18/2025 10:49 AM EDT [facility] RHEUMATOID FACTOR Routine 02/18/2025 10:49 AM EDT SRMCOH PROSTATE SPECIFIC ANTIGEN SCRN Routine 02/18/2025 10:49 AM EDT ALL THYROID STIM HORMONE Routine 02/18/2025 10:49 AM EDT ALL LIPID PROFILE (FASTING) Routine 02/18/2025 10:49 AM EDT ALL C REACTIVE PROTEIN Routine 02/18/2025 10:49 AM EDT ALL BASIC METABOLIC PANEL Routine 02/18/2025 10:49 AM EDT HMHP LIVER PANEL Routine 02/18/2025 10:4 9 AM EDT ALL SED RATE Routine 02/18/2025 10:49 AM EDT MLR HEMOGLOBIN A1C Routine 02/18/2025 10 :49 AM EDT ALL CBC WITH AUTO DIFF Routine 02/18/2025 10:49 AM EDT HEMOGLOBIN A1C Routine 05/30/2021 12:00 PM EST LAB COLOGUARD COLON CANCER SCREEN Routine 02/16/2019 COLOR FUNDUS PHOTOGRAPHY - OU - BOTH EYES Routine 05/26/2018 12:00 PM EST from Last 3 Months or Most Recently Relevant to Health Maintenance Results * (ABNORMAL) TBH MICROALB CREAT RATIO RANDOM (02/18/2025 10:51 AM EDT) MICROALBUMIN URINE RANDOM 3.3 <=30.0 mg/dL TBH CREATININE URINE RANDOM 36.74 20.00 - 300.00 mg/dL TBH MICROALBUM CREATININE RATIO UR 89.8(H) 0.0 - 29.9 mg/g TBH Comment: NO MICROALBUMINURIA 0-29 MG/G CLINICAL MICROALBUMINURIA 30-300 MG/G MACROALBUMINURIA >300 MG/G 02/18/2025 10:5 1 AM EDT 02/18/2025 10:53 AM EDT Narrative CLINISYNC - 02/18/2025 11:24 AM EDT us Silvio Ott MD CLINISYLISA Final Result CLINISYNC TBH * (ABNORMAL) ANTINUCLEAR ANTIBODIES, IFA (02/18/2025 10:49 AM EDT) ANTINUCLEAR ANTIBODIES, IFA Positive(A) . TBH Comment: Negative <1:80 Borderline 1:80 Positive >1:80 HOMOGENEOUS PATTERN TNP . TBH NUCLEOLAR PATTERN TNP . TBH SPECKLED PATTERN 1:80 . TBH Comment:ICAP nomenclature: A C-2,4,5,29 CENTROMERE PATTERN TNP . TBH SPINDLE APPARATUS PATTERN TNP . TBH NUCLEAR MEMBRANE PATTERN TNP . TBH MIDBODY PATTERN TNP . TBH NUCLEAR DOT PATTERN TNP . TBH PCNA PATTERN TNP . TBH CENTRIOLE PATTERN TNP . TBH NOTE: Comment . TBH Comment: Pattern Potential Disease Association Homogeneous Systemic Lupus Erythematosus, Drug Induced Systemic Lupus Erythematosus, Chronic Autoimmune hepatitis, Juvenile Idiopathic Arthritis Speckled Sjogren Syndrome, Systemic Lupus Erythematosus, Subacute Cutaneous Lupus, Lupus, Congenital Heart Block, Mixed Connective Tissue Disease, Scleroderma-diffuse, Scleroderma-Autoimmune Myositis Overlap Syndrome, Systemic Lupus Twrvwmmsmhsov-Qhpzejjngpc-Xhmuqjhdur Myositis Overlap Syndrome, Systemic Autoimmune Rheumatic Disease, Undifferentiated Connective Tissue Disease Nucleolar Systemic Sclerosis, Scleroderma-Autoimmune Myositis Overlap Syndrome, Sjogren Syndrome, Raynaud phenomenon, Pulmonary Arterial Hypertension, Systemic Autoimmune Rheumatic Disease, Cancer Centromere Scleroderma-CREST, Limited Cutaneous SSc, Raynaud's Phenomenon, Primary Biliary Cholangitis Nuclear Dot Primary Biliary Cholangitis Nuclear Primary Biliary Cholangitis, Autoimmune Membrane Hepatitis/Liver disease, Systemic Autoimmune Rheumatic Disease, Autoimmune Cytopenias, Linear Scleroderma, Antiphospholipid Syndrome Performed at: [facility] [id number] Hole Filler: Omid Deluan PhD, Phone: [phone] 02/18/2025 10:4 9 AM EDT 02/18/2025 10:52 AM EDT Narrative CLINISYNC - 02/21/2025 2:08 PM EDT us Silvio Ott MD LAB BLOOD ORDERABLES Final Resul t [facility] * SRMCOH PROSTATE SPECIFIC ANTIGEN SCRN (02/18/2025 10:49 AM EDT) Pathologist [facility] PROSTATE SPECIFIC ANTIGEN SCRN 2.63 <=4.00 ng/mL [facility] 02/18/2025 10:4 9 AM EDT 02/18/2025 10:52 AM EDT Narrative CLINISYNC - 02/18/2025 12:37 PM EDT Silvio MONROEISYLISA Final Result Performing Organization Address [facility] Co de Phone Number CLINISYVA TB * MLR HEMOGLOBIN A1C (02/18/2025 10:49 AM EDT) GLYCOHEMOGLOBIN A1C 6.0 4.5 - 6.2 % TB Comment: ADA RECOMMENDED LIMIT 4.0 - 6.0 ADA THERAPEUTIC TARGET < 7.0 ACTION SUGGESTED > 7.0 ESTIMATED AVERAGE GLUCOSE 126 mg/dL TB 02/18/2025 10:4 9 AM EDT 02/18/2025 10:52 AM EDT Narrative CLINISYNC - 02/18/2025 11:24 AM EDT Silvio MONROEISYLISA Final Result Performing Organization Address [facility] de Phone Number [facility] * (ABNORMAL) HMHP LIVER PANEL (02/18/2025 10:49 AM EDT) BILIRUBIN TOTAL 0.3 0.2 - 1.0 mg/dL TB BILIRUBIN DIRECT 0.1 0.0 - 0.2 mg/dL TB ASPARTATE AMINO TRANSFERASE 14(L) 15 - 37 U/L TBH ALANINE AMINOTRANSFERASE 21 16 - 63 U/L TBH ALKALINE PHOSPHATASE 63 46 - 116 U/L TB TOTAL PROTEIN 7.3 6.4 - 8.2 g/dL TBH ALBUMIN LEVEL 4.0 3.4 - 5.0 g/dL TBH GLOBULIN 3.3 g/dL TBH ALBUMIN GLOBULIN RATIO 1.2 TB 02/18/2025 10:4 9 AM EDT 02/18/2025 10:52 AM EDT Narrative CLINISYNC - 02/18/2025 12:12 PM EDT Silvio MONROEISYNC Final Result CLINISYNC TB * (ABNORMAL) [facility] RHEUMATOID FACTOR (02/18/2025 10:49 AM EDT) RHEUMATOID FACTOR (RF) 14.0(A) <14.0 IU/mL TBH Comment: Performed at: [facility] [address] [id number] Hole Filler: Omid Deluna PhD, Phone: [phone] 02/18/2025 10:4 9 AM EDT 02/18/2025 10:52 AM EDT Narrative CLINISYNC - 02/21/2025 2:08 PM EDT us Silvio Ott MD CLINISYNC Final Result Performing Organization Address [facility]/ZIP Co de Phone Number CLINISYNC TB * ALL THYROID STIM HORMONE (02/18/2025 10:49 AM EDT) THYROID STIMULATING HORMONE 1.255 0.358 - 3.740 uIU/mL TBH 02/18/2025 10:4 9 AM EDT 02/18/2025 10:52 AM EDT Narrative CLINISYNC - 02/18/2025 12:12 PM EDT us Silvio Ott MD CLINISYNC Final Result Performing Organization Address City/[facility]/ZIP Co de Phone Number CLINISYNC TB * ALL SED RATE (02/18/2025 10:49 AM EDT) Pathologist [facility] TBH SED RATE 4 <=20 mm/hr TBH 02/18/2025 10:4 9 AM EDT 02/18/2025 10:52 AM EDT Narrative CLINISYNC - 02/18/2025 11:59 AM EDT us Silvio Ott MD CLINISYLISA Final Result CLINISYNC TB * ALL LIPID PROFILE (FASTING) (02/18/2025 10:49 AM EDT) Pathologist [facility] TRIGLYCERIDES 84 <=150 mg/dL TBH CHOLESTEROL 108 <=200 mg/dL TB HDL CHOLESTEROL 45 40 - 60 mg/dL TB Comment: > or =60 mg/dl - LOW CARDIOVASCULAR RISK <40 mg/dl - HIGH CARDIOVASCULAR RISK LDL CHOLESTEROL CALCULATED 46.2 mg/dL TB Comment: <100 mg/dl OPTIMAL 100-129 mg/dl NEAR OR ABOVE OPTIMAL 130-159 mg/dl BORDERLINE HIGH 160-189 mg/dl HIGH >190 mg/dl VERY HIGH VLDL CHOLESTEROL 16.8 mg/dL TB CHOL HDL RATIO 2.4 TB Comment: 3.3 - 4.4 LOW RISK 4.4 - 7.1 AVERAGE RISK 7.1 - 11.0 MODERATE RISK >11.0 HIGH RISK 02/18/2025 10:4 9 AM EDT 02/18/2025 10:52 AM EDT Narrative CLINISYNC - 02/18/2025 12:12 PM EDT Silvio Ott MD CLINISYNC Final Result [facility] * (ABNORMAL) ALL CBC WITH AUTO DIFF (02/18/2025 10:49 AM EDT) Pathologist [facility] TBH WBC 6.5 4.0 - 11.0 10 3/uL TBH TBH RBC 4.78 4.70 - 6.10 10 6/uL TBH TBH HGB 15.4 14.0 - 18.0 g/dL TB TB HCT 45.3 42.0 - 54.0 % TBH TB MCV 94.8(H) 80.0 - 94.0 fL TBH TBH MCH 32.2 25.9 - 34.0 pg TBH TBH MCHC 34.0 29.9 - 35.2 g/dL TBH TBH RDW 12.9 11.0 - 15.0 % TBH TBH PLT 179 150 - 450 10 3/uL TBH TBH MPV 9.4(L) 9.5 - 13.5 fL TBH NEUTROPHILS PERCENT AUTO 58.7 43.0 - 75.0 % TBH LYMPHOCYTES PERCENT AUTO 25.5 20.5 - 60.0 % TBH MONOCYTES PERCENT AUTO 9.6 1.7 - 12.0 % TBH TBH EO % 5.4 0.9 - 7.0 % TBH BASOPHILS PERCENT AUTO 0.5 0.2 - 2.0 % TBH IMMATURE GRANULOCYTES PCT AUTO 0.3 0.0 - 0.5 % TBH NEUTROPHILS ABSOLUTE AUTO 3.8 1.4 - 6.5 10 3/uL TBH LYMPHOCYTES ABSOLUTE AUTO 1.7 1.2 - 3.8 10 3/uL TBH MONOCYTES ABSOLUTE AUTO 0.6 0.3 - 0.8 10 3/uL TBH TBH EO # 0.4 0.0 - 0.7 10 3/uL TBH BASOPHILS ABSOLUTE AUTO 0.0 0.0 - 0.1 10 3/uL TBH IMMATURE GRANULOCYTES ABS AUTO 0.02 0.00 - 0.03 10 3/uL TBH 02/18/2025 10:4 9 AM EDT 02/18/2025 10:52 AM EDT Narrative CLINISYNC - 02/18/2025 11:05 AM EDT Silvio Ott MD CLINISYLISA Final Result Performing Organization Address [facility] de Phone Number [facility] * ALL C REACTIVE PROTEIN (02/18/2025 10:49 AM EDT) C REACTIVE PROTEIN <0.50 <=0.50 mg/dL TBH 02/18/2025 10:4 9 AM EDT 02/18/2025 10:52 AM EDT Narrative CLINISYNC - 02/18/2025 12:12 PM EDT Silvio MONROEISYLISA Final Result Performing Organization Address City/[facility] Co de Phone Number [facility] * ALL BASIC METABOLIC PANEL (02/18/2025 10:49 AM EDT) SODIUM 143 136 - 145 mmol/L TBH POTASSIUM 4.5 3.5 - 5.1 mmol/L TBH CHLORIDE 106 98 - 107 mmol/L TBH CARBON DIOXIDE 31.8 21.0 - 32.0 mmol/L TBH ANION GAP 9.7 TBH GLUCOSE 103 74 - 106 mg/dL TBH BLOOD UREA NITROGEN 9.0 7.0 - 18.0 mg/dL TBH CREATININE 0.93 0.70 - 1.30 mg/dL TBH TBH EGFR-AF MALAWIAN >60 >=60 mL/min/1.7 3m 2 TBH TBH EGFR-NON AF MALAWIAN >60 >=60 mL/min/1.7 3m 2 TBH BUN CREATININE RATIO 9.7 TBH CALCIUM 8.9 8.5 - 10.1 mg/dL TBH 02/18/2025 10:4 9 AM EDT 02/18/2025 10:52 AM EDT Narrative CLINISYNC - 02/18/2025 12:12 PM EDT Silvio Ott MD CLINISYNC Final Result Performing Organization Address City/[facility] Co de Phone Number CLINISYNC [facility] * Hemoglobin A1c (05/30/2021 12:00 PM EST) A1C 6.3 [facility] 05/30/2021 12:0 0 PM EST Augusto Jacobs MD LAB BLOOD ORDERABLES Final Resul t [facility] * Cologuard?? colon cancer screening (02/16/2019) COLOGUARD RESULT REPORTABLE Negative Not Applicable [facility] Comment: A negative result [...] (Savannah Mccray al, N Engl J Med 2014;370(14):6983-5372) COLOGUARD RE-SCREENING RECOMMENDATION: Periodic routine colorectal cancer screening is an important part of preventive healthcare for asymptomatic persons at average risk for colorectal cancer. Following a negative Cologuard result, the [place] Cancer Society and U.S. Multi-Society Task Force screening guidelines recommend a Cologuard re-screening interval of 3 years. References: [place] [employer] Society (ACS). Colorectal cancer prevention and early detection. [place], [place]: [place] [employer]; [updated 2015Oct 28]. https://www.cancer.org/cancer/rieuj-jibkzy-buatjx/lmwnkkglt-yinjavyen-qieeubp/ac s-rec ommendations.html. Accessed March 06, 2018; Vasu DO, Deon BARRERA, Radha NashK, Colorectal Cancer Screening: Recommendations for Physicians and Patients from the U.S. Multi-Society Task Force on Colorectal Cancer Screening, Am J Gastroenterology 2017; 112:1955-6711. Test Type: Composite algorithmic analysis of stool [...] can be accessed at the following location: www.[employer] [facility].V2contact/results. Additional description of the Cologuard test process, [...] Narrative 11/13/2018 12:00 PM EDT PERFORMED AT [facility] LOCATION:[id number] No Retinopathy Procedure Note CONVERSION, GENERIC - 11/20/2022 PERFORMED AT [facility] LOCATION:[id number] No Retinopathy Augusto Jacobs MD OPHTH PHOTOGRAPHY Final Result from Last 3 Months or Most Recently Relevant to Health Maintenance Insurance [employer] MEDICARE ADVANTAGE MEDICARE Care Teams Cryptologic Linguist Relationship Specialty Start Date End Date Silvio Ott MD PCP - General Family Medicine 10/07/23
--- OUTSIDE RECORDS SUMMARY | 2025-03-16 12:50 | XMS_ITS | Encounter Summary ---
Author Organization [facility] Address [address] [place] [address] Care Team Providers Care Police Dispatcher Name Role Phone Marie Peralta DO Primary Care Provider [phone] Yoni Sotelo MD Unavailable Silvio Ott MD Primary Care Provider [phone] Source Comments In the event this information is protected by the Federal Confidentiality of Alcohol and Drug AbusePatient Records regulations: The Federal rules restrict any use of the information to criminally investigate or prosecute any alcohol or drug abuse patient.[facility] Encounter Details Date Type Department Care Team (Late st Contact Info) Description 11/26/2020 Get Medical Advice [facility] [address] [place] [address] Sharita Casillas PA-C [address] [place] [address] RE: Non-Urgent Medical Question Social [...] N ot on file 08/31/2020 Data from: https://www.neighborhoodatlas.medicine.[facility].edu/. Last address used for calculation Not on file 08/31/2020 Sex and Gender Information Value Date Recorded Sex Assigned at Not on file Legal Sex Male 5:42 PM EDT Gender Identity Not on file Sexual Orientation Not on file Occupation Industry Job Start Date Job End Date [employer] Not on file Not on file Not [...] on filedocumented in this encounter Care Teams Police Dispatcher Relationship Specialty Start Date End Date Marie Peralta DO PCP - General Family Medicine 01/12/14 04/19/21 Silvio Ott MD [address] [place] [address] PCP - General Family Medicine 04/20/21 Yoni Sotelo MD [address] [place] [address] NI Referring Team Neurosurgery 08/22/20 documented as of this encounter
--- OUTSIDE RECORDS SUMMARY | 2025-03-16 12:50 | XMS_ITS | Encounter Summary ---
Author Organization [facility] Address [address] [place] [address] Care Team Providers Care Stock Taker Name Role Phone Silvio Ott MD Primary Care Provider [phone] Kaia Scherer RN Unavailable [phone] Encounter Details Date Type Department Care [...] How often do you attend chur or christianity services? 1 to 4 times per year 07/02/2023 Do you belong to any clubs o r organizations such as oriental orthodox groups, unions, fraternal or athletic groups, [...] Recorded Patient Health Questionnaire-2 Score 0 10/07/2023 [facility] - Occupational Stress Questionnaire Answer [...] AM EDT Narrative 12/08/2023 7:18 [place] [address] XRay Report Signed Patient: MICAH FORBES MR#: [id number] : 1965 Acct:[id number] Age/Sex: 58 / M ADM Date: 12/05/23 Loc: EC Attending Dr: Chris Chery D.P.M. Ordering Physician: Chris Chery D.P.M. Date of Service: 12/05/23 Procedure(s): XR foot LT min 3V Accession Number(s): [id number] cc: Chris Chery D.P.M.; Silvio Ott M.D. The [address] [address] Patient Name: MICAH FORBES MRN: [id number] date: 1965 Sex: M Assigned Patient Location: Current Patient Location: Accession/Order Number: [id number] Exam Date: 12/05/2023 09:29 Report Date: 12/08/2023 [...] Yogi Murphy M.D. Signed By: 12/08/23717 DD/ 4 TD/TT: Authorization Rep: Procedure Note Radiology, Radiologist, MD - 12/08/2023 [place] [address] XRay Report Signed Patient: MICAH FORBES CMR#: [id number] : 1965Acct:[id number] Age/Sex: 58 / MADM Date: 12/05/23 Loc: EC Attending Dr: Chris Chery D.P.M. Ordering Physician: Chris Chery D.P.M. Date of Service: 12/05/23 Procedure(s): XR foot LT min 3V Accession Number(s): [id number] cc: Chris Chery D.P.M.; Silvio Ott M.D. The [place] [id number] Patient Name: MICAH FORBES MRN: [id number] date: 1965 Sex: M Assigned Patient Location: Current Patient Location: Accession/Order Number: [id number] Exam Date: 12/05/2023 09:29 Report Date: 12/08/2023 [...] Murphy M.D. Signed By:12/08/23717 DD/ 4 TD/TT: Authorization Rep: Generic External Data Provider [facility] Final Result documented in this encounter Visit Diagnoses Not on filedocumented in this encounter Care Teams Stock Taker Relationship Specialty Start Date End Date Silvio Ott MD PCP - General Family Medicine 10/07/23 Kaia Scherer, STEW [address] [place] [address] Registered Nurse Family Medicine 12/11/23 09/27/24 documented as of this encounter
--- OUTSIDE RECORDS SUMMARY | 2025-03-16 12:51 | XMS_ITS | Clinical Summary ---
Author Organization [facility] Address [id number] [address] [place] [address] Care Team Providers Care General Intern Name Role Phone Silvio Ott MD Primary Care Provider [phone] Allergies No known active allergies Medications meloxicam [...] Not on file Insurance [address] [place] [address] WORKERS COMPENSATION - GENERIC PLAN Care Teams General Intern Relationship Specialty Start Date End Date Slivio Ott MD PCP - General Family Medicine 03/29/21
--- OUTSIDE RECORDS SUMMARY | 2025-03-16 12:51 | XMS_ITS | Patient Health Record ---
Author Organization [facility] [place] Address [address] [place] [address] Care Team Providers Care Land Development Project Manager Name Role Phone Silvio Ott MD [...] Status Risk Notes Problem Shortness of breath (381355387) Shortness of breath (R06.02) Active confirmed Problem [id number] Sprain of ligaments of cervical spine, initial encounter (S13.4XXA) Active confirmed Problem 69666549 Displaced fracture of first metatarsal bone, left foot, initial encounter for closed fracture (S92.312A) Active confirmed Problem Cervical radiculopathy (73102842) Cervical radiculopathy (M54.12) Active confirmed Problem Pain in left foot (978625190329179) Left foot pain (M79.672) Active confirmed Problem Acquired spondylolisthesis (045430835) Anterolisthesis (M43.10) Active confirmed Problem 677400900 Displacement of intervertebral disc at C5-C6 level (M50.222) Active confirmed Problem Spinal stenosis in cervical region (00040128) Foraminal stenosis of cervical region (M48.02) Active confirmed Plan Of Treatment Pending Test Test Name Order Date XR foot LT min 3V 12/08/2023 Insurance Providers Payer Name Payer Address Payer Phone Subscriber Number Group Number Insured Name Patient Relationship to Insured Coverage Start Date Coverage End Date [employer]AN [address] [place] [address] [id number] [facility] 0 Micah Forbes Self - patient is the insured [facility] [address] [place] [address] [id number] DOI 1 Micah Forbes Self - patient is the insured Medical (General) History Medical History History ICD Code hypertension migraines, headaches diabetes Surgical History Surgery Date(Month/Year) C4, C5, C10, C7 2012 C4-C5 fusion 2011 Hospitalization History Reason Date(Month/Year) neck pain, migraine 06/2020 neck pain, migraine 05/2020
--- OUTSIDE RECORDS SUMMARY | 2025-03-16 12:53 | XMS_ITS | CCD ---
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 ICAgICAgICAgICAg ICAgICAgICAgICAgICAg ICAgICAgICAgICAgICAg ICAgICAgICAgICAgICAg ICAgICAgICAgICAg ICAgICAgICAgICAgICAg ICAgICAgICAgICAgICAg ICAgICAgICAgICAgICAg ICAgICAgICAgICAg ICAgICAgICAgICAgICAg ICAgICAgICAgICAgICAg ICAgICAgICAgICAgICAg ICAgICAgICAgICAg ICAgICAgICAgICAgICAg ICAgICAgICAgICAgICAg ICAgICAgICAgICAgICAg ICAgICAgICAgICAg ICAgICAgICAgICAgICAg ICAgICAgICAgICAgICAg ICAgICAgICAgICAgICAg ICAgICAgICAgICAg ICAgICAgICAgICAgICAg ICAgICAgICAgICAgICAg ICAgICAgICAgICAgICAg ICAgICAgICAgICAg ICAgICAgICAgICAgICAg ICAgICAgICAgICAgICAg ICAgICAgICAgICAgICAN WoL4WPQ8dSDrXc4T NX4QVIUEA7TDFb4FFfxh LPHnVmeMDel9Pb5VUZQr DFX2VXEaUPInUYRVO68q MZ7UG3Vjw18fTcW0 HCYiWkgeUnp8ZV4TZ892 dGxpbmVzIDIzIDAgUgov EYMbIZ1iLSHcV3NaTR0a ttXVV9PtV3IyBWV0 ZAUaWquvGTyoVYKvZ1D4 YWxvZwo+Br5LQK0yt9Sg DDbHTyW9WKIzl0QkHCh9 UCdyAqpjpNEsIM3C oST0RGViU20nXNknLNRt K6CgWXCyQHwbRlIyKWQZ Sd5KPcZ6nbQrrR7HaGtn BBSjUUTyk67qPAVb QjEfxOFQBFH4QJQTA5io zFD45LizSOO+D8IUzFim LINT5lIVdBUGwllMhR8H sTpUEYguAuKTQHyN fNXTU3pgFnLCVL5C1QfT 0LLtEy5Rp0T3SEXzCYFu NuEjX1JSq5oTHw2DX9XP NClBxKIJsdGl0E2V FJZ9YkaYKpBmOEM6liYm sS2YQM8aq9QdIIkWLaK2 HJObh6PeWKb6JHqeO42s dGVudHMgWzUwIDAg Wr7SC05dKCkwXm86EZzs RFOqImLiJFm3Uf9WA7Xn ojGzdSHiQGLgRYUPK6Aw u975csVzkgL9DZhu WA1vudRmhZP1GQijOQSn YzYgMzAgMCBSCj4+Cj4+ Xo2NeABzEI4BNSmcOt9+ OBgpiaTnXpaGRt5Q AwWrGLCrMjzBUkp3Dj1D Pd16SGhfZRGuKnOiTMm0 Ew6TK8DdrSIjdjOdKbjg dITTIOIdLGJGX0sn luz7sKD1ZkviBeQne3Jy W0KuVQr9Eh5WI0QvTYK0 ZUd9Ib7EQLCjWtJ0WFNs OABZVa0CJn3BD1E6 FxX3zUUwD5Jqgx9TY3I8 uPMpV1rERfiyM0QOOp1K JiE4sgYfuN7KdXehtqVx KuTlMjRQMFUwtTRS GMqaJttS2sPKS8rg9GXQ e3PlPjEPWRYNYDbh8HoK nNP0o4lT0lPeZxuRhDWr wzzSm4eOzY5XF3eO 8P1QZX2ra9EvDVShREpq zdDqDozOMu1QJhBzGGUw OtePCxo5Aq3GWSNqQr8h kSCrTy6VHELxNo9W KcViSz6BDbWxHr6AGlVf Kh9AKYB4Lf5VSCQ5ggUj Pa5yHWSyKp3+DQplbmRv YcxDGt4JRvXxJGZk TnrRTya5Cm2MXOEcGr2i vYDlHg2tRHBcKn2+DQpl bzJtWjzMGp7JEdTdYQRy OhrPPyn1Dd7DTZYz Ao4csCNnHp0BMVIdNi4G KbNzGe2DNyZkHb0LIwFt Jn4BBOO1Ec2VYOQ5spQb Zc6xHTNqMz0+DQpl lxZfPbyKBs6JFjBoEKTs KhyVZau8Io8PWRJgJh0x nXCgEAUOT4cWO6EvjSDq VYULBZtGNt9Us6on XVXOY8Pqs8MkxwIzrxTN h361efJoZcBgADSNCNli YJ7hb3MiepbxW3udPM69 gOV5VYeSG7B8ScU7 bCUrP4O9jZFaDh3Dc4Wm aHKeDZImJhaaIDKDKi4B tDOqWT4Ys887Vv9+DQpl mqUoDxrPDx3DAtLn XAUlQdtXEwp7Sl6GIQYv Lx9vlSUrCDTID5oTZ4Qm uQHpZBRJOYoOFc0Tn5gl KCTXR7AEZJF8n6Jo zHaaWj6pHGeTI18jHUKh eF2xFPuCZYPbpSe2mEfE D1AnS1hcnLF9VLtIIV7l KKcEF6L8yABlSX0p bnQgMAo+GqjdL3uKPZ7U DXPAUNReN4xhVF35xLZ6 Ic9ROvPeMt0Za265PPBo P8ZxoGFcptVtTnYv JYXKC4J1EdV9aRMrK9NT REZvbnRUeXBlMgovVHlw DBDyYt1scPlrVaKoBSL0 FvP0BTChMYf4FhFw Cj4+MSomrgNeGfrLQa9Q UxVmTZHpPxvBHgr6Ng3K f5CtvrSoRBMbRtVcCMHy Ts9UGYRFGWfifVMf NXzbJie5Unt0Af7DOXUw MB68BCEiXZ3nUAA8Riqr SmmgK3AtEwFXT0KapdVQ Hk00FUluLInfTjr0 OIUlWB15RTNlEJZ7BxZj SlToQtM4JEJ1YAYdBzCy TQztZFDmSl2Mm045Cyos BMNaIDMpFPYSYd3R k364PsRoKIUiXZAJP8tX B8YjkAZlTGYOXCoNBi4Y n2zxZGYWU6p9IMcsD1Ce X3xmXYGDM4V2UZ1Z BRy9VpD2PUk2Cs7DiRTi KR7Rg055TDPpD2VpnTLz cgo+Ou4ICA8vi5PrZNbE UgL1RSXqd9NfUEc0 FGbbEjlscWDtZV8KhBR3 NJMyU56sUJeeYDQyO6Pw PBM8Swi+Hr2Hh6HoXEGh GTd6pP5Ss9dDNIO7 5st5sI4O81lAjwB9GPjw o9e6RJytl6TkLlDh7A5R 6sNCpLKdCogwDusdahl5 RnuIPtwoW/TQa6Mc QsSZNUVqQvGKYQyOU18q poDQWAKDwtkQQchC7EYr I3XhZ2If73pZ3HT2mfnI cLgCDycWpV97K2U0 tfYHBzQeYlFVoLAPSa+d mqdPkCsf00pShquqCrxi iq/ZIqSEE+0Xjhxj46m9 fytkIHBfGkbK5WFY zmsSe9n15fX068qjAGOv x9XXkGpuL0GviMIYGs9R opx0S02RDG4x97pFnsXD wdq9MPaMWA3jvhmA C2oMvDCD5qhXqWhWASV1 vDVd99uZrU4c3swrJUQR VxYmhnh5WqJM50GLElTR Gh4Tk3FaLMx3IdIK lgJGCtBnTZB3wqEbsL0E TE4rb8SfNWdBQzZ1LRGg u9AwCTu4JCbg (more content not included)... Normal [facility] Documentation Please click on link to see report pdfCD:[id number] xLjQNCiX5+prnDQolQUJ FmTLjBAPkWnFrVAz5QsG pLF9hka4CIOrJT2AbOCq vBVNVH0lx OhP8McRqNOn7ZParDFHy SoU7NXPDE0qqziParku0 JQBzKDgqFkD8Yx9EGGj5 Of7FFRF8ALY7Orx+ PiAgICAgICAgICAgICAg ICAgICAgICAgICAgICAg ICAgICAgICAgICAgICAg ICAgICAgICAgICAg ICAgICAgICAgICAgICAg ICAgICAgDQplbmRvYmoN Ca3QlPGgRd4YUvOmNZrM CjAwMDAwMDAwMzIg RJNmKOJvjn4RKRRwBLOt STR0APPlWLVtQVAiFEyo YECnMQJnJDO1XDRmJZHr TP9YKvDfAUGsQVN4 OwUeXUDfFDZixn2TJVKt QYBzYDx9KOPlRNHeVXZz OOguVICsMJGlTYv8UIRc YEQlWU6QFnQxAELb QYJtADDhYNZnKSNfow1A YVNrMPDzChI1OkXcIQHu MCBuDQowMDAwMDAyNDI5 XHNmAEMsNH5VCdFa DBHaGRL8OHHvLQSzLEGh og2JWZCdWTYlBvvfLnPr MDAwMCBuDQowMDAwMDAy TKA1ZQBxQLPeOU4P LwDeBTRlLTP6JnhcNNIn WGAvoe8SIEPdJTFiQuK7 MCAwMDAwMCBuDQowMDAw QZSvRbd3UAIdBUDz JQ4RGbQuHLTcFupnJWxu HFLfWHSmdr5UVQRvZCL0 MzYzNyAwMDAwMCBuDQp0 vaXtcKBeIKr7UOzy RWDoArkoTPW2UON1WXJM SoQcFIZMHPJgSTS7TpS2 IpujDGVQAs2YRHJSFlpQ WOJASsC3KYFFCpA5 J9I2U3Q6NyBqLFc6Mnsg Rc9BM8EyTRNkPdleJVot Ab7Vu424CEf0YTEbHmrz D6m8SHU6FtdgN801 cmNlIChXZUpYRnhOTzRm ToW6xYRLRRTBX5X6M79t T83sHB0KAVmiY0U1JSjw T9B1EjRLL8UHYPXw YVYorWd9PXoyDSr1Pshb dTgsZOG3O2VveCH1F6vs l96wOHRIMSzHr1apQYH9 Z45LIjeQXpxWzpMI Z8c0hSVBU4JkJ5LdJ9BN ZWfVUWVcDOUuMg1IEGaV GKgxjglTYz8cMi8+ICAg ICAgICAgICAgICAg ICAgICAgICAgICAgICAg ICAgICAgICAgICAgICAg ICAgICAgICAgICAgICAg ICAgICAgICAgICAg ICAgICAgICAgICAgICAg ICAgICAgICAgICAgICAg ICAgICAgICAgICAgICAg ICAgICAgICAgICAg ICAgICAgICAgICAgICAg ICAgICAgICAgICAgICAg ICAgICAgICAgICAgICAg ICAgICAgICAgICAg ICAgICAgICAgICAgICAg ICAgICAgICAgICAgICAg ICAgICAgICAgICAgICAg ICAgICAgICAgICAg ICAgICAgICAgICAgICAg ICAgICAgICAgICAgICAg ICAgICAgICAgICAgICAg ICAgICAgICAgICAg ICAgICAgICAgICAgICAg ICAgICAgICAgICAgICAg ICAgICAgICAgICAgICAg ICAgICAgICAgICAg ICAgICAgICAgICAgICAg ICAgICAgICAgICAgICAg ICAgICAgICAgICAgICAg ICAgICAgICAgICAg ICAgICAgICAgICAgDQpz dGFydHhyZWYNCjANCiUl IJ6AJAoIIif0LTYxg9Bh URu6OWnsZGQ4LRSf wFBqMaTxUVDQKn6CeCUs XWD2nG3sRUr2LVJjGPPH Y9VcdI6KG749xLvyogCv IDczIDAgUgovUGFn TX5hTAStS8JmCY7lafEU E0HoB6IbLOr1UECdEznh SQftNUIuV0E1CBfrFra+ Db0EFN8jq0BqZOiK Tca1INYpc0NsHFz1VRzn PgmrnURlFI6IyIY7YKHl A59fBUaqHRNvK6DzYZTy AirtSuBqXXjHZp4N RqI5ccFhzV7DrLboBLWt O5GhduTmbMQaAysyYNYG UxjAahjYsGAgmCrJwJDF x7KZ0AiKJo98T1Ys MwaGXkYGgoCQPtaJQIIP ihkYMsFumweVtABiDiC2 abL7MOrLqKRZsclKoPVg BgYHDSAtBDMRAJjx PdyWJsUvPKD8ojCefY3D VI4gn9YxLWlRYgz7ZEOo m4BxNZr8MWskQ29cxPTh dHMgWzgxIDAgUiA4 MiAwIFIgODMgMCBSIDg0 QVYxTig1VLHfQYGdTHXj STPTRJs4ZUTmSkE3FFOa VYUwLv2TZGSeJDHd nJTjLKYeHQIdLoE7BGPt Tg8JHBAfldDdBgVdYOCV Ve5LENHavDXhIEYuIIyS B1QcevGwZShQN8Vu VqS6AGdjSHGiLdu+Pgov IZ8dzxMwpQC3CRlcMKAb YzExIDkwIDAgUgovSWFi YvK0QYirREWvTeoj ZSTiVcJ5ZFuiGUDwLwmu SWFiYzcgODkgMCBSCj4+ Cj4+Ds3YiEEzGD4BKHqz Cj4+DQplbmRvYmoN Tn0XIRRsFMRePnnQCqi4 Pa4IVNAoTa5zxRGdFSup HFKqDj7yTZ1RA6VwZ43l yG9kOS7DmD3OfnGb DD7kv5SweteXG3I7JwB5 mNIsH7O9uPVrAa3MhAIi IP3Sm081Eq5+DQplbmRv CngAPm2PEVBlJHBc KnrLCcd3Um7KQD1jxMku MTAxCj4+FUmclRRsDT6T CnENCkJUDQowIDAgMCBy Cc9TO6FgHzQ9HOHv IFRmDQoxIDAgMCAxIDIw WIg2Pk5dJDNbIMunVHxe YAKuMXC0VBqelxVvU1Hp xKJyUYFmUEMqS9Yk C28yPMSqDRJLJXeAKK8V QZ8MRBfqnyCnbPPsOK6U JxAwVK4cit4BCMd4GgKq WJ9ond7DEGmKA9vp yse4kTP1XBx+Xr8Zb7Ne WJVlGUoFLF4BhS2SKNVp IDAgMCAxNjUgMjAgNTY5 LjMzMzMzIGNtDQov GPZuBtrwYI7AStBUHnJZ ZRvKYwRaAKQ0uhUzdA3Z TF5fu0EdDXwIUkocQFDb f4CoUDx7FKjxYYEz J5ZgWBQaBqb+Az4Yc9Ba ENJdZYwzBTaRZI0EKIMe FBCipieYOp5TPSGmBHVw BNIGNf0JPQKaPRHc AWBpQYA4TRMoOTTvMwYq FE4FBrkiDXEFgcqyYAUd WGNgnN1TtMRypQ8fKLNj KDDqU2QuNo9sMBNe VSMYXYxJMH2VAR4HEKtf oyAtoNGeMU4GFfDdIG1u fr4UZAg2QJGsJR0ucw8Q ITeQD3qzfys2mBY7 Zenon+Cr2Aa1XsUFOvCQgV SH1YjY4JEWPzNVCmGWS3 VdDfZGV8UTaaPyW8Xptl T67IDg3JFCTmFICp MW2LWbQDFfYXOQwWYrOm EUN1pnBraC8UYS7vk1Ib QGmRCuh8KXXua0RjPZk6 COiyDQBmR0JbFFNa NQo+Ww6Zt0JdGVIrSUzk VKaFPJ6CAHRgWYOyobvG Uf6VKOOpTVPsRACRPr4H MSAwIDAgMSAyMCA0 MOjzPZU3VoogPF6OLzri BYZGekefBHLnNCHoyU0K nAOxaS3zQEEgFKqiTAJe WuVaQZ4vIMfNMiSF IEpADUzZGlHyWTE7fgAr cY8TTH9bt1JnJOzJBhz7 THDfx0YlKTh9ZYbeQIJp V9HgSVT6Xt3+DQpz rVTpHS9TZgSZLWmyYDu4 XLTzVSMwZFQ5ZFFgAMIy ZOUbC70AUu4BQPTgWHZy KV8KYjUFVvKVUTlM IdKtXFG4geDvzS7SFK1j r5FpPLrNVaa8TPXqh6Pr ICd2UYqwDSCvI0IhGKYk Mgo+Em1Bk4TdFHSd OJykMQdION5XWIDjIGYd bhnWZd4LIHDxHGMjPXGU Vs4XJQQhMXOrPVWqXAQb HMpjEuTQaG1QYvCj IHU5YWUjCDRkRU45D9X5 vakbZxGwWZOrOB5YxO7b IdCdPZ8iVGbMKiGXLRwQ RHdNBvWfLOM5ksBb lA8WCH2gj2MfTHkENhn7 LCKmg1NaBGk8ULukOYUk H8TwJWR4Hl2+DQpzdHJl RS4EOuIXRAnjZCd7 NTIgMCAwIDgzIDIwIDEy TA3nKqQjDiCfdL4UD6fd TiJyCQEPqc5WIA5VGRhX Oj1GUB0em8DePSHk GEfyjgHcGpdIId9SRMys ZNOgZsyZCsa7Dx9QxWFp AHRxI69qcR9oLG31OAcN F7JzmC2fV4VvD3Sr P7ErguugLKXVArlaCyph jAZaYN8TyOH6PEKcK36n ZMqvLNGaV8w1HPK9ACyb ETRwW3XePRGwMFZ1 In0BkGT8uSUmIN3NyWHh KZgyLBahEUXlMX4hrqGb yAjaN1swiJhrUUEcVf8+ JSmzlZJkZN0NBxbw 4J0ZPNWCcadK99/3PDPd /1q1O8463aDC3q9fJ1tB AlKgdbucstFTpp3RBLxI A1DPSQVHQlGHZ6cY GPHNCJFuQJcFh2IvODTF MPKLwt6x8q5E8p6Pb6Xm 1VhWQVfF+6QSN0+cjMiI E+dkZkS+CXBwcHBw cHBwcHBwcHBwcHBwcHBw cHBwcHBwcHBwBwBw [facility] CenterQVOT o9XcRg79EtwmywToVuxT [facility]/Lbyu514uuskhYB FlHc/Ol90f2fvsrYYjUG yscmj4mLZ9jydaIi Qjq7uOCHto1gp6eQaee6 q1cwL5s/q4uibPDrlCFX kVKoh7sjdCwfJTWQfBf5 9l0QhgO7wE6gdvOG 3Ms+GuW+u1bYU/vo1MzP CVCzBKGrq5dbhlOxmIKS 5JyfnwFPJ1tg (more content not included)... Normal [facility] CNOVon 08-09-2022 CNOV Office Visit (SPNSMN) MICAH FORBES ([id number]) 1965 M Date Time Provider Department 08/09/22 [...] which included preparing to see the patient, [id number]-fbbq patient care, completing clinical documentation, obtaining and/or reviewing separately obtained history, performing a medically appropriate examination, counseling and educating the patient/family/careg iver, ordering medications, tests, or procedures, independently interpreting results (not separately reported), and care coordination (not separately reported). SIGNATURE: Abdon Palacios MD PATIENT NAME: Micah Forbes DATE: August 09, 2022 TIME: 10:15 AM PAGER: Referring Provider: ABDON PALACIOS [[id number]] Allergies As of D (more content not included)... Normal [facility] No Panel Informationon 08-09 [facility] XR CERVICAL 4V AP/LAT/OBLon 08-09-2022 XR [...] vertebrae with counting from the craniocervical junction. Care Asst: BERNIE Transcribe Date/Time: Aug 09 2022 11:59A Dictated by : FRANSICO BECKETT MD This examination was interpreted and the report reviewed and electronically signed by: FRANSICO BECKETT MD on Aug 09 2022 12:01PM EST [id number] CN Normal [facility] CBC AUTO DIFFon 06-13-2022 BASO # 0.0 103/ul Normal 0.0-0.1 [facility] Comment on above: Performed By: #### C BC #### [facility] [address] [address] [address] Marce Tabares Basophils/100 WBC (Bld) 0.6 % Normal 0.2-2.0 [facility] Comment on above: Performed By: #### C BC #### [facility] [address] [address] [address] Marce Tabares EO # 0.3 103/ul Normal 0.0-0.7 [facility] Comment on above: Performed By: #### C BC #### [facility] [address] [place] [address] Dr. Marce Tabares Eosinophils/100 WBC (Bld) 4.5 % Normal 0.9-7.0 [facility] Comment on above: Performed By: #### C BC #### [facility] [address] [place] [address] Dr. Marce Tabares Erythrocyte distribution width (RBC) [Ratio] 13.1 % Normal 11.0-15.0 [facility] Comment on above: Performed By: #### C BC #### [facility] [address] [place] [address] Dr. Marce Tabares Hematocrit (Bld) [Volume fraction] 45.5 % Normal 42.0-54.0 [facility] Comment on above: Performed By: #### C BC #### [facility] [address] [place] [address] Dr. Marce Tabares Hemoglobin (Bld) [Mass/Vol] 15.7 g/dL Normal 14.0-18.0 [facility] Comment on above: Performed By: #### C BC #### [facility] [address] [place] [address] Dr. Marce Tabares IG # 0.02 10e3/ul Normal 0.00-0.03 [facility] Comment on above: Performed By: #### C BC #### [facility] [address] [place] [address] Dr. Marce Tabares IG % 0.3 % Normal 0.0-0.5 [facility] Comment on above: Performed By: #### C BC #### [facility] [address] [place] [address] Dr. Marce Tabares LYMPH # 1.9 103/ul Normal 1.2-3.8 [facility] Comment on above: Performed By: #### C BC #### [facility] [address] [place] [address] Dr. Marce Tabares Lymphocytes/100 WBC (Bld) 28.5 % Normal 20.5-60.0 [facility] Comment on above: Performed By: #### C BC #### [facility] [address] [place] [address] Dr. Marce Tabares MANUAL DIFF REQ NO Normal [facility] Comment on above: Performed By: #### C BC #### [facility] [address] [place] [address] Dr. Marce Tabares MCH (RBC) [Entitic mass] 31.8 pg Normal 25.9-34.0 [facility] Comment on above: Performed By: #### C BC #### [facility] [address] [place] [address] Dr. Marce Tabares MCHC (RBC) [Mass/Vol] 34.5 g/dL Normal 29.9-35.2 [facility] Comment on above: Performed By: #### C BC #### [facility] [address] [place] [address] Dr. Marce Tabares MCV (RBC) [Entitic vol] 92.3 fL Normal 80.0-94.0 [facility] Comment on above: Performed By: #### C BC #### [facility] [address] [place] [address] Dr. Marce Tabares MONO # 0.7 103/ul Normal 0.3-0.8 [facility] Comment on above: Performed By: #### C BC #### [facility] [address] [place] [address] Dr. Marce Tabares Monocytes/100 WBC (Bld) 10.3 % Normal 1.7-12.0 [facility] Comment on above: Performed By: #### C BC #### [facility] [address] [place] [address] Dr. Marce Tabares NEUT # 3.7 103/ul Normal 1.4-6.5 [facility] Comment on above: Performed By: #### C BC #### [facility] [address] [place] [address] Dr. Marce Tabares Neutrophils/100 WBC (Bld) 55.8 % Normal 43.0-75.0 [facility] Comment on above: Performed By: #### C BC #### [facility] [address] [place] [address] Dr. Marce Tabares Platelet mean volume (Bld) [Entitic vol] 9.3 fL Critically low 9.5-13.5 [facility] Comment on above: Performed By: #### C BC #### [facility] [address] [place] [address] Dr. Marce Tabares PLT 185 103/ul Normal 150-450 [facility] Comment on above: Performed By: #### C BC #### [facility] [address] [place] [address] Dr. Marce Tabares RBC 4.93 106/ul Normal 4.70-6.10 [facility] Comment on above: Performed By: #### C BC #### [facility] [address] [place] [address] Dr. Marce Tabares WBC 6.7 103/ul Normal 4.0-11.0 [facility] Comment on above: Performed By: #### C BC #### [facility] [address] [place] [address] Dr. Marce Tabares GLYCOHEMOGLOBIN A1Con 2021 ADA RECOMMENDATION SEE BELOW Normal [facility] Comment on above: Result Comment: ADA RECOMMENDED LIMIT 4.0 - 6.0 ADA THERAPEUTIC TARGET < 7.0 ACTION SUGGESTED > 7.0 Performed By: #### A 1C #### [facility] [address] [address] [address] Marce Tabares Glucose [Mass/Vol] 180 mg/dL Normal [facility] Comment on above: Performed By: #### A 1C #### [facility] [address] [address] [address] Marce Tabares HbA1c (Bld) [Mass fraction] 7.9 % Critically high 4.5-6.2 [facility] Comment on above: Performed By: #### A 1C #### [facility] [address] [place] [address] Dr. Marce Tabares LIPID PROFILEon 06-13-2022 CHOL-HDL RATIO NORM SEE BELOW Normal [facility] Comment on above: Result Comment: 3.3 - 4.4 LOW RISK 4.4 - 7.1 AVERAGE RISK 7.1 - 11.0 MODERATE RISK >11.0 HIGH RISK Performed By: #### L IVER, LIPID, BMP #### [facility] [address] [place] [address] Dr. Marce Tabares Cholesterol [Mass/Vol] 174 mg/dL Normal <=200 [facility] Comment on above: Performed By: #### L IVER, LIPID, BMP #### [facility] [address] [place] [address] Dr. Marce Tabares Cholesterol in HDL [Mass/Vol] 34 mg/dL Critically low 40-60 [facility] Comment on above: Performed By: #### L IVER, LIPID, BMP #### [facility] [address] [place] [address] Dr. Marce Tabares Cholesterol in LDL [Mass/Vol] 72.0 mg/dL Normal [facility] Comment on above: Performed By: #### L IVER, LIPID, BMP #### [facility] [address] [place] [address] Dr. Marce Tabares Cholesterol.total/Ch olesterol in HDL [Mass ratio] 5.1 {ratio} Normal [facility] Comment on above: Performed By: #### L IVER, LIPID, BMP #### [facility] [address] [place] [address] Dr. Marce Tabares HDL NORMAL > or = 60 mg/dl - LOW CARDIOVASCULAR RISK <40 mg/dl - HIGH CARDIOVASCULAR RISK Normal [facility] Comment on above: Performed By: #### L IVER, LIPID, BMP #### [facility] [address] [address] [address] Marce Tabares LDL CALC NORMAL SEE BELOW Normal [facility] Comment on above: Result Comment: <100 mg/dl OPTIMAL 100 - 129 mg/dl NEAR OR ABOVE OPTIMAL 130 - 159 mg/dl BORDERLINE HIGH 160 - 189 mg/dl HIGH >190 mg/dl VERY HIGH Performed By: #### L IVER, LIPID, BMP #### [facility] [address] [address] [address] Marce Tabares Triglyceride [Mass/Vol] 342 mg/dL Critically high <=150 [facility] Comment on above: Performed By: #### L IVER, LIPID, BMP #### [facility] [address] [address] [address] Marce Tabares VLDL CALC 68.4 mg/dL Normal [facility] Comment on above: Performed By: #### L IVER, LIPID, BMP #### [facility] [address] [address] [address] Marce Tabares LIVER PROFILEon 06-13-2022 Albumin [Mass/Vol] 3.9 g/dL Normal 3.4-5.0 [facility] Comment on above: Performed By: #### L IVER, LIPID, BMP #### [facility] [address] [address] [address] Marce Tabares Albumin/Globulin [Mass ratio] 1.2 {ratio} Normal [facility] Comment on above: Performed By: #### L IVER, LIPID, BMP #### [facility] [address] [address] [address] Marce Tabares ALP [Catalytic activity/Vol] 63 U/L Normal 46-116 [facility] Comment on above: Performed By: #### L IVER, LIPID, BMP #### [facility] [address] [address] [address] Marce Tabares ALT [Catalytic activity/Vol] 30 U/L Normal 16-63 [facility] Comment on above: Performed By: #### L IVER, LIPID, BMP #### [facility] [address] [place] [address] Dr. Marce Tabares AST [Catalytic activity/Vol] 16 U/L Normal 15-37 [facility] Comment on above: Performed By: #### L IVER, LIPID, BMP #### [facility] [address] [place] [address] Dr. Marce Tabares BILI, CONJUGATED 0.1 mg/dL Normal 0.0-0.2 [facility] Comment on above: Performed By: #### L IVER, LIPID, BMP #### [facility] [address] [place] [address] Dr. Marce Tabares Bilirubin [Mass/Vol] 0.3 mg/dL Normal 0.2-1.0 [facility] Comment on above: Performed By: #### L IVER, LIPID, BMP #### [facility] [address] [place] [address] Dr. Marce Tabares Globulin (S) [Mass/Vol] 3.3 g/dL Normal [facility] Comment on above: Performed By: #### L IVER, LIPID, BMP #### [facility] [address] [place] [address] Dr. Marce Tabares Protein [Mass/Vol] 7.2 g/dL Normal 6.4-8.2 [facility] Comment on above: Performed By: #### L IVER, LIPID, BMP #### [facility] [address] [place] [address] Dr. Marce Tabares MICROALBUMIN, RAND URon 12-0 mALB <1.3 Normal <=30.0 [facility] Comment on above: Performed By: #### M ALBR #### [facility] [address] [place] [address] Dr. Marce Tabares PROF CHEM 8 (BAS METB)on Anion gap [Moles/Vol] 11.6 mmol/L Normal [facility] Comment on above: Performed By: #### L IVER, LIPID, BMP #### [facility] [address] [address] [address] Marce Tabares Calcium [Mass/Vol] 8.8 mg/dL Normal 8.5-10.1 [facility] Comment on above: Performed By: #### L IVER, LIPID, BMP #### [facility] [address] [address] [address] Marce Tabares Chloride [Moles/Vol] 101 mmol/L Normal 98-107 [facility] Comment on above: Performed By: #### L IVER, LIPID, BMP #### [facility] [address] [address] [address] Marce Tabares CO2 [Moles/Vol] 30.8 mmol/L Normal 21.0-32.0 [facility] Comment on above: Performed By: #### L IVER, LIPID, BMP #### [facility] [address] [place] [address] Dr. Marce Tabares Creatinine [Mass/Vol] 1.05 mg/dL Normal 0.70-1.30 [facility] Comment on above: Performed By: #### L IVER, LIPID, BMP #### [facility] [address] [place] [address] Dr. Marce Tabares EGFR-AF GUAMANIAN >60 Normal >=60 [facility] Comment on above: Performed By: #### L IVER, LIPID, BMP #### [facility] [address] [place] [address] Dr. Marce Tabares EGFR-NON AF GUAMANIAN >60 Normal >=60 [facility] Comment on above: Performed By: #### L IVER, LIPID, BMP #### [facility] [address] [address] [address] Marce Tabares Glucose [Mass/Vol] 170 mg/dL Critically high 74-106 [facility] Comment on above: Performed By: #### L IVER, LIPID, BMP #### [facility] [address] [place] [address] Dr. Marce Tabares Potassium [Moles/Vol] 4.1 mmol/L Normal 3.5-5.1 [facility] Comment on above: Performed By: #### L IVER, LIPID, BMP #### [facility] [address] [address] [address] Marce Tabares Sodium [Moles/Vol] 140 mmol/L Normal 136-145 [facility] Comment on above: Performed By: #### L IVER, LIPID, BMP #### [facility] [address] [address] [address] Marce Tabares Urea nitrogen [Mass/Vol] 13.0 mg/dL Normal 7.0-18.0 [facility] Comment on above: Performed By: #### L IVER, LIPID, BMP #### [facility] [address] [address] [address] Marce Tabares Urea nitrogen/Creatinine [Mass ratio] 12.4 mg/mg Normal [facility] Comment on above: Performed By: #### L IVER, LIPID, BMP #### [facility] [address] [address] [address] Marce Tabares Vital Signs Date Time Vital Sign Value Performing Clinician Facility 02-03-2025 14:52-0400 Body height 172.7 cm Silvio Crain MD Work Phone: [facility] 02-03-2025 14:52-0400 Body mass index (BMI) [Ratio] 29.5 kg/m2 Silvio Crain MD Work Phone: [facility] 02-03-2025 14:52-0400 Body temperature 97.81 [degF] Silvio Crain MD Work Phone: [facility] 02-03-2025 14:52-0400 Body weight 88 kg Silvio Crain MD Work Phone: [facility] 02-03-2025 14:52-0400 Diastolic blood pressure 72 mm[Hg] Silvio Crain MD Work Phone: [facility] 02-03-2025 14:52-0400 Heart rate 85 /min Silvio Crain MD Work Phone: [facility] 02-03-2025 14:52-0400 Respiratory rate 18 /min Silvio Crain MD Work Phone: [facility] 02-03-2025 14:52-0400 SaO2% (BldA) [Mass fraction] 91 % Silvio Crain MD Work Phone: [facility] 02-03-2025 14:52-0400 Systolic blood pressure 128 mm[Hg] Silvio Crain MD Work Phone: [facility] 06-15-2024 13:12-0500 Body height 172.7 cm Silvio Crain MD Work Phone: [facility] 06-15-2024 13:12-0500 Body mass index (BMI) [Ratio] 29.35 kg/m2 Silvio Crain MD Work Phone: [facility] 06-15-2024 13:12-0500 Body temperature 98.2 [degF] Silvio Crain MD Work Phone: [facility] 06-15-2024 13:12-0500 Body weight 87.54 kg Silvio Crain MD Work Phone: [facility] 06-15-2024 13:12-0500 Diastolic blood pressure 66 mm[Hg] Silvio Crain MD Work Phone: [facility] 06-15-2024 13:12-0500 Heart rate 77 /min Silvio Crain MD Work Phone: [facility] 06-15-2024 13:12-0500 Respiratory rate 22 /min Silvio Crain MD Work Phone: [facility] 06-15-2024 13:12-0500 SaO2% (BldA) [Mass fraction] 91 % Silvio Crain MD Work Phone: [facility] 06-15-2024 13:12-0500 Systolic blood pressure 130 mm[Hg] Silvio Crain MD Work Phone: [facility] 04-12-2024 14:58-0400 Body height 172.7 cm Silvio Crain MD Work Phone: [facility] 04-12-2024 14:58-0400 Body mass index (BMI) [Ratio] 29.5 kg/m2 Silvio Crain MD Work Phone: [facility] 04-12-2024 14:58-0400 Body temperature 97.81 [degF] Silvio Crain MD Work Phone: [facility] 04-12-2024 14:58-0400 Body weight 88 kg Silvio Crain MD Work Phone: [facility] 04-12-2024 14:58-0400 Diastolic blood pressure 62 mm[Hg] Silvio Crain MD Work Phone: [facility] 04-12-2024 14:58-0400 Heart rate 71 /min Silvio Crain MD Work Phone: [facility] 04-12-2024 14:58-0400 Respiratory rate 20 /min Silvio Crain MD Work Phone: [facility] 04-12-2024 14:58-0400 SaO2% (BldA) [Mass fraction] 91 % Silvio Crain MD Work Phone: [facility] 04-12-2024 14:58-0400 Systolic blood pressure 110 mm[Hg] Silvio Crain MD Work Phone: [facility] 09-02-2022 18:15-0500 Diastolic blood pressure 102 mm[Hg] Paxton Reinosoe [facility] 09-02-2022 18:15-0500 Heart rate 71 /min Paxton Cerrato [facility] 09-02-2022 18:15-0500 Mean blood pressure 111 mm[Hg] Paxton Cerrato [facility] 09-02-2022 18:15-0500 Respiratory rate 20 /min Paxton Cerrato [facility] 09-02-2022 18:15-0500 SaO2% (BldA) [Mass fraction] 93 % Paxton Cerrato [facility] 09-02-2022 18:15-0500 Systolic blood pressure 130 mm[Hg] Paxton Cerrato [facility] 09-02-2022 17:37-0500 Body temperature 99.68 [degF] Paxton Cerrato [facility] 09-02-2022 17:37-0500 Diastolic blood pressure 104 mm[Hg] Paxton Cerrato [facility] 09-02-2022 17:37-0500 Heart rate 82 /min Paxton Cerrato [facility] 09-02-2022 17:37-0500 Respiratory rate 20 /min Paxton Cerrato [facility] 09-02-2022 17:37-0500 SaO2% (BldA) [Mass fraction] 93 % Paxton Cerrato [facility] 09-02-2022 17:37-0500 Systolic blood pressure 158 mm[Hg] Paxton Cerrato [facility] 08-09-2022 09:00-0500 Body height 172.7 cm Abdon Palacios MD Work Phone: [facility] 08-09-2022 09:00-0500 Body weight 88.45 kg Abdon Palacios MD Work Phone: [facility] 08-09-2022 09:00-0500 Diastolic blood pressure 69 mm[Hg] Abdon Palacios MD Work Phone: [facility] 08-09-2022 09:00-0500 Heart rate 89 /min Abdon Palacios MD Work Phone: [facility] 08-09-2022 09:00-0500 Respiratory rate 13 /min Abdon Palacios MD Work Phone: [facility] 08-09-2022 09:00-0500 SaO2% (BldA) [Mass fraction] 98 % Abdon Palacios MD Work Phone: [facility] 08-09-2022 09:00-0500 Systolic blood pressure 121 mm[Hg] Abdon Palacios MD Work Phone: [facility] Encounters Encounter Date Encounter Type Care Provider Facility Start: 02-18-2025 End: 02-18-2025 Clinisync Result Encounter Silvio Crain MD Work Phone: [facility] Unsolicited Start: 02-18-2025 End: 02-18-2025 Clinisync Result Encounter Silvio Crain MD Work Phone: [facility] Unsolicited Start: 02-14-2025 End: 02-14-2025 Refill Silvio Crain [...] [facility] Start: 02-03-2025 End: 02-03-2025 Bamboo flowsheet Silvio Crain MD Work Phone: [facility] Start: 01-11-2025 End: 01-11-2025 Refill Silvio Crain MD Work Phone: [facility] Comment on above: ETHAN (generalized anx iety disorder) ; Spondylosis of cervical spine; Dyslipidemia ; Type 2 diabetes mellitus with hyperglycemia, without long-term current use of insulin ([facility]) Start: 12-14-2024 End: 12-14-2024 Refill Silvio Crain MD Work Phone: [facility] Comment on above: Spondylosis of cervi deepa spine Start: 11-18-2024 End: 11-18-2024 Refill Silvio Crain MD Work Phone: [facility] Comment on above: ETHAN (generalized anx iety disorder) (CMS/HCC) Start: 11-08-2024 End: 11-09-2024 Refill Silvio Crain MD Work Phone: [facility] Comment on above: Type 2 diabetes adalid itus with hyperglycemia, without long-term current use of insulin ([facility]) Start: 09-07-2024 End: 09-07-2024 Bamboo flowsheet Silvio Crain MD Work Phone: [facility] Start: 09-07-2024 End: 09-07-2024 Bamboo flowsheet Silvio Crain MD Work Phone: [facility] Start: 08-20-2024 End: 08-25-2024 Orders Only Silvio Crain MD Work Phone: [facility] Comment on above: ETHAN (generalized anx iety disorder) (CMS/[facility]); Spondylosis of cervical spine Start: 07-14-2024 End: [...] px Silvio Crain MD Work Phone: [facility] Comment on above: Medicare annual well ness visit, subsequent (Primary Dx); Spondylosis of cervical spine Start: 06-15-2024 End: 06-15-2024 ambulatory SILVIO CARIN Not Available Start: 05-21-2024 End: 05-21-2024 Clinisync Result Encounter Silvio Crain MD Work Phone: [facility] External Department Unsolicited Start: 05-21-2024 End: 05-21-2024 Clinisync Result Encounter Silvio Crain MD Work Phone: [facility] External Department Unsolicited Start: 05-13-2024 End: 05-13-2024 Refill Silvio Crain MD Work Phone: [facility] Comment on above: ETHAN (generalized anx iety disorder) ([facility]/HCC) Start: 04-12-2024 End: 04-12-2024 Office outpatient visit [...] (CMS/HCC); Immunodeficiency due to conditions classified elsewhere ([facility]) Start: 04-12-2024 End: 04-12-2024 ambulatory SILVIO CRAIN Not Available Start: 04-12-2024 End: 04-12-2024 Bambohardy flowsheet Silvio Crain MD Work Phone: [facility] Start: 04-12-2024 End: 04-12-2024 Alverto flowsheet Silvio Crain MD Work Phone: [facility] Start: 04-05-2024 End: 04-05-2024 Refill Silvio Crain MD Work Phone: [facility] Comment on above: Spondylosis of cervi deepa spine Start: 03-15-2024 End: 03-15-2024 Refill Silvio Crain MD Work Phone: [facility] Comment on above: ETHAN (generalized anx iety disorder) ([facility]) Start: 08-12-2023 Refill Silvio Washington Work Phone: [facility] Comment on above: ETHAN (generalized anx iety disorder) ([facility]) Start: 10-25-2022 End: 10-26-[address] DOCTOR THORNTON Facility: Start: 10-25-2022 Telephone encounter Abdon macias MD Work Phone: Neurology Comment on above: Results Start: 10-10-2022 End: 10-10-2022 ambulatory Aleksandr Sandoval Facility:[facility] Start: 09-06-2022 Telephone encounter Abdon macias MD Work Phone: Neurology Comment on above: [employer]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; Orders Start: 09-02-2022 End: 09-02-2022 Emergency department patient visit Paxton Cerrato Facility:[facility] Start: 09-02-2022 End: 09-02-2022 Emergency department patient visit Paxton Cerrato [facility] Start: 08-09-2022 End: 08-09-2022 ambulatory ABDON PALACIOS Facility:[facility] Start: 08-09-2022 End: 08-09-2022 ambulatory ABDON PALACIOS Facility:[facility] Start: 08-09-2022 End: 08-09-2022 Subsequent hospital visit by physician Koko Mendiola [id number] Work Phone: Radiology Comment on above: Spinal stenosis of c ervical region [M48.02] Start: 08-09-2022 End: 08-09-2022 Patient encounter procedure Abdon Palacios MD Work Phone: [facility] [place] Comment on above: Spinal stenosis of c ervical region (Primary Dx); S/P cervical spinal fusion Start: 06-13-2022 End: 06-14-[address] SILVIO CRAIN Facility:[facility] Procedures Date Procedure Procedure Detail Performing Clinician Start: 02-18-2025 ALL CBC WITH AUTO DIFF Silvio Crain MD Work Phone: Start: 08-20-2024 End: 08-20-2024 Radex spine cervical [...] Comment on above: Performed By: #### P [facility] #### [facility] [address] [place] [address] Dr. Marce Tabares Plan of Treatment Date Care Activity Detail Author Start: 10-10-2032 Screening for malign ant neoplasm of colon [facility] Start: 06-13-2027 PROSTATE CANCER SCRE ENING DISCUSSION PROSTATE CANCER SCREENING DISCUSSION [facility] Start: 06-20-2025 End: 06-20-2025 Patient encounter procedure 06/20/2025 1:30 PM EST Office Visit [facility] [address] [place] [address] Silvio Crain MD [address] [place] [address] [facility] Start: 06-15-2025 Medicare Annual Well ness (AWV) Medicare Annual Wellness (AWV) [facility] Start: 03-07-2025 Influenza vaccination [facility] Start: 02-03-2025 End: 02-03-2025 Patient encounter procedure [facility] Comment on above: Arrived Start: 02-03-2025 End: 02-03-2026 Basic metabolic 1998 panel - Serum or Plasma Basic metabolic panel Lab Routine Type 2 diabetes mellitus with hyperglycemia, without long-term current use of insulin (HCC) Expected: 02/03/2025 (Approximate), Expires: 02/03/2026 [facility] Comment on above: Expected: 02/03/2025 (Approximate), Expires: 02/03/2026 Start: 02-03-2025 End: 02-03-2026 C reactive protein [Mass/volume] in Serum or Plasma C-reactive protein Lab Routine Arthralgia, unspecified joint Expected: 02/03/2025 (Approximate), Expires: 02/03/2026 [facility] Comment on above: Expected: 02/03/2025 (Approximate), Expires: 02/03/2026 Start: 02-03-2025 End: 02-03-2026 CBC W Auto Differential panel - Blood CBC and differential Lab Routine Encounter for long-term current use of medication Expected: 02/03/2025 (Approximate), Expires: 02/03/2026 [facility] Comment on above: Expected: 02/03/2025 (Approximate), Expires: 02/03/2026 Start: 02-03-2025 End: 02-03-2026 CT Chest for screening WO contrast CT lung screening low dose Imaging Routine Cigarette smoker Expected: 02/03/2025, Expires: 02/03/2026 [facility] Comment on above: Expected: 02/03/2025 , Expires: 02/03/2026 Start: 02-03-2025 End: 02-03-2026 Erythrocyte sedimentation rate Sedimentation rate, automated Lab Routine Arthralgia, unspecified joint Expected: 02/03/2025 (Approximate), Expires: 02/03/2026 [facility] Comment on above: Expected: 02/03/2025 (Approximate), Expires: 02/03/2026 Start: 02-03-2025 End: 02-03-2026 Hemoglobin A1c/Hemoglobin.total in Blood Hemoglobin A1c Lab Routine Type 2 diabetes mellitus with hyperglycemia, without long-term current use of insulin (HCC) Expected: 02/03/2025 (Approximate), Expires: 02/03/2026 [facility] Comment on above: Expected: 02/03/2025 (Approximate), Expires: 02/03/2026 Start: 02-03-2025 End: 02-03-2026 Hepatic function 2000 panel - Serum or Plasma Hepatic function panel Lab Routine Encounter for long-term current use of medication Expected: 02/03/2025 (Approximate), Expires: 02/03/2026 [facility] Comment on above: Expected: 02/03/2025 (Approximate), Expires: 02/03/2026 Start: 02-03-2025 End: 02-03-2026 Lipid 1996 panel - Serum or Plasma Lipid panel Lab Routine Dyslipidemia Expected: 02/03/2025 (Approximate), Expires: 02/03/2026 [facility] Comment on above: Expected: 02/03/2025 (Approximate), Expires: 02/03/2026 Start: 02-03-2025 End: 02-03-2026 Microalbumin/Creatinine panel in random Urine Microalbumin / creatinine, urine ratio Lab Routine Type 2 diabetes mellitus with hyperglycemia, without long-term current use of insulin (HCC) Expected: 02/03/2025 (Approximate), Expires: 02/03/2026 [facility] Work Phone: Comment on above: Expected: 02/03/2025 (Approximate), Expires: 02/03/2026 Start: 02-03-2025 End: 02-03-2026 Nuclear Ab [Titer] in Serum by Immunofluorescence JOSE MARTIN Lab Routine Arthralgia, unspecified joint Expected: 02/03/2025 (Approximate), Expires: 02/03/2026 [facility] Comment on above: Expected: 02/03/2025 (Approximate), Expires: 02/03/2026 Start: 02-03-2025 End: 02-03-2026 Prostate specific Ag [Mass/volume] in Serum or Plasma PSA Lab Routine Screening PSA (prostate specific antigen) Expected: 02/03/2025 (Approximate), Expires: 02/03/2026 [facility] Comment on above: Expected: 02/03/2025 (Approximate), Expires: 02/03/2026 Start: 02-03-2025 End: 02-03-2026 Rheumatoid factor [Units/volume] in Serum or Plasma Rheumatoid factor Lab Routine Arthralgia, unspecified joint Expected: 02/03/2025 (Approximate), Expires: 02/03/2026 [facility] Comment on above: Expected: 02/03/2025 (Approximate), Expires: 02/03/2026 Start: 02-03-2025 End: 02-03-2026 Thyrotropin [Units/volume] in Serum or Plasma TSH Lab Routine Fatigue, unspecified type Expected: 02/03/2025 (Approximate), Expires: 02/03/2026 [facility] Comment on above: Expected: 02/03/2025 (Approximate), Expires: 02/03/2026 Start: 12-23-2024 Urine screening for protein Di abetes: Urine Protein Screening [facility] Start: 12-14-2024 End: 12-14-2024 Patient encounter procedure 12/14/2024 1:30 PM EDT Office Visit [facility] [address] [place] [phone] Silvio Crain MD [address] [place] [phone] [facility] Start: 11-19-2024 Hemoglobin A1c measurement Joanne betes: Hemoglobin A1C [facility] Start: 06-24-2024 Hemoglobin A1c measurement Joanne betes: Hemoglobin A1C [facility] Start: 06-15-2024 End: 06-15-2024 Patient encounter procedure 06/15/2024 1:00 PM EST Office Visit [facility] [address] [place] [address] Silvio Crain MD [address] [place] [phone] [facility] Start: 04-12-2024 End: 04-12-2024 Patient encounter procedure 04/12/2024 2:45 PM EDT Office Visit [facility] [address] [place] [phone] Silvio Crain MD [address] [place] [phone] Arrived [facility] Comment on above: Arrived Start: 04-12-2024 End: 04-12-2025 Hemoglobin A1c/Hemoglobin.total in Blood Hemoglobin A1c Lab Routine Type 2 diabetes mellitus with hyperglycemia, without long-term current use of insulin ([facility]) Expected: 04/12/2024 (Approximate), Expires: 04/12/2025 [facility] Work Phone: Comment on above: Expected: 04/12/2024 (Approximate), Expires: 04/12/2025 Start: 04-06-2024 End: 04-06-2024 Patient encounter procedure 04/06/2024 9:15 AM EDT Office Visit [facility] [address] [place] [phone] Silvio Crain MD [address] [place] [phone] [facility] Start: 03-07-2024 Influenza vaccination Influenza Vacc ine (#1) [facility] Start: 09-18-2023 End: 09-18-2023 Patient encounter procedure 09/18/2023 1:00 PM EDT Office Visit [facility] [address] [place] [phone] Silvio Crain MD [address] [place] [phone] [facility] Start: 08-09-2023 BP CONTROLLED (<130/80) BP CON TROLLED (<130/80) [facility] Start: 03-07-2023 Influenza vaccination INFLUENZ A (Season Ended) [facility] Start: 08-16-2022 End: 09-08-2023 Ct cervical spine w/o contrast material CT CERVICAL SPINE WO IVCON Radiology Routine Spinal stenosis of cervical region Expected: 08/16/2022, Expires: 09/08/[address] [facility] Work Phone: Comment on above: Expected: 08/16/2022 , Expires: 09/08/2023 Start: 07-07-2022 DEPRESSION ASSESSMENT DEPRESSION ASS ESSMENT [facility] Start: 03-24-2022 Glaucoma screening Diabetes: R etinopathy Screening [facility] Start: 03-07-2022 Influenza vaccination INFLUENZA (#1) [facility] Start: 02-16-2022 Screening for malign ant neoplasm of colon [facility] Start: 09-12-2021 COVID-19 VACCINE (4 - Booster for Pfizer series) COVID-19 VACCINE (4 - Booster for Pfizer series) [facility] Start: 08-30-2021 Hemoglobin A1c measurement Joanne betes: Hemoglobin A1C [facility] Start: 06-02-2021 Hemoglobin A1c/Hemoglobin.total in Blood HBA1C [facility] Start: 05-26-2020 Glaucoma screening Diabetes: R etinopathy Screening [facility] Start: 2015 SHINGRIX VACCINE (1 of 2) OBRIEN GRIX VACCINE (1 of 2) [facility] Start: 2010 COLOGUARD (FIT-DNA) COLOGUARD (FIT-D NA) [facility] Start: 2010 Colonoscopy COLONOSCOPY [facility] Start: 2010 COLORECTAL CANCER SCREENING CO LORECTAL CANCER SCREENING [facility] Start: [address] COLONOGRAPHY [facility] Start: 2010 FECAL OCCULT BLOOD FECAL OCCULT BLOO D [facility] Start: 2010 SIGMO[facility]OSCOPY [facility] Start: 1984 Urine microalbumin profile DTA P,TDAP,TD (1 - Tdap) [facility] Start: 1984 Urine screening for protein Di abetes: Urine Protein Screening [facility] Start: 1983 ANNUAL PCP TEAM OPERATIONS SUPPORT REPRESENTATIVE STEFANI DISEASE VISIT ANNUAL PCP TEAM CHRONIC DISEASE VISIT [facility] Start: 1983 Hepatitis B surface antibody level LDL CHOLESTEROL [facility] Start: 1983 HEPATITIS C SCREENING HEPATITIS C SC REENING [facility] Start: 1983 HIV SCREENING HIV SCREENING [facility] Start: 1975 3 comp foot exam completed DIABETIC FOOT EXAM [facility] Start: 1975 Hepatitis B screening URINE ALBUMIN:CREATININE RATIO [facility] Start: 1975 Hepatitis C antibody , confirmatory test DILATED RETINAL EXAM [facility] Start: 1971 PNEUMOCOCCAL (1 - PCV) PNEUMOCOCCAL (1 - PCV) [facility] Start: 1965 HEPATITIS B (1 of 3 - 3-dose series) HEPATITIS B (1 of 3 - 3-dose series) [facility] Start: 1965 Medicare Annual Well ness (AWV) Medicare Annual Wellness (AWV) [facility] Start: 1965 Screening for malign ant neoplasm of colon [facility] Start: 1965 Screening for malign ant neoplasm of lung Lung Cancer Screening Shared Decision Making [facility] Immunizations Immunization Date Immunization Notes Care Provider Fa cili 03-20-2023 Seasonal, quadrivalent, recombinant, injectable influenza vaccine, preservative free Silvio Crain MD Work Phone: [facility] 03-20-2023 zoster vaccine recombinant Silvio Crain MD Work Phone: [facility] 03-20-2023 influenza virus vaccine, unspecified formulation Silvio Crain MD Work Phone: [facility] 11-30-2020 COVID-19 original vaccine, age 12+ yr, monovalent ([employer] - PURPLE TOP) Abdon Palacios MD Work Phone: [facility] 11-09-2020 COVID-19 original vaccine, age 12+ yr, monovalent ([id number] - PURPLE TOP) Abdon Palacios MD Work Phone: [facility] 05-14-2017 influenza, seasonal, injectable, preservative free Abdon Palacios MD Work Phone: [facility] Work Phone: 05-07-2017 influenza, injectabl e, quadrivalent, contains preservative Abdon Palacios MD Work Phone: [facility] Work Phone: Payers Date Payer Category Payer Self-pay 2021 Medicare (Managed Care) [employer] [id number] 2013 Medicare [id number] 2011 Unknown [facility] [id number] 2011-Present [phone] [address] [place] [address] [facility] [id number] 2011 Unknown [id number] 1965 Unknown [id number] 1965 Unknown [id number] 1965 Unknown [id number] 1965 Unknown [id number] 1965 Unknown [id number] 1965 Unknown [id number] 1959 Unknown [id number] 1959 Unknown [id number] Unknown [id number] Social History Date Type Detail Facility Start: 08-09-2022 End: 10-07-2023 Tobacco smoking status NHIS Ex-smoker [facility] Start: 11-14-2020 End: 02-04-2021 History of tobacco use Current smoker [facility] Start: 11-14-2020 End: 02-04-2021 History of tobacco use Cigarette Smoker [facility] Start: 08-09-2022 End: 07-02-2023 Cigarettes smoked current (pack per day) - Reported 0.3 [facility] Start: 08-09-2022 End: 02-03-2025 Tobacco use and exposure Smokeless tobacco non-user [facility] Start: 08-09-2022 Alcohol intake Current drinker of alcohol (finding) [facility] Start: 03-02-2021 Alcohol Comment 3 times a month per pt 03/02/2021 [facility] Start: 1965 Sex Assigned At Not on file [facility] Tobacco smoking status No Smokin g Status Entered [facility] Start: 07-02-2023 End: 06-15-2024 Sex Assigned At Male [facility] Start: 07-01-2023 End: 02-03-2025 Tobacco smoking status NVIS Smokes tobacco daily [facility] Start: 07-01-2023 End: 02-03-2025 Alcohol intake Lifetime non-drinker (finding) [facility] Within the last year , have you been afraid of your partner or ex-partner? No [facility] Do you belong to any clubs or organizations such as hoahaoism groups, unions, fraternal or athletic groups, or [...] Not at all [facility] (I/We) worried oliver er (my/our) food would run out before [...] Equipment Origin al Text Equipment Identifier Dates New [place] Lateral Of fset Connector Side Sz 10mm [id number] Start: 03-15-2021 Graft Deminerali zed Bone Matrix Bone Putty Pretreated 10ml - [id number] Start: 03-15-2021 Spacer Avs 4d 8m m Spinal Bone Plug - [id number] Start: 03-15-2021 [place] Plate, 1 L evel, Sz 18mm [id number] Start: 03-15-2021 Pavillion Spn Luigi Csp Mini 3.5x240 [id number] Start: 03-15-2021 Screw Bn 4mm 14m m [place] Spnl - [id number] Start: 03-15-2021 Spacer Bio Avs 4 d Lordosis 12mm Cortical Cancellous [id number] Allograft - [id number] Start: 03-15-2021 1 strip by In Vi tro route Daily [id number] Start: 02-06-2024 1 Lancet Daily [id number] Start: 02-26-2024 Functional Status Date Assessment Result Facility 09-02-2022 Functional Status N/A [facility] - [facility] Clinical Notes 08-09-2022 to 02-03-2025 Silvio Crain MD - 02/03/2025 3:27 PM EDRebekah Crain MD - 02/03/2025 3:27 PM EDRebekah Crain MD - 02/03/2025 3:27 PM EDRebekah Crain MD - 02/03/2025 3:27 PM EDT [...] Problem(s): Moderate COPD (chronic obstructive pulmonary disease) (HCC) Breathing stable and use albuterol PRN. Stressed [...] Polyneuropathy due to type 2 diabetes mellitus ([facility]) Neuropathy stable with gabapentin and continue. Benign essential hypertension BP controlled and monitor PRN. Moderate COPD (chronic obstructive pulmonary disease) ([facility]) Breathing stable and use albuterol PRN. Stressed need to stop smoking. Cigarette smoker Continues to smoke and over 30 pack year history. Check LDCT. Relevant Orders CT lung screening low dose Type 2 diabetes mellitus with hyperglycemia, without long-term current use of insulin ([facility]) - Primary Reports BS controlled and due [...] Relevant Orders TSH documented in this encounter [facility] 06-15-2024 History of Presen t illness Narrative [...] daily Aspirin therapy. documented in this encounter [facility] 04-12-2024 History of Presen t illness Narrative [...] continue. Associated Problem(s): ETHAN (generalized anxiety disorder) ([facility]/HCC) Symptoms stable with medication and continue. Use [...] seroquel and continue. documented in this encounter [facility] 11-15-2022 Miscellaneous Notes Called and spoke with [...] Schrader Images requested documented in this encounter [facility] 09-06-2022 Miscellaneous Notes Message forwarded to [facility] Forms for C-9. [place] calling [facility] calling asking for a C9 for a CT scan. Call back # [phone] documented in this encounter [facility] 09-02-2022 Hospital Discharg e instructions Patient [...] Follow these instructions at home: Medicines Take ebqy-cvv-bkkkokp and prescription medicines only as told by [...] and water are not available, use hand clinical nurse leader. ?Leave stitches (sutures), skin glue, or adhesive [...] 06/23/2006 Document Revised: 09/06/2019 Document Reviewed: 09/08/2019 [employer] Patient Education 2019 [employer]. 09/02/2022 19:17:16 Cervical Sprain Cervical Sprain A [...] provider or physical therapist. General instructions Take pwli-qqe-dwcgugz and prescription medicines only as told by [...] 04/19/2008 Document Revised: 10/13/2019 Document Reviewed: 02/19/2017 [employer] Patient Education 2020 [employer] [facility] Up Care 09/02/2022 17:27:40 With:SILVIO CRAIN [address] [place] [address] Business (1) When:09/05/2022 18:51:13 [facility] 08-09-2022 Note HNO ID: [id number] Author: RT Khushboo(R) Service: Radiology Author Type: [...] Khushboo(R) August 09, 2022 11:39 AM [facility] 08-09-2022 Note HNO ID: [id number] Author: Abdon Palacios MD Service: ? Author [...] which included preparing to see the patient, vpsh-ox-kalt patient care, completing clinical documentation, obtaining and/or reviewing separately obtained history, performing a medically appropriate examination, counseling and educating the patient/family/caregiver, ordering medications, tests, or procedures, independently interpreting results (not separately reported), and care coordination (not separately reported). SIGNATURE: Abdon Palacios MD PATIENT NAME: Micah Forbes DATE: August 09, 2022 TIME: 10:15 AM PAGER: [facility] 08-09-2022 History of Presen t illness [...] 2022 11:39 AM documented in this encounter [facility] 08-09-2022 History of Presen t illness [...] which included preparing to see the patient, xkfe-vu-parl patient care, completing clinical documentation, obtaining and/or reviewing separately obtained history, performing a medically appropriate examination, counseling and educating the patient/family/caregiver, ordering medications, tests, or procedures, independently interpreting results (not separately reported), and care coordination (not separately reported). SIGNATURE: Abdon Palacios MD PATIENT NAME: Micah Forbes DATE: August 09, 2022 TIME: 10:15 AM PAGER: documented in this encounter [facility] Evaluation + Plan note No data available for this section [facility] Evaluation note Diagnosis Spinal stenosis of cervical region- Primary Spinal stenosis in cervical region S/P cervical spinal fusion Arthrodesis status [facility] Diagnosis Spinal stenosis of cervical region Spinal stenosis in cervical region [facility] Diagnosis ETHAN (generalized anxiety disorder) ([facility]) Generalized anxiety disorder documented in this encounter [facility]* Diagnosis Type 2 diabetes mellitus with hyperglycemia, without long-term current use of insulin ([facility])- Primary Benign essential hypertension ([facility]/HCC) Essential hypertension, benign MDD (major depressive disorder), recurrent episode, mild (HCC) ([facility]) ETHAN (generalized anxiety disorder) ([facility]) Generalized anxiety disorder Primary insomnia Persistent disorder of initiating or maintaining sleep Moderate COPD (chronic obstructive pulmonary disease) ([facility]) Polyneuropathy due to type 2 diabetes mellitus ([facility]) Immunodeficiency due to conditions classified elsewhere ([facility]) documented in this encounter [facility]* Diagnosis Primary hypertension (CMS/HCC)- Primary Unspecified essential hypertension Moderate COPD (chronic obstructive pulmonary disease) ([facility]) Tobacco dependency Tobacco use disorder Type 2 diabetes mellitus with hyperglycemia, without long-term current use of insulin ([facility])- Primary Primary hypertension ([facility]/HCC) Unspecified essential hypertension Polyneuropathy due to type 2 diabetes mellitus ([facility]) MDD (major depressive disorder), recurrent episode, mild (HCC) ([facility]) Primary insomnia Persistent disorder of initiating or maintaining sleep Moderate COPD (chronic obstructive pulmonary disease) ([facility]/HCC) ETHAN (generalized anxiety disorder) ([facility]) Generalized anxiety disorder Dyslipidemia ([facility]) Other and unspecified hyperlipidemia Encounter for long-term current use of medication Screening PSA (prostate specific antigen) Special screening for malignant neoplasm of prostate Type 2 diabetes mellitus with hyperglycemia, without long-term current use of insulin ([facility])- Primary Benign essential hypertension ([facility]) Essential hypertension, benign MDD (major depressive disorder), recurrent episode, mild (HCC) ([facility]) ETHAN (generalized anxiety disorder) ([facility]) Generalized anxiety disorder Primary insomnia Persistent disorder of initiating or maintaining sleep Moderate COPD (chronic obstructive pulmonary disease) ([facility]) Polyneuropathy due to type 2 diabetes mellitus ([facility]) Immunodeficiency due to conditions classified elsewhere ([facility] ETHAN (generalized anxiety disorder) ([facility] General[facility] anxiety disorder [facility] Diagnosis Primary hypertension ([facility])- Primary Unspecified essential hypertension Moderate COPD (chronic obstructive pulmonary disease) ([facility]) Tobacco dependency Tobacco use disorder Type 2 diabetes mellitus with hyperglycemia, without long-term current use of insulin ([facility])- Primary Primary hypertension ([facility]) Unspecified essential hypertension Polyneuropathy due to type 2 diabetes mellitus ([facility]) MDD (major depressive disorder), recurrent episode, mild (HCC) ([facility]) Primary insomnia Persistent disorder of initiating or maintaining sleep Moderate COPD (chronic obstructive pulmonary disease) ([facility]/HCC) ETHAN (generalized anxiety disorder) ([facility]) Generalized anxiety disorder Dyslipidemia ([facility]) Other and unspecified hyperlipidemia Encounter for long-term current use of medication Screening PSA (prostate specific antigen) Special screening for malignant neoplasm of prostate Type 2 diabetes mellitus with hyperglycemia, without long-term current use of insulin ([facility])- Primary Benign essential hypertension ([facility]) Essential hypertension, benign MDD (major depressive disorder), recurrent episode, mild (HCC) ([facility]) ETHAN (generalized anxiety disorder) ([facility] Generalized anxiety disorder Primary insomnia Persistent disorder of initiating or maintaining sleep Moderate COPD (chronic obstructive pulmonary disease) ([facility]) Polyneuropathy due to type 2 diabetes mellitus ([facility]) Immunodeficiency due to conditions classified elsewhere ([facility]) Medicare annual wellness visit, subsequent- Primary Spondylosis of cervical spine documented in this encounter [facility]* Diagnosis ETHAN (generalized anxiety disorder) ([facility]) Generalized anxiety disorder documented in this encounter [facility]* Diagnosis Spondylosis of cervical spine documented in this encounter [facility]* Diagnosis Primary hypertension ([facility])- Primary Unspecified essential hypertension Moderate COPD (chronic obstructive pulmonary disease) ([facility]) Tobacco dependency Tobacco use disorder Type 2 diabetes mellitus with hyperglycemia, without long-term current use of insulin ([facility])- Primary Primary hypertension ([facility]) Unspecified essential hypertension Polyneuropathy due to type 2 diabetes mellitus ([facility]) MDD (major depressive disorder), recurrent episode, mild ([facility]) ([facility]) Primary insomnia Persistent disorder of initiating or maintaining sleep Moderate COPD (chronic obstructive pulmonary disease) ([facility]) ETHAN (generalized anxiety disorder) ([facility]) Generalized anxiety disorder Dyslipidemia ([facility]) Other and unspecified hyperlipidemia Encounter for long-term current use of medication Screening PSA (prostate specific antigen) Special screening for malignant neoplasm of prostate Type 2 diabetes mellitus with hyperglycemia, without long-term current use of insulin ([facility])- Primary Benign essential hypertension ([facility]) Essential hypertension, benign MDD (major depressive disorder), recurrent episode, mild (HCC) ([facility]) ETHAN (generalized anxiety disorder) ([facility]) Generalized anxiety disorder Primary insomnia Persistent disorder of initiating or maintaining sleep Moderate COPD (chronic obstructive pulmonary disease) ([facility]) Polyneuropathy due to type 2 diabetes mellitus ([facility]) Immunodeficiency due to conditions classified elsewhere ([facility]) Medicare annual wellness visit, subsequent- Primary Spondylosis of cervical spine ETHAN (generalized anxiety disorder) ([facility]) Generalized anxiety disorder documented in this encounter [facility]* Diagnosis Primary hypertension ([facility])- Primary Unspecified essential hypertension Moderate COPD (chronic obstructive pulmonary disease) ([facility]) Tobacco dependency Tobacco use disorder Type 2 diabetes mellitus with hyperglycemia, without long-term current use of insulin ([facility])- Primary Primary hypertension ([facility]) Unspecified essential hypertension Polyneuropathy due to type 2 diabetes mellitus ([facility]) MDD (major depressive disorder), recurrent episode, mild (HCC) ([facility]) Primary insomnia Persistent disorder of initiating or maintaining sleep Moderate COPD (chronic obstructive pulmonary disease) ([facility]) ETHAN (generalized anxiety disorder) ([facility] Generalized anxiety disorder Dyslipidemia ([facility]) Other and unspecified hyperlipidemia Encounter for long-term current use of medication Screening PSA (prostate specific antigen) Special screening for malignant neoplasm of prostate Type 2 diabetes mellitus with hyperglycemia, without long-term current use of insulin ([facility])- Primary Benign essential hypertension ([facility]) Essential hypertension, benign MDD (major depressive disorder), recurrent episode, mild (HCC) ([facility]) ETHAN (generalized anxiety disorder) ([facility]) Generalized anxiety disorder Primary insomnia Persistent disorder of initiating or maintaining sleep Moderate COPD (chronic obstructive pulmonary disease) ([facility]) Polyneuropathy due to type 2 diabetes mellitus ([facility]) Immunodeficiency due to conditions classified elsewhere ([facility]) Medicare annual wellness visit, subsequent- Primary Spondylosis of cervical spine ETHAN (generalized anxiety disorder) ([facility]) Generalized anxiety disorder Spondylosis of cervical spine documented in this encounter [facility] Diagnosis Primary hypertension ([facility])- Primary Unspecified essential hypertension Moderate COPD (chronic obstructive pulmonary disease) ([facility]) Tobacco dependency Tobacco use disorder Type 2 diabetes mellitus with hyperglycemia, without long-term current use of insulin ([facility])- Primary Primary hypertension ([facility]) Unspecified essential hypertension Polyneuropathy due to type 2 diabetes mellitus ([facility]) MDD (major depressive disorder), recurrent episode, mild (HCC) ([facility]) Primary insomnia Persistent disorder of initiating or maintaining sleep Moderate COPD (chronic obstructive pulmonary disease) ([facility]) ETHAN (generalized anxiety disorder) ([facility]) Generalized anxiety disorder Dyslipidemia ([facility]) Other and unspecified hyperlipidemia Encounter for long-term current use of medication Screening PSA (prostate specific antigen) Special screening for malignant neoplasm of prostate Type 2 diabetes mellitus with hyperglycemia, without long-term current use of insulin ([facility])- Primary Benign essential hypertension ([facility]) Essential hypertension, benign MDD (major depressive disorder), recurrent episode, mild (HCC) ([facility]) ETHAN (generalized anxiety disorder) ([facility] Generalized anxiety disorder Primary insomnia Persistent disorder of initiating or maintaining sleep Moderate COPD (chronic obstructive pulmonary disease) ([facility]) Polyneuropathy due to type 2 diabetes mellitus ([facility]) Immunodeficiency due to conditions classified elsewhere ([facility]) Medicare annual wellness visit, subsequent- Primary Spondylosis of cervical spine Type 2 diabetes mellitus with hyperglycemia, without long-term current use of insulin ([facility]) documented in this encounter [facility]* Diagnosis Primary hypertension ([facility])- Primary Unspecified essential hypertension Moderate COPD (chronic obstructive pulmonary disease) ([facility]) Tobacco dependency Tobacco use disorder Type 2 diabetes mellitus with hyperglycemia, without long-term current use of insulin ([facility])- Primary Primary hypertension ([facility]) Unspecified essential hypertension Polyneuropathy due to type 2 diabetes mellitus ([facility]) MDD (major depressive disorder), recurrent episode, mild ([facility]) ([facility]) Primary insomnia Persistent disorder of initiating or maintaining sleep Moderate COPD (chronic obstructive pulmonary disease) ([facility]) ETHAN (generalized anxiety disorder) ([facility]) Generalized anxiety disorder Dyslipidemia ([facility] [facility]) Other and unspecified hyperlipidemia Encounter for long-term current use of medication Screening PSA (prostate specific antigen) Special screening for malignant neoplasm of prostate Type 2 diabetes mellitus with hyperglycemia, without long-term current use of insulin ([facility])- Primary Benign essential hypertension ([facility]) Essential hypertension, benign MDD (major depressive disorder), recurrent episode, mild ([facility]) ([facility]) ETHAN (generalized anxiety disorder) ([facility]) Generalized anxiety disorder Primary insomnia Persistent disorder of initiating or maintaining sleep Moderate COPD (chronic obstructive pulmonary disease) ([facility]) Polyneuropathy due to type 2 diabetes mellitus ([facility]) Immunodeficiency due to conditions classified elsewhere ([facility]) Medicare annual wellness visit, subsequent- Primary Spondylosis of cervical spine Spondylosis of cervical spine documented in this encounter [facility]* Diagnosis Primary hypertension- Primary Unspecified essential hypertension Moderate COPD (chronic obstructive pulmonary disease) ([facility]) Tobacco dependency Tobacco use disorder Type 2 diabetes mellitus with hyperglycemia, without long-term current use of insulin ([facility])- Primary Primary hypertension Unspecified essential hypertension Polyneuropathy due to type 2 diabetes mellitus ([facility]) MDD (major depressive disorder), recurrent episode, mild Primary insomnia Persistent disorder of initiating or maintaining sleep Moderate COPD (chronic obstructive pulmonary disease) ([facility]) ETHAN (generalized anxiety disorder) Generalized anxiety disorder Dyslipidemia Other and unspecified hyperlipidemia Encounter for long-term current use of medication Screening PSA (prostate specific antigen) Special screening for malignant neoplasm of prostate Type 2 diabetes mellitus with hyperglycemia, without long-term current use of insulin ([facility])- Primary Benign essential hypertension Essential hypertension, benign MDD (major depressive disorder), recurrent episode, mild ETHAN (generalized anxiety disorder) Generalized anxiety disorder Primary insomnia Persistent disorder of initiating or maintaining sleep Moderate COPD (chronic obstructive pulmonary disease) ([facility]) Polyneuropathy due to type 2 diabetes mellitus ([facility]) Immunodeficiency due to conditions classified elsewhere ([facility]) Medicare annual wellness visit, subsequent- Primary Spondylosis of cervical spine ETHAN (generalized anxiety disorder) Generalized anxiety disorder Spondylosis of cervical spine Dyslipidemia Other and unspecified hyperlipidemia Type 2 diabetes mellitus with hyperglycemia, without long-term current use of insulin ([facility]) documented in this encounter [facility] HealthcareEvaluation [facility]* Diagnosis Primary hypertension- Primary Unspecified essential hypertension Moderate COPD (chronic obstructive pulmonary disease) ([facility]) Tobacco dependency Tobacco use disorder Type 2 diabetes mellitus with hyperglycemia, without long-term current use of insulin ([facility])- Primary Primary hypertension Unspecified essential hypertension Polyneuropathy due to type 2 diabetes mellitus ([facility]) MDD (major depressive disorder), recurrent episode, mild Primary insomnia Persistent disorder of initiating or maintaining sleep Moderate COPD (chronic obstructive pulmonary disease) ([facility]) ETHAN (generalized anxiety disorder) Generalized anxiety disorder Dyslipidemia Other and unspecified hyperlipidemia Encounter for long-term current use of medication Screening PSA (prostate specific antigen) Special screening for malignant neoplasm of prostate Type 2 diabetes mellitus with hyperglycemia, without long-term current use of insulin ([facility])- Primary Benign essential hypertension Essential hypertension, benign MDD (major depressive disorder), recurrent episode, mild ETHAN (generalized anxiety disorder) Generalized anxiety disorder Primary insomnia Persistent disorder of initiating or maintaining sleep Moderate COPD (chronic obstructive pulmonary disease) ([facility]) Polyneuropathy due to type 2 diabetes mellitus ([facility]) Immunodeficiency due to conditions classified elsewhere ([facility]) Medicare annual wellness visit, subsequent- Primary Spondylosis of cervical spine Type 2 diabetes mellitus with hyperglycemia, without long-term current use of insulin ([facility])- Primary Benign essential hypertension Essential hypertension, benign Moderate COPD (chronic obstructive pulmonary disease) ([facility]) MDD (major depressive disorder), recurrent episode, mild ETHAN (generalized anxiety disorder) Generalized anxiety disorder Primary insomnia Persistent disorder of initiating or maintaining sleep Polyneuropathy due to type 2 diabetes mellitus ([facility]) Arthralgia, unspecified joint Encounter for long-term current use of medication Dyslipidemia Other and unspecified hyperlipidemia Screening PSA (prostate specific antigen) Special screening for malignant neoplasm of prostate Fatigue, unspecified type Cigarette smoker Tobacco use disorder documented in this encounter [facility]* Diagnosis Primary hypertension- Primary Unspecified [...] due to type 2 diabetes mellitus (HCC) Immunodeficiency due to conditions classified elsewhere (HCC) Medicare annual wellness visit, subsequent- Primary Spondylosis of cervical spine Type 2 diabetes mellitus with hyperglycemia, without long-term current use of insulin ([facility])- Primary Benign essential hypertension Essential hypertension, benign [...] note No data available for this section [facility] Reason for Referral Specialty Diagnoses / Procedures Referred By Contac t Referred To Contact CT IMAGING Diagnoses Spinal stenosis of cervical region Procedures CT CERVICAL SPINE WO IVCON CT CERVICAL SPINE W/O CONTRAST MATERIAL Abdon Palacios MD [address] [place] [address] Ct Imaging Referral ID Status Reason Start Date Expiration Date Visits Requested Visits Authorized [id number] Pending Review Auto-Generat ed Referral 08/16/2022 09/08/2023 1 1 Specialty Diagnoses / Procedures Referred By Contac t Referred To Contact XR IMAGING Diagnoses Spinal stenosis of cervical region Procedures XR CERV OTHER 4V AP/LAT/OBL RADEX SPINE CERVICAL 4 OR 5 VIEWS Abdon Palacios MD [address] [place] [address] Xr Imaging Referral ID Status Reason Start Date Expiration Date V isits Requested Visits Authorized [id number] Closed Auto-Generate d Referral 08/09/2022 09/08/2023 1 [...] or prosecute any alcohol or drug abuse patient.[facility] the event this information is protected by the Federal Confidentiality of Alcohol and Drug Abuse Patient Records regulations: The Federal rules restrict any use of the information to criminally investigate or prosecute any alcohol or drug abuse patient.[facility] the event this information is protected by the Federal Confidentiality of Alcohol and Drug Abuse Patient Records regulations: The Federal rules restrict any use of the information to criminally investigate or prosecute any alcohol or drug abuse patient.[facility] the event this information is protected by the Federal Confidentiality of Alcohol and Drug Abuse Patient Records regulations: The Federal rules restrict any use of the information to criminally investigate or prosecute any alcohol or drug abuse patient.[facility] Reason for Visit (unrecogniz ed section and content) Reason Comments Established Patient Follow Up Specialty Diagnoses / Procedures Referred By Contac t Referred To Contact Spine Health / SPINE SURGERY Diagnoses follow up Procedures EST NI PATIENT Abdon Palacios MD [address] [place] [address] Abdon Palacios MD [address] [place] [address] Referral ID Status Reason Start Date Expiration Date Visits Re quested Visits Authorized [id number] Closed 08/09/2022 11/07/2022 1 1 Reason Comments Radio Main J1 Specialty Diagnoses / Procedures Referred By Contac t Referred To Contact XR IMAGING Diagnoses Spinal stenosis of cervical region Procedures XR CERV OTHER 4V AP/LAT/OBL RADEX SPINE CERVICAL 4 OR 5 VIEWS Abdon Palacios MD [address] [place] [address] Xr Imaging Referral ID Status Reason Start Date Expiration Date V isits Requested Visits Authorized [id number] Closed Auto-Generate d Referral 08/09/2022 09/08/2023 1 1 Reason Comments Flue Gas Analyst - Other Orders Reason Comments Results Reason [...] Care Teams (unrecognized sec tion and content) Library Supervisor Relationship Specialty Start Date End Date Silvio Crain [address] [place] [address] PCP - General Family Medicine 04/20/21 Yoni Sotelo [address] [place] [address] NI Referring Team Neurosurgery 08/22/20 Library Supervisor Relationship Specialty Start Date End Date Silvio Crain [address] [place] [address] PCP - General Family Medicine 04/20/21 Yoni Sotelo [address] [place] [address] NI Referring Team Neurosurgery 08/22/20 Library Supervisor Relationship Specialty Start Date End Date Silvio Crain [address] [place] [address] PCP - General Family Medicine 04/20/21 DevikamelIndira madsengee [address] [place] [address] NI Referring Team Neurosurgery 08/22/20 Library Supervisor Relationship Specialty Start Date End Date Silvio Crain [address] [place] [address] PCP - General Family Medicine 04/20/21 Yoni Sotelo [address] [place] [address] NI Referring Team Neurosurgery 08/22/20 Library Supervisor Relationship Specialty Start Date End Date Silvio Crain MD PCP - General Family Medicine 03/07/23 Library Supervisor Relationship Specialty Start Date End Date Silvio Crain MD [address] [place] [address] PCP - General Family Medicine 10/07/23 Kaia Scherer RN [address] [place] [address] Registered Nurse Family Medicine 12/11/23 Library Supervisor Relationship Specialty Start Date End Date Silvio Crain MD [address] [place] [address] PCP - General Family Medicine 10/07/23 Kaia Scherer RN [address] [place] [place] [address] Registered Nurse Family Medicine 12/11/23 Library Supervisor Relationship Specialty Start Date End Date Silvio Crain MD [address] [place] [address] PCP - General Family Medicine 10/07/23 Kaia Scherer RN [address] [place] [address] Registered Nurse Family Medicine 12/11/23 Library Supervisor Relationship Specialty Start Date End Date Silvio Crain MD [address] [place] [address] PCP - General Family Medicine 10/07/23 Kaia Scherer RN [address] [place] [address] Registered Nurse Family Medicine 12/11/23 Library Supervisor Relationship Specialty Start Date End Date Silvio Crain MD [address] [place] [address] PCP - General Family Medicine 10/07/23 Kaia Scherer RN [address] [place] [address] Registered Nurse Family Medicine 12/11/23 Library Supervisor Relationship Specialty Start Date End Date Silvio Crain MD [address] [place] [address] PCP - General Family Medicine 10/07/23 Kaia Scherer RN [address] [place] [address] Registered Nurse Family Medicine 12/11/23 Library Supervisor Relationship Specialty Start Date End Date Silvio Crain MD [address] [place] [address] PCP - General Family Medicine 10/07/23 Kaia Scherer RN [address] [place] [address] Registered Nurse Family Medicine 12/11/23 Library Supervisor Relationship Specialty Start Date End Date Silvio Crain MD [address] [place] [address] PCP - General Family Medicine 10/07/23 Kaia Scherer RN [address] [place] [address] Registered Nurse Family Medicine 12/11/23 Library Supervisor Relationship Specialty Start Date End Date Silvio Crain MD [address] [place] [address] PCP - General Family Medicine 10/07/23 Kaia Scherer RN [address] [place] [address] Registered Nurse Family Medicine 12/11/23 Library Supervisor Relationship Specialty Start Date End Date Silvio Crain MD [address] [place] [address] PCP - General Family Medicine 10/07/23 Kaia Scherer RN [address] [place] [address] Registered Nurse Family Medicine 12/11/23 Library Supervisor Relationship Specialty Start Date End Date Silvio Crain MD [address] [place] [address] PCP - General Family Medicine 10/07/23 Library Supervisor Relationship Specialty Start Date End Date Silvio Crain MD [address] [place] [address] PCP - General Family Medicine 10/07/23 Library Supervisor Relationship Specialty Start Date End Date Silvio Crain MD [address] [place] [address] PCP - General Family Medicine 10/07/23 Library Supervisor Relationship Specialty Start Date End Date Silvio Crain MD [address] [place] [address] PCP - General [facility] Medicine 10/07/23 Library Supervisor Relationship Specialty Start Date End Date Silvio Crain MD [address] [place] [address] PCP - General [facility] 10/07/23 Library Supervisor Relationship Specialty Start Date End Date Silvio Crain MD [address] [place] [address] PCP - General [facility] Medicine 10/07/23 Library Supervisor Relationship Specialty Start Date End Date Silvio Crain MD [address] [place] [address] PCP - General Family Medicine 10/07/23 (unrecognized sect ion and content) No Status Records FoundNo Status Records FoundNo Status Records FoundNo Status Records FoundNo Status Records Found INFORMATION SOURCE (unrecogn ized section and content) DATE CREATED AUTHOR 09/13/2022 [facility] DATE CREATED AUTHOR AUTHOR'S ORGANIZ ATION 10/15/2022 [facility] DATE CREATED AUTHOR AUTHOR'S ORGANIZ ATION 11/04/2022 [facility] DATE CREATED AUTHOR AUTHOR'S ORGANIZ ATION 11/17/2022 [facility] DATE CREATED AUTHOR AUTHOR'S ORGANIZ ATION 02/06/2025 [facility] d[facility] Specialists EPIC FOR RECORDS PERTAINING [...] BE BASED ON THE PRIMARY CLINICAL RECORDS. [facility]. provides no warranty or guarantee of the accuracy or completeness of information in this document.
--- NOTE | 2025-03-16 13:02 | CT_ITS ---
The [address] [address] Patient Name: ELÍAS SANCHEZ MRN: [id number] date: 1965 Sex: M Assigned Patient Location: CT Current Patient Location: CT Accession/Order Number: [id number] Exam Date: 03/16/2025 12:58 Report Date: 03/16/2025 15:46 At the request of: MARISELA CRAIN MD Procedure: CT lung screening low-dose CT CHEST WITHOUT CONTRAST, LOW DOSE SCREENING: CLINICAL DATA: A 59-year old current smoker COMPARISON: None TECHNIQUE: Noncontrast axial CT scan images of the chest were obtained under the low dose screening CT protocol. Coronal and sagittal reconstructed images were also submitted. FINDINGS: Mediastinum : Suboptimal evaluation due to low-dose technique. Thoracic aorta appears normal in caliber. Pulmonary trunk appears nondilated. No pericardial effusion. No lymphadenopathy. The esophagus is grossly unremarkable. Lungs: No focal consolidation, pneumothorax or pleural effusion. Trachea and distal airways appear patent. Diffuse bronchial wall thickening. Bibasilar atelectasis/scarring. Tree-in-bud nodularity involving the lower lobes likely related to bronchiolitis. No suspicious noncalcified pulmonary nodule or mass. Upper abdomen: No acute findings. Bony thorax and chest wall: Soft tissues surrounding the chest wall demonstrate no acute findings. Osseous structures demonstrate degenerative change. CT/CT lung screening low-dose IMPRESSION: NO SUSPICIOUS PULMONARY NODULE. LUNG - RADS Version 1.0 Assessment: Category 1, Negative (No nodules and definitely benign nodules). Management: Continue annual lung screening with LDCT in 12 months. Impression dictated by: Elías Erwin Jr., D.O. 03/16/2025 3:46 PM Dictation Location: [place] [address] Electronically authenticated by: [id number] Y Date: 03/16/2025 15:46
== END 2025-03-16 12:49 | disposition home or self-care (01) ==
LOC: CT 12:48
PROVIDERS: PCP Family Medicine; Visit Provider Family Medicine
DX: F17.210 Nicotine dependence, cigarettes, uncomplicated (principal)
CPT/HCPCS: 71271